=== PATIENT | female | born 1955 | race Caucasian/White ===

== ENCOUNTER 2024-06-12 07:17 | Outpatient (RCR) | payer MEDICARE, SELFPAY | END 2024-07-24 09:56 | disposition home or self-care (01) | LOC: PT 07:17 | DX: M25.551 Pain in right hip (principal) | CPT/HCPCS: 97110; 97140; 97162 ==

== ENCOUNTER 2025-01-13 11:14 | Outpatient (OUT) | payer MEDICARE, SELFPAY ==
--- NOTE | 2025-01-13 | XR_ITS ---
The [place] [id number] Patient Name: JOSEMANUEL DAVIS MRN: [id number] date: 1955 Sex: F Assigned Patient Location: Current Patient Location: Accession/Order Number: [id number] Exam Date: 01/13/2025 11:59 Report Date: 01/13/2025 18:09 At the request of: MAC TURPIN Procedure: XR femur LT 2V EXAM: XR femur LT 2V HISTORY: LEFT FEMUR PAIN COMPARISON: Left hip radiographs 01/13/2025 TECHNIQUE: 2 views of the left femur. FINDINGS: Redemonstration of intact fixation hardware related to left intertrochanteric left femur fracture. No acute fracture or dislocation. There are degenerative changes of the joints and osteopenia. The soft tissue are grossly unremarkable. XR/XR femur LT 2V IMPRESSION: No acute osseous abnormality of the left femur. Electronically authenticated by: AVILA NAYLOR Date: 01/13/2025 18:09
--- NOTE | 2025-01-13 | XR_ITS ---
The [address] [address] Patient Name: JOSEMANUEL DAVIS MRN: [id number] date: 1955 Sex: F Assigned Patient Location: Current Patient Location: Accession/Order Number: [id number] Exam Date: 01/13/2025 13:05 Report Date: 01/13/2025 17:50 At the request of: MAC TURPIN Procedure: XR elbow LT min 3V EXAM: XR elbow LT min 3V HISTORY: LEFT ELBOW PAIN COMPARISON: None. FINDINGS: 3 views of the left elbow were obtained. There is a transverse fracture involving the radial neck with sclerosis and blurred margin of the visible fracture line. The articular surface appears smooth in contour. No dislocation. No significant joint effusion. XR/XR elbow LT min 3V IMPRESSION: Healing radial neck fracture. Electronically authenticated by: MAC HARPER Date: 01/13/2025 17:50
--- NOTE | 2025-01-13 | XR_ITS ---
The [address] [address] Patient Name: JOSEMANUEL DAVIS MRN: [id number] date: 1955 Sex: F Assigned Patient Location: Current Patient Location: Accession/Order Number: [id number] Exam Date: 01/13/2025 11:20 Report Date: 01/13/2025 17:49 At the request of: MAC TURPIN Procedure: XR hip LT 2V w/ pelvis EXAM: XR hip LT 2V w/ pelvis HISTORY: LEFT HIP AND PELVIS PAIN COMPARISON: X-ray right hip 06/07/2024. FINDINGS: Single view of the pelvis and 2 views left hip were obtained. 2 views left femur were also obtained. There is background of demineralization. SI joints and hip joints appear symmetric. Pelvic ring appears intact. Mild degenerative changes noted in the lumbar spine. Several rounded calcifications noted in the pelvis which appear similar to prior, likely representing phleboliths. Dedicated left hip demonstrates postsurgical findings of ORIF left hip fracture with intramedullary nail, 2 hip screws and distal interlocking screw in place. Distal femur appears intact. Degenerative changes noted of the knee. XR/XR hip LT 2V w/ pelvis IMPRESSION: Postsurgical findings of ORIF left hip fracture. Electronically authenticated by: MAC HARPER Date: 01/13/2025 17:49
== END 2025-01-13 11:15 | disposition home or self-care (01) ==
LOC: EC 11:14
PROVIDERS: Visit Provider Orthopaedic Surgery
DX: M25.522 Pain in left elbow (principal); M25.552 Pain in left hip; S52.135D Nondisplaced fracture of neck of left radius, subsequent encounter for closed fracture with routine healing; Z98.890 Other specified postprocedural states
CPT/HCPCS: 73080; 73502; 73552

== ENCOUNTER 2025-01-21 09:55 | Outpatient (RCR) | payer MEDICARE, SELFPAY | END 2025-03-06 07:21 | disposition home or self-care (01) | LOC: PT 09:55 | PROVIDERS: Visit Provider Orthopaedic Surgery | DX: S72.002D Fracture of unspecified part of neck of left femur, subsequent encounter for closed fracture with routine healing (principal); M25.552 Pain in left hip; M79.605 Pain in left leg | CPT/HCPCS: 97110; 97112; 97116; 97163 ==

== ENCOUNTER 2025-02-10 10:30 | Outpatient (OUT) | payer MEDICARE, SELFPAY ==
--- NOTE | 2025-02-10 | XR_ITS ---
The [address] [address] Patient Name: JOSEMANUEL DAVIS MRN: [id number] date: 1955 Sex: F Assigned Patient Location: Current Patient Location: Accession/Order Number: [id number] Exam Date: 02/10/2025 13:10 Report Date: 02/10/2025 13:12 At the request of: MAC TURPIN MD Procedure: XR hip LT 2V w/ pelvis Left hip 2 views 1 view pelvis. Reason for exam: Left hip/pelvis pain status post surgery in October. COMPARISON: Left hip series 01/13/2025. FINDINGS: Left hip hardware is partially visualized on today's study without hardware complication. No change in alignment of the left hip fracture with interval sclerosis suggestive of healing response. Mild degenerative changes of the hips and SI joints. XR/XR hip LT 2V w/ pelvis IMPRESSION: Healing left hip fracture. Impression dictated by: Morgan Matamoros Jr., D.ORolly02/10/2025 1:12 PM Dictation Location: [employer] Electronically authenticated by: [id number] Y Date: 02/10/2025 13:12
--- NOTE | 2025-02-10 | XR_ITS ---
The [place] [id number] Patient Name: JOSEMANUEL DAVIS MRN: [id number] date: 1955 Sex: F Assigned Patient Location: Current Patient Location: Accession/Order Number: [id number] Exam Date: 02/10/2025 13:14 Report Date: 02/10/2025 13:19 At the request of: MAC TURPIN MD Procedure: XR elbow LT min 3V LEFT ELBOW - 3 views CLINICAL HISTORY: S52.125a closed nondisplaced fracture of head of left radius COMPARISON: Left elbow 01/13/2025 FINDINGS: No joint effusion. No focal soft tissue abnormality. Radial neck fracture is grossly unchanged alignment with fracture line less conspicuous suggestive of healing response. XR/XR elbow LT min 3V IMPRESSION: HEALING RADIAL NECK FRACTURE. Impression dictated by: Morgan Matamoros Jr., D.O.02/10/2025 1:19 PM Dictation Location: [place] [address] Electronically authenticated by: [id number] Y Date: 02/10/2025 13:19
--- OUTSIDE RECORDS SUMMARY | 2025-02-10 10:40 | XMS_ITS | CCD ---
Author Organization [facility] Care Team Providers Care Chain Tender Name Role Phone CAMILO, DR TANESHA Alexander Admitting Unavailable CAMILO, DR TANESHA Alexander Attending Unavailable MISC, DR ELMORE Primary Care Unavailable CAMILO, DR TANESHA Alexander Consulting Unavailable FELICIA COLLINS Consulting Unavailable ZHOU, DR ELMORE Primary Care Unavailable BERHANE ARROYO Admitting Unavailable BERHANE ARROYO Attending Unavailable DR MELODIE QUIROZ Consulting Unavailable MD Armida Greer II Attending Provider Armida Greer II Unavailable MD Billie Shafer Primary Care Provider [phone] DO Alex Doll Attending Provider Alex Doll Admitting Unavailable Alex Doll Attending Unavailable Billie Shafer Primary Care Unavailable Armida Greer II Admitting UnavailArmida Martin II Attending UnavailBillie Martinez Primary Care Unavailable Alex Doll Admitting Unavailable Alex Doll Attending Unavailable Billie Shafer Primary Care Unavailable Alex Doll Unavailable ROSITA CARTER Attending Unavailable ROSITA CARTER Referring Unavailable Billie Shafer MD Primary Care Provider BILLIE SHAFER MD Attending Unavailable BILLIE SHAFER MD Primary Care Unavailable BILLIE SHAFER MD Admitting Unavailable BILLIE SHAFER MD Admitting Unavailable BILLIE SHAFER MD Primary Care Unavailable BILLIE SHAFER MD Attending Unavailable BILLIE SHAFER MD Primary Care Unavailable Longo PAC, Justin N Admitting Unavailable Longo PAC, Justin N Attending Unavailable BILLIE SHAFER MD Attending Unavailable BILLIE SHAFER MD Primary Care Unavailable KEIRA DAVIS, BILLIE Hernandez Primary Care Unavailable KEIRA DAVIS, BILLIE Hernandez Attending Unavailable KEIRA DAVIS, BILLIE Hernandez Primary Care Unavailable KEIRA DAVIS, BILLIE Hernandez Attending Unavailable KEIRA DAVIS, BILLIE Hernandez Primary Care Unavailable KEIRA DAVIS, BILLIE Hernandez Attending Unavailable KEIRA DAVIS, BILLIE Hernandez Attending Unavailable KEIRA DAVIS, BILLIE Hernandez Primary Care Unavailable KEIRA DAVIS, BILLIE Hernandez Primary Care Unavailable KEIRA DAVIS, BILLIE Hernandez Attending Unavailable KEIRA DAVIS, BILLIE Hernandez Admitting Unavailable KEIRA DAVIS, BILLIE Hernandez Primary Care Unavailable KEIRA DAVIS, BILLIE Hernandez Admitting Unavailable KEIRA DAVIS, BILLIE Hernandez Attending Unavailable KEIRA DAVIS, BILLIE Hernandez Admitting Unavailable KEIRA DAVIS, BILLIE Hernandez Attending Unavailable KEIRA DAVIS, BILLIE Hernandez Primary Care Unavailable Allergies Allergy Classification Reported Allergen(s) Allergy Type Date of Onset Reaction(s) Facility (5 sources) nickel; Translations: [nickel] Drug Allergy 01-10-2023 [facility] Medications Current Medications Medication Drug Class(es) Dates Sig (Normalized) Sig (Original) biotin 2.5 mg oral capsule (4 sources) Start: 01-10-2023 take 5000 ug by mouth once daily Biotin Active 5000 MCG PO Daily January 10, 2023 12:00am Biotin Active Calcium (2 sources) Phosphate Binder, Calcium Calcium Active calcium carbonate 1250 mg chewable tablet (2 sources) calcium carbonat e (Os-James) 1250 (500 Ca) MG chewable tablet Chew 1 tablet in the morning and 1 tablet before bedtime. Active Calcium Citrate Malate-Vit D3 (Calcimate) 500-200 mg-unit Tablet (2 sources) Start: 01-10-20 take 1 tablet by mouth twice daily Calcium Citrate Malate-Vit D3 (Calcimate) 500-200 mg-unit Tablet Active 1 TAB PO Twice daily January 10, 2023 12:00am diclofenac sodium 0.01 mg/mg topical gel (3 sources) Nonsteroidal Anti-inflammatory Drug Start: 09-28-20 Voltaren 1 % Apply 1-2 grams to the affected area Externally 4-5 times a day for 30 days PRN Sep, Active Eye Vitamins - (3 sources) Eye Vitamins - a s directed Orally Active Eyepromise Restore (2 sources) Start: 01-10-20 23 take 1 capsule by mouth twice daily Eyepromise Restore Active 1 CAP PO Twice daily January 10, 2023 12:00am magnesium citrate 100 mg oral tablet (2 sources) Start: 01-10-20 take 100 mg by mouth once daily Magnesium Citrate Active 100 MG PO Daily January 10, 2023 12:00am meloxicam 15 mg oral tablet (5 sources) Nonsteroidal Anti-inflammatory Drug Start: 09-28-20 take 15 mg by mouth once daily in the evening Meloxicam Active 15 MG PO Every evening January 10, 2023 12:00am Multi Vitamin Daily - (3 sources) take 1 tablet by mouth once daily Multi Vitamin Daily - 1 tablet Orally Once a day Active multivitamin (Theragran) tablet (2 sources) take 1 tablet by mouth once daily multivitamin (Theragran) tablet Take 1 tablet by mouth Daily Active Multivitamin-Minerals- Lutein (Multivitamin 50 Plus) Tablet (2 sources) Start: 01-10-20 Multivitamin-Mineral s-Lutein (Multivitamin 50 Plus) Tablet Active 1 TAB PO Twice daily January 10, 2023 12:00am potassium 99 mg extended release oral tablet (2 sources) Start: 01-10-20 take 99 mg by mouth once daily Potassium Active 99 MG PO Daily January 10, 2023 12:00am potassium bicarbonate 25 meq effervescent oral tablet (2 sources) potassium bicarbonate (K-Lyte) 25 MEQ effervescent tablet Take by mouth 1 (one) time Active ubidecarenone 10 mg oral capsule (4 sources) Start: 01-10-20 take 1 capsule by mouth once daily Coenzyme Q10 (Co Q-10) 10 mg Capsule Active MG PO Daily January 10, 2023 12:00am co-enzyme Q-10 3 0 MG capsule Take by mouth Daily Active Problems Active Problems Problem Classification Problem Date Documented Date Episodic/Chronic Abdominal pain (4 sources) Left lower quadrant pain; Translations: [LEFT LOWER QUADRANT PAIN] Onset: 10-30-2021 Episodic Anxiety disorders (1 source) Anxiety disorder, unspecified; Translations: [ANXIETY DISORDER UNSPECIFIED] Onset: 12-09-2020 Chronic Diverticulosis and diverticulitis (2 sources) Diverticulitis of intestine, part unspecified, without perforation or abscess without bleeding; Translations: [DVTRCLI PRT UNS NO PERF/ABSC W/O BL] Onset: 11-02-2021 Chronic Essential hypertension (1 source) Essential (primary) hypertension; Translations: [ESSENTIAL PRIMARY HYPERTENSION] Onset: 12-09-2020 Chronic Fracture of neck of femur (hip) (1 source) Fracture of unspecified part of neck of left femur, initial encounter for closed fracture; Translations: [Fracture of unspecified part of neck of left femur, initial encounter for closed fracture] Onset: 12-26-2024 Episodic Osteoarthritis (4 sources) Osteoarthritis of right knee joint; Translations: [Unilateral primary osteoarthritis, right knee] Chronic Other aftercare (1 source) Encounter for removal of sutures Episodic Other connective tissue disease (2 sources) Trigger thumb, right thumb Episodic Other non-traumatic joint disorders (1 source) Pain in right knee Episodic Residual codes; unclassified (1 source) Other specified postprocedural states Episodic Unclassified (1 source) Trigger thumb, right thumb; Translations: [Trigger thumb, right thumb] Onset: 01-17-2023 Unclassified (1 source) Encounter for preprocedural laboratory examination; Translations: [Encounter for preprocedural laboratory examination] Onset: 01-10-2023 Unclassified (1 source) Pain in right knee; Translations: [Pain in right knee] Onset: 09-28-2022 Past or Other Problems Problem Classification Problem Date Documented Da te Episodic/Chronic Cardiac dysrhythmias (4 sources) Palpitations; Translations: [PALPITATIONS] Onset: 12-08-2020 Episodic Fracture of lower limb (2 sources) Closed fracture of talus; Translations: [Displaced avulsion fracture (chip fracture) of left talus, initial encounter for closed fracture] 07-23-2024 Episodic Other connective tissue disease (2 sources) Pain in left foot; Translations: [Pain in left foot] 07-23-2024 Episodic Sprains and strains (2 sources) Sprain of ankle; Translations: [Sprain of unspecified ligament of left ankle, initial encounter] 07-23-2024 Episodic Results Test Name Value Interpretation Reference Range Facility Coding Summaryon 01-28-2025 Coding Summary HTMLBase 64 WwugqownOYt5gPv+PGhl YWQ+RB3OOVTrA40hiVVu kL0mJ9JIXYmTZzobGKAM AShPMfJjvaCyEI9cuOLk ZXJu IC8+IP1vILIiGxzmjFNz x3S8sGE7P55ahp5kRItu yEG3GQZzNbFlypqvt5fe nUc6SZbgTfsdRqMf TDVtfG59NBQ5rF87Qf48 pTPxpHYgm9umuIe6KrHn XQXsSOH4qUxkNXedq3Ur WMFhN76noNBmp3M1 IGNvbGxhcHNlOyBlbXB0 lX6tGGzkgwrsh7qdshrr Hvy4ng02lKFkc0K8cOF0 O3EwjaH7JUOypDLp TentbLRWhU7lvhttw8nd zrzbPrFeQHVtDGk7DEx2 ZOUueCjrIuKuGQ65FHJ2 ZRFelkEuQ6HmMZZt jVgmApV6j9A1Rt8LI4II NbrpU4ICJDUCCEnndAJ+ VT32xq79L4WvElzbJsm3 BYTnOAQ0zRR3wI7o ZTWxZUnjr4Q7gPT0A4Ql igCrhq6hh3dlQJEuKDvp E13ymZLbw2J5TVFvwJK9 HEYedTnnGlHrrF88 Oyc+APUxjGcis9SuVpoi n9sqi0irqMb2MjbjZBNh oaYkpJapTRH1k2IuYb5m VYBtoDZ4hSW7hZ7n KuWgTzI1VYinE669SgJc hJJjVxwhQ49bX1NpkDP+ KCLbWks7BGDjxPfwMB5t M7YsEIKawnvkfEIu vBlfHC6aCCFgypqzIWQz lO1lNEJkB1f0NnLxLsR1 UTinM8UvQCKllbadSh30 eN2xTyNhOpZ1CZxu X7DzpkH6MEQapDHaFIkd OPY1D66ab3D1JLFtXCKz FAX5iCY9aU3rqYyjyomb bGVmdDsgdmVydGlj GDawAJpbM136JMRmrMdv PkNvZGluZyBEYXRlOiAg MDMvMDQvMjAyNTwvdGQ+ WTGzMNA5yYwjLBJq dDBiELhbWc7ewLvznRev HG6hIIEfyxrpASMbcE4j NSYjiXWnlZgnUJ9tUBCn xtopk355EtFsWJY6 YRKmxDZdI1SrmM7aEyOv HQHeUCFfJ9LiiQQxMSzd G406EIyiPwH4LCYsucSj U1OcKIGfnQxiCsV5 a9E6Fj3Nq1TbjnfqO5Zp jUJqTlSbEcqgMIz7P5Bz PjwvdHI+QY31AOMmAF43 DWo2RDQ8nJklADkf MFYxW2ZzbD5kPvHtEVEh ZGRkOyc+PHRhYmxlIHdp ZHRoPScxMDAlJyBzdHls JV0gAm6jATCfKUKh hAkvhBTtUpOzh3wzMJSn JAplYG0gfCzoK6TjlHM0 OOJzb0t6Wc23N19pM5Io dXA+YVCvjPC9kNX7 kS7oTnIzNdK5XYolD006 LyPwuFEuRvszt5fbc7zv kLp3NcJ1OPAmdjYjcDrx LVN0s8AyPi71K22q IHdpZHRoPSIxNSUiIHZh lUqrnq0uwO6uKn2+PGNv jCM3ePC4sV5fMrLdKtY1 MRdxX500EcFzyEBq Fugio6ucs0erzFi6XkIj OXJfhqYgoQfzPIR8l1Qe Yg25C1WmqPtsc4AiYss5 lr59lDBcm8B5rMD1 G1UfSPRvqfsqmIIyoZqu ED2yGIPysnbdRYShbU8g URTkS1f7EaRfCkH4JLcp S5PcrxC1LNEvxLBh PVDetFQHjP6fixyud7le bkhbByOfXFRcVQp4AFo2 LCRxpWxnJrIePZX0TkS9 GTW9mDStuD9raSnh ihbsfP6gAuq+QQE0lRZq oNLGGN8rUsegnSQ+PHRk ODQ3xLvlEAzrPOMgcR3v WTHoQ6t9NoQlGjL5 DQdqW4FtjjQ1QYUhfMFx GLQpkKOHvK8cygizi2iz vqaqDiQsAHDrFPs0JQq3 LWFsaWduOiBsZWZ0 KtV2BZP8cXXdlM3chGom xcupeL3tNvx+QmlydGgg YXU7LZk2O5FkXel0IEQm xPfoEA1wvOCkHWms Rh2oxJnhrKnhXM1bRFRe yybpm027EaFbm9niPJVz qKYxAHgmILJ7V28re1F7 KNHmQXZzZCO3uUQ8 zZ2luOrrjvdroOQswNey ijBolAzkYOhuYJiaK737 MQLpdSanBkRyUZp1S5My Afj2NDFjpPqjYP4h aWOnDZpoZy6bbWgsjJea NE6uHWVlnhxyt871JsPn c0ulNHRgyMGcILdbGIH2 I32zg2P7LAFkELXx GRM7lMC6fM8aeBsertto bGVmdDsgdmVydGljYWwt TFntE671AYCxuEldDvRq hQo5T1TmUrn8SRDl kQigQI2bcSCkFNjcPm0m cTfgeOsaYZ2yRMWijduz i540XoZkh2rvOVCxmCEt KKuxKBO5A60mm9A3 TDHoCMKgAIA8rJD0fH4q bGlnbjogbGVmdDsgdmVy gFvkMXkkETnxT397BLNq cDsnPlBhdGllbnQg GKipNWv7G8BtQdjhnPT+ US89DRKzAC96yEGzjHSq d6gmuRx9XrPaGBFjEIA9 wRouUKpey0PqYIEk K50svCBzz4C5TOHztMnu qOWpDuHawEU5mP8mFBfw lcrjl5laduvzSnzyv6ru xb18xR15A70jTDqz ZHRoPSIzMCUiIHZhbGln up6cwT2gZs5+PGNvbCB3 sXC6oG6wZAPaHvK8XAid U428UuBdcTOpNeur c8mrb1oyoAb3DlR0YRQf qaGzdLqhPVP5n8SaZn06 F21nSTjiXHVnXKFyXAFy JTEesAongj1nmZ9n Ii8+YMLxrPU3gIK2zQ7y YfHwIhQ0XWhrR735KhVi yMPuKildE32hE3XafYE+ ILXrDuw5OQRcjGtz YV7wuAVwCEazIg1zWAC1 PlFjPxMhNPhlP4LuQFCk kgnrilxsvWC1HDHyZLMw nS63Bs6szRolIBBn oYVBdJ6ubdjwl0cpnfez TfVdJDUsTCl3YXl3FDQx tTtuFwRdPYE6CqP2EDD5 aABewH9jeZibbedn bC6nV6ZuIDVdxkddJm88 vD0vOkUxWaX8DNnkTkl+ P33GTXUTPRLVQHuGEHQV YPBPX7E3Y4PuTqx6 XWHvqHkbMR8avTSvVRdd Sh5sfCihqApwJK4xWLCq zbjjEPNluE3sMGMvvSQa eIanOB2nYBBxgxcq u763WsNyQZJ8BOGedSYz X4JugQ4wJfHvDPFvXNYk M0SiiCEzMSotM290UDfh KeY2WPIjlkHsA3Ey WHEvkYetDpW5x1S4Ki1z Fi6iVN0qSJN5UT82HR76 nHOjg2V7sQE9Z7YhGPHq nvasrbrcdED5RZFa TORbeA97nKBoQYeoDo2v v2J3j092ONIxQMXjaD90 Uo3xrLnoLJAwuRRQvW9d tzxnj0ojvtqfUnZs DQMlTDf4RKn3XUJtlFnx YrMnCGG5UyV9NNW4sWHx vV6qkTczxesudO8xYen+ BwGqCMYowfM1F3Jd Yzc7XGVuiHuoLV0ofADp WUcwOg4pxSclcEgoMF4m LCUjxialHGOogL3pMBSh jHUkdMnuJF8vKLFt tlamm536SuLvAUA7OYCk tMTuA8CdzX8cWgXsDELk THHiW7LyrSUbEJivW465 UGwdQwY7DZLcaqBa S8OmWRPboMnjXjB2x9Q7 Sy9JVS9PLOB8W0MvDrk6 RWTxmFasOX0etNGnWIgg Ta4tiXzdeMibIV6e APAxbnxeDFAoxV0dMPZc iIRgjFfvZN1dKFAorkgx j827JyUcUBR8LVKbtHRb K6QmsG9uDaYeLKRa TLKtG6IvbITjJHkhK690 QXnvOhS9UDWdieMhY7Vl QMKdoUjyFaZ4i9K8Hw4B UDwvdGQ+ZE72ku75 J3JeResrIwh5GQQpCOY6 oWD9yU3tDDTnILfjy8T3 oEU5F7LukuLsor3ys0gy JSHwJYflM84jzUYa d5A5JFQowSQ7KVMtwRsj BeOewU23Acz+PGNvbGdy e0KvJnoyj8toh1yowBq4 IjMwJSIgdmFsaWdu XJA7n2InVz71N21sSGgl ZHRoPSIzMCUiIHZhbGln wh6zcL4sZc4+PGNvbCB3 sAW1rP0jHjMiXeV2 XMfaT208UlCueJDdHytr a2lol6fwcOb2KxDgAZFz vvZygOrxJDQ0v7KsXy42 M6YyoHygu3TfUpu1 da74vULeo2V1tQY2E3Ai EAUmdvxleBFsiKqyTV6r JILolmszAFNmbZ3tSFEy W9w4DeBvIlI4WYkd I4ZgdgV9VZSscFSmKPTy ySSKtU6bcakpo8eqhkbx PqInDTZfCYp6CMp2ZOTl aOsqVgGvVEB7XhF1 CIH6rDSxmN7ooXtaszgw mN0eCjh+TOe1i9kekEMt GU7nwXF5HC98OG28sGYw i3L0nKZ2Y1WlIGEg xcfsnyeutLB1OWLeZUOl wC29Kj6pxJlaXm2iTBKl FRN6FAPtsWUmB5PyiZ9p UeGgQNPyEACdX4Um wHOlKVuoY434DFncDbH9 GZEwkrMxC6OdZRTccGft ScU9h0T5Br3OCT05HK39 GI07rUTeq6C6mLH0 G7SkPXOksepcqtqytKY5 KOSrBBPngF65Bk8crJxi Ts9aFVYsJTI5PFZtnDUn D4VwmQ7dIxCqLDXm OVFhB3ZwwTWcEBfhD222 QEaeGsS9VGUpanFnR8Qs OCRawKmsHzA7u2W2Ic2A Ob21AH20XQ90oDZs s8G8lCW4X9RaJZXkiguq fpztyYO3VLIeQPXqvQ60 Lv0cgBoyJs5iOEItNSZ0 POUwaXIfO8KviK2z WyAlGZMxIORtH1AwsJYl JHvpS402QEtlCxW7DCAb vcYkV7FzQLRvtAhjBtD6 o7O2Wc1OWDsiafr7 J3CyQlnqxNY+YT78SXZy IS35iTLhoJLsk2hgrWu5 NgOlUXJwPOR3tLvuDNwx f6ArGAAdZ44dcHEf c2U (more content not included)... [facility] Outside Recordson 01-21-2025 Outside Records [id number] [email or web address] [facility] Ambulatory Patient Summaryon 01-20-2025 Ambulatory Patient Summary [address], [address] - Visit Summary For CLAUDINE DAVIS Age: 69 years Sex: FEMALE : 1955 Address: [facility] [place], [address] Home: Work: -- Primary Care Provider: BILLIE SHAFER MD Race: White Ethnicity: Not or Language: Kitt[place] Health Plan: 1?MEDICARE, 2?[employer] AAR, 3?MEDICARE Reason for Visit: Pt. comes in with abdominal pain Prescription Information: If you have been given a prescription for narcotics, seek immediate medical attention if you have any difficulty breathing or any sudden status changes such as confusion and sleepiness. If you or anyone you know is experiencing suicidal thoughts, mental health, alcohol and/or drug addiction problems; contact the [facility] 19/06 Crisis Hotline -Text 4HOPE tt [phone]. Follow-Up Information Future Appointments No Future Appointments Scheduled Future Orders No future orders Additional Goals and Instructions: Vitals and Measurements this Visit (last charted value for your 01/20/2025 visit) Vital Signs This Visit Temperature Temporal: 37.4 DegC Peripheral Pulse Rate: 78 bpm Systolic Blood Pressure: 136 mmHg Diastolic Blood Pressure: 78 mmHg SpO2: 97 % Measurements This Visit Height/Length Measured: 160 cm Height/Length Measured (inches): 62.99 in Weight Measured: 76 kg Weight Measured (lbs): 167.551 lb Weight Dosin.000 kg BSA: 1.84 m2 Body Mass Index: 29.69 kg/m2 [place] Body Weight Calculated: 52.382 kg BSA Measured: 1.84 m2 Diagnoses This Visit Diverticulitis (K57.92) Laboratory or Other Results This Visit (last charted value for your 01/20/2025 visit) No Laboratory or Other Results This Visit Medications and Immunizations Administered During This Visit No medication administered during this visit All Known Current Prescriptions and Reported Medications New Prescriptions this Visit amoxicillin-clavulan ate 875 mg-125 mg oral tablet (amoxicillin-clavula elijah) Take 1 tab(s) Oral (given by mouth) Every 12 hours scheduled time for 10 Days, 0 refills authorized Flagyl 500 mg oral tablet (metroNIDAZOLE) Take 1 tab(s)(500 Milligram) Oral (given by mouth) every 8 hours. for 10 Days, 0 refills authorized Prescriptions No previous prescriptions documented Home Medications Calcium 500 mg-vit D 400mg (calcium-vitamin D) Take 2 tab(s) Oral (given by mouth) 2 times per day celecoxib 100 mg oral capsule (celecoxib) Instructions: TAKE 1 CAPSULE BY MOUTH EVERY 6 HOURS NEEDED FOR PAIN- WITH FOOD OR MILK CoQ10 300 mg oral capsule (ubiquinone) Take 1 cap(s)(300 Milligram) Oral (given by mouth) every day eye vitamin and mineral supplement (multivitamin with minerals) Multi Vitamin+ (multivitamin) Take 1 cap Oral (given by mouth) every day POTASSIUM OTC (Misc Prescription) Instructions: daily psyllium Take 5 cap(s) Oral (given by mouth) 2 times per day Tylenol Extra Strength 500 mg oral tablet (acetaminophen) Take 1 tab(s)(500 Milligram) Oral (given by mouth) every 4 hours. as needed for pain Normal [facility] Coding Summaryon 01-20-2025 Coding Summary HTMLBase 64 KlrfzndbSUp7tWk+PGhl YWQ+EG5SUEJcC82vmQJt sO2fA6ZWFFoXZdrbIFIV HBlRBgSbcyHpQY7hoMRu ZXJu IC8+VO0hOERbBbspkATg h0S6cZH8V06rju9sCTsj hJT8OIRqDsCjsjsqp3ji qIt3SWuuOerqXiGd SJTamQ01NVY8cY10Zn88 iGPdbIVcc4ylgUd4SwYr ZFVnLGT4aAxjVZrqq8Ho TABkU52evOWle1I4 IGNvbGxhcHNlOyBlbXB0 vF1nJAbbvovxr2yxsagh Mwf2bl40wKYps4O8dCN1 T4QwbwV3FZVteHYl TonwcSFOiP4tdkzad1tl vcmtDrJcCZYeVPu4LKj4 SMModTkgVyLnMW52YLN8 XHBqohKzK6TgLSHn nVisQsO5f4D5Ns1ZC8QU BnavA9BLUIIEGQpsmTA+ OR06hi93M6XzOhakHwi0 MUJvDID6fCE5fE5f NXRkGKvhn7L8cEE9E0Nh nxDqvl1rh9woCAGvTEvv X26zoHDft0U7EFSszOG3 BFMagFplOjGnoN77 Oyc+KYNtyEttc7OqRibk u0qgx3iesDx7XpqrJETa zvYvkMznCRI9o9MwZo6x MMLegUN8qMT3cC9i YzXiYkB4SZleZ808PsFg jLUwGzwnA67pZ4VjgQK+ JDFjDpj7QOAhqOuxQC0n L9HsKNRsjfsppTMc fBafTM9qQJAyajatVWGk iQ9qVQTkX7v9SmUrBvI4 XQhrU0AnDIUnmhduKy67 gI4aZiKcRsS1JIug E8WutwY8FKAnrHFaTKea CIS9C21ti5G1YLBgAWOa MPV2sAW8nK9nhXibdddw bGVmdDsgdmVydGlj BUmpVPnbZ876THLnsSxt PkNvZGluZyBEYXRlOiAg MDIvMjQvMjAyNTwvdGQ+ QXWoORN5nJosVXMx aITwRBoaIs1htSimiCee UV5gCVFvwbwjWYTuiD4c EXMtfTCpjMvoZV0cPXNm eyvmw781TlMoGGF0 ECDtmOOwD4RgfV5jPrAd RRLgZPJiT2YodNWzMOzb U668PIeiNpM6ZZFkpaNj V0DoHGChjApaWrD9 x6S9Ki3Zz0RkjycrC1Su xKHoBaSoSkqaUYx5A9Lq PjwvdHI+FM57YBWsYJ91 FKl8IIP3xBwvZTbn FITrO6EirK1iYiYlLVBg ZGRkOyc+PHRhYmxlIHdp ZHRoPScxMDAlJyBzdHls ZO4dMk3bWMUkAIAu jYorqYRnNtNwx0zoASOi VClwQT4mdJmrH4VbnKD8 YHFil2o6My63Q03kH2Bg dXA+NQRztON6kJH2 eL3lElItHgA6RMhpE296 AvGkhLAaMedrw2lli5ui oBg0ZkK3TSJwrxPliAyw PXG9q5GyEr59U59h IHdpZHRoPSIxNSUiIHZh kNtswc1qpL1nYi5+PGNv aQU4dUZ0rK3oGaOcRtQ0 AOycJ505BbNfzKLq Xxlml2cjz2ejdGv4YmQm GCFfwtIqqTgwXKC8j6Ih Ko25A9KfzRrdo5ClPxm2 lm79cRDgw4I4tZL3 B9CwNQQiupgvrPCjsYwu DK3uERWgfzciKBWgsC6q NCReX2e8UaZdWdV3VRsl X4FsebX5AJNroFHu OFSphOHWbC4jmpfkp8gh vfwcPjXfCYPuGVe8VFn5 SILghBbfSsXkMNA6HmQ0 UTY9lJSwbU5vmEbn ksovwE7iOny+BEY4zEUv gEYBQF5zHzwoaMD+PHRk NRA3qAgoCMwsKCYzjF7d OLIyE5y6GaUuFuF8 OPyqD3KeleP5JEJnoBIh LIJwmIDCgE7ibvfge2df trxwZcUpAKUnELr7DDk7 LWFsaWduOiBsZWZ0 ZvO8IPN2vLObeJ7ndZyf orbetI2lOoa+QmlydGgg KLF0DXm6Z7PwZik4SUQo aYclSZ3cxEJpEIls Qw2egXgehGozWP9aXSDh nmghu261UuVyh1mpDKFi pQVuWXdsMXM2F72tm8Y0 EONlBEQlMTB8uOH5 fF9reWjkgvdwaLQiiTcw xmHamGpdNXqvSUjzI219 GYGpxAknVkXrHIs6E1Qx Ahi7HKTjjAsvUA9w wOHsBZftYy4mwGpzcCba IN4tPYDxqxupi107GeUj n9lkUSRraEUrJGypPWP0 X62xj1H6VBFfKTJw LII3cAG9qQ8kjVvsgpkn bGVmdDsgdmVydGljYWwt WAegU742AMOkfZvqXxHp lZx0B9LsXoq0IBMj eTvqUG5tjDDwQCgmAu1t bSrszJhzFA6eCSCnxfyz o548SsKhe9vePTTizUPl VBawUJP0Z97ow0P2 QYZtDKVnLKS0tUH7tZ2y bGlnbjogbGVmdDsgdmVy xNexBOsoSFsnV145VNJm cDsnPlBhdGllbnQg BKmaLAc5G4OtEawymAA+ IQ75HRXmZY76aVErnMZn v9duxFq2YrWuMBBjHTT5 yErnFKfez3EgBBPc N04frIMun6N4IRBjrOce aCZkQeNvvRE7zA4vZHlw oynbc1ighfyyHimbe7bx sg39mS13E17rVGxt ZHRoPSIzMCUiIHZhbGln fp7drP0yEl5+PGNvbCB3 lAS4wR7dNKAwCjX1EBbt W487PoQdcIDeViwx u7vsi7yauHo3CuF0UCRb spRujFlkGAP8g6YzFc44 D55pRHidOKVeFOGkGEBw MMXolPfock6daK8r Ii8+CYXuiST0sUQ5kD7q XsPiLwS3SOffV321HlNl fUJoZpbaB34sV0TrtGT+ XLRaUct1MAJtdUmj PY4dlKOlEZesNs0hIXZ9 FdEzEdBqLQpeR8ExPFWr ziyfnaalbNX4NSZwFMAu rA45Ch6hdUfnIYDj pOLQzJ7zcireu9gshqil TaTqNHCrRLn3BPm7YGHj qAygJyZlNIU2VxW4XEF5 zRNaeA5skRbnkqqp nS6dQ3HiTZGecqmvTg66 sC0bMoJpGjO7TJrvTer+ N54DMUILUUXHZHkRZDUI UOLIF7Z4V8DeRut8 MVCtcIaaHG9bmIJjKKiq Qj5fiNgblGkuVM9tEZLj yqusTFUeoJ1aWCSbnHHs zLlrIH0zPJExycig h504JlBdYLS3GTNjvRSt M2LzsV8iKvJxRZXoSYYt A2VwdVJwGNktQ978UOsi EsI6IARocrIoO8Hz NIDzfYiqFbS3e1V2Nl6y Rw8qTF7nBHK2OF42QT70 sUXfu6P3qAQ4F0BgNXRb gglusuhvgFB4RRQx BXZwhC28eNKvYTakXl6e x4X9m378LBFyKJYkpI02 Gs7quRswXAVdeAABnW9j yfjyr5gneldtOlIl UTWoFLp3UGe6RPKruCud LyVmPPW9YtG7VAP8qSZx vC3tzFwivttrpT6oCif+ MhCwCLHtlzP4E9Xm Fzr6OSApuFuhRM3fuAOt RTifQf5bxUcrsXbfEK0g FGYkfugzZKLpwW5yMBLg wRPduQliST5hSCYh mhiwo390LsXmRZC2NWHd mMCzZ6BblJ3cLsUlOPWn QZDjL8XdoBDqOFweJ277 FMeaNoH6ZLFkutLe Q9UzRNHiaAmbVkT7i7M3 Rf5HAA6ARTL6H1MvKyk7 VVCqxRqoFS7ybKIiTLew Jj5rsLhljLvbWS2j DYXuhqbzHHOgoF5fVLHi zWMzwCxhMU6yCECmiseo z559HrUzQSD1UPHjrEEh Y3PmdX9cPxUqVYTn MBSxJ2KowOGbQMllG138 AMsxUmC5OIKwkwOqP5Fa GNLikQilMtQ1c5N2Rd7N UDwvdGQ+RH43bc62 B1SzEcbyDun9RVMzIJQ6 qFF1cD7hUCIcBVdig1G8 sIT2F5RewsYzfo2wj6ru EMBpCEwwC19zuYEe h1L2IRMfvZD9ZGUimBbv UqNiwO36Dza+PGNvbGdy z3CnPfzig3iqa2tpxSu5 IjMwJSIgdmFsaWdu HGR0c3DgCi33S54cVCui ZHRoPSIzMCUiIHZhbGln oe7alQ8pVc8+PGNvbCB3 mSU1lY4mSfMoKrX1 ISflA743IpJsdYWfDqst d9rmv2insNx1QnXpBYEj rhVnkUmaWJQ5w8NgMi51 J0HvdXeyb2PnErc3 wq29jYMrp9G0sIB4R7Ay CACbunikyIXzqXlqKD3r YVYnavbvYIJvaY3gJPSl T2t8SpPsJyL9JMla E9LbgyT8FEDbhAItSRSx dEBLaB9cqwlzx2mplnlj BwZaTSYdIXb7GVa5YPLi yGwcKlOtEWY5AsF1 GSM5tBGbfG1fuSzzkwti xA5cAeh+AJy7i6hleTIf QY5faFC1BY80IT95oNQs o9I2qIC0V5KpWSJl mtavpychyUV3PSNcGYCe iD34Ya1mhUkcZc7yUFDs KTL1CYPicSDfQ9HxgA2b IdSvYPGqDZEbD2Vo cXDaDUfxT194IBmxYaS4 RBOstyJzV6HmVDSilIpb JhM0x4I0Be6XDE33GX43 TG25mSLsa6U6oUR3 J1PyZWHzuaqpdqtvxLM1 ZGIbLKBspJ48Cf6inFmr Vc5iDLBjYDY3BJHxhZWg G0RprP8xOnFgSKWj WPPvM4HiyJKtPUflJ859 AFstPnJ3XLPifkMvK1En SJExsFrbJmA4u5Z7Kp9B Gd51CX82SZ45nXDo r7L4jEJ8U8TnDQNnzknw bulpkHD0FFViAZVmnO72 Ab0vvAlvEu6xFUWkURM4 WVPbsJWlU0NztF7h CzAnGKJjEELbK7QzmWCl STkoD894UDgfMfG4TEFz itQxK1LeMWItoCsxZvU3 n2M8Qe8WCWmxcgj1 H0EgNfjsxZT+ZS23MAAf VG79fUMrjMKpn4lfmLp6 KkEkARLaEND8sFbbTAtj n8QaUCPvT78ezZTp c2U (more content not included)... Normal [facility] Patient Handouton 01-20-2025 Patient Handout Gastroenterology Diverticulitis Diverticulitis happens when poop (stool) and bacteria get trapped in small pouches in the colon called diverticula. These pouches may form if you have a condition called diverticulosis. When the poop and bacteria get trapped, it can cause an infection and inflammation. Diverticulitis may cause severe stomach pain and diarrhea. It can also lead to tissue damage in your colon. This can cause bleeding or blockage. In some cases, the diverticula may burst (rupture). This can cause infected poop to go into other parts of your abdomen. What are the causes? This condition is caused by poop getting trapped in the diverticula. This allows bacteria to grow. It can lead to inflammation and infection. What increases the risk? You are more likely to get this condition if you have diverticulosis. You are also more at risk if: ? You are overweight or obese. ? You do not get enough exercise. ? You drink alcohol. ? You smoke. ? You eat a lot of red meat, such as beef, pork, or reis. ? You do not get enough fiber. Foods high in fiber include fruits, vegetables, beans, nuts, and whole grains. ? You are over 40 years of age. What are the signs or symptoms? Symptoms of this condition may include: ? Pain and tenderness in the abdomen. This pain is often felt on the left side but may occur in other spots. ? Fever and chills. ? Nausea and vomiting. ? Cramping. ? Bloating. ? Changes in how often you poop. ? Blood in your poop. How is this diagnosed? This condition is diagnosed based on your medical history and a physical exam. You may also have tests done to make sure there is nothing else causing your condition. These tests may include: ? Blood tests. ? Tests done on your pee (urine). ? A CT scan of the abdomen. You may need to have a colonoscopy. This is an exam to look at your whole large intestine. During the exam, a tube is put into the opening of your butt (anus) and then moved into your rectum, colon, and other parts of the large intestine. This exam is done to look at the diverticula. It can also see if there is something else that may be causing your symptoms. How is this treated? Most cases are mild and can be treated at home. You may be told to: ? Take pdpz-pan-wngmkjk pain medicine. ? Only eat and drink clear liquids. ? Take antibiotics. ? Rest. More severe cases may need to be treated at a hospital. Treatment may include: ? Not eating or drinking. ? Taking pain medicines. ? Getting antibiotics through an IV. ? Getting fluids and nutrition through an IV. ? Surgery. Follow these instructions at home: Medicines ? Take utcs-uon-nvlybuq and prescription medicines only as told by your health care provider. These include fiber supplements, probiotics, and medicines to soften your poop (stool softeners). ? If you were prescribed antibiotics, take them as told by your provider. Do not stop using the antibiotic even if you start to feel better. ? Ask your provider if the medicine prescribed to you requires you to avoid driving or using machinery. Eating and drinking ? Follow the diet told by your provider. You may need to only eat and drink liquids. ? After your symptoms get better, you may be able to return to a more normal diet. You may be told to eat at least 25 grams (25 g) of fiber each day. Fiber makes it easier to poop. Healthy sources of fiber include: ? Berries. One cup has 4?8 g of fiber. ? Beans or lentils. One-half cup has 5?8 g of fiber. ? Green vegetables. One cup has 4 g of fiber. ? Avoid eating red meat. General instructions ? Do not use any products that contain nicotine or tobacco. These products include cigarettes, chewing tobacco, and vaping devices, such as e-cigarettes. If you need help quitting, ask your provider. ? Exercise for at least 30 minutes, 3 times a week. Exercise hard enough to raise your heart rate and break a sweat. Contact a health care provider if: ? Your pain gets worse. ? Your pooping does not go back to normal. ? Your symptoms do not get better with treatment. ? Your symptoms get worse all of a sudden. ? You have a fever. ? You vomit more than one time. ? Your poop is bloody, black, or tarry. This information is not intended to replace advice given to you by your health care provider. Make sure you discuss any questions you have with your health care provider. Document Revised: 08/10/2023 Document Reviewed: 08/10/2023 [employer] Patient Education ? 2023 [employer]. [facility] Outside Recordson 01-15-2025 Outside Records [id number] 0#1.00OTGTIFF [facility] Hemogram Standardon 01-14-20 25 Erythrocyte distribution width (RBC) [Ratio] 15.7 % High 11.5-15.0 [facility] Comment on above: Performed By: #### 1 [id number] ####[facility] (DEFAULT)[address] [place] [address] 13186 Hematocrit (Bld) [Volume fraction] 37.9 % Normal 33.7-40.4 [facility] Comment on above: Performed By: #### 1 [id number] ####[facility] (DEFAULT)[address] [place] [address] 38357 Hemoglobin (Bld) [Mass/Vol] 12.6 g/dL Normal 11.3-15.9 [facility] Comment on above: Performed By: #### 1 [id number] ####[facility] (DEFAULT)[address] [place] [address] 93598 MCH (RBC) [Entitic mass] 27 pg Normal 24-34 [facility] Comment on above: Performed By: #### 1 [id number] ####[facility] (DEFAULT)[address] [place] [address] 14709 MCHC (RBC) [Mass/Vol] 33 g/dL Normal 26-[address] [facility] Comment on above: Performed By: #### 1 [id number] ####[facility] (DEFAULT)[address] [place] [address] 22990 MCV (RBC) [Entitic vol] 82 fL Normal 81-100 [facility] Comment on above: Performed By: #### 1 [id number] ####[facility] (DEFAULT)[address] [place] [address] 84708 Platelet 248 x10 Normal 138-427 [facility] Comment on above: Performed By: #### 1 [id number] ####[facility] (DEFAULT)[address] [place] [address] 51137 Platelet mean volume (Bld) [Entitic vol] 7.6 fL Normal 6.3-10.2 [facility] Comment on above: Performed By: #### 1 [id number] ####[facility] (DEFAULT)[address] [place] [address] 32891 RBC 4.64 x10 Normal 3.70-5.30 [facility] Comment on above: Performed By: #### 1 [id number] ####[facility] (DEFAULT)[address] [place] [address] WBC 4.8 x10 Normal 3.5-10.5 [facility] Comment on above: Performed By: #### 1 [id number] ####[facility] (DEFAULT)[address] [place] [address] Coding Summaryon 12-31-2024 Coding Summary HTMLBase 64 EptchuhmJVl6vOh+PGhl YWQ+FR2CHZGzM46raCTd mF3bO0SJIGaCVynjFOSJ PJzUJiIdbiIsAS2jfKGd ZXJu IC8+DC1iAXHbNhdkjGWp x1R4cFU2A28nqc6yKSyr hBC4CSJqIhTpamijy0yj lVn7IFobOpzlJhQp CYKriC08QOQ4eC04Xu67 tCPltOZhb9oodBk2RlVu XNCvEPZ8iTsnAGwtb6Da RTMnL12ujOYbp2S8 IGNvbGxhcHNlOyBlbXB0 oZ1wXAywffrgp9mgrggp Oqw7ih76oWAhk8J0gCL5 B9ZbzlL4IEIkrTUt KswfyBOBsZ5ylhwqt1hz nfvxSyWhRJOvZQo2RGt5 OOGjgUxkQiOmXG89SEP3 BAVhoiTvW6HjETMm nHdyZpI9i7Y2Yp8BR4FT VzivY5ECLIAHGQdfbPO+ UY96qx22C4YzPmuoSqi6 RDRkDFO2zLX8bU9f HUDvZNijm3Q5dNK6B6Ez mnHfto6sd7tgXOLgAPjn L34irGWsc5P7EYPwiXW4 IQYdbHvaWwViuT07 Oyc+CQFbrCdxl9XyYibu f9deu5jlqXp4GyfpZKRq xvXqyYqeWAL9n2AqEn7r HLTsmSX0mJY0kX1w MoBiIpI3ODwiY973EcTx bGQzPcxmN42zL4ZkaXS+ VBGdDim4QMZsrOcsLO1n U2QnFMGwhqvtkBXk vPtpMM7pPRMixuwdDPZn xN1rZKCyJ0m8UiDjQuK0 QMfaV3DcZSLiyujsKc28 yP1mPmRzRnW7RZex N7PjksL7SZKjdAOlKHbp SBY7J48xc5W8SVQkHVYa MZT9fAM4fC6ndGxcajic bGVmdDsgdmVydGlj YDsrRFgrQ561HTXicXtn PkNvZGluZyBEYXRlOiAg MDIvMDQvMjAyNTwvdGQ+ ELDqONC3bAuyPEXl cVYdBImvOp0lkWfziNfp RM8dMPOmlzntMEXouA1a VXDsjRGnrIedAB8hUAYi xbxgj617EhKyMHM3 ONIoaUFsV5LghV7bSxUe SFScIXMoY3MsaJGyIOak J933GVnsSvD6IYOacgAg X2MgRYRrsNmuCpY6 f4E6Ys4Dx8LslxxzL3Vu yWIcPvDoYlzsXEy7T4Wn PjwvdHI+XL19XTTxOB97 DBz0IUV8zDivHYuo UPTrA2KgrL8vIvZjYGJy ZGRkOyc+PHRhYmxlIHdp ZHRoPScxMDAlJyBzdHls WZ9eHc0rLFDvRDSl dSodhOMpBcUod0eaTPOy BWajOO8yrFjmM5VepBT5 ZSBeh9i2Tv10W17uJ0Sc dXA+NOOrmUQ1uXT6 sM9oRzJyQvK9GYmrR916 GxYloQLlTwocz4qjl0xd bQk2BaW3KOJljmUwaKqh KTI9i4RgTr57U24n IHdpZHRoPSIxNSUiIHZh oNapvo7szP0pOg8+PGNv lHD2sXB7aA8hUqMaRdJ3 QKnrA833LiFcsCYe Eksiq0lwq7inzCo7VjHl ZEXibhBrlNelBCL6j6Ku In00V5YbkYadv4DcPgw7 xt37uKCsn0B1nRC9 K2QkAKPtycaazLLaaKkd JK3yHSOeqdmxBMXllB9x NUArZ9t1WtSjAuC2UGed Q8JmiaA8CWGacAXt KXDfuMYGwM5ijcacv1ju hjukKrNhIZWqWXn7JWo1 TNWsqVuoDrRtXJN8FaI1 SRB2sCIoeY9ioDxw lhrdmG1iJft+CGU2lOOu gKERSW0bVfevfWH+PHRk GSJ3hYukNHyiUXPvnY5d IIKhD9e6GcRuRhU4 JIyzL0XamyG1MIAxmVGg UVFpuLBRfG6zfiohd5ai swvfVmDvLXZuGKi3WMg0 LWFsaWduOiBsZWZ0 MaE4IZM7nNGtwY1xhKoh ybpalE8pYst+QmlydGgg DQJ0INo3F0IvDtw0YMYw dDqrWI6ekDKuFOta Ah9aiYtthFnyYN9rTQZb gnfhe797JhBlr9ejFMPr gIEhRQuvKTN4U94dt7X0 OUQsLYChDJK2jQY5 eE0ibUqkylqdkKKidMlf dqLcgSccGZcaZNkqH108 QAXvuKuvBqPiNEa4M5Qz Ivz7UUFwzPeaBS3x pXJtQKraKq5uuHikvZpa BA7iDXGcdcyna372QwEb f0hvZSLtsAYmBAmjMMQ1 J33lg2N4JJNiLSWk ZPJ7jXR9pE9rjMxuxjgz bGVmdDsgdmVydGljYWwt IOmsJ937IDCizPrzWpOz jCg6Y5CmPiu7BLLc oTjrKY1llNTwGMnoTe7j zCxytGilZQ8oGXQxuonv h871TwJof4dgSVUpkJYc RXtrBFH5P43mr7N3 LPMtHDVkQJP4jTL5aQ6y bGlnbjogbGVmdDsgdmVy tIihUBfnVFzwC028XOZh cDsnPlBhdGllbnQg YErfJMq1L8HyWolhxFR+ QP09ORBvYM19rQBosTJm m6ydeOr2ZzYmDTFmIUD5 eFsiPCzha9NcDIPp D22pxPXwt5L8JFZddTgp xBNhLtDucPO1tH3rDJce plvra2zcpxvpCiyct5jm fc66bB47B22iUCim ZHRoPSIzMCUiIHZhbGln fp5djS1nWi5+PGNvbCB3 cEO0sL8mCCXtDfG6YHqr Q050EmFrdGHeAblp s4zmi1impNa5IeF4EZDl qiWfwAnfUAK5h8FpHm95 X00bVAvmAMFnUIZeXIAh XIMvyRsevd3dkX8h Ii8+BDWvgER6lWW6vS5y HnAbXkZ6MCsiF051XeXt dPGvWuxoH24nV7ZheRP+ IWFyQzs7LUVfxEob JX8bdFDyREnlOx9pXJU4 ZaWrReDjOIpuT8KjHHWd ieyyexylcVY5OMWiAOFv xG92Oy1ynVdkSZWv cNCQgS4tkgqbz9rtixhz QhMuPKTiMNg7OTc9DSNh aDndAtDoQUW0RcT3JLG5 bRPefQ3toHygqjlu uT3eT9WxAWFshwcxRs29 bE3oNdBrOhA8CYkuMek+ Y50VDQWMQIOQDPkILBGF WQIQL5D9E2QvUlw3 RIBavMpaEA7tuEXcRFfn Gh2aiDyqyKqnHA3uFALd whiySCJneI9oZAKfcGTf gAnyLN6jVPIczkbb x273VnMvKDP1TBSlpDUx Y0KctP4tLwZmJRSbTAXp D1NjqVYbMXvcQ203TXoz ObH6GYKukiEaN5To TBDfzGnnDhS3i4D4An5w Ne4kDG2kEUQ0IR29CJ49 uCTrc2H4eCY1G4UlQPLg boiskqavdWV5RGVk BCMprU23nCKlEOvxOw6x p5I8g525NXUkQEBvsD68 Lo7ezKazGNGkqUAUcJ1f elecl5gehlcrSnNp KTNpIVh2TTe9FYTwfJgl AvZvAYC4OuS7SMU8qYXf sH3vzDlcpwilqJ8sJit+ LfQeTPJrgmO2V8Sx Del5WIOgwInnNK3svGTk CXpuPe1dgXebrJopGS5r EAUfcrgjREJcmI9rGXKy sNKhjEebDP1fELMg qyrcb789ThUkXGO0NICo gNUnD9VeyE8tTdZqLIOs FYCiI2MymWIeJFjiO008 FHqpHtN7CLSgmdVe D8XzKBCamHbdUsQ9k3F1 Yo7GTW0JUVX7T1EuFpw3 DWXreCayNE9hqILtTHga Ts8nlNndtYkwQN1x PGMgnritRMKblB8oNFNi zEEbqCkgVX2rTWJaizlm h696LuHjMSV8YHCamXMp J5FoxI5dAuHiZDZa UWOeT1WynKCiOBuzP998 YHohApG8VCBfslZsJ9Ta FQVrwOafTkP0x8J6Hv3Z UDwvdGQ+DF65kn30 C7ZqTwykXfo5HEMsZZZ9 jLI5uY1jEIStWMbyq2O9 gBH1Z3MjpyBizx5tf4sr NHKqRGvrV49gaIYy p2Z3BZDqrDT9YWJjqZgu LlRnoN45Igb+PGNvbGdy k4ZxRyjiz3uke0ckfVl6 IjMwJSIgdmFsaWdu LTI5n4JiDn51C33nHEjm ZHRoPSIzMCUiIHZhbGln ao0adR4bKw5+PGNvbCB3 cLI7uR4tAzIwLgZ7 ZVfcH465CmVreTIoJuhl o4iwp4udyDt4IvDdFBLc csEvvBtrYVD1z7VjLl11 O9QucQsbd8SoXsi5 pk36oHZkx1O5kRD8J1Pt QHBzgpomqTJmoMatHE5x QRZnhzhfWWNllE1rFTAm K3q9WpZsYuE5RVbl N2XqzwY4WMGzxTRbCPOk bJXKpP4sicrvc7kbwvnm MmStYZFvLKz1ODl3OJRv hBepBqMgIBO2LqV7 JJE8dPAidD1fdFwywqoa xC8xCgi+NKv8w2blgBWa LO8gbSQ6OL34BE47jKTa y7X9uMR3Z4FzTJSo ifzbziocbJN4TEWqZIIx sH51Zp7htSofWn9bQOFu TRT3AJIooMYtD1QtnB2v ZnJqLIHpMPMgI4Rk gYRyTUieL568ELibTnU5 HJKpbjOtH8DjFGJqpJun TuW5j0U9Br8UGN34SC25 WI91iAZgt3C7iGH3 D5NjQYWltmohhcjpwXN5 UOQtPTRinE58Pu0qpEmx Cn3fLFFwJNN6EDZwdFYe B0XwzO9yToHsLLFt CSCpR2OexFRyUDotQ867 JIrmFxW2DDXuiwMsO7Dr HUGaxRssAdV3h1P6Do0P Gu55MX22PC19gLRv o7S5iNS7A3GwKCHbusth vgbtgRU2AEHcYKBnhB38 Jb7lrVfmJx1vOHKrFHS8 JIVixXLcS0DxqG1r OoIzQHNnTBMhT0DbkRUl FMrdN929BCsjYgE4GZXo ceOoA3HbIEKmdSufQsP4 t3T1Bo8THEqwmai1 C1HxPblppQT+QP74WKXe LD19lTWxsJKim6kvnWi0 KfPrWCWrDPA8hEssVSgv y9EtIDGrO50luMDe c2U (more content not included)... [facility] Outside Recordson 12-31-2024 Outside Records [id number]# 1.00OTGTIFF [facility] Ambulatory Patient Summaryon 12-26-2024 Ambulatory Patient Summary [address], [address] - Visit Summary For CLAUDINE DAVIS Age: 69 years Sex: FEMALE : 1955 Address: [facility] [place], [address] Home: Work: -- Primary Care Provider: BILLIE SHAFER MD Race: White Ethnicity: Not or Language: Kittitian Health Plan: 1?MEDICARE, 2?[employer] [facility] AARP, 3?MEDICARE Reason for Visit: post hospital/fci Prescription Information: If you have been given a prescription for narcotics, seek immediate medical attention if you have any difficulty breathing or any sudden status changes such as confusion and sleepiness. If you or anyone you know is experiencing suicidal thoughts, mental health, alcohol and/or drug addiction problems; contact the [facility] 19/06 Crisis Hotline -Text 4HOPE to 884162. Follow-Up Information With: Address: When: KEIRA DAVIS, BILLIE Hernandez [facility] [address] [place] [address] ST/ [address] [place] [address] , only if needed Future Appointments No Future Appointments Scheduled Future Orders No future orders Additional Goals and Instructions: Vitals and Measurements this Visit (last charted value for your 12/26/2024 visit) Vital Signs This Visit Peripheral Pulse Rate: 82 bpm Systolic Blood Pressure: 150 mmHg Diastolic Blood Pressure: 80 mmHg SpO2: 97 % Measurements This Visit Height/Length Measured: 160 cm Height/Length Measured (inches): 62.99 in Weight Measured: 76.9 kg Weight Measured (lbs): 169.535 lb Weight Dosin.900 kg BSA: 1.85 m2 Body Mass Index: 30.04 kg/m2 [place] Body Weight Calculated: 52.382 kg BSA Measured: 1.85 m2 Diagnoses This Visit Hip fracture, left (S72.002A) Laboratory or Other Results This Visit (last charted value for your 12/26/2024 visit) No Laboratory or Other Results This Visit Medications and Immunizations Administered During This Visit No medication administered during this visit All Known Current Prescriptions and Reported Medications New Prescriptions this Visit No new prescriptions for this visit Prescriptions No previous prescriptions documented Home Medications Calcium 500 mg-vit D 400mg (calcium-vitamin D) Take 2 tab(s) Oral (given by mouth) 2 times per day celecoxib 100 mg oral capsule (celecoxib) Instructions: TAKE 1 CAPSULE BY MOUTH EVERY 6 HOURS NEEDED FOR PAIN- WITH FOOD OR MILK CoQ10 300 mg oral capsule (ubiquinone) Take 1 cap(s)(300 Milligram) Oral (given by mouth) every day eye vitamin and mineral supplement (multivitamin with minerals) Multi Vitamin+ (multivitamin) Take 1 cap Oral (given by mouth) every day POTASSIUM OTC (Misc Prescription) Instructions: daily psyllium Take 5 cap(s) Oral (given by mouth) 2 times per day Tylenol Extra Strength 500 mg oral tablet (acetaminophen) Take 1 tab(s)(500 Milligram) Oral (given by mouth) every 4 hours. as needed for pain Hip Fracture A hip fracture is a break in the upper part of the thigh bone (femur). This is usually the result of an injury, commonly a fall. What are the causes? This condition may be caused by: ? A direct hit or injury (trauma) to the side of the hip, such as from a fall or a car accident. What increases the risk? You are more likely to develop this condition if: ? You have poor balance or an unsteady walking pattern (gait). Certain conditions contribute to poor balance, including Parkinson disease and dementia. ? You have thinning or weakening of your bones, such as from osteopenia or osteoporosis. ? You have cancer that spreads to the leg bones. ? You have certain conditions that can weaken your bones, such as thyroid disorders, intestine disorders, or a lack (deficiency) of certain nutrients. ? You smoke. ? You take certain medicines, such as steroids. ? You have a history of broken bones. What are the signs or symptoms? Symptoms of this condition include: ? Pain over the injured hip. This is commonly felt on the side of the hip or in the front groin area. ? Stiffness, bruising, and swelling over the hip. ? Pain with movement of the leg, especially lifting it up. Pain often gets better with rest. ? Difficulty or inability to stand, walk, or use the leg to support body weight (put weight on the leg). ? The leg rolling outward when lying down. ? The affected leg being shorter than the other leg. How is this diagnosed? This condition may be diagnosed based on: ? Your symptoms. ? A physical exam. ? X-rays. These may be done: ? To confirm the diagnosis. ? To determine the type and location of the fracture. ? To check for other injuries. ? MRI or CT scans. These may be done if the fracture is not visible on an X-ray. How is this treated? Treatment for this condition depends on the (more content not included)... Normal [facility] Patient Handouton 12-26-2024 Patient Handout Orthopedics Hip Fracture A hip fracture is a break in the upper part of the thigh bone (femur). This is usually the result of an injury, commonly a fall. What are the causes? This condition may be caused by: ? A direct hit or injury (trauma) to the side of the hip, such as from a fall or a car accident. What increases the risk? You are more likely to develop this condition if: ? You have poor balance or an unsteady walking pattern (gait). Certain conditions contribute to poor balance, including Parkinson disease and dementia. ? You have thinning or weakening of your bones, such as from osteopenia or osteoporosis. ? You have cancer that spreads to the leg bones. ? You have certain conditions that can weaken your bones, such as thyroid disorders, intestine disorders, or a lack (deficiency) of certain nutrients. ? You smoke. ? You take certain medicines, such as steroids. ? You have a history of broken bones. What are the signs or symptoms? Symptoms of this condition include: ? Pain over the injured hip. This is commonly felt on the side of the hip or in the front groin area. ? Stiffness, bruising, and swelling over the hip. ? Pain with movement of the leg, especially lifting it up. Pain often gets better with rest. ? Difficulty or inability to stand, walk, or use the leg to support body weight (put weight on the leg). ? The leg rolling outward when lying down. ? The affected leg being shorter than the other leg. How is this diagnosed? This condition may be diagnosed based on: ? Your symptoms. ? A physical exam. ? X-rays. These may be done: ? To confirm the diagnosis. ? To determine the type and location of the fracture. ? To check for other injuries. ? MRI or CT scans. These may be done if the fracture is not visible on an X-ray. How is this treated? Treatment for this condition depends on the severity and location of your fracture. In most cases, surgery is necessary. Surgery may involve: ? Repairing the fracture with a screw, nail, or joce to hold the bone in place (open reduction and internal fixation, ORIF). ? Replacing the damaged parts of the femur with metal implants (hemiarthroplasty or arthroplasty). If your fracture is less severe, or if you are not eligible for surgery, you may have non-surgical treatment. Non-surgical treatment may involve: ? Using crutches, a walker, or a wheelchair until your health care provider says that you can support (bear) weight on your hip. ? Medicines to help reduce pain and swelling. ? Having regular X-rays to monitor your fracture and make sure that it is healing. ? Physical therapy. You may need physical therapy after surgery, too. Follow these instructions at home: Activity ? Do not use your injured leg to support your body weight until your health care provider says that you can. ? Follow standing and walking restrictions as told by your health care provider. ? Use crutches, a walker, or a wheelchair as directed. ? Avoid any activities that cause pain or irritation in your hip. Ask your health care provider what activities are safe for you. ? Do not drive or use heavy machinery until your health care provider approves. ? If physical therapy was prescribed, do exercises as told by your health care provider. General instructions ? Take kgtj-vvs-xbkrfsu and prescription medicines only as told by your health care provider. ? If directed, put ice on the injured area: ? Put ice in a plastic bag. ? Place a towel between your skin and the bag. ? Leave the ice on for 20 minutes, 2?3 times a day. ? Do not use any products that contain nicotine or tobacco, such as cigarettes and e-cigarettes. These can delay bone healing. If you need help quitting, ask your health care provider. ? Keep all follow-up visits as told by your health care provider. This is important. How is this prevented? ? To prevent falls at home: ? Use a cane, walker, or wheelchair as directed. ? Make sure your rooms and hallways are free of clutter, obstacles, and cords. ? Install grab bars in your bedroom and bathrooms. ? Always use handrails when going up and down stairs. ? Use nightlights around the house. ? Exercise regularly. Ask what forms of exercise are safe for you, such as walking and strength and balance exercises. ? Visit an eye doctor regularly to have your eyesight checked. This can help prevent falls. ? Make sure you get enough calcium and vitamin D. ? Do not use any products that contain nicotine or tobacco, such as cigarettes and e-cigarettes. If you need help quitting, ask your health care provider. ? Limit alcohol use. ? If you have an underlying condition that caused your hip fracture, work with your health care provider to manage your condition. Contact a health care provider if: ? Your pain gets worse or it does not get better with rest or medicine. ? You develop any of th (more content not included)... Normal [facility] Outside Recordson 12-24-2024 Outside Records [id number] [facility] Outside Records [id number] [facility]-13-2024 Outside Records [id number][facility] Outside Records [id number] [facility] [id number] #1.00[facility] Outside Recordson 11-06-2024 Outside Records [id number] 78[facility] [id number] [facility]-05-2024 Outside Records [id number] #1.00[facility] Coding Summaryon 07-25-2024 Coding [facility] ZjmniydnKCa6eJb+PGhl YWQ+OK8BAEFgJ85flBOi yI9aV7CJLRmWHbloDTTI GVbLJmCfdvWyWV8zdJUu ZXJu IC8+BU1mIEEdEejicKZj v3Z3fFP8D48hpc5fLMdz oXT9DWKxOsYamusui1ru eJw4JWmqTwwsRuCe OQDyfU80GBK8sH17Bv76 uRLgpTHuy2xmsGo9OxZd URTdLCN0uOfaTOoap2Gw XTGtG63zvAHez1S6 IGNvbGxhcHNlOyBlbXB0 vA5zOSsjkxnny7ddenwr Pxe2pm71fWLeq8H6iMK4 F7AztgI7WOFhhEMg LgzxzZPNjO3pagocd0oz yaikMlHdXJMgCBa9HUg6 LSNwaGkeFbKmQU26OID3 WSIqpsKqP7UnXLPj lDpaOhY1l4S9Hi0HW6MM ZandA5IHBJNGVRuftGK+ VL44ts67H4XpZxbkNmk6 BJGjEPH8pNR9lM6m COEqNTadb6C4yLY7Y8Aa prNtqb5mv6gyYUPgIJwi M93opNCse4X2EQGvkOL1 HWScfWrwSzCeaA57 Oyc+ZFEjsSjfc7ZlTzas g5iub0nxaPl2VccePODr brIhxIchQHT5f2OnVt1a SROsfEX7aCJ2bJ3b WzJyOdK9UVerN882TjQw nNYzJhyaE73hV4BofID+ RVHuMwn8ONXrkGmmQV5c U8VvZBSayvvfgXSu iUtdQC4xEBRywqtvPHGx fH7hJNQdP9c4PtMmDqD8 EMgbS1SqNAHaahinGg02 nK5wSiTzQuS2UJxe K2XhbxG4LIInsQOsUQsx PJE5I63dk3Q9MSZsZREf UIB1qSX0nD4boHzbrplq bGVmdDsgdmVydGlj TKfbOWvjU402JLVeqAjr PkNvZGluZyBEYXRlOiAg MDgvMjkvMjAyNDwvdGQ+ YUWrUWG1rSxvDNQr bLNaECojAu9pfWnqgWtx LO2jCVYecomkJITdaI6e ZYQlaGHcvVhdSM5zVLCq pxjot159RaEyGEN9 TPBmlJEcA8DhdK4zPrSc HWIbQSPgR0RygDQdVDef K689RUylXoM1RXNkhuMj B8NeAHBrvOmhKiZ5 o5R4Is3Rh7XxehwuY8Sc yURvDbDhBrcbEDt6I3Pj PjwvdHI+JD42OYBrIA13 TLu8BMW6gEhlJIjb CYJhW8MutP4rUwRcGBAt ZGRkOyc+PHRhYmxlIHdp ZHRoPScxMDAlJyBzdHls XR5zBm6kKSWuULRg fDunlHJzFdGob1uuBXMd DAnzDF5jyZxbT4FjuGI1 MXLmg3r0Ji83Z10cX2Ct dXA+JKVtnKJ6pXI5 bE4qGsZiZpG9CSraH130 TvMklRXnNsrro3vsb3xo dHv6YcO5QZIazpBwwQwg FVF4y0DtCk21U63x IHdpZHRoPSIxNSUiIHZh bBimya4ltT6aIs7+PGNv pNE7qCG1pJ7gGpCvExJ2 DJkfD190KdPifCYt Eagtv1omp3rbpMa1MqMw SHNpjoRisXxyTZV6b1Ce Zr42E7BeeTmbh7MoMxo1 ac70hEJef6X8wZN9 E6ElJVUurnpxtOUqbVcw TI0pDDJesyomPHHkiJ7g KPGcT7c5UoKgUsA4PDwt D1OulhZ1UHStoHXm RUAfdXKYzV1wnmaem9mh xhpsTdRhIXSqLVa7FCg9 FWYsnAimOzWvNFP0MnO0 TES9nJIkbV7txLuv oaskcK5sGxb+LHG6aXZu gOXHKF4sImnlvLU+PHRk VPW1oDobQOzsQRAxzO8z XOKxQ4b4PlLoMsG9 NAehT2RytqW6SNIqbJTa EATifJYWrA5gtskqh8bw fkoyEjKvMIAiUJo1GHg2 LWFsaWduOiBsZWZ0 DcQ5SDY9kZSzxI8fsKul vfinmF8kBsa+QmlydGgg HOA7LOx3R2WuZer3BLRv cOotOV9suXUiMBxk Ku9mcYhvjZvpTI0jEXIj fqbpp620JaOiu9ihAGCe dFUzZWxgJTX7Z77hs3V8 WGLrSXJjPTL7cMX2 gY8huOixhvoxvDKsbAxi puMxmCccFVvjBZdbD590 HHHtxHwxVjKiLVh7H1Wu Sfz9FYTjeCdkUQ4b bHDsJUjyTo9ymOvsuHfz NT6kXIRjvdeoe014NzZw r2qlPDYrzTHwESzjXUU3 B75xv1W4AZEoILRd WBO2iLQ3uE6ynVvpxtqf bGVmdDsgdmVydGljYWwt DOkyV398FPJiyDcjPyYg aUw4A0AnHsi6HHHn lEakWM1mfAOzINnuTg2o mAllnLwzFI4cIQWsrvgc y021LcQxo2mpCXFeuKAe FOtgLSF2O83ea3F9 JFYtUGAjAFU5dQG9iH5z bGlnbjogbGVmdDsgdmVy sSdeMVzqGDzrQ014FYNs cDsnPlBhdGllbnQg JLjvZMm3A7RlZjpcdWJ+ DF00CSNlBP41hKRaiWDy j8nobUu9JvPgAHEkWXV5 jNyrRFpjy9BnDOZv P35qvLBko0Y6LBCtzKfu qDYcNfTbaLK5zI1qXEkh hgmkx0ttguqlHqeyr8gz nb98kF64V41nYCuk ZHRoPSIzMCUiIHZhbGln oo9fyG4pSi6+PGNvbCB3 tWD5mQ4qSTIiQmA9CEch Q283OfCstIPkEpvd l3jgz4obvFw2LzL1QSRs luWgrQccTVS5h2RbDr15 Z52eGYcsZYWpBCKmVQCk EZYwuUficx9inV3p Ii8+HXQlwUR4sFO4rC5b NfHmIqC5YWgkJ188MsVs kITzIyssT37oO8TsfJX+ CPPbFzn7WKFchLcr JB9yiCPeFXxcPw3gTWM3 YtNrYvDbZJsmY6QmQVIv bbrhuppsvRK1CSHxPGCb nN22Mt1qhWewJBIq dDDTyF4lcmsfl4brbwzb ViRcIUOgBXp4SEb5AJKp wRfkIbVlTGR4AkL0ZCU4 oIPjwH4tvYrrxzrq sJ0uQ4MdFANikblkZh62 kM6xQqVvDfE2NMflNyt+ R07KYFSIAPAXGMgGZNQB RTOTY7T5T5CzPlq8 BUHvtUxhQL0jtFUwKZjw Rr3kzUpgzWquDC5gAYQz poorIOZaiK2zYKUxmJJx kMklUN2nXPXnfohs e571BuAeTDK4DVFfpVQv C4IxnA5gNjFiGQYhOJAe U5CluHIqVNvjF916APrx NcU6ACHspqTrV5Bk RCOrnVemQlX4n5D6Dx5x Nk2lQR7rEUF4UJ88ZA70 mARtu6K1iTY0P3IhCNHa xwnqxldepWZ9LVRw DAGsbH88zVRaSYjpLr1x x7S2s739XYXuNNHpuG01 Dj0lhPsaDYAalVVCmY0f ryehu5rivzvfGnZa MRBbERd0KPt5FTTdpTzw PrNnMFR0AjI1UAP7kJMb dV4atNcqitqzaZ4tDge+ JsHnTSFwdqE2Z7Nn Vtg2DRNcrTpbME5xiFMg XXvmOy4ovCuyvLquYU9x WHXixqnsXCZzcI8xJCBf gDEzyApbQG4xLMNx jsohh581PwXgAWI9KPBd fFLfO2FtkH8pFcOyKGQg MCEoK6CdcKQlMYzkP486 LRzvLsE0FWKytsXl X8WrFYZezMesWvW1m9L5 Zx3ELU5ZNND4F8ZaKzu4 VYQtfOqoNE5gyNYdNBdv Lr4vrFyzjFcaYU5w HUSxmfdfCJUstD3mRVYo nIQpaItqCQ5tBADaknvd q273FbEmEMG0NDJdgBXw F0OgdM8rQkPnUAAp AXDyO0UywMLkZKizX594 LEggPtR4YOMdpeKmV1Yu PCYyzLlqRvV6a1F6Ij8T UDwvdGQ+PO39it58 L5GrFxhaXio7UDCkGGC1 nYS7kN5fBAEqERhop8C8 eCX5V7OtjsEnqg1po0hc TZJcHVtzD00zrDWj h9W0WMAmoFV0PYUqmHkm TjWlgB11Grx+PGNvbGdy i3PmYniwk1rmi9tvaWz8 IjMwJSIgdmFsaWdu IUK6o2QfVt32E34nLHqk ZHRoPSIzMCUiIHZhbGln uh2ikU5lFk9+PGNvbCB3 sNS6vE3oVkKrWyQ5 CYxfT493PyUoyJDjRnev h6cac5rxyMb1TrRbUPCy rvChhMqcTAU8p4VvFp81 X3XqiHwhl7EmAnn4 mu71eMPed7Y1fRP7Q5Gs OESiixmylGUgoNxyOF7x WNEvqcvtLUWksR6dXWIn B8x9MsLfSmN8LBhj L7LzyyJ5GPNdcIZqAQLf jMNZeS9vwrvzz7wnvfnz OjCwZMWlTZa2FJg7NUEn uJvgFgLeARU9PzH9 ZWV8eLIhyG6thSwqagit aP5iQfs+NYy1n4ptmVZj JV1faWB3IK11KM29qLCt n1Z2cSH0V2OyQOSm tqtkexmeyAP2IJDeYHKd kA98Gp4slJagRa1gTFSn OKT3MPPmtQIlL1JxdY0y QzQxNNLpISOnX5Ng vCJmEMqpE252XLrxIzL9 XQUsrqRxO9VvMUWfzIqc YiX5m4S8Ox9OJX24YX23 JF70iUZow5D4aGB0 T6OtRODxordvxfnbaBU2 ZJHxTWIxpP76Oc6izGzz Gy8gPJQjMIO5UQXthJNp W2YdzD3cBeIxSSVz XBWfE2SgqZYdAKbmF801 ZWoyFeQ8OKMpllIgC2Eh MHBtdRpnOsI9y2A2Kc5Y Vv04ZL37RC92rLPa y4G5hMM5M4MaRLVtbbyw ztfnrVI3MQMmAXYkyB71 Oo5twAnoLp5aBNScLJX1 ORIqgZQzY9JisV7r GeRaNZEhGTPaS3RooALx XFaoT360OEvuPsS0PJDm scKgJ2QuGFRwbAcyWtV3 h7U6Mp5GKWptzct3 E9ImXogvcGY+RJ10SMIb ZJ37eLBboQBxy9farKy0 BqVxEDCdCLM6mOunAJni k6OmIWYtQ11skEGb c2U (more content not included)... [facility] Outside Recordson 07-24-2024 Outside Records [id number] 7#1.00OTGTIFF [facility] Outside Records [id number] #1.00OTGTIFF [facility] XR Foot - left 3 Viewson Imaging Result: AP lateral and oblique of the left foot does demonstrate avulsion off the anterior lateral tip of the talus with no obvious fracture of the base of the 4th or 5th metatarsals. No obvious dislocation she does have some calcific changes to the insertion of the Achilles as well as plantar fascia with heel spur. [facility] Radiology Study observation (narrative) [facility] ED Clinical Summaryon 2023 ED Clinical Summary [facility] [address] [place] [address] Clinical Summary PERSON INFORMATION Name: CLAUDINE DAVIS Age: 69 Years Sex: FEMALE : 1955 MRN: Acct#: Visit Reason: UC - Ankle/Foot/Toe Pain or Swelling; FALL LT ANKLE PAIN Arrival: 07/15/2024 17:00:42 Discharge: 07/15/2024 19:12:00 LOS: 000 02:12 Check In: 07/15/2024 17:00:42 Checkout: 07/15/2024 19:12:00 Address: [address] [place] [address] [place] [id number] PCP: BILLIE SHAFER MD PROVIDER INFORMATION Provider Role Assigned Unassigned Justin Ramos ED PA 07/15/2024 17:03:20 Kate Preciado DRILL SERGEANT Nurse 07/15/2024 17:14:03 VITALS INFORMATION Vital Sign Triage Latest Temperature Tympanic Temperature Temporal Artery Pulse Rate O2 Sat 100 % 100 % Respiratory Rate Blood Pressure /91 mmHg /91 mmHg MEDICAL INFORMATION Medications Given: Allergy Information: No known allergies PHYSICIAN DOCUMENTATION DISCHARGE INFORMATION: Discharge Disposition: Home Discharge Location: Home PATIENT EDUCATION INFORMATION Instructions: Ankle Sprain Follow-Up: With: Address: When: KRISHNA MIDDLETON [address] [address] Business (1) With: Address: When: Follow up with Orthopedic With: Address: When: BILLIE SHAFER [address] [place] [address] Business (1) Within 5 to 7 days Comments: You have been diagnosed with left ankle sprain, strain. X-ray of your ankle shows no acute fracture. X-ray of your foot is pending at discharge. An Rupesh wrap has been advised, keep this on intermittently during the day as needed for pain for the next 2-4 days and to lessen limping. Begin gentle range of motion activities by writing capital letter ABCs with your ankle. Restrictions of no work, running, jumping, athletics for the next 2 days. Apply ice to area in 20 minute intervals for the next 48 hours. Take Ibuprofen 600 mg every 8 hours as needed for pain. You may also take Tylenol 500 mg 1 every 4-6 hours as needed for pain. Follow-up with Dr. Middleton if not improving. Seek additional medical care if you notice any blue discoloration to the ankle or foot, any numbness or tingling to the lower extremity, any new swelling, or further decline in function. DIAGNOSIS: Moderate left ankle sprain; Strain of foot, left Patient Understands: Yes - Patient/family/careg iver verbalizes understanding of instructions given Comment: Normal [facility] ED Patient Summaryon 024 ED Patient Summary [facility] ? Urgent Care [address] [place] [address] PATIENT DISCHARGE INSTRUCTIONS Patient Information Name: CLAUDINE DAVIS Age: 69 Years Date of : 1955 Reason For Visit: UC - Ankle/Foot/Toe Pain or Swelling; FALL LT ANKLE PAIN Arrival Time: 07/15/2024 17:00:42 Primary Care Physician: BILLIE SHAFER MD Attending Physician: Justin Ramos Comment: Patient Education With: Address: When: KRISHNA MIDDLETON [address] [place] [employer] [address] [place] [address] Business (1) With: Address: When: Follow up with Orthopedic With: Address: When: BILLIE SHAFER [address] [place] [address] Business (1) Within 5 to 7 days Comments: You have been diagnosed with left ankle sprain, strain. X-ray of your ankle shows no acute fracture. X-ray of your foot is pending at discharge. An Rupesh wrap has been advised, keep this on intermittently during the day as needed for pain for the next 2-4 days and to lessen limping. Begin gentle range of motion activities by writing capital letter ABCs with your ankle. Restrictions of no work, running, jumping, athletics for the next 2 days. Apply ice to area in 20 minute intervals for the next 48 hours. Take Ibuprofen 600 mg every 8 hours as needed for pain. You may also take Tylenol 500 mg 1 every 4-6 hours as needed for pain. Follow-up with Dr. Middleton if not improving. Seek additional medical care if you notice any blue discoloration to the ankle or foot, any numbness or tingling to the lower extremity, any new swelling, or further decline in function. Ankle Sprain An ankle sprain is a stretch or tear in a ligament in the ankle. Ligaments are tissues that connect bones to each other. The two most common types of ankle sprains are: ? Inversion sprain. This happens when the foot turns inward and the ankle rolls outward. It affects the ligament on the outside of the foot (lateral ligament). ? Eversion sprain. This happens when the foot turns outward and the ankle rolls inward. It affects the ligament on the inner side of the foot (medial ligament). What are the causes? This condition is often caused by accidentally rolling or twisting the ankle. What increases the risk? You are more likely to develop this condition if you play sports. What are the signs or symptoms? Symptoms of this condition include: ? Pain in your ankle. ? Swelling. ? Bruising. This may develop right after you sprain your ankle or 1?2 days later. ? Trouble standing or walking, especially when you turn or change directions. How is this diagnosed? This condition is diagnosed with: ? A physical exam. During the exam, your health care provider will press on certain parts of your foot and ankle and try to move them in certain ways. ? X-ray imaging. These may be taken to see how severe the sprain is and to check for broken bones. How is this treated? This condition may be treated with: ? A brace or splint. This is used to keep the ankle from moving until it heals. ? An elastic bandage. This is used to support the ankle. ? Crutches. ? Pain medicine. ? Surgery. This may be needed if the sprain is severe. ? Physical therapy. This may help to improve the range of motion in the ankle. Follow these instructions at home: If you have a brace or a splint: ? Wear the brace or splint as told by your health care provider. Remove it only as told by your health care provider. ? Loosen the brace or splint if your toes tingle, become numb, or turn cold and blue. ? Keep the brace or splint clean. ? If the brace or splint is not waterproof: ? Do not let it get wet. ? Cover it with a watertight covering when you take a bath or a shower. If you have an elastic bandage (dressing): ? Remove it to shower or bathe. ? Try not to move your ankle much, but wiggle your toes from time to time. This helps to prevent swelling. ? Adjust the dressing to make it more comfortable if it feels too tight. ? Loosen the dressing if you have numbness or tingling in your foot, or if your foot becomes cold and blue. Managing pain, stiffness, and swelling ? Take xrdk-mxu-ijcrjku and prescription medicines only as told by your health care provider. ? For 2?3 days, keep your ankle raised (elevated) above the level of your heart as much as possible. ? If directed, put ice on the injured area: ? If you have a removable brace or splint, remove it as told by your health care provider. ? Put ice in a plastic bag. ? Place a towel between your skin and the bag. ? Leave the ice on for 20 minutes, 2?3 times a day. General instructions ? Rest your ankle. ? Do not use the injured limb to support your body weight until your health care provider says that you can. Use crutches as told (more content not included)... Normal [facility] Urgent Care Note- Provideron 07-15-2024 Urgent Care Note- Provider Patient: CLAUDINE DAVIS Age: 69 years Sex: FEMALE : 1955 Associated Diagnoses: Strain of foot, left Author: Justin Ramos Basic Information Time seen: Date & time 07/15/2024 17:19:00. History source: Patient. Arrival mode: Walking. History limitation: None. Additional information: Chief Complaint from Nursing Triage Note : Chief Complaint 07/15/2024 17:23 EDT Chief Complaint Monday was stepping out of camper and rolled left foot inward. Pt having left foot pain and swelling. Bruising noted to left foot. . Mrs. Davis is a pleasant 69-year-old who reports on 07/13/2024 coming down out of the camper step, landing on an uneven surface of the concrete in the grass and causing her left foot to roll inward. She comes in 2 days later noticing a good amount of bruising to the outside aspect of her left foot, ankle, heel area. She does not have that much pain to walk and bear weight. She is able to put on full weight without limp. She does not have any 1 area of bony tenderness. She states it hurts to move her foot [id number]-evah more than it hurts to move it up and down. She does not any Achilles tendon pain, no calf pain. She did not sustain any other injuries at the time of fall. Review of Systems Constitutional symptoms: No fever, no chills. Skin symptoms Respiratory symptoms: No shortness of breath, no cough. Cardiovascular symptoms: No chest pain, Gastrointestinal symptoms: No nausea, no vomiting. Musculoskeletal symptoms: No back pain, Reports: Neck, no pain, no stiffness, no decreased range of motion. Neurologic symptoms: No headache, no dizziness, no altered level of consciousness, no numbness, no tingling, no weakness. Hematologic/Lymphati c symptoms: Bleeding tendency negative, bruising tendency negative. Health Status Allergies: Allergic Reactions (Selected) No known allergies. Medications: (Selected) Prescriptions Prescribed metroNIDAZOLE 500 mg oral tablet: 500 mg = 1 tab(s), PO, q8hr, for 10 day(s), 30 tab(s), 0 Refill(s) Documented Medications Documented Calcium 500 mg-vit D 400m tab(s), PO, BID, 0 Refill(s) CoQ10 300 mg oral capsule: 300 mg = 1 cap(s), PO, Daily, 0 Refill(s) Multi Vitamin+: 1 cap, PO, Daily, 0 Refill(s) POTASSIUM OTC: daily, 0 Refill(s) Tylenol Extra Strength 500 mg oral tablet: 500 mg = 1 tab(s), PO, q4hr, PRN: as needed for pain, 0 Refill(s) eye vitamin and mineral supplement: 0 Refill(s) magnesium oxide: PO, Daily, 0 Refill(s) psyllium: 5 cap(s), PO, BID, 0 Refill(s). Past Medical/ Family/ Social History Medical history: Resolved Anemia ([id number]): Onset on 11/27/2002 at 47 years. Resolved. Comments: - iron deficiency, due to menorrhagia Diverticulitis ([id number]): Resolved. Cancer of breast, female ([id number]): Resolved. Chronic back pain ([id number]): Resolved. Comments: - affecting leftg knee, post fall Diverticulosis ([id number]): Resolved on 12/22/2016 at 61 years.. Surgical history: Cyst ([id number]) on 12/29/2016 at 61 Years. Comments: 12/29/2016 15:53 Anisha Beckett RN excision of cyst to left upper back Abdominal hysterectomy ([id number]) in 2002 at 48 Years. Mastectomy ([id number]) in 1998 at 44 Years. Comments: 12/22/2016 9:16 Monserrat Prasad RN right ORIF - Open reduction and internal fixation of fracture ([id number]) in 1966 at 12 Years. Comments: 12/22/2016 9:17 Monserrat Prasad RN lower leg. Family history: CA - Breast cancer Mother Hypertension Mother CAD (coronary atherosclerotic disease).... Father . Social history: Social & Psychosocial Habits Alcohol 09/02/2022 Alcohol Use: Current Type: Beer, Liquor, Wine Frequency: 1-2 times per month Employment/School 12/09/2020 Status: Retired Home/Environment 08/11/2020 Lives with: Spouse Substance Use 02/23/2023 Substance use: Never Tobacco 09/15/2021 Smoking tobacco use: Former smoker, quit more Number used per day: quit 1979 02/23/2023 Smoking tobacco use: Former tobacco user 07/15/2024 Smoking tobacco use: Former tobacco user Electronic Cigarette/Vaping 07/15/2024 Electronic Cigarette Use: Never . Problem list: Active Problems (6) Colon polyps Hyperlipidemia Hypertension Macular degeneration disease Migraines Seasonal affective disorder . Physical Examination Vital Signs Vital Signs 07/15/2024 17:23 EDT Temperature Oral 36.5 DegC Peripheral Pulse Rate 75 bpm Respiratory Rate 16 br/min Systolic Blood Pressure 147 mmHg HI Diastolic Blood Pressure 91 mmHg HI SpO2 100 % Oxygen Therapy Room air BP Method Automatic . General: Alert, no acute distress, Not ill-appearing, Skin: Warm, dry. Head: Normocephalic, atraumatic. Cardiovascular: Regular rate and rhythm. Respiratory: Lungs are clear to auscultation, respirations are non-labored. Gastrointestinal: Soft, Nontender. Musculoskeletal: Ankle/foot: Left, M (more content not included)... [facility] [place] 024 Urgent Care Record [facility] ? Urgent Care [address], [place] [id number] PATIENT DISCHARGE INSTRUCTIONS Patient Information Name: CLAUDINE DAVIS Age: 69 Years Date of : 1955 Reason For Visit: UC - Ankle/Foot/Toe Pain or Swelling; FALL LT ANKLE PAIN Arrival Time: 07/15/2024 17:00:42 Primary Care Physician: KEIRA DAVIS, BILLIE Hernandez Attending Physician: Justin Ramos Comment: Visit Diagnosis: Diagnoses This Visit Moderate left ankle sprain (S93.402A) Strain of foot, left (S96.912A) UC - Ankle/Foot/Toe Pain or Swelling ([id number]) If you received any narcotics, sedation, or any other medication that causes drowsiness for the next 24 hours, unless otherwise directed: ? Do not drive a car. ? Do not operate machinery such as power tools, lawn mowers, drills, sewing machines, or stoves ? Avoid alcoholic beverages and drugs for allergies, nerves, or sleep ? Do not make important personal or business decisions or sign any legal documents With: Address: When: KRISHNA Mendoza [address] [address] Business (1) With: Address: When: Follow up with Orthopedic With: Address: When: BILLIE SHAFER [address] [place], [place] [address] Business (1) Within 5 to 7 days Comments: You have been diagnosed with left ankle sprain, strain. X-ray of your ankle shows no acute fracture. X-ray of your foot is pending at discharge. An Rupesh wrap has been advised, keep this on intermittently during the day as needed for pain for the next 2-4 days and to lessen limping. Begin gentle range of motion activities by writing capital letter ABCs with your ankle. Restrictions of no work, running, jumping, athletics for the next 2 days. Apply ice to area in 20 minute intervals for the next 48 hours. Take Ibuprofen 600 mg every 8 hours as needed for pain. You may also take Tylenol 500 mg 1 every 4-6 hours as needed for pain. Follow-up with Dr. Middleton if not improving. Seek additional medical care if you notice any blue discoloration to the ankle or foot, any numbness or tingling to the lower extremity, any new swelling, or further decline in function. Medication Information: The exam and treatment you received today in the [facility] were for an urgent problem and are not intended as complete care. It is important for you to follow up with a doctor, nurse practitioner, or physician?s branch assistant for ongoing care. If your symptoms become worse or you do not improve as expected and you are unable to reach your usual health care provider, you should return to the Emergency Department, we are available 24 hours a day. For those patients who have received Radiology results, the interpretation of your X-ray as given to you by our Urgent Care physician is only a preliminary report. The Radiologist will review your films and if there is a change in the diagnosis you will be notified by phone. Please make sure you have provided a working phone number so we can reach you if necessary. In the event that you had a lab culture while you were a patient in the Urgent Care, you will be notified by phone if there is a need to change your antibiotic. Please make sure you have provided a working phone number so we can reach you if necessary. [facility] has provided you with a complete list of medications post discharge. Please inform your drop wire hanger/provider of your visit and for further instruction on these medications. Any specific questions regarding your chronic medications and dosages should be discussed with your primary care physician(s) and/or pharmacist. Additional medications on your home medication list not specifically addressed. Please contact the ordering physician if you have questions about these medications. acetaminophen (Tylenol Extra Strength 500 mg oral tablet) 1 tab(s) Oral (given by mouth) every 4 hours. as needed as needed for pain. calcium-vitamin D (Calcium 500 mg-vit D 400mg) 2 tab(s) Oral (given by mouth) 2 times per day. magnesium oxide Oral (given by mouth) every day. metroNIDAZOLE (metroNIDAZOLE 500 mg oral tablet) 1 tab(s) Oral (given by mouth) every 8 hours. for 10 Days. Refills: 0. Misc Prescription (POTASSIUM OTC) daily. multivitamin (Multi Vitamin+) 1 cap Oral (given by mouth) every day. multivitamin with minerals (eye vitamin and mineral supplement) psyllium 5 cap(s) Oral (given by mouth) 2 times per day. ubiquinone (CoQ10 300 mg oral capsule) 1 cap(s) Oral (given by mouth) every day. Visit Information Allergies: Substance Reaction Symptoms Type Comments No known allergies Drug Vital Signs: Vitals and Measurements this Visit (last charted value for your 07/15/2024 visit) Vital Signs This Visit Temperature Oral: 36.5 DegC Peripheral Pulse Rate: 75 bpm Respiratory Rate: 16 br/min Systolic Blood Pressure: 147 mmHg Marcelina (more content not included)... [facility] XR Ankle Complete Lefton XR Ankle Complete Left HISTORY: 2 days, fall. lateral ankle and foot pain COMPARISON: There are no previous studies available for comparison. TECHNIQUE: 3 views of the left ankle. FINDINGS: BONE DENSITY: Normal. Plantar calcaneal spur. JOINTS: No acute abnormality. FRACTURE: No acute fracture. DISLOCATION: None. SOFT TISSUES: No radiopaque foreign body. IMPRESSION: No acute osseous or joint abnormality. Final Dictated by: Loc Reyes MD Dictated DT/TM: 07/15/24 6:51 Signed (Electronic Signature): Loc Reyes MD 07/15/24 6:52 pm Technologist: [facility] XR Foot Complete Lefton 06-27 XR Foot Complete Left CLINICAL HISTORY: Left foot pain. Rolled ankle. EXAMINATION: Frontal, lateral and oblique images of the left foot were obtained. FINDINGS: There is a well-corticated osseous density lateral to the talus seen only in the frontal projection. A small avulsion fracture is not excluded. No further fracture or dislocation is identified. There is degenerative change. Throughout the foot. There is a calcaneal spur. There is calcification along the plantar fascia. There is enthesophyte at the insertion of the Achilles tendon. IMPRESSION: Small, curvilinear osseous density adjacent to the lateral aspect of the anterior talus. A small avulsion fracture is not excluded. Correlation with point tenderness is recommended. Final Dictated by: Monster Nava MD Dictated DT/TM: 07/15/24 8:25 Signed (Electronic Signature): Monster Nava MD 07/15/24 8:26 pm Technologist: [facility] Coding Summaryon 06-19-2024 Coding Summary HTMLBase 64 DlvcnmgjVPg9qJt+PGhl YWQ+KC0UQTKjP06wtWHl bE9eN9VJRTaSBwevOGTB ORsPMfVofyQiIW7ayGLy ZXJu IC8+SL9mLDMhVedzpJCu f3K9lFD6M02ote1eDCbl lKP9BRSyVnCzictmy4wf tVc2VRcjDdkpFuKr GLBjzQ71CMS8bY92Su41 jRXmuDLen3bzoJf3HzHa IULeQXA0mGzuHElxv3Lr NQTyQ34bsAJqi0S3 IGNvbGxhcHNlOyBlbXB0 nS5wQCmjtrdvv8lrvalk Twr8gt39vFNcz1I8cYL5 T4WtqjG1YZSlxWJb UjzajGAAjT5jvctky7tq zvpfPkBxPHSaGGd2UBb6 AMEwsKxaFgGcQC18GSX8 PEQvvmHsZ4RbOHJl uCevIgX1g7K1Sj4HL0MP DhkyN6HSUWSMHBruyNO+ ZQ66ee90U5ZhFxqhNfl9 NZBqVDG1cQT5nU8l ODWvTKatu1G1tSK2N4Uj drDppe2hw5eoCCQzSHji X59ocVUvx4T3HAIhtVZ7 SLDphZnpCsJcfT91 Oyc+EBIpiGfey4YsGqub q0nwc3dqmDb1JfloYORq zcFwmFrrDXL8c6OyCc9u XUKoiJH2mAT2dF9w YhSsLiO8LFxsB590ZeCd nMIiYlqrO62rB6JllZB+ YBKhSky1LRRsjKsuYT9e M9EaNMSldctkaGAk oMkdRD1ySQXhzwtaILPn oN3cLSZrS8m8YfPaXuX1 UQpjL3NdGXZqymrhYd15 cS4jKlMsGhL0BFpz C6JrdvA7UKHovVYjDKhr RAL5L27cq7B8TBZuCYRp BMN8aGM4bH4vzUvuckjb bGVmdDsgdmVydGlj KXdlTHexA014WFAjiWjt PkNvZGluZyBEYXRlOiAg MDcvMjQvMjAyNDwvdGQ+ YAWrFHK3vMlbRQQt aVUdHMvjHu7fzFkabNct RK4kSZWcursbSIGbxZ8n RDPdsVOttGurMH5gHPEl tjooh826PwVeHQH3 OBHhlKSaG7OiaB6iMmOl UAIbSXRpL3TntSNsZSpm W895NVafFpB5TGRgfqOf W1HwNWFjiGzcNkD9 g4K3Gl1Aa9AprhxjL4Ed oAMtBqDfNdykSAn8R1Eo PjwvdHI+II58OOPyCU83 VTg1XBN5xVwsWUjx ZIBuV4CmcK2zRnVfUIIh ZGRkOyc+PHRhYmxlIHdp ZHRoPScxMDAlJyBzdHls LN3yRr2hKVJkRZWo bYwzrTBbZwQci2mnLUSn YZfbHH9mmRvpQ6XicPC1 CNPcw8m1Bp80N46sP9Qr dXA+SXMkdTW3dCQ9 yF1mBpZhXiN6YNzvM573 ToKyaDEuBnvfc9bot1my iZg8FvV0QHKubkBqtBeg IWT8z9KjXc67O90y IHdpZHRoPSIxNSUiIHZh dCdpns5skJ5sIj2+PGNv wOZ0uKL1aZ7hGeXsIyM6 XNteN230HmRxtCIg Boyxj9nvr2ciwFw8BjAc WLBvmkGpkBlfVFD9a5Sb Oz15D0XzoWhwi6OwWvj1 uy85mVNtv6K4dAQ6 D8UlVERxtawyiFHmxYlo PH7kIQUywnaqIQTkfC1w ENZtX6g9ZzEnSqB8MUap L9XeguH1XPWxvBUv YXEzuRVEpN0jkxzgz6dy qxckUaOlOEBhXGj5AXf0 HTAyjJroHmKuYPI6VnT9 YXB7hHBdzN6bwXlm xkdmcX4uBxn+PVY1fNVe bCNVVO9jEninpSY+PHRk QNN8dOemRQnrGDUvrL0b BFVdJ5q4PoBySpJ3 BNukN8SftrA8TSRhbSDy IEIqxXCLmP1jsjnon3at zyjuUnQvSOLwTLt0NEe4 LWFsaWduOiBsZWZ0 ToZ5LBZ0qLKauM6pxCrb prlprC6wJme+QmlydGgg RLY0KQx6W2IxPju8PWXw aOyhFQ7uxAXzLQzg Qr5qwLteaMpaKN2cZGDy uljro170JhWll1biPBNz lGJyWKvtYNS0P37pr3J0 SDOlKPEnAVG3fQJ7 tG9huVvdnlvyvHPjvFyn rcIfjQmlUGdiUKanM691 CHSgsKlsVeLyQRq6N8Dc Phs0NLAfgBieXB3k gJNqKTkuSf0jkCzllZga IO3mROFsecqbh751SiWs h7raEWMnjSIrBNhxWPK9 V39sp4M5PZBuXKIs QJU0bTV6oE0xxUqtmfxf bGVmdDsgdmVydGljYWwt QBkuQ091ZAVjdCcmBoSn cPr4M6EjStz2IMHs oCodDK5hdGOuPJmmIk1v dNlmuVmuUN6wETUyqomk k990OtCbd4uxAXEvlPMz MAocUZZ0M73df8F2 YMFrFQEdKYD9oUE3vB6v bGlnbjogbGVmdDsgdmVy sNjfRGivTUkdO276RPWc cDsnPlBhdGllbnQg ZQcaGQl8N0UpUsemaJN+ NT57GJWsSO32qJAggQRa r2surSp8DpBpJHIhTUS7 yVmwYFgei7FqIQWk L82bzBVjz0L4NFFweTel qULzCkObuMW6fZ8oUIsg hvvsb4gzuqbhTrltm8qt le39wQ54Q20kKGrv ZHRoPSIzMCUiIHZhbGln ez1ybJ2gUw8+PGNvbCB3 oFL0oX3dBUXkOdM0SCri Y214MvBvbNPqDvtj i6jnf9zdjQs3NdJ2RHPu kzEloFqkLMT1d1LnFm79 A54cUZmeZCMuCYGxFHQf SDSpaYhdvz0wyE4w Ii8+XEGbiEM1wUC7sF2s ThEiUmP0PSlyS992QrDt kBRtMdrwZ74mK8MibUN+ LDDbDir7RDLpfNxl QG0tkMFqXXqgIg9fCRR2 TsBcDlYxZVcoP9MtJSJo pqxarndjhFL2LPFlZPYm wD79Sf1vnYnnXGBe aUZWyH3fefmkh0uqcmel YpOvCWPoYBn9ETj2LGZi oGwvRuOpIKP1SjE6UXI0 xNTuaC9qiMopchgy qG2lV9PnXBXccbkrLt57 aX1cAzYjAhJ8MCtxHnu+ E47UEBOZNNJIBAqWUJPG DZXNB7F9C0UbWdj1 XTEktXiaJD6swPXhTWkh Xc0gaMzksIgvII1yKBBu ragoPGCvjD0sROYecSUr oZtuQX5gYSWqhyrj q682QzMvYQI6QNYwrSRi C8RsqJ3zNtIlMZZgDTDu J4PmcUIaQNxeB942LEie XkI5LDMxjmFuE5Gx IDKyrFdaHfO2u0F1Xx6g Fd9aPA2pBUE4TW82DK72 rLUvs2Y0vOH1W3HkBVPl ywafjipupGG5EVNp QKKnfM26yGWyQMjuPc7r n8A0p196WKBuTLOolZ40 Py5fzNivVVCthVGXxC9n dffuk1xeawkcLvCt QDEgOYz1XBw1YXSpjLri IxScDAZ1WmF0AQY4aQQa sS8deRvoltwwnY9tXjr+ NmKhQFOtvwF5A4Mf Trl7EQPfmZyhXJ7txGKc ROmjIy8qmCxxpFkqAP9k XDFtrkmmVSKlvY1eICBn jLOhsAgvRB6rYENu aagky901WqUdOMS2KVIy oLSyV9TshU1rFgSkMIEi ZAOsS7FfeFGmGTbaG822 NOpaLrL7HYYfkkRk A6KfHSEomXldVsW3k7N8 Kx6KTG8ABRW8V4ZeFxy9 XWIzcOplQG5njFQjMTjn Ny8ghPgzlTgvOJ2u XHYogxrlHEZpfQ8tZWRw fIRsuLwfLT1mPWPxcsvu k310TjFvBJN8REOtbQNs A3ArqR3dBtDhXWGc TQVdO7BstAHiUVaqV533 BPfvExJ2CUPdneVvD1Ry MMIxvKisLiP4g4S6He0U UDwvdGQ+QK32zt12 N6UtImhyCmg3EHMcNIO1 xRF7xJ9aZPZmBIbre0T5 dIV0L5ViikLdjh5vz0uf TAEsFXfyN50iaVXi b0L1WTWgxRI3QEHxcIcn JtNrxX61Drh+PGNvbGdy s2ZuNqxde8qfm9ljsXb1 IjMwJSIgdmFsaWdu TUG8o4YwWs77G79kGXkv ZHRoPSIzMCUiIHZhbGln rv8veP8hRp1+PGNvbCB3 xWX8gK0tHkZmMrU4 SCloH488YbOfxTNnNlvs f3mzm2gisQg7OpVrZRSr urXurQntZLO0q5MzFs14 C1SeiGffe3QqGch5 av16eCQpn2D3cZN9W5La VWMvcaltxUEbyLvoJV6r MBOjssikDGTfuM7wUFZy J5s1TfJdNfY8TCnv E7ZwqbZ0HPWdaGRnJBMz oOEPnT6ucpoja5abkwrh HaKoCWSgVDj8XJs5ADOr vQqeHzKdDXU7SvJ4 EXT3aEVkyL6puGucugep cA4nOfy+PIt8z0aiqYRq DN8xfII4YW17MB95hUNz v2A0fMF8K5PvRHNh txpkmfgwcNP8SAIeXSDu mB70Ku7atApeSe1hLYRs RDN2ELOdqFXoL7QnsI3j QeDyOPMyBGAzD4Qh xTZmBDbfP318ISbiHjQ4 LXGlqhVzK8TnVQTfrGdk IjJ7y6V5Sj7IHV50JP81 BT84uRTkl7N9zRH3 S7QkTDTklmfbcgomkUI6 UKFhVOCccH91Ls9mySxk Hg8uMNUxVAO0VDRfxTVq T2GmjP5wJbBvHEFh ZMYnB9LkoNWzFAjlF318 WUvrQrK8ODUgevZoZ1Wv JSSxbUvsXaI8q4A4Xq2C Wc77BV14ST07mDXi t1P1fBJ3R9RyVOMslgdl zgbizQP0HFJgLTIbjB26 Dv6faKhzNo8sSUZbJGF6 WNFzlORqD5ZutL6r IdNyPGGzSEFzR8TmfSWb NAmsH612INpjUgB8UEFa kgZsC9JaMEJpxKujLpC1 k2U9Ml7DXZomwdw1 F4YnJnnunZR+YH64DNBu EX76aWQteRAgc2ojaOt4 WnCmNMZjQWT1uIlaNZlh d2VxXSZpZ03mqROp c2U (more content not included)... [facility] Coding Summary HTMLBase 64 IwkblvluNGs2iFr+PGhl YWQ+RA7KDHMdR14ifEKl jO6bG5AVWGpYRbuvWBZS HFfUEcVllnAjFM3cwDQd ZXJu IC8+UG7hLZSkMhhptSJy w1U0yUC8S67box9oDEnt qHC0UNDhYxSvmrhus3xm hTe6FGniQjzsNlSc TBRlcQ14CSD7fU56Ru29 fOPgxWLzh6wnxCp5QwTo RCBpURJ6gNtwRSjsc7Mg FBHeV14kmRWqt4S6 IGNvbGxhcHNlOyBlbXB0 cP0rETpltjmoq8wylnza Qpv5um34uRDzs4A1rAD2 T9AalfG4ATVfcDRq NhppdBPRzC9oaqxor1ww sktkImSnAECfBSq2CIr9 PVUwiVzvSyRbOL63UMA3 ZTWafmAiY8UtVGOi hUqbTsO6c9F4Zm6ZJ9TJ LdzsN3UTYXTFRSmixUI+ YN66ri93X4QsPcjuZcv8 VXVwNZT1sJR1sV6y CKRgPOwbf1B8gXC3N1Zx evAikn2au9kaIOPdDTbr P46eqFXev1Z4CFFkfEJ0 ACIyoBooGrHyeA29 Oyc+QFHamWwfh9FwUcsv z9deu2fvkKs1EyrkZTZg brPrvHpgFPB3c4KqTe1j VPJyvLY0oLY2vO0e TkCpIpT7KJgzA999AoYx eFLyTsasL74uW4WumQG+ HAFoFpl5PCIwlBawVR5z E7IsMBOmdcnwpRIf dZaoKV3uTDOanaruWESm yR9rPEDmB1q0JdGqIlS1 GXisW1DaKVUmhjbqSw65 gG1rNwXhKzQ2GRis U9DobtO9GIDblYVlWBda WBR6L88lx6B1OBZtXLUw KHD3jPY4iS8xuHrbrjio bGVmdDsgdmVydGlj QAhaRBraC892BEBddEig PkNvZGluZyBEYXRlOiAg MDcvMjQvMjAyNDwvdGQ+ NXFsLSS2kPowRKIe zYMnWNtyCa3loDpmgQev SP8rSKFcjikaBRWiyY2c QFQinOHclUlgJM7jXDMl oimer349HhNhVWX4 JHGwmWJpG9FfiG1vSwWu GIAdFITgB0WjlOJcGHim O719XHnrDaA8WCElrwLa Q9GwGMRayUxjMoU8 a6K2Jb9Oy3TipfeiE6Bn mRJhDlRiVwqiWIr9A1Ok PjwvdHI+JI51UENfYM27 EMa7TSG3hYkrHXni JBXhQ3FjaN1wXgJwZKGg ZGRkOyc+PHRhYmxlIHdp ZHRoPScxMDAlJyBzdHls WN5pTs1hMZXyGXGx kXbuiEEhZzXlk3diPTHu PCwmRK3ijTibD4MylXF5 BHZme9e0Nm28C13uU0Zi dXA+OAXhgVG3wVD5 wM1yUyMsKeM8JHppU578 FnRwkSFbIuxpd3ezz2ra zHz1ZcC3XVDqxkQdyTan SQJ4t1LzIo54R59l IHdpZHRoPSIxNSUiIHZh qNziib2ofD7tGz5+PGNv rWK8xNS4nS7nRzDeGuX7 JMjpN109IzXitJCu Jobnm8sgi5hrpCn3HaGx EDMvrfJyfVwnYOQ9w3Le Zu75P1YlbBqay0SnHkn9 cy41qDYek2K2dIF1 G3WmYYBuliusvMUzuKwm BG4hHJXhqnbyBCAnvE2m SXRaF3q5HxTcClH2BDnf S0NpeaK9GWKyvPEx JQGfsZOEfU6rxytbq4cl pgupEnSeKNWkLMn6FLf0 JECamPshPfMpTSU2HuS9 YHU4nVOhkU4oiSiq rvhdcY3hTud+TGW7qPJx rORDFD4zPyycoVX+PHRk JSC3zKncXPepOXSmxU8d SRKvH2p5FtPiZeW4 HDjpK9UitpO8PNVvdAAr CIJybBQCgT1ndfvbe0ls waspSrRgXDQfKTl1EZm2 LWFsaWduOiBsZWZ0 LxI3KMZ3qCLxqK0wbKpq vztbsV7pVyq+QmlydGgg MBN7HPy5F3NtGub7HBQz bAouIY7euRKnAImg Ap0cfBiekMhrXE5wQIUi fbxvp169PwIrs3enNVYa wZEyJCmlGTM8R23xg6M9 CGEzDWVaLIJ8hTS0 dD7riVyptmylfRHctVnr ioFrvBrcHEbdEEitF001 GKPouPtdXaNaIIh5Z0Dn Xrj1KPCyzTlkOG5i lZHfUGnrMf9imAcamNho OP0zNRPbdhwjj213IxLr o5knQHJycJFiYSfaZHI4 E79hu5L2LXWfJQCd OLT8xOU5gW4ffBiqvyup bGVmdDsgdmVydGljYWwt BLtrX558YDAetTxdZsXc sLk7C5BsEnf3GKWg aPoyNI9tdCWgIBlcEb6y pPynlOakGF0tFMKlnzjg f798SiPvu4vlPNIgxHOn PPjdNLK2Z16dx9C0 IKDoWEIrYDY8cEN6lK5t bGlnbjogbGVmdDsgdmVy uAiwDWbcZOqoW728WZDx cDsnPlBhdGllbnQg AIczDBb0I8GnVupvlDZ+ FM67OOKpZO78rPZudNMk b5vlnRf6HpQjJLZkYTI9 pCfoIAaxt4MuGXPr M31bvYTdc9Z8UMWfoGso vLRzDcWwaBR2zQ9uVXyl nnlbs0cylzhsRepqd1gu fj51pX86R84wAVbr ZHRoPSIzMCUiIHZhbGln ru1rrR8xXw1+PGNvbCB3 uEA9nY6tSAWhOzK1CDmi O646NmHpeTMaZvti v9vnp0gtiWp1PnN1IYBq zgXxnAnjZRO0p3VxHy68 W16uOUpeFHAzZKSmJMRb WGQndSawel3oyX9x Ii8+BPPguXP7oRL8dM8t JhZuVvW0ZUpgL985XyXb mYCaRehaK88zT5TpqQC+ PPDmKhi9AQOrlHnb NO9qpGRqLMwaMq5hWRP9 LaAiEnZvZRphY5FqHLAj rrjfghrtkQB6WAByXJHb aZ78Et9ebKafOSZe kLPWcD2rahkdv4jqaiat JtWfLHLjTZf7IPu7LNQg iElzFnTvGUB3WrK7ZQR6 qHGpqT2spQpxzydv bN1zV0CiNSGudmokCy24 vG2gRfIoAlM2HQcoZgv+ X37JTAJJEILJTGlDGFNW LLSAW2Q2W6QyWxd1 RXZktXbeJK4qrAPlQLxl Hu3lpSohtVvfYT1mFHXs ksbuWNZcnW7xJEJomSXn hXjwHY0lVSPugfyl f656FgPrGOK1XTPxkWPp P4OfyK7pInCdKMCtSVDz I3GmcECbGZknP128HJre WrV1YKDqcqJbT5Rv BQThhNhnRsS1i6K5Yh4u Kg8cLN8zUHG5PO06YY66 dLMis7H0fIY6M0WsOBZx oimyuagqxTR8ZIYd YRHanT00vGOpRQggTv7t m8I9n126XGDtZHDaxR14 Qh4zgVtcMTRncOBHlW7r agral0tdshorLvSn AZLsBZb1UOl3LDYzrMhj FhUqDAI4ZmA3DXD4sVOn nZ9evGhdzligbG6mWyv+ YtHlSUAvzuT0H0Zt Aio7CDAxbNvxRG2grJVf WSvwSr4mbJphcChgUV6d EPWqduurHVHprG1cQOHs tXKbjLfxIU7tWUCq ljnke512NpRcZTX8IKRo tMYgV8SbdS1uPmVrULPy PRPtP2YqgMMpPPjyK301 BEivMpH2LGRwneAg C6SdCDSyrLhbMnJ9j1D6 Dd5ZUL8EBWS9V3TmJgb4 NSOjuOonTX0soJFfTYjs Sw5hzGeozAgvOQ3b YAQwdylcMMZsuJ4jBUWw mIGugJidZD0hDYSkxkgn i617IpWhKZS7YHPaoEDj O8SjrP9lViKzVAEd UGHkU9BmdEUbNUjvA726 EWfpKrB0RXMlcjRlG8Nx OVYfaFrxMhK8g3N8Qu6A UDwvdGQ+ON99zu74 F4AuUwtsVde5RTQgNPN4 zBJ1mK1aVBSjRWtzd3D6 dXB3T9GqsyHlcq0as0tj POCbROhoL48dkNWy p0Z2MQFanPV6ORFdqNxc FoFznX12Jei+PGNvbGdy q5MdYgcgf8qpr9jxsSs8 IjMwJSIgdmFsaWdu REH6m8WbLt43K33mNDwv ZHRoPSIzMCUiIHZhbGln gw9vlT1jQf0+PGNvbCB3 nPB0oS8zEzQhFzQ0 RQokZ405YbAhtFDsCgmw e7qqj5ukbJw6IfHsYUWu cdAvbQtaBXX5g4CqRi59 E7QtcRgca4ZkRlr1 sv60aSGxj9S1iMX8J8Fo BJNedpzueUZpjMjhCR3y ZSYyqsfkTOVccI4hEWPg R9k7ExOtCrW2NCnr T9OsaaB7UNAprLXkXWAf zDXBfJ2pqldzl3vcjelt UxXgIEPfUHx1ZXp8EICy mAhhZnAlNJX7GmH6 GIM8pRFmsX2quTpccfee rQ7vCtb+FVr8q0uygQOx KV4btXK0AH58GS20sPXd s8Q3rXB3B3TfXUCd luwlfqldhMM8LJZnWWGm bL42Wo5seFitYg3cHLNu SBX7DUFutCQuB8CumC8w KwJnAGTkXJLoV8Dx xLYzIQvmK811ZAyvQkO3 SDVcezWyD5FaUEOadNhq KjE9o4R0Nz5OAB14XV40 JH01cGFib3H6aYJ2 T4IqPSUrpusvwnlzqSC9 EPIoGPSgtK07Rv4smVpf Hf6oEXRvBYB7QCZjnUPa E5JfvM9bVlQnAKEd XJSuL2CwxIZaLZfwV666 IGnnGuC2YWMhdoElW2Yi UMHpvPobSoZ6w9Q8Ek7Y Nv32YB81PN13eSZl z7D4cDJ2H2HrGSSjazem bebtgKR7RMGmUFQqlA39 Wc0wfAyyBt4aVHAzMCQ1 YXGneDNaN8ZhvZ6b HcMuHILfCAMaC7UooVQn ZWqiD482TXwyEwU6HHAk rfQsW7GgVAOfyAjhAnZ0 c8Y7Vi0APGiepdg9 X1HmUjnvnXN+LR15DJXy BG44yXKszPMzf9igyGt8 WdVuKUYrFAU6bEqjIZfk g3JlOVJmM14tcSBe c2U (more content not included)... [facility] Outside Recordson 06-14-2024 Outside Records [id number]# [id number] [facility] Ambulatory Patient Summaryon 06-07-2024 Ambulatory Patient Summary [address], [address] - Visit Summary For CLAUDINE DAVIS Age: 69 years Sex: FEMALE : 1955 Address: [address] [place], [address] Home: Work: -- Primary Care Provider: BILLIE SHAFER MD Race: White Ethnicity: Not or Language: Kittitian Health Plan: 1?MEDICARE, 2?[facility], 3?MEDICARE Reason for Visit: c/o right hip pain, stretching has not helped, even hurts to walk Prescription Information: If you have been given a prescription for narcotics, seek immediate medical attention if you have any difficulty breathing or any sudden status changes such as confusion and sleepiness. If you or anyone you know is experiencing suicidal thoughts, mental health, alcohol and/or drug addiction problems; contact the [facility] 19/06 Crisis Hotline -Text 4HOPE to 170624. Follow-Up Information With: Address: When: BILLIE SHAFER MD [facility]/ [address] [place] [phone] , only if needed Future Appointments No Future Appointments Scheduled Future Orders XR Hip Complete Right Requested Start Date\Time : 06/07/24 10:37:00 Additional Goals and Instructions: Vitals and Measurements this Visit (last charted value for your 06/07/2024 visit) Vital Signs This Visit Apical Heart Rate: 64 bpm Pulse Site: Pulse Oximetry Systolic Blood Pressure: 120 mmHg Diastolic Blood Pressure: 72 mmHg Cuff Location: Left arm SpO2: 99 % Measurements This Visit Height/Length Measured: 162.56 cm Height/Length Measured (inches): 64 in Weight Measured: 79.3 kg Weight Measured (lbs): 174.826 lb Weight Dosin.300 kg Body Mass Index: 30.01 kg/m2 [place] Body Weight Calculated: 54.7 kg BSA Measured: 1.89 m2 Diagnoses This Visit Hip pain (M25.559) Laboratory or Other Results This Visit (last charted value for your 06/07/2024 visit) No Laboratory or Other Results This Visit Medications and Immunizations Administered During This Visit No medication administered during this visit All Known Current Prescriptions and Reported Medications New Prescriptions this Visit No new prescriptions for this visit Prescriptions metroNIDAZOLE 500 mg oral tablet (metroNIDAZOLE) Take 1 tab(s)(500 Milligram) Oral (given by mouth) every 8 hours. for 10 Days, 0 refills authorized Home Medications Calcium 500 mg-vit D 400mg (calcium-vitamin D) Take 2 tab(s) Oral (given by mouth) 2 times per day CoQ10 300 mg oral capsule (ubiquinone) Take 1 cap(s)(300 Milligram) Oral (given by mouth) every day eye vitamin and mineral supplement (multivitamin with minerals) magnesium oxide Oral (given by mouth) every day meloxicam 15 mg oral tablet (meloxicam) Take 1 tab(s)(15 Milligram) Oral (given by mouth) every day Multi Vitamin+ (multivitamin) Take 1 cap Oral (given by mouth) every day POTASSIUM OTC (Misc Prescription) Instructions: daily psyllium Take 5 cap(s) Oral (given by mouth) 2 times per day Tylenol Extra Strength 500 mg oral tablet (acetaminophen) Take 1 tab(s)(500 Milligram) Oral (given by mouth) every 4 hours. as needed for pain Hip Pain The hip is the joint between the upper legs and the lower pelvis. The bones, cartilage, tendons, and muscles of your hip joint support your body and allow you to move around. Hip pain can range from a minor ache to severe pain in one or both of your hips. The pain may be felt on the inside of the hip joint near the groin, or on the outside near the buttocks and upper thigh. You may also have swelling or stiffness in your hip area. Follow these instructions at home: Managing pain, stiffness, and swelling ? If directed, put ice on the painful area. To do this: ? Put ice in a plastic bag. ? Place a towel between your skin and the bag. ? Leave the ice on for 20 minutes, 2?3 times a day. ? If directed, apply heat to the affected area as often as told by your health care provider. Use the heat source that your health care provider recommends, such as a moist heat pack or a heating pad. ? Place a towel between your skin and the heat source. ? Leave the heat on for 20?30 minutes. ? Remove the heat if your skin turns bright red. This is especially important if you are unable to feel pain, heat, or cold. You may have a greater risk of getting burned. Activity ? Do exercises as told by your health care provider. ? Avoid activities that cause pain. General instructions ? Take bdzl-pir-otjufwr and prescription medicines only as told by your health care provider. ? Keep a journal of your symptoms. Write down: ? How often you have hip pain. ? The location of your pain. ? What the pain feels (more content not included)... [facility] Patient Handouton 06-07-2024 Patient Handout Orthopedics Hip Pain The hip is the joint between the upper legs and the lower pelvis. The bones, cartilage, tendons, and muscles of your hip joint support your body and allow you to move around. Hip pain can range from a minor ache to severe pain in one or both of your hips. The pain may be felt on the inside of the hip joint near the groin, or on the outside near the buttocks and upper thigh. You may also have swelling or stiffness in your hip area. Follow these instructions at home: Managing pain, stiffness, and swelling ? If directed, put ice on the painful area. To do this: ? Put ice in a plastic bag. ? Place a towel between your skin and the bag. ? Leave the ice on for 20 minutes, 2?3 times a day. ? If directed, apply heat to the affected area as often as told by your health care provider. Use the heat source that your health care provider recommends, such as a moist heat pack or a heating pad. ? Place a towel between your skin and the heat source. ? Leave the heat on for 20?30 minutes. ? Remove the heat if your skin turns bright red. This is especially important if you are unable to feel pain, heat, or cold. You may have a greater risk of getting burned. Activity ? Do exercises as told by your health care provider. ? Avoid activities that cause pain. General instructions ? Take gysu-zik-xajrhut and prescription medicines only as told by your health care provider. ? Keep a journal of your symptoms. Write down: ? How often you have hip pain. ? The location of your pain. ? What the pain feels like. ? What makes the pain worse. ? Sleep with a pillow between your legs on your most comfortable side. ? Keep all follow-up visits as told by your health care provider. This is important. Contact a health care provider if: ? You cannot put weight on your leg. ? Your pain or swelling continues or gets worse after one week. ? It gets harder to walk. ? You have a fever. Get help right away if: ? You fall. ? You have a sudden increase in pain and swelling in your hip. ? Your hip is red or swollen or very tender to touch. Summary ? Hip pain can range from a minor ache to severe pain in one or both of your hips. ? The pain may be felt on the inside of the hip joint near the groin, or on the outside near the buttocks and upper thigh. ? Avoid activities that cause pain. ? Write down how often you have hip pain, the location of the pain, what makes it worse, and what it feels like. This information is not intended to replace advice given to you by your health care provider. Make sure you discuss any questions you have with your health care provider. Document Revised: 03/30/2020 Document Reviewed: 03/30/2020 [employer] Patient Education ? 2022 [employer]. [facility] XR Hip Complete Righton 05-27 XR Hip Complete Right EXAM: XR Hip Complete Right HISTORY: See Dx right hip pain COMPARISON: CT pelvis study dated 03/05/2014 TECHNIQUE: Two-view right hip and AP view pelvis study was performed with 4 images obtained in total. FINDINGS: No definite acute fracture or dislocation. Mild degenerative change about the hip joints. Mild osteitis pubis. Mild degenerative changes of the lower lumbar level. A few calcifications overlying the pelvis compatible with phleboliths. No significant soft tissue swelling suggested. IMPRESSION: Degenerative changes as described. Follow-up as needed. Final Dictated by: Deon Sharpe MD Dictated DT/TM: 06/10/24 3:37 Signed (Electronic Signature): Deon Sharpe MD 06/10/24 4:34 pm Technologist: [facility] Coding Summaryon 04-10-2024 Coding Summary HTMLBase 64 GefipkpsGVg0nMy+PGhl YWQ+GK0FNHXpA25tpHKp qU2wD5WWWVoSQkxgQAOC QNfOEqMdywVzGR4ihDJa ZXJu IC8+DP1bKAVqLrzbbIIc b6Y3jEX5W15jfg3dBVkq oLQ0CFEqZhQzurwua7wz wVd9FZaaKcnuWoUl DLRtkZ85RLB7iC40Jy62 oOTwaTRco3zdsSb4OjMn MTBcCGT1rIpwRUebr3As RJBnM58cbKBib9D0 IGNvbGxhcHNlOyBlbXB0 kP4rPXvqvffgk1xqgkcd Ciu3wy47wDLex2K3bYN9 T8RqfkI7LGSxgPOy ZhqzdQWObI0fgwuli3sh pepqRpZiLGSlIHs0YBi9 MVIsiWpgAdHwXY34GVM9 SEYnbySrL7GdTCAd hGqzKdM6i4P0Oq9GW6XE XsiaW8OURTCTECtmfAG+ XN55ij27P7YqHtgnYvq6 AQBkMIX8wQB3oU0p THKhJCvxx0L1uOL8K0Tx dqIykw9no6xmMGAbPWsw W53asOJal2U5YTXlkAH3 RQWesLogLzFtfB92 Oyc+KMBqiSald0SfVtrc r0lgu6wkwPw2WjhkSLZq gyTcwBjpJVG3k1KhYt1g CNWrnKV0bOH2uU6x IzUqJgN0TRduI499VzGu dPGhEbiqY67vG9KuwEZ+ HITpOcm1LCKnkSpsJO5e R6CnLEJxbzszvZJq hXpnLD5sQRZoqbohXOVo hV1fKYPeE9m1QwVzUxO6 JRqdZ5PnFTOuzqyvMt19 sL2sSxLqJfM2IVre F0EkgpJ9BISqqHNoMGpk FPP3B40bd6Y6RGXoXSZw ONU7jAS3hQ1voJjbgbhh bGVmdDsgdmVydGlj BEwrAZugB532CLHyoSpo PkNvZGluZyBEYXRlOiAg MDUvMTUvMjAyNDwvdGQ+ KTLbHBL4qTfiCKFz xLCqZPdxUx2zwAvbnWqc XA9yOFRcvvmtOGSgtP8u LPYhcJHmtMhkOQ1wRHJf wtytf885LnOpPER4 MPPunLCoA6EkwJ6hQwYp GFGlYLWxZ3WutQLmIFnq M348KXjoXmD3JNAtgeUd T4WbFBTwpZxjKqH4 r8D0Gd8Kh7RyythqH1Zg hMXhJwStMtjsPRl8Z8Kq PjwvdHI+OD46OXBaKD00 KPl9MMQ6eJemNLga SULtP6GdiK9fVwDsVQHu ZGRkOyc+PHRhYmxlIHdp ZHRoPScxMDAlJyBzdHls WA0fFt0oXOWpBULf uUwnsDUwMjRrh0gaCFAi WWybTD7loCvgF4FfuOO7 JEXoy0f8Gs46O26kB9Jp dXA+VSKhjSN4oCV2 tE7uUfTiKmO1SBhvW919 NdHyxDFeAgnjy5shl6yk lNj4SwM1VSUliwLgtXns QEW3s5OgKk60H74n IHdpZHRoPSIxNSUiIHZh cDncyj3imF6nVb0+PGNv fUH8iVL4fG4oSoBePtQ7 QTnaX548GlZcnVFq Gpdck3jyo9jcgBs9WiSs AZLccyHxzCfsBRK1l6Qk Ca13W1GasTsgw3RzYgj8 jz37cCTjb9A2tFM0 M8XyIXDpceesyJLhmOhp AX0tPMZgyotdIZHtsF9b HBIxU5b8OnHwObT1FSfy Z2JyfnF8JPHjcRYk XOXlgNIJdR9tfajhv7kh ydqwMwTcZDEfUQt2SDt1 WZDnhAdrPaBhMAS7XoX5 AAY8vFCmxU5tiDcx oafkbQ7iQbx+LFJ5lKNi vYFDTZ2yHjfmbBS+PHRk XNS0xEozYIwsHEXtsG0d SHApY0e1WrKsOdG1 OEnbR0GtaiM0HJJmgVXo NWXoxKOTeN1hlotjq7ht dfdeJmQaKZIxLBu5NAt6 LWFsaWduOiBsZWZ0 NsA7EBU1qPStyD5bvJea jiavnO6hOzp+QmlydGgg LBA1AMl6G8LnNtq0MKWf dIlqTU0nwTBrEBuc Go2pyWdoiIphDM0zHJXe dvere827UtVuf7znAIEa rQRpJDfeNUT5Z09ur9L6 DUMwZAGjAZL4lUZ4 pS4eyApehwbdfXFrnYfq cxOwcVvuSGssOJmsW431 VAQeoFkcClFxHUv3C7Ne Cvo7VGMbbXrxEQ9v dOZmJFbpKe3ekFxdiQgx EK0fXTSjetejk600KaYe w7lgRWVkvPDvAWjaLAY6 S03gs6N4JBEkZMKs JSC6iIL3dE2muXpggytq bGVmdDsgdmVydGljYWwt XWuyY672BGHelEoiJrSf aDo5D5JjRew0VHHf wFpdGA1tsYUhDPqjXd2t tFprdAoiER6vYDMzrjhv y368ErYsr0zwIXIljEVv WYhtWKU4O40bd7P2 OAThQKRlWRR4zDT3vD0t bGlnbjogbGVmdDsgdmVy lFkfDYqoPCekL405ZIFq cDsnPlBhdGllbnQg JRgsJBz0B3CeSsomdEM+ UK48SHQoTL20aRUmeQEx r3gydPv7VwAePEBkVGI7 pQlaGWvyd0WiHNQw W31isIPmc3R2DALpuKkt wMCyOwPfhTP6xQ6xTOgb yswzu2nbbxfsNnmeg8jd lf11zE65R13ySYkz ZHRoPSIzMCUiIHZhbGln zs6lcW5hHl9+PGNvbCB3 vWF1sZ5wVOSvMlG4AXoj G488YhQsrYAlYkdn d0rrc6qcuAq3UhS4QJIf cdNxrHpcSGV0t1HyPa63 V30nGHyaGEDtJVZlOEYs TWVdzLwerb5ikC2v Ii8+FILnlEX6gME8gH2a LwKvFhA1MLmiK239IaQh fIDxXhmyD61pX7VxlAF+ ODYoCfj9VSRkiMxz PK8ajYOzGWtuHh1yLWG3 OaHyQvUdPLczF3AyBHRj yobwdiitwFD6PUCmPXWb lV04Mg6mcSliNBPf kSZNtS5zaizoq7nyepuj MhLwUHYuJKu4VLv1THGf vEgvCuPdBKJ3OgN2TEL5 lFTtlD6ypHkdeugn xP7zP8LqVNMczspwUa47 sU1iGhAfHbF2IHmiYue+ D52WNKRAJRUZUTtNLKNJ XVXWO1U3Q3HwZyw2 TQHqoGuiBZ9nqHHiOZus Yk2nuGeewQdvDR0mLGXu iwmlHJNtmJ1zMXIawZAr fOuzJW6eHGMzudiy c058BdWoENF5YJJueVTv U9IyaP3vEuVcZGSoZYOo N3JneNHcWPieM875XTmd NhP9XSFiovAiO4Bc FJSfdUoqUbG6t7B9Ju8d Xs3nOS2fKWW1TL77WN65 eQIrh0E4qED0M0AgXKCg orebtkqrwCS1DTAq BKExgH32rRZjPPayIt4x m9F2y394ZWAuRMFncV88 Is8isDhlPXYpwZYFsE8v euyex5whkylmPhVa DDIhXXn5MOw5CXMreGdw NbUcZKH0OfA7VGC5nUSl yW1ytAzalqhdiJ1iYdx+ GhFmRWOyzyM2K2Lm Bgd4XFDvfAljJA8etZHz EZziTp7rzYdonDwvYF0o ZSMsqawxEZMqeM6eCMOu tSLjgNtzOK3kNBPo loarp250ScGuHKI3PEEg hALjH2YxbT5tDpRsWUOn FVGuD9UokNTlWDvrJ453 GGjtBgZ0DAWabdKf W9OeRRTjkAqcIeA1v5D6 Fk6UXL4EPIZ7O0TmOkd4 IISchLzuGZ9mvIBaJVdp Nu8oaAxpnEpgEM3r UDBagucqSIOacY8bSETi mAWrtZtlWR2sHKIfqont x665EzFnFWS0AOMgyLNs D4PfhD6lFlOyNYYj UWSpF0JhjGYfHBkzQ098 TLbqPbY2GIGjrpMzC7Ve UZRdyKdySdR8m6V4Zf6W UDwvdGQ+UK99fw98 D8DeLzubLkq6NCJoLIM9 sLF7pU0rGQQpARvws3M1 dMW4N4DckwRfxb4pf5cm ZBZvMSwqO16nwLVh z0W9ACOskIN8XYXcoDhg LnQpuV24Xbh+PGNvbGdy f1RpCkumh9tzo9cxuKu8 IjMwJSIgdmFsaWdu ETU3v5RbEg20N12bJRum ZHRoPSIzMCUiIHZhbGln hz8liN7dEe0+PGNvbCB3 bFZ8sV2uXuFvHoA4 YLdsO233SbPzlQNdZcun v9uim7qzuKj4OiVgAUHh ryVtkRyaCOL3j4YjUh06 N5QaaNjht4ErTrq3 dd59qANgw4K4gCQ4M0Dp ERSnjbkhnVUegHprMO8h VKHoblfhXPMrrV9zHIVf K5l9XiTeDqZ3DKdi I1SursH7OBQdqULvCRQl uYIFvK3emhbyp2edccbc NpVgXAKgLVe1DYu7JXOq bXroOmMdEGS5KsE9 LMC8lZSsqE5kuCbjshpg qD4bPob+RUa7x6ievACy GY5geEX2GZ95MH39bITw v6K9iXV5M4JtABIj lusnuizeyZU8TOEyRUVq iQ32Tw6xoSmvGe9yBKLl WYC0PKIsqFBwY8YxyI8p DkSmUSLeHFIsD8Bd cGHbOInqK929YMqrThV7 PNBaguGiW0ZzOGQzgZoc BvW0q2F0Iw6XQR16MZ27 LV67dWJpf0G6fQY0 F0AeCPOvwrgodkkwlOO2 IJKeLPQbeS07Lg5vhAjb Th1aUJQgGTH2NVHmyQGz Q6QriG6sEiRvYIZw LOBqE1UpgANiMVroJ337 WFcwUvW9ZMIxlzDgV6Iv UWWuxQvcSrL9w8D7Qw8O Au73AT91UF63qDXs w5N5oCV3Y6EkWXNahdgn gfsmbBH6VDHsGBVpfA10 Hn3tdIypSh4rHSRfKIV3 TAXemBVxA6KjmF0d ZtOzJBBgIAJyH8RjlLBn RPcfM658PUzgCmF6CITz qhRoY2XdLCKhcKrzDaI2 m4S8Ua7HHWknmqh3 A3KjKhmhbSX+SW70HBSu LH57aNChaNTlr0wigCb7 YiWqXEQqSFS1pUhhOGdl m3KtKGCsO92zsALo c2U (more content not included)... Normal [facility] Ambulatory Patient Summaryon 04-03-2024 Ambulatory Patient Summary [facility] [address] [facility], [facility], [address] - Visit Summary For CLAUDINE DAVIS Age: 69 years Sex: FEMALE : 1955 Address: [facility] [place], [address] Home: Work: -- Primary Care Provider: BILLIE SHAFER MD Race: White Ethnicity: Not or Language: Kitt[place] Health Plan: 1?MEDICARE, 2?[employer] A[employer], 3?MEDICARE Reason for Visit: c/o right hip pain for about three weeks, worked out on tredmill Prescription Information: If you have been given a prescription for narcotics, seek immediate medical attention if you have any difficulty breathing or any sudden status changes such as confusion and sleepiness. If you or anyone you know is experiencing suicidal thoughts, mental health, alcohol and/or drug addiction problems; contact the [facility] 19/06 Crisis Hotline -Text 4HOPE to [phone]. Follow-Up Information With: Address: When: BILLIE SHAFER MD [facility] [address] [facility]/ [address] [place] [address] , only if needed Future Appointments No Future Appointments Scheduled Future Orders No future orders Additional Goals and Instructions: Vitals and Measurements this Visit (last charted value for your 04/03/2024 visit) Vital Signs This Visit Apical Heart Rate: 72 bpm Pulse Site: Pulse Oximetry Systolic Blood Pressure: 130 mmHg Diastolic Blood Pressure: 78 mmHg Cuff Location: Left arm SpO2: 99 % Measurements This Visit Height/Length Measured: 162.56 cm Height/Length Measured (inches): 64 in Weight Measured: 79.4 kg Weight Measured (lbs): 175.047 lb Weight Dosin.400 kg Body Mass Index: 30.05 kg/m2 [place] Body Weight Calculated: 54.7 kg BSA Measured: 1.89 m2 Diagnoses This Visit Anxiety (F41.9) Right hip pain (M25.551) Laboratory or Other Results This Visit (last charted value for your 04/03/2024 visit) No Laboratory or Other Results This Visit Medications and Immunizations Administered During This Visit No medication administered during this visit All Known Current Prescriptions and Reported Medications New Prescriptions this Visit No new prescriptions for this visit Prescriptions amoxicillin-clavulan ate 875 mg-125 mg oral tablet (amoxicillin-clavula elijah) Take 1 tab(s) Oral (given by mouth) Every 12 hours scheduled time for 10 Days, 0 refills authorized Instructions: with food or milk Cipro 250 mg oral tablet (ciprofloxacin) Take 1 tab(s)(250 Milligram) Oral (given by mouth) Every 12 hours scheduled time for 7 Days, 0 refills authorized metroNIDAZOLE 500 mg oral tablet (metroNIDAZOLE) Take 1 tab(s)(500 Milligram) Oral (given by mouth) Every 8 hours (scheduled) for 10 Days, 0 refills authorized Home Medications Calcium 500 mg-vit D 400mg (calcium-vitamin D) Take 2 tab(s) Oral (given by mouth) 2 times a day (scheduled) CoQ10 300 mg oral capsule (ubiquinone) Take 1 cap(s)(300 Milligram) Oral (given by mouth) every day eye vitamin and mineral supplement (multivitamin with minerals) magnesium oxide Oral (given by mouth) every day meloxicam 15 mg oral tablet (meloxicam) Take 1 tab(s)(15 Milligram) Oral (given by mouth) every day Multi Vitamin+ (multivitamin) Take 1 cap Oral (given by mouth) every day POTASSIUM OTC (Misc Prescription) Instructions: daily psyllium Take 5 cap(s) Oral (given by mouth) 2 times a day (scheduled) Tylenol Extra Strength 500 mg oral tablet (acetaminophen) Take 1 tab(s)(500 Milligram) Oral (given by mouth) every 4 hours (scheduled) as needed for pain Hip Pain The hip is the joint between the upper legs and the lower pelvis. The bones, cartilage, tendons, and muscles of your hip joint support your body and allow you to move around. Hip pain can range from a minor ache to severe pain in one or both of your hips. The pain may be felt on the inside of the hip joint near the groin, or on the outside near the buttocks and upper thigh. You may also have swelling or stiffness in your hip area. Follow these instructions at home: Managing pain, stiffness, and swelling ? If directed, put ice on the painful area. To do this: ? Put ice in a plastic bag. ? Place a towel between your skin and the bag. ? Leave the ice on for 20 minutes, 2?3 times a day. ? If directed, apply heat to the affected area as often as told by your health care provider. Use the heat source that your health care provider recommends, such as a moist heat pack or a heating pad. ? Place a towel between your skin and the heat source. ? Leave the heat on for 20?30 minutes. ? Remove the heat if your skin turns bright red. This is especially important if you are unable to feel pain, heat, or cold. You may have a greater risk of getting burned. Activity (more content not included)... Normal [facility] Patient Handouton 04-03-2024 Patient Handout Orthopedics Hip Pain The hip is the joint between the upper legs and the lower pelvis. The bones, cartilage, tendons, and muscles of your hip joint support your body and allow you to move around. Hip pain can range from a minor ache to severe pain in one or both of your hips. The pain may be felt on the inside of the hip joint near the groin, or on the outside near the buttocks and upper thigh. You may also have swelling or stiffness in your hip area. Follow these instructions at home: Managing pain, stiffness, and swelling ? If directed, put ice on the painful area. To do this: ? Put ice in a plastic bag. ? Place a towel between your skin and the bag. ? Leave the ice on for 20 minutes, 2?3 times a day. ? If directed, apply heat to the affected area as often as told by your health care provider. Use the heat source that your health care provider recommends, such as a moist heat pack or a heating pad. ? Place a towel between your skin and the heat source. ? Leave the heat on for 20?30 minutes. ? Remove the heat if your skin turns bright red. This is especially important if you are unable to feel pain, heat, or cold. You may have a greater risk of getting burned. Activity ? Do exercises as told by your health care provider. ? Avoid activities that cause pain. General instructions ? Take [id number] and prescription medicines only as told by your health care provider. ? Keep a journal of your symptoms. Write down: ? How often you have hip pain. ? The location of your pain. ? What the pain feels like. ? What makes the pain worse. ? Sleep with a pillow between your legs on your most comfortable side. ? Keep all follow-up visits as told by your health care provider. This is important. Contact a health care provider if: ? You cannot put weight on your leg. ? Your pain or swelling continues or gets worse after one week. ? It gets harder to walk. ? You have a fever. Get help right away if: ? You fall. ? You have a sudden increase in pain and swelling in your hip. ? Your hip is red or swollen or very tender to touch. Summary ? Hip pain can range from a minor ache to severe pain in one or both of your hips. ? The pain may be felt on the inside of the hip joint near the groin, or on the outside near the buttocks and upper thigh. ? Avoid activities that cause pain. ? Write down how often you have hip pain, the location of the pain, what makes it worse, and what it feels like. This information is not intended to replace advice given to you by your health care provider. Make sure you discuss any questions you have with your health care provider. Document Revised: 03/30/2020 Document Reviewed: 03/30/2020 [employer] Patient Education ? 2022 [employer]. Normal [facility] Albumin [Mass/volume] in Ser um or PlasmaOrdered By: Alex Doll on 01-10-2023 Albumin [Mass/Vol] 3.7 g/dL 3.2-5.5 [facility] Basophils Auto (Bld) [#/Vol] Ordered By: Alex Doll on 01-10-2023 Basophils (Bld) [#/Vol] 0.0 10*3/uL 0.0-0.2 [facility] Basophils/100 WBC Auto (Bld) Ordered By: Alex Doll on 01-10-2023 Basophils/100 WBC (Bld) 0.6 % . F [facility] Complete Blood Count Auto Di ffon 01-10-2023 Basophils (Bld) [#/Vol] 0.0 10*3/uL Normal 0.0-0.2 [facility] Comment on above: Result Comment: PERF ORMED BY: [facility] [address] [place] [address] PATHOLOGIST MEDICAL I D SALES JEANNETTE WEISS M.D. Performed By: #### C BC, CMP #### [facility] [address] Basophils/100 WBC (Bld) 0.6 % Normal . [facility] Comment on above: Performed By: #### C BC, CMP #### [facility] [address] [place] [address] [place] Eosinophils (Bld) [#/Vol] 0.2 10*3/uL Normal 0.0-0.45 [facility] Comment on above: Performed By: #### C BC, CMP #### [facility] [address] Eosinophils/100 WBC (Bld) 6.7 % Normal . [facility] Comment on above: Performed By: #### C BC, CMP #### [facility] [address] Erythrocyte distribution width (RBC) [Ratio] 13.9 % Normal 11.9-15.3 [facility] Comment on above: Performed By: #### C BC, CMP #### [facility] [address] Hematocrit (Bld) [Volume fraction] 39.7 % Normal 34.0-46.4 [facility] Comment on above: Performed By: #### C BC, CMP #### [facility] [address] Hemoglobin (Bld) [Mass/Vol] 13.2 g/dL Normal 11.8-15.4 [facility] Comment on above: Performed By: #### C BC, CMP #### [facility] [address] [place] [address] [place] Lymphocytes (Bld) [#/Vol] 0.8 10*3/uL Low 1.00-4.8 [facility] Comment on above: Performed By: #### C BC, CMP #### [facility] [address] [place] [address] [place] Lymphocytes/100 WBC (Bld) 25.5 % Normal . [facility] Comment on above: Performed By: #### C BC, CMP #### [facility] [address] [place] [address] [place] MCH (RBC) [Entitic mass] 28.2 pg Normal 24.7-34.3 [facility] Comment on above: Performed By: #### C BC, CMP #### [facility] [address] [place] [address] [place] MCV (RBC) [Entitic vol] 84.9 fL Normal 80-100 [facility] Comment on above: Performed By: #### C BC, CMP #### [facility] [address] Mean Corpuscular HGB Conc 33.2 g/dL Normal 32.0-35.0 [facility] Comment on above: Performed By: #### C BC, CMP #### [facility] [address] [place] [address] [place] Monocytes (Bld) [#/Vol] 0.3 10*3/uL Normal 0.0-0.8 [facility] Comment on above: Performed By: #### C BC, CMP #### [facility] [address] [place] [address] [place] Monocytes/100 WBC (Bld) 9.6 % Normal . [facility] Comment on above: Performed By: #### C BC, CMP #### [facility] [address] [place] [address] [place] Neutrophils (Bld) [#/Vol] 1.9 10*3/uL Normal 1.8-7.7 [facility] Comment on above: Performed By: #### C BC, CMP #### [facility] [address] Neutrophils/100 WBC (Bld) 57.6 % Normal . [facility] Comment on above: Performed By: #### C BC, CMP #### [facility] [address] NRBC% 0.2 /100{WBC} Normal 0-0.5 [facility] Comment on above: Performed By: #### C BC, CMP #### [facility] [address] Platelet mean volume (Bld) [Entitic vol] 8.6 fL Normal 6.3-10.7 [facility] Comment on above: Performed By: #### C BC, CMP #### [facility] [address] Platelets (Bld) [#/Vol] 209 10*3/uL Normal 150-450 [facility] Comment on above: Performed By: #### C BC, CMP #### [address] RBC (Bld) [#/Vol] 4.68 10*6/uL Normal 3.60-5.00 [facility] Comment on above: Performed By: #### C BC, CMP #### [address] WBC (Bld) [#/Vol] 3.3 10*3/uL Low 3.8-11.6 [facility] Comment on above: Performed By: #### C BC, CMP #### [address] Comprehensive Metabolic Pane [place] 01-10-2023 Albumin [Mass/Vol] 3.7 g/dL Normal 3.2-5.5 [facility] Comment on above: Performed By: #### C BC, CMP #### [address] Albumin/Globulin [Mass ratio] 1.7 {ratio} Normal [facility] Comment on above: Performed By: #### C BC, CMP #### [address] ALP [Catalytic activity/Vol] 73 U/L Normal 32-92 [facility] Comment on above: Result Comment: PERF ORMED BY: [address] [place] [address] PATHOLOGIST MEDICAL [employer] JEANNETTE WEISS M.D. Performed By: #### C BC, CMP #### [address] ALT [Catalytic activity/Vol] 44 U/L Normal 10-60 [facility] Comment on above: Performed By: #### C BC, CMP #### [address] Anion gap [Moles/Vol] 8.2 mmol/L Normal 6.0-15.0 [facility] Comment on above: Performed By: #### C BC, CMP #### [address] AST [Catalytic activity/Vol] 40 U/L Normal 10-42 [facility] Comment on above: Performed By: #### C BC, CMP #### [address] Bilirubin [Mass/Vol] 0.8 mg/dL Normal 0.3-1.2 [facility] Comment on above: Performed By: #### C BC, CMP #### [address] Calcium [Mass/Vol] 9.7 mg/dL Normal 8.2-10.2 [facility] Comment on above: Performed By: #### C BC, CMP #### [place] [address] [place] Chloride [Moles/Vol] 103 mmol/L Normal 95-114 [facility] Comment on above: Performed By: #### C BC, CMP #### [place] [address] [place] CO2 [Moles/Vol] 29.6 mmol/L Normal 22.0-30.0 [facility] Comment on above: Performed By: #### C BC, CMP #### [facility] [address] Creatinine [Mass/Vol] 0.71 mg/dL Normal 0.44-1.03 [facility] Comment on above: Performed By: #### C BC, CMP #### [facility] [address] Estimated GFR ( Polly > 60 Normal [facility] Comment on above: Result Comment: GFR estimated reference range: According to KDOQI guidelines, <60 ml/min/1.73m2 is sufficient to diagnose a patient with chronic kidney disease. Performed By: #### C BC, CMP #### [address] Estimated GFR (Non- Am > 60 Normal [facility] Comment on above: Performed By: #### C BC, CMP #### [address] Globulin (S) [Mass/Vol] 2.2 g/dL Normal [facility] Comment on above: Performed By: #### C BC, CMP #### [address] Glucose [Mass/Vol] 63 mg/dL Low 70-100 [facility] Comment on above: Result Comment: Formerly named [facility] Glucose Reference Range is dependent on time and content of last meal. Glucose of more than 200 mg/dL in a nonstressed, ambulatory subject supports the diagnosis of Diabetes Mellitus. ADA recommended reference range Performed By: #### C BC, CMP #### [address] Potassium [Moles/Vol] 3.8 mmol/L Normal 3.5-5.1 [facility] Comment on above: Performed By: #### C BC, CMP #### [address] Protein [Mass/Vol] 5.9 g/dL Low 6.1-7.9 [facility] Comment on above: Performed By: #### C BC, CMP #### [facility] [address] [place] [address] [place] Sodium [Moles/Vol] 137 mmol/L Normal 136-146 [facility] Comment on above: Performed By: #### C BC, CMP #### [facility] [address] [place] [id number] [place] Urea nitrogen [Mass/Vol] 13 mg/dL Normal 9-23 [facility] Comment on above: Performed By: #### C BC, CMP #### [facility] [address] Creatinine and Glomerular fi ltration rate.predicted panel (S/P/Bld)Ordered By: Alex Doll on 01-10-2023 Creatinine [Mass/Vol] 0.71 mg/dL 0.44-1.03 [facility] ECG 12 lead ECGon 01-10-2023 ECG 12 lead ECG [facility] Main [place] [address] [place] [address] Electrocardiograph Report Signed Patient: Claudine Davis MR#: [id number] 4 : 1955 Acct:[id number] Age/Sex: 67 / F ADM Date: 01/10/23 Loc: Room: Type: [facility] Attending Dr: Alex Doll DO Ordering Provider: Alex Doll DO Date of Service: 01/10/23 ECG/ECG 12 lead ECG: Pre op Copies to: Test Reason : Blood Pressure : / mmHG Vent. Rate : 062 BPM Atrial Rate : 062 BPM P-R Int : 154 ms QRS Dur : 082 ms QT Int : 418 ms P-R-T Axes : 044 018 036 degrees QTc Int : 424 ms Normal sinus rhythm Normal ECG No previous ECGs available Confirmed by ARMIDA BEARDEN DO ([id number]) on 01/10/2023 6:40:23 PM Referred By: TREMAINE Electronically Signed By:ARMIDA BEARDEN DO Transcribed By: MUS Signed By Armida Bearden DO 01/10 1840 Normal [facility] Eosinophils Auto (Bld) [#/Vo l]Ordered By: Alex Doll on 01-10-2023 Eosinophils (Bld) [#/Vol] 0.2 10*3/uL 0.0-0.45 [facility] Eosinophils/100 WBC Auto (Bl d)Ordered By: Alex Doll on 01-10-2023 Eosinophils/100 WBC (Bld) 6.7 % . [facility] Erythrocyte distribution wid th Auto (RBC) [Ratio]Ordered By: Alex Doll on 01-10-2023 Erythrocyte distribution width (RBC) [Ratio] 13.9 % 11.9-15.3 [facility] Estimated glomerular filtrat ion rate (GFR) non- AmericanOrdered By: Alex Doll on 01-10-2023 GFR/1.73 sq M.predicted among non-blacks MDRD (S/P/Bld) [Vol rate/Area] > 60 mL/Min [facility] Globulin Calc (S) [Mass/Vol] Ordered By: Alex Doll on 01-10-2023 Globulin (S) [Mass/Vol] 2.2 g/dL F [facility] Hematocrit Auto (Bld) [Volum e fraction]Ordered By: Alex Doll on 01-10-2023 Hematocrit (Bld) [Volume fraction] 39.7 % 34.0-46.4 [facility] Hemoglobin [Mass/volume] in BloodOrdered By: Alex Doll on 01-10-2023 Hemoglobin (Bld) [Mass/Vol] 13.2 g/dL 11.8-15.4 [facility] Leukocytes [#/volume] correc hamilton for nucleated erythrocytes in Blood by Automated counOrdered By: Alex Doll on 01-10-2023 WBC corrected for nucl RBC Auto (Bld) [#/Vol] 3.3 10*3/uL 3.8-11.6 [facility] Lymphocytes Auto (Bld) [#/Vo l]Ordered By: Alex Doll on 01-10-2023 Lymphocytes (Bld) [#/Vol] 0.8 10*3/uL 1.00-4.8 [facility] Lymphocytes/100 WBC Auto (Bl d)Ordered By: Alex Doll on 01-10-2023 Lymphocytes/100 WBC (Bld) 25.5 % . [facility] MCH Auto (RBC) [Entitic mass ]Ordered By: Alex Doll on 01-10-2023 MCH (RBC) [Entitic mass] 28.2 pg 24.7-34.3 [facility] MCHC Auto (RBC) [Mass/Vol]Or dered By: Alex Doll on 01-10-2023 MCHC (RBC) [Mass/Vol] 33.2 g/dL 32.0-35.0 [facility] MCV Auto (RBC) [Entitic vol] Ordered By: Alex Doll on 01-10-2023 MCV (RBC) [Entitic vol] 84.9 fL 80-100 [facility] Monocytes Auto (Bld) [#/Vol] Ordered By: Alex Doll on 01-10-2023 Monocytes (Bld) [#/Vol] 0.3 10*3/uL 0.0-0.8 [facility] Monocytes/100 WBC Auto (Bld) Ordered By: Alex Doll on 01-10-2023 Monocytes/100 WBC (Bld) 9.6 % . [facility] Neutrophils Auto (Bld) [#/Vo l]Ordered By: Alex Doll on 01-10-2023 Neutrophils (Bld) [#/Vol] 1.9 10*3/uL 1.8-7.7 [facility] Neutrophils/100 WBC Auto (Bl d)Ordered By: Alex Doll on 01-10-2023 Neutrophils/100 WBC (Bld) 57.6 % . [facility] No Panel InformationOrdered By: Alex Doll on 01-10-2023 Estimated GFR () > 60 mL/Min [facility] Comment on above: GFR estimated refere nce range: According to KDOQI guidelines, <60 ml/min/1.73m2 is sufficient to diagnose a patient with chronic kidney disease. Pharmacy Creatinine Clearance (Chem N/A [facility] Nucleated erythrocytes [Pres ence] in Blood by Automated countOrdered By: Alex Doll on 01-10-2023 Nucleated RBC Auto Ql (Bld) 0.2 /100{WBC} 0-0.5 [facility] Platelet mean volume Auto (B ld) [Entitic vol]Ordered By: Alex Doll on 01-10-2023 Platelet mean volume (Bld) [Entitic vol] 8.6 fL 6.3-10.7 [facility] Platelets Auto (Bld) [#/Vol] Ordered By: Alex Doll on 01-10-2023 Platelets (Bld) [#/Vol] 209 10*3/uL 150-450 [facility] Protein [Mass/volume] in Ser um or PlasmaOrdered By: Alex Doll on 01-10-2023 Protein [Mass/Vol] 5.9 g/dL 6.1-7.9 [facility] RBC Auto (Bld) [#/Vol]Ordere d By: Alex Doll on 01-10-2023 RBC (Bld) [#/Vol] 4.68 10*6/uL 3.60-5.00 [facility] Serum or plasma alanine neves otransferase measurement without P-5'-P (enzymatic activiOrdered By: Alex Doll on 01-10-2023 ALT No additional P-5'-P [Catalytic activity/Vol] 44 U/L 10-60 [facility] Serum or plasma albumin/glob ulin mass ratioOrdered By: Alex Doll on 01-10-2023 Albumin/Globulin [Mass ratio] 1.7 {ratio} [facility] Serum or plasma alkaline francine sphatase measurement (enzymatic activity/volume)Ordered By: Alex Doll on 01-10-2023 ALP [Catalytic activity/Vol] 73 U/L 32-92 [facility] Serum or plasma anion gap de terminationOrdered By: Alex Doll on 01-10-2023 Anion gap [Moles/Vol] 8.2 mmol/L 6.0-15.0 [facility] Serum or plasma aspartate am inotransferase measurement (enzymatic activity/volume)Ordered By: Alex Doll on 01-10-2023 AST [Catalytic activity/Vol] 40 U/L 10-42 [facility] Serum or plasma calcium mishel urement (mass/volume)Ordered By: Alex Doll on 01-10-2023 Calcium [Mass/Vol] 9.7 mg/dL 8.2-10.2 [facility] Serum or plasma chloride grant surement (moles/volume)Ordered By: Alex Doll on 01-10-2023 Chloride [Moles/Vol] 103 mmol/L 95-114 [facility] Serum or plasma glucose mishel urement (mass/volume)Ordered By: Alex Doll on 01-10-2023 Glucose [Mass/Vol] 63 mg/dL 70-100 [facility] Comment on above: ADA recommended refe rence rangeRandom Glucose Reference Range is dependent on time and content of last meal. Glucose of more than 200 mg/dL in a nonstressed, ambulatory subject supports the diagnosis of Diabetes Mellitus. Serum or plasma potassium me asurement (moles/volume)Ordered By: Alex Doll on 01-10-2023 Potassium [Moles/Vol] 3.8 mmol/L 3.5-5.1 [facility] Serum or plasma sodium measu rement (moles/volume)Ordered By: Alex Doll on 01-10-2023 Sodium [Moles/Vol] 137 mmol/L 136-146 [facility] Serum or plasma total biliru bin measurement (mass/volume)Ordered By: Alex Doll on 01-10-2023 Bilirubin [Mass/Vol] 0.8 mg/dL 0.3-1.2 [facility] Serum or plasma total carbon dioxide measurement (moles/volume)Ordered By: Alex Doll on 01-10-2023 CO2 [Moles/Vol] 29.6 mmol/L 22.0-30.0 [facility] Serum or plasma urea nitroge n measurement (mass/volume)Ordered By: Alex Doll on 01-10-2023 Urea nitrogen [Mass/Vol] 13 mg/dL 9-23 [facility] WBC Auto (Bld) [#/Vol]Ordere d By: Alex Doll on 01-10-2023 WBC (Bld) [#/Vol] 3.3 10*3/uL 3.8-11.6 [facility] XR pelvis 1-2Von 09-28-2022 XR pelvis 1-2V [facility] [address] [place] [address] XRay Report Signed Patient: Claudine Davis MR#: [id number] 4 : 1955 Acct:[id number] Age/Sex: 67 / F ADM Date: 09/28/22 Loc: [facility] [place] Room: Type: [facility] Attending Dr: Armida Greer II, MD Copies to: Armida Greer MD Ordering Provider: Armida Greer MD Date of Service: 09/28/22 XR/XR knee RT 4V*: Acute pain of right knee ([id number]) XR/XR pelvis 1-2V: Acute pain of right knee AP PELVIS: , Right knee 4 views CLINICAL HISTORY: Right knee pain for months. COMPARISON: None Pelvis: Minimal degenerative changes of the hips. No acute bony process. Right knee: Moderate degenerative changes with chondrocalcinosis involving the lateral meniscus. Weightbearing joint space narrowing. XR/XR pelvis 1-2V IMPRESSION: MODERATE DEGENERATIVE CHANGES OF THE RIGHT KNEE. Impression dictated by: Morgan Matamoros Jr., D.O.09/28/2022 4:47 PM Dictation Location: [facility]14 Transcribed By: [facility] 09/28/221646 Dictated By: Morgan Matamoros Jr, DO 09/28/221645 Signed By: 09/28/221646 Normal [facility] XR pelvis 1-2V [facility] [employer] Other XR pelvis 1-2V [facility] [place] [facility] [employer] Other XR pelvis 1-2V [address] [facility] [employer] Other XR pelvis 1-2[place] [address] No rt [employer] Other XR pelvis 1-2V XRay Report [employer] Other XR pelvis 1-2V Signed [employer] Other XR pelvis 1-2V Patient: Claudine Davis MR#: [id number] [employer] Other XR pelvis 1-2V [address] [facility] [employer] Other XR pelvis 1-2V : 1955 Acct:[id number] [employer] Other XR pelvis 1-2V Age/Sex: 67 / F ADM Date: 09/28/22 [employer] Other XR pelvis 1-2V Loc: [facility] Room: Type: [facility] [employer] Other XR pelvis 1-2V Attending Dr: Armida Greer II, MD [employer] Other XR pelvis 1-2V Copies to: Armida Greer MD [employer] Other XR pelvis 1-2V Ordering Provider: Armida Greer MD [employer] Other XR pelvis 1-2V Date of Service: 09/28/22 [employer] Other XR pelvis 1-2V XR/XR knee RT 4V*: Acute pain of right knee [employer] Other XR pelvis 1-2V ([id number]) XR/XR pelvis 1-2V: Acute pain of right knee [employer] Other XR pelvis 1-2V AP PELVIS: , Right knee 4 views [employer] Other XR pelvis 1-2V CLINICAL HISTORY: Right knee pain for months. [employer] Other XR pelvis 1-2V COMPARISON: None [employer] Other XR pelvis 1-2V Pelvis: Minimal degenerative changes of the hips. No acute bony process. [employer] Other XR pelvis 1-2V Right knee: Moderate degenerative changes with chondrocalcinosis involving the lateral meniscus. [employer] Other XR pelvis 1-2V Weightbearing joint space narrowing. [employer] Other XR pelvis 1-2V XR/XR pelvis 1-2V [employer] Other XR pelvis 1-2V IMPRESSION: [employer] Other XR pelvis 1-2V MODERATE DEGENERATIVE CHANGES OF THE RIGHT KNEE. [employer] Other XR pelvis 1-2V Impression dictated by: Morgan Matamoros Jr., D.O.09/28/2022 4:47 PM [employer] Other XR pelvis 1-2V Dictation Location: [facility]14 [employer] Other XR pelvis 1-2V Transcribed By: PWS 09/28/22 [facility] [employer] Other XR pelvis 1-2V Dictated By: Morgan Matamoros Jr, DO 09/28/22 [facility] [employer] Other XR pelvis 1-2V Signed By: [employer] Other XR pelvis 1-2V 09/28/22 [facility] [employer] Other CBC AUTO DIFFon 10-30-2021 BASO # 0.0 103/ul Normal 0.0-0.1 [facility] Comment on above: Performed By: #### C BC #### [facility] [address] [place] [address] Dr. Elsy Kunz Basophils/100 WBC (Bld) 0.1 % Critically low 0.2-2.[address] [facility] Comment on above: Performed By: #### C BC #### [facility] [address] [place] [address] Dr. Elsy Kunz EO # 0.0 103/ul Normal 0.0-0.7 [facility] Comment on above: Performed By: #### C BC #### [facility] [address] [place] [address] Dr. Elsy Kunz Eosinophils/100 WBC (Bld) 0.3 % Critically low 0.9-7.0 [facility] Comment on above: Performed By: #### C BC #### [facility] [address] [place] [address] Dr. Elsy Kunz Erythrocyte distribution width (RBC) [Ratio] 12.9 % Normal 11.0-15.0 [facility] Comment on above: Performed By: #### C BC #### [facility] [address] [place] [address] Dr. Elsy Kunz Hematocrit (Bld) [Volume fraction] 39.0 % Normal 36.0-48.0 [facility] Comment on above: Performed By: #### C BC #### [facility] [address] [place] [address] Dr. Elsy Kunz Hemoglobin (Bld) [Mass/Vol] 12.8 g/dL Normal 12.0-16.0 [facility] Comment on above: Performed By: #### C BC #### [facility] [address] [place] [address] Dr. Elsy Kunz IG # 0.01 10e3/ul Normal 0.00-0.03 [facility] Comment on above: Performed By: #### C BC #### [facility] [address] [place] [address] Dr. Elsy Kunz IG % 0.1 % Normal 0.0-0.5 [facility] Comment on above: Performed By: #### C BC #### [facility] [address] [place] [address] Dr. Elsy Kunz LYMPH # 0.9 103/ul Critically low 1.2-3.8 [facility] Comment on above: Performed By: #### C BC #### [facility] [address] [place] [address] Dr. Elsy Kunz Lymphocytes/100 WBC (Bld) 12.2 % Critically low 20.5-60.0 [facility] Comment on above: Performed By: #### C BC #### [facility] [address] [place] [address] Dr. Elsy Kunz MANUAL DIFF REQ NO Normal [facility] Comment on above: Performed By: #### C BC #### [facility] [address] [place] [address] Dr. Elsy Kuzn MCH (RBC) [Entitic mass] 28.6 pg Normal 26.7-34.0 [facility] Comment on above: Performed By: #### C BC #### [facility] [address] [place] [address] Dr. Elsy Kunz MCHC (RBC) [Mass/Vol] 32.8 g/dL Normal 29.9-35.2 [facility] Comment on above: Performed By: #### C BC #### [facility] [address] [place] [address] Dr. Elsy Kunz MCV (RBC) [Entitic vol] 87.2 fL Normal 81.0-99.0 [facility] Comment on above: Performed By: #### C BC #### [facility] [address] [place] [address] Dr. Elsy Kunz MONO # 0.6 103/ul Normal 0.3-0.8 [facility] Comment on above: Performed By: #### C BC #### [facility] [address] [place] [address] Dr. Elsy Kunz Monocytes/100 WBC (Bld) 8.4 % Normal 1.7-12.0 [facility] Comment on above: Performed By: #### C BC #### [facility] [address] [place] [address] Dr. Elsy Kunz NEUT # 5.8 103/ul Normal 1.4-6.5 [facility] Comment on above: Performed By: #### C BC #### [facility] [address] [place] [address] Dr. Elsy Kunz Neutrophils/100 WBC (Bld) 78.9 % Critically high 43.0-75.0 [facility] Comment on above: Performed By: #### C BC #### [facility] [address] [place] [address] Dr. Elsy Kunz Platelet mean volume (Bld) [Entitic vol] 10.6 fL Normal 9.5-13.5 [facility] Comment on above: Performed By: #### C BC #### [facility] [address] [place] [address] Dr. Elsy Kunz PLT 195 103/ul Normal 150-450 [facility] Comment on above: Performed By: #### C BC #### [facility] [address] [place] [address] Dr. Elsy Kunz RBC 4.47 106/ul Normal 4.20-5.40 [facility] Comment on above: Performed By: #### C BC #### [facility] [address] [place] [address] Dr. Elsy Kunz WBC 7.3 103/ul Normal 4.0-11.0 [facility] Comment on above: Performed By: #### C BC #### [facility] [address] [place] [address] Dr. Elsy Kunz PROF 14(COMP METB)on 021 Albumin [Mass/Vol] 3.7 g/dL Normal 3.5-5.0 [facility] Comment on above: Performed By: #### C MP #### [facility] [address] [place] [address] Dr. Elsy Kunz Albumin/Globulin [Mass ratio] 1.0 {ratio} Normal [facility] Comment on above: Performed By: #### C MP #### [facility] [address] [place] [address] Dr. Elsy Kunz ALP [Catalytic activity/Vol] 97 U/L Normal 38-[address] [facility] Comment on above: Performed By: #### C MP #### [facility] [address] [place] [address] Dr. Elsy Kunz ALT [Catalytic activity/Vol] 45 U/L Normal 9-52 [facility] Comment on above: Performed By: #### C MP #### [facility] [address] [place] [address] Dr. Elsy Kunz Anion gap [Moles/Vol] 9.4 mmol/L Normal [facility] Comment on above: Performed By: #### C MP #### [facility] [address] [address] [address] Elsy Kunz AST [Catalytic activity/Vol] 27 U/L Normal 14-36 [facility] Comment on above: Performed By: #### C MP #### [facility] [address] [address] [address] Elsy Kunz Bilirubin [Mass/Vol] 0.8 mg/dL Normal 0.2-1.3 [facility] Comment on above: Performed By: #### C MP #### [facility] [address] [address] [address] Elsy Kunz Calcium [Mass/Vol] 10.2 mg/dL Normal 8.4-10.2 [facility] Comment on above: Performed By: #### C MP #### [facility] [address] [place] [address] Dr. Elsy Kunz Chloride [Moles/Vol] 98 mmol/L Normal 98-107 [facility] Comment on above: Performed By: #### C MP #### [facility] [address] [address] [address] Elsy Kunz CO2 [Moles/Vol] 30.4 mmol/L Critically high 22.0-30.0 [facility] Comment on above: Performed By: #### C MP #### [facility] [address] [place] [address] Dr. Elsy Kunz Creatinine [Mass/Vol] 0.66 mg/dL Normal 0.52-1.04 [facility] Comment on above: Performed By: #### C MP #### [facility] [address] [address] [address] Elsy Kunz EGFR-AF PUERTO RICAN >60 Normal >=60 [facility] Comment on above: Performed By: #### C MP #### [facility] [address] [address] [address] Elsy Kunz EGFR-NON AF PUERTO RICAN >60 Normal >=60 [facility] Comment on above: Performed By: #### C MP #### [facility] [address] [address] [address] Elsy Kunz Globulin (S) [Mass/Vol] 3.6 g/dL Normal [facility] Comment on above: Performed By: #### C MP #### [facility] [address] [address] [address] Elsy Kunz Glucose [Mass/Vol] 79 mg/dL Normal 74-106 [facility] Comment on above: Performed By: #### C MP #### [facility] [address] [address] [address] Elsy Kunz Potassium [Moles/Vol] 3.8 mmol/L Normal 3.4-5.0 [facility] Comment on above: Performed By: #### C MP #### [facility] [address] [place] [address] Dr. Elsy Kunz Protein [Mass/Vol] 7.3 g/dL Normal 6.1-8.2 [facility] Comment on above: Performed By: #### C MP #### [facility] [address] [place] [address] Dr. Elsy Kunz Sodium [Moles/Vol] 134 mmol/L Critically low 137-145 [facility] Comment on above: Performed By: #### C MP #### [facility] [address] [place] [address] Dr. Elsy Kunz Urea nitrogen [Mass/Vol] 9.0 mg/dL Normal 7.0-17.0 [facility] Comment on above: Performed By: #### C MP #### [facility] [address] [place] [address] Dr. Elsy Kunz Urea nitrogen/Creatinine [Mass ratio] 13.6 mg/mg Normal [facility] Comment on above: Performed By: #### C MP #### [facility] [address] [place] [address] Dr. Elsy Kunz CARDIAC TANESHA ADMITon 021 CK [Catalytic activity/Vol] 131 U/L Normal 30-135 [facility] Comment on above: Performed By: #### C MP, CMADM #### [facility] [address] [place] [address] Nicvaldez Garneren CK.MB [Mass/Vol] 1.54 ng/mL Normal <=2.37 [facility] Comment on above: Performed By: #### C TREVA IRIZARRY #### [facility] [address] [place] [address] Nic Lizz HSTROP 6.5 pg/mL Normal 4.0-35.5 [facility] Comment on above: Result Comment: CUT- OFF POINTS HAVE BEEN ESTABLISHED BASED ON THE FOURTH UNIVERSAL DEFINITIONS OF MYOCARDIAL INFARCTION. THE UPPER REFERENCE LIMIT (URL) OF TROPONIN, DEFINED THE 99TH PERCENTILE OF cTnI DISTRIBUTION IN A REFERENCE POPULATION, HAS BEEN CONFIRMED THE DECISION THRESHOLD FOR AR DIAGNOSIS. Performed By: #### C TREVA IRIZARRY #### [facility] [address] [place] [address] Nic Lizz YVETTE 52.0 ng/mL Normal <=61.5 [facility] Comment on above: Performed By: #### C TREVA IRIZARRY #### [facility] [address] [place] [address] Nic Lizz CBC AUTO DIFFon 12-08-2020 BASO # 0.0 103/ul Normal 0.0-0.1 [facility] Comment on above: Performed By: #### C BC #### [facility] [address] [place] [address] Nic Lizz Basophils/100 WBC (Bld) 0.2 % Normal 0.2-2.0 [facility] Comment on above: Performed By: #### C BC #### [facility] [address] [place] [address] Nic Lizz EO # 0.1 103/ul Normal 0.0-0.7 [facility] Comment on above: Performed By: #### C BC #### [facility] [address] [place], [place] [phone] Nic Lizz Eosinophils/100 WBC (Bld) 1.0 % Normal 0.9-7.0 [facility] Comment on above: Performed By: #### C BC #### [facility] [address] [place] [address] Nic Lizz Erythrocyte distribution width (RBC) [Ratio] 12.8 % Normal 11.0-15.0 [facility] Comment on above: Performed By: #### C BC #### [facility] [address] [place] [address] Nic Zamudio Hematocrit (Bld) [Volume fraction] 41.7 % Normal 36.0-48.0 [facility] Comment on above: Performed By: #### C BC #### [facility] [address] [place] [address] Nic Zamudio Hemoglobin (Bld) [Mass/Vol] 13.4 g/dL Normal 12.0-16.[address] [facility] Comment on above: Performed By: #### C BC #### [facility] [address] [place] [address] Nic Zamudio IG # 0.00 10e3/ul Normal 0.00-0.03 [facility] Comment on above: Performed By: #### C BC #### [facility] [address] [place] [address] Nic Zamudio IG % 0.0 % Normal 0.0-0.5 [facility] Comment on above: Performed By: #### C BC #### [facility] [address] [place] [address] Nic Zamudio LYMPH # 1.5 103/ul Normal 1.2-3.8 [facility] Comment on above: Performed By: #### C BC #### [facility] [address] [place] [address] Nic Zamudio Lymphocytes/100 WBC (Bld) 31.0 % Normal 20.5-60.[address] [facility] Comment on above: Performed By: #### C BC #### [facility] [address] [place] [address] Nic Zamudio MANUAL DIFF REQ NO Normal [facility] Comment on above: Performed By: #### C BC #### [facility] [address] [place] [address] Nic Zamudio MCH (RBC) [Entitic mass] 28.0 pg Normal 26.7-34.[address] [facility] Comment on above: Performed By: #### C BC #### [facility] [address] [phone] Nic Zamudio MCHC (RBC) [Mass/Vol] 32.1 g/dL Normal 29.9-35.2 [facility] Comment on above: Performed By: #### C BC #### [facility] [address] [phone] Nic Zamudio MCV (RBC) [Entitic vol] 87.2 fL Normal 81.0-99.0 [facility] Comment on above: Performed By: #### C BC #### [facility] [address] [place], [place] [address] Nic Zamudio MONO # 0.3 103/ul Normal 0.3-0.8 [facility] Comment on above: Performed By: #### C BC #### [facility] [address] [place], [place] [address] Nic Zamudio Monocytes/100 WBC (Bld) 6.5 % Normal 1.7-12.0 [facility] Comment on above: Performed By: #### C BC #### [facility] [address] [place], [place] [address] Nic Garneren NEUT # 3.0 103/ul Normal 1.4-6.5 [facility] Comment on above: Performed By: #### C BC #### [facility] [address] [place], [place] [address] Nic Zamudio Neutrophils/100 WBC (Bld) 61.3 % Normal 43.0-75.0 [facility] Comment on above: Performed By: #### C BC #### [facility] [address] [place], [place] [address] Nicvaldez Zamudio Platelet mean volume (Bld) [Entitic vol] 10.6 fL Normal 9.5-13.5 [facility] Comment on above: Performed By: #### C BC #### [facility] [address] [place], [place] [address] Nic Lizz PLT 238 103/ul Normal 150-[address] [facility] Comment on above: Performed By: #### C BC #### [facility] [address] [place] [address] Nic Lizz RBC 4.78 106/ul Normal 4.20-5.40 [facility] Comment on above: Performed By: #### C BC #### [facility] [address] [place] [address] Nic Lizz WBC 4.9 103/ul Normal 4.0-11.0 [facility] Comment on above: Performed By: #### C BC #### [facility] [address] [place] [address] Nicvaldez Zamudio FREE T4on 12-08-2020 Free T4 [Mass/Vol] 0.93 ng/dL Normal 0.78-2.19 [facility] Comment on above: Performed By: #### F T4 #### [facility] [address] [place], [place] [address] Nicvaldez Zamudio PROF 14(COMP METB)on 021 Albumin [Mass/Vol] 3.7 g/dL Normal 3.5-5.0 [facility] Comment on above: Performed By: #### C TREVA IRIZARRY #### [facility] [address] [place], [place] [address] Nic Lizz Albumin/Globulin [Mass ratio] 1.1 {ratio} Normal [facility] Comment on above: Performed By: #### C TREVA IRIZARRY #### [facility] [address] [place], [place] [address] Nic Lizz ALP [Catalytic activity/Vol] 109 U/L Normal 38-[address] [facility] Comment on above: Performed By: #### C TREVA IRIZARRY #### [facility] [address] [place], [place] [address] Nic Lizz ALT [Catalytic activity/Vol] 65 U/L Critically high 9-52 [facility] Comment on above: Performed By: #### C TREVA IRIZARRY #### [facility] [address] [place], [place] [address] Nic Lizz Anion gap [Moles/Vol] 11.5 mmol/L Normal [facility] Comment on above: Performed By: #### C JUAN C, CMADM #### [facility] [address] [phone] Nic Lizz AST [Catalytic activity/Vol] 47 U/L Critically high 14-36 [facility] Comment on above: Performed By: #### C MP, CMADM #### [facility] [address] [phone] Nic Lizz Bilirubin [Mass/Vol] 0.6 mg/dL Normal 0.2-1.[address] [facility] Comment on above: Performed By: #### C JUAN C, CMADM #### [facility] [address] [phone] Nic Lizz Calcium [Mass/Vol] 10.1 mg/dL Normal 8.4-10.2 [facility] Comment on above: Performed By: #### C JUAN C, CMADM #### [facility] [address] [address] Nic Lizz Chloride [Moles/Vol] 107 mmol/L Normal 98-[address] [facility] Comment on above: Performed By: #### C JUAN C, CMADM #### [facility] [address] [phone] Nic Lizz CO2 [Moles/Vol] 28.1 mmol/L Normal 22.0-30.0 [facility] Comment on above: Performed By: #### C JUAN C, CMADM #### [facility] [address] [phone] Nic Lizz Creatinine [Mass/Vol] 0.78 mg/dL Normal 0.52-1.04 [facility] Comment on above: Performed By: #### C JUAN C, CMADM #### [facility] [address] [phone] Nci Lizz EGFR-AF PUERTO RICAN >60 Normal >=60 [facility] Comment on above: Performed By: #### C JUAN C, CMADM #### [facility] [address] [phone] Nic Lizz EGFR-NON AF PUERTO RICAN >60 Normal >=[address] [facility] Comment on above: Performed By: #### C JUAN C, CMADM #### [facility] [address] [place], [place] [address] Nic Lizz Globulin (S) [Mass/Vol] 3.4 g/dL Normal [facility] Comment on above: Performed By: #### C MP, CMADM #### [facility] [address] [place], [place] [address] Nic Lizz Glucose [Mass/Vol] 89 mg/dL Normal 74-106 [facility] Comment on above: Performed By: #### C MP, CMADM #### [facility] [address] [place], [place] [address] Nic Lizz Potassium [Moles/Vol] 3.6 mmol/L Normal 3.4-5.0 [facility] Comment on above: Performed By: #### C JUAN C, CMADM #### [facility] [address] [place], [place] [address] Nic Lizz Protein [Mass/Vol] 7.1 g/dL Normal 6.1-8.2 [facility] Comment on above: Performed By: #### C JUAN C, CMADM #### [facility] [address] [place], [place] [address] Nic Lizz Sodium [Moles/Vol] 143 mmol/L Normal 137-145 [facility] Comment on above: Performed By: #### C JUAN C, CMADM #### [facility] [address] [place], [place] [address] Nic Lizz Urea nitrogen [Mass/Vol] 17.0 mg/dL Normal 7.0-17.0 [facility] Comment on above: Performed By: #### C JUAN C, CMADM #### [facility] [address] [place], [place] [address] Nic Lizz Urea nitrogen/Creatinine [Mass ratio] 21.8 mg/mg Normal [facility] Comment on above: Performed By: #### C JUAN C, CMADM #### [facility] [address] [place], [place] [address] Nic Lizz TSHon 12-08-2020 TSH 5.736 uIU/mL Critically high 0.470-4.680 [facility] Comment on above: Performed By: #### T SH #### [facility] [address] [place], [place] [address] Nic Zamudio TSH RANGE SEE BELOW Normal [facility] Comment on above: Result Comment: <0.3 4 UIU/ml HYPERTHYROID 0.34-5.60 UIU/ml EUTHYROID >5.60 UIU/ml HYPOTHYROID Performed By: #### T #### [facility] [address] [place], [place] [address] Nic Zamudio XR CHEST 1 Von 12-08-2020 XR CHEST 1 V XR CHEST 1 V 12/07/2020 11:41 PM EST Indication: CHEST PAIN, UNSPECIFIED Technique: Portable AP radiograph of the chest was obtained. Comparison: None. Findings: The lungs are adequately inflated. No acute rib fractures, pneumothorax or mediastinal shift. No consolidation, edema, or effusion. Heart is normal in size and contour. Impression: No acute findings. Electronically authenticated by: FELICIA COLLINS Date: 2020-12-08 00:06 Normal [facility] Vital Signs Date Time Vital Sign Value Performing Clinician Facility 01-25-2023 09:15-0500 Body height 160.02 cm Alex Doll Other [facility] Other 01-25-2023 09:15-0500 Body mass index (BMI) [Ratio] 29.83 kg/m2 Alex Doll Other [facility] Other 01-25-2023 09:15-0500 Body weight 76.39 kg Alex Doll Other [facility] Other 01-17-2023 16:20-0500 Diastolic blood pressure 84 mm[Hg] MD Billie Shafer Work Phone: [facility] 01-17-2023 16:20-0500 Heart rate 51 /min MD Billie Shafer Work Phone: [facility] 01-17-2023 16:20-0500 Respiratory rate 16 /min MD Billie Shafer Work Phone: [facility] 01-17-2023 16:20-0500 SaO2% (BldA) [Mass fraction] 99 % MD Billie Shafer Work Phone: [facility] 01-17-2023 16:20-0500 Systolic blood pressure 126 mm[Hg] MD Billie Shafer Work Phone: [facility] 01-17-2023 14:09-0500 Body height 163.83 cm MD Billie Shafer Work Phone: [facility] 01-17-2023 14:09-0500 Body mass index (BMI) [Ratio] 29 kg/m2 MD Billie Shafer Work Phone: [facility] 01-17-2023 14:09-0500 Body weight 78 kg MD Billie Shafer Work Phone: [facility] 01-17-2023 12:35-0500 Body temperature 97.8 [degF] MD Billie Shafer Work Phone: [facility] 01-04-2023 12:00-0500 Body height 160.02 cm Alex Doll Other [facility] Other 01-04-2023 12:00-0500 Body mass index (BMI) [Ratio] 29.76 kg/m2 Alex Doll Other [facility] Other 01-04-2023 12:00-0500 Body weight 76.2 kg Alex Doll Other [facility] Other 09-28-2022 15:30-0400 Body height 160.02 cm Armida Greer II Other [facility] Other 09-28-2022 15:30-0400 Body mass index (BMI) [Ratio] 28.34 kg/m2 Armida Greer II Other [facility] Other 09-28-2022 15:30-0400 Body weight 72.58 kg Armida Greer II Other [facility] Other Encounters Encounter Date Encounter Type Care Provider Facility Start: 01-20-2025 End: 01-20-2025 ambulatory BILLIE SHAFER MD Facility:[facility] Start: 01-20-2025 End: 01-20-2025 ambulatory BILLIE SHAFER MD Facility:[facility] Start: 01-20-2025 ambulatory BILLIE SHAFER MD Facil ity:[facility] Start: 01-14-2025 ambulatory BILLIE SHAFER MD Facil ity:[facility] Start: 12-26-2024 End: 12-26-2024 ambulatory BILLIE SHAFER MD Facility:[facility] Start: 07-23-2024 End: 07-23-2024 Bamboo flowsheet Rosita Carter PA Work Phone: [facility] Start: 07-23-2024 End: 07-23-2024 Bamboo flowsheet Rosita Carter PA Work Phone: [facility] Start: 07-23-2024 End: 07-23-2024 Patient encounter procedure Rosita Carter PA Work Phone: [facility] Comment on above: Left foot pain (Prim anabela Dx); Moderate left ankle sprain, initial encounter; Avulsion fracture of left talus, closed, initial encounter Start: 07-23-2024 End: 07-23-2024 ambulatory ROSITA CARTER Not Available Start: 07-15-2024 End: 07-15-2024 ambulatory BILLIE SHAFER MD Facility:[facility] Start: 06-07-2024 End: 06-07-2024 ambulatory BILLIE SHAFER MD Facility:[facility] Start: 04-03-2024 End: 04-03-2024 ambulatory BILLIE SHAFER MD Facility:[facility] Start: 04-03-2024 End: 04-03-2024 ambulatory BILLIE SHAFER MD Facility:[facility] Start: 01-25-2023 End: 01-25-2023 ambulatory Alex Tremaine Other [facility] Other Start: 01-25-2023 Postop follow up vis it related to original px Alex Doll [facility] Start: 01-17-2023 End: 01-17-2023 ambulatory Alex Doll Facility:[facility] Start: 01-17-2023 End: 01-17-2023 Admission to same day surgery center MD Billie Shafer Work Phone: [facility] [place] Start: 01-17-2023 End: 01-17-2023 ambulatory MD Billie Shafer Work Phone: [facility] Work Phone: Start: 01-10-2023 End: 01-10-2023 ambulatory Alex Doll Facility:[facility] Start: 01-10-2023 End: 01-10-2023 ambulatory MD Billie Shafer Work Phone: [facility] Work Phone: Start: 01-10-2023 End: 01-10-2023 Patient encounter procedure MD Billie Shafer Work Phone: [facility] Work Phone: Start: 01-04-2023 End: 01-04-2023 ambulatory Alex Doll Other [facility] Other Start: 01-04-2023 Encounter for other preprocedural examination Alex Doll [facility] Start: 01-04-2023 Office outpatient vi sit 25 minutes Alex Doll [facility] Start: 09-28-2022 End: 09-28-2022 Patient encounter procedure MD Armida Greer II Work Phone: [facility] Start: 09-28-2022 End: 09-28-2022 ambulatory Armida Greer II [facility] Work Phone: Start: 09-28-2022 Office outpatient ne w 45 minutes Armida RODRÍGUEZ [facility] Start: 10-30-2021 End: 10-30-[address] DOCTOR EPPERSON Facility:[facility] Start: 12-08-2020 End: 12-08-[address] TANESHA PAGE Facility:[facility] Procedures Date Procedure Procedure Detail Performing Clinician Start: 07-23-2024 Radex foot complete minimum 3 views Rosita MALCOLM Work Phone: Start: 01-17-2023 Release of trigger finger MD Billie Shafer Work Phone: Start: 09-28-2022 Pelvis X-ray MD Armida Greer II Work Phone: Plan of Treatment Date Care Activity Detail Author Start: 07-23-2024 End: 07-23-2024 Patient encounter procedure 07/23/2024 8:00 AM EDT Office Visit [facility] [address] [place] [id number] Rosita Carter PA [address] [place] [address] Arrived [facility] Comment on above: Arrived Start: 01-17-2023 [facility] Start: 01-17-2023 [facility] Start: 09-28-2022 X-ray of right knee XR knee RT 4V* F [facility] Payers Date Payer Category Payer Unknown AARP AARP [id number] [id number]-Present [address] [place] [address] [id number] 2022 Self-pay [id number] 2020 Medicare MEDICARE MEDICAR E PART B [id number] 2020-[place] [address] Medicare [id number] 1959 Medicare [id number] 1959 Unknown [id number] 1955 Unknown [id number] [id number]3 1955 Unknown [id number] 2.16.840.1.258244.3.579.2.593 1955 Unknown [id number] 2.16.840.1.807915.3.579.2.1259 1955 Unknown [id number] 2.16.840.1.847118.3.579.2.1259 1955 Unknown [id number] 2.16.840.1.436465.3.579.2.718 1955 Unknown [id number] 2.16.840.1.302933.3.579.2.718 1955 Unknown [id number] 2.16.840.1.756972.3.579.2.718 1955 Unknown [id number] 2.16.840.1.895934.3.579.2.718 1955 Unknown [id number] 2.16.840.1.843160.3.579.2.718 1954 Unknown [id number] 2.16.840.1.530006.3.579.2.718 1954 Unknown [id number] 2.16.840.1.580830.3.579.2.718 1954 Unknown [id number] 2.16.840.1.093742.3.579.2.718 1954 Unknown [id number] 2.16.840.1.175426.3.579.2.718 1954 Unknown [id number] 2.16.840.1.725906.3.579.2.718 1955 Unknown [id number] 2.16.840.1.741970.3.579.2.718 Unknown [id number] 2.16.840.1.234007.3.579.2.531 Unknown [id number] 2.16.840.1.265047.3.579.2.531 Unknown [id number] 2.16.840.1.630143.3.579.2.531 Social History Date Type Detail Facility Tobacco smoking status [facility] Unknown if ever smoked [facility] Work Phone: Start: 1955 Sex Assigned At Female F [facility] Sex Assigned At [facility] Other Start: 01-10-2023 End: 07-23-2024 Tobacco smoking status ILIS Ex-smoker (finding) [facility] Tobacco smoking status [facility] Tobacco smoking consumption unknown [facility] Start: 1955 Sex assigned at Not on file [facility] History of tobacco use Current smoker [facility] History of tobacco use Cigarette Smoker [facility] Start: 07-23-2024 Tobacco use and exposure Smokeless tobacco non-user [facility] Goals Date Patient Goal Desired Activity /State Clinical Notes 09-28-2022 to 07-23-2024 GOLD Beyer - 07/23/2024 8:00 AM EDTPatient Instructions Note Date & Type Note Facility 07-23-2024 History of Presen t illness Narrative GENERAL HISTORY AND PHYSICAL: NAME: Claudine Davis : 1955 HISTORY OF PRESENT ILLNESS: Claudine Davis is an 69 y.o. female is here for orthopedic evaluation left ankle injury which is about 2-week-old. They have been down in [facility] and when she stepped off her last step there was a rent in the ground that was covered by her area rug. This caused inversion injury and significant swelling and pain. She had gone for evaluation and x-rays to urgent care and has been using an Rupesh wrap and walking in a normal shoe associated with her pain and swelling. She was not given any kind of boot or splint to help with the recovery. She is here for first-time orthopedic evaluation of her injury. PAST MEDICAL HISTORY: Past Medical History: Diagnosis Date Breast cancer ([facility]) 1997 Cancer ([facility]) PAST SURGICAL HISTORY: Past Surgical History: Procedure Laterality Date HYSTERECTOMY 2002 MASTECTOMY Right 10/1999 TRIGGER FINGER RELEASE Right 2021 SOCIAL HISTORY: Social History Occupational History Not on file Tobacco Use Smoking status: Former Types: Cigarettes Smokeless tobacco: Never Substance and Sexual Activity Alcohol use: Not on file Drug use: Not on file Sexual activity: Not on file ALLERGIES: Allergies Allergen Reactions Nickel Dermatitis MEDICATIONS: Current Outpatient Medications Medication Instructions calcium carbonate (Os-James) 1250 (500 Ca) MG chewable tablet 1 tablet, Oral, 2 times daily co-enzyme Q-10 30 MG capsule Oral, Daily multivitamin (Theragran) tablet 1 tablet, Oral, Daily potassium bicarbonate (K-Lyte) 25 MEQ effervescent tablet Oral, Once REVIEW OF SYSTEMS: Review of Systems General: Denies appetite or significant weight change. Denies fever, chills or night sweats. Denies lightheadedness. ENT: Denies dry mouth, sore throat or swollen glands. Denies difficulty swallowing. Denies ear pain. Respiratory: Denies chest pain, SOB, cough or wheezing. Denies asthma or pneumonia symptoms. Cardiovascular: Denies CP or palpitations. No syncope or dyspnea on exertion. Gastrointestinal: Denies nausea or vomiting. Denies heartburn or abdominal pain. Denies diarrhea. Genitourinary: Denies frequent or painful urination. Musculoskeletal: See HPI for comments. Integumentary: Denies rash, lesion or skin infection. Neurologic: Denies dizziness, headache or seizure history. Vitals: There is no height or weight on file to calculate BMI. PHYSICAL EXAM: Physical Exam She has some resolving ecchymosis that it extended down into her 2nd and 3rd toes but no pain in these toes. Most of her discomfort is to the lateral distal talus and insertion of the peroneal brevis. He does have some midfoot soreness and tenderness to the 4th and 5th metatarsals as well. Does not appear to have swelling or tenderness into the sleeve of the peroneal tendon or into the calf. She has no significant pain associated with Achilles insertion no deficit palpated she has good function with plantar flexion dorsiflexion anterior drawer does elicit slight translation with some tenderness with talar tilt test. XR foot 3+ views left Imaging Result: AP lateral and oblique of the left foot does demonstrate avulsion off the anterior lateral tip of the talus with no obvious fracture of the base of the 4th or 5th metatarsals. No obvious dislocation she does have some calcific changes to the insertion of the Achilles as well as plantar fascia with heel spur. Orders Placed This Encounter Procedures XR foot 3+ views left Order Specific Question: Reason for exam: Answer: pain XR foot 3+ views left Imaging Result: AP lateral and oblique of the left foot does demonstrate avulsion off the anterior lateral tip of the talus with no obvious fracture of the base of the 4th or 5th metatarsals. No obvious dislocation she does have some calcific changes to the insertion of the Achilles as well as plantar fascia with heel spur. ASSESSMENT: Left foot pain Moderate left ankle sprain, initial encounter Avulsion fracture of left talus, closed, initial encounter PLAN: Wear the boot during waking hours for the next 2-3 weeks. May transition into an ASO as pain will allow. Would expect ASO use for another few weeks after to resume back to normal activity. If you discomfort continues after the next 3 weeks of use of the boot and no significant improvement come back for repeat x-ray. Tylenol for discomfort ice 20 minutes several times a day we will be helpful and elevation if needed. Would expect this to return back to normal function after about 8 weeks total recovery. GOLD Beyer documented in this encounter [facility] 07-23-2024 Instructions GOLD Beyer - 07/23/2024 8:00 AM EDT Wear the boot during waking hours for the next 2-3 weeks. May transition into an ASO as pain will allow. Would expect ASO use for another few weeks after to resume back to normal activity. If you discomfort continues after the next 3 weeks of use of the boot and no significant improvement come back for repeat x-ray. Tylenol for discomfort ice 20 minutes several times a day we will be helpful and elevation if needed. Would expect this to return back to normal function after about 8 weeks total recovery. documented in this encounter [facility] 07-15-2024 Note Patient Education Ma terials Follows: Ankle Sprain An ankle sprain is a stretch or tear in a ligament in the ankle. Ligaments are tissues that connect bones to each other. The two most common types of ankle sprains are: ? Inversion sprain. This happens when the foot turns inward and the ankle rolls outward. It affects the ligament on the outside of the foot (lateral ligament). ? Eversion sprain. This happens when the foot turns outward and the ankle rolls inward. It affects the ligament on the inner side of the foot (medial ligament). What are the causes? This condition is often caused by accidentally rolling or twisting the ankle. What increases the risk? You are more likely to develop this condition if you play sports. What are the signs or symptoms? Symptoms of this condition include: ? Pain in your ankle. ? Swelling. ? Bruising. This may develop right after you sprain your ankle or 1?2 days later. ? Trouble standing or walking, especially when you turn or change directions. How is this diagnosed? This condition is diagnosed with: ? A physical exam. During the exam, your health care provider will press on certain parts of your foot and ankle and try to move them in certain ways. ? X-ray imaging. These may be taken to see how severe the sprain is and to check for broken bones. How is this treated? This condition may be treated with: ? A brace or splint. This is used to keep the ankle from moving until it heals. ? An elastic bandage. This is used to support the ankle. ? Crutches. ? Pain medicine. ? Surgery. This may be needed if the sprain is severe. ? Physical therapy. This may help to improve the range of motion in the ankle. Follow these instructions at home: If you have a brace or a splint: ? Wear the brace or splint as told by your health care provider. Remove it only as told by your health care provider. ? Loosen the brace or splint if your toes tingle, become numb, or turn cold and blue. ? Keep the brace or splint clean. ? If the brace or splint is not waterproof: ? Do not let it get wet. ? Cover it with a watertight covering when you take a bath or a shower. If you have an elastic bandage (dressing): ? Remove it to shower or bathe. ? Try not to move your ankle much, but wiggle your toes from time to time. This helps to prevent swelling. ? Adjust the dressing to make it more comfortable if it feels too tight. ? Loosen the dressing if you have numbness or tingling in your foot, or if your foot becomes cold and blue. Managing pain, stiffness, and swelling ? Take fian-cri-eqrfyub and prescription medicines only as told by your health care provider. ? For 2?3 days, keep your ankle raised (elevated) above the level of your heart as much as possible. ? If directed, put ice on the injured area: ? If you have a removable brace or splint, remove it as told by your health care provider. ? Put ice in a plastic bag. ? Place a towel between your skin and the bag. ? Leave the ice on for 20 minutes, 2?3 times a day. General instructions ? Rest your ankle. ? Do not use the injured limb to support your body weight until your health care provider says that you can. Use crutches as told by your health care provider. ? Do not use any products that contain nicotine or tobacco, such as cigarettes, e-cigarettes, and chewing tobacco. If you need help quitting, ask your health care provider. ? Keep all follow-up visits as told by your health care provider. This is important. Contact a health care provider if: ? You have rapidly increasing bruising or swelling. ? Your pain is not relieved with medicine. Get help right away if: ? Your foot or toes become numb or blue. ? You have severe pain that gets worse. Summary ? An ankle sprain is a stretch or tear in a ligament in the ankle. Ligaments are tissues that connect bones to each other. ? This condition is often caused by accidentally rolling or twisting the ankle. ? Symptoms include pain, swelling, bruising, and trouble walking. ? To relieve pain and swelling, put ice on the affected ankle, raise your ankle above the level of your heart, and use an elastic bandage. ? Keep all follow-up visits as told by your health care provider. This is important. This information is not intended to replace advice given to you by your health care provider. Make sure you discuss any questions you have with your health care provider. Document Revised: 01/04/2022 Document Reviewed: 01/06/2022 [employer]yn[employer] Patient Education ? 2022 [employer] [facility] 01-25-2023 Evaluation note Encounter Date Diagnosis Assessment Notes Jan, Trigger thumb, right thumb (ICD-10 - M65.311) Claudine is here 1 week s/p right trigger thumb release. She is doing well. Her surgical incision is benign and sutures been removed today. We discussed range of motion exercises for the thumb which she will do at home. She can slowly increase activities as tolerated and monitor wound. Follow-up at 6 weeks if not fully improved Instructed on application of Neosporin to incision to help dryness. Sutures removed today under sterile conditions. Patient tolerated well with no adverse reactions. May allow incision to get wet in clean running water, no larkin/lanza/st giancarlo. Jan, Other specified postprocedural states (ICD-10 - Z98.890) Jan, Encounter for removal of sutures (ICD-10 - Z48.02) Jan, Other See orders for this visit as documented in the electronic medical record. [facility] Other 02-08-2023 Evaluation note* Encounter Date Diagnosis Assessment Notes Treatment Notes Treatment Clinical Notes Dec, Trigger thumb, right thumb (ICD-10 - M65.311) Claudine presents with right trigger thumb. At this juncture we have discussed the findings and diagnosis as well as personally reviewed appropriate imaging and performed interpretation of related testing and examination with the patient in office today. Prior medical notes from Dr. Shafer and history have been reviewed. The finding and diagnosis of trigger finger has been discussed at length with the patient. The mechanism of stenosing tenosynovitis and the effect on smooth tendon glide at the level of the A1 arlyn have been discussed with the patient. Nonoperative treatment including splinting, activity modification and NSAIDs have been discussed with the patient. Cortisone injections have been discussed and offered as well and the risks of fat atrophy, tendon rupture and transient hyperglycemia were discussed and understood. The surgical release of the A1 arlyn has been discussed along with possible complications and risks including digital nerve injury, bowstringing, wound healing issues, postoperative pain and stiffness and the possibility of the need for therapy. At this time the patient elects to proceed with trigger finger release. At this juncture we have discussed the findings and diagnosis as well as reviewed appropriate imaging and performed interpretation of testing. Surgical intervention is recommended. Prior medical notes and history have been reviewed. Surgical versus non-operative management have been discussed in detail and non-operative management was given as an option. The risks of surgical intervention were given. Pre-operative optimization will be done prior to surgical procedure to limit jose-operative risks. I have discussed the planned procedure, how and who performs the procedure, and the personnel involved. Cardiovascular, pulmonary, and other life threatening episodes can occur during surgery although there is a low risk of these happening. Surgical risks including bleeding, neurovascular injury, wound closure problems and infection were discussed. Jose-operative risks including infection, bleeding, wound healing problems, and need for further surgery were discussed. It was discussed that there is a possibility of blood transfusion with any surgical procedure and the risks involved in receiving a blood transfusion. Possibility of, and need for, future bracing or DME use, physical or occupational therapy, mental therapy, rehabilitation, pain management and need for secondary procedures was discussed. I have warned against smoking and the use of tobacco products due to the risks associated with them, in particular, poor healing. I have advised against the long term care phlebotomist use of narcotic pain medication. I have advised to follow all post-operative instructions in order to obtain the best outcome. Informed consent has been verbally affirmed and signed as indicated. Plan for right trigger thumb release. Follow-up 1 week postoperative for suture removal The patient has been involved in our cooperative treatment plan and agrees to move forward with treatment at this time. This appears to trigger finger. We discussed the cause of this condition and the treatment options. We discussed stretching of the finger as well as massage of the palmar MCP region. We discussed the use of cortisone injection into the palmar aspect of the hand at the trigger site can be helpful in relieving painful symptoms. We also discussed the option of surgical release which can eliminate the problem. Patient opts for surgery at this time. Surgical procedure, risks, recovery and restrictions discussed in detail. Patient was in understanding. Dec, Pre-op exam (ICD-10 - Z01.818) Dec, Other See orders for this visit as documented in the electronic medical record. [facility] Other 11-02-2022 Evaluation note* Encounter Date Diagnosis Assessment Notes Treatment Notes Treatment Clinical Notes Sep, Acute pain of right knee (ICD-10 - M25.561) Sep, Primary osteoarthritis of right knee (ICD-10 - M17.11) Sep, Other 1. We had a augusta g discussion with the patient today concerning their right knee osteoarthritis. The radiographs do show osteoarthritis of the knee. At this time the patient would like to avoid surgical intervention. We did discuss the risk and benefits of surgical versus nonoperative management. The patient would like to proceed with nonoperative management. We discussed that our options include injections, physical therapy, and the consistent use of anti-inflammatories. All 3 of these options, including their risks and benefits, were discussed at length with the patient. 2. Tylenol: Discussed taking Tylenol (acetaminophen). Recommended adjusting their dosing to 1000mg by mouth up to 3 times a day. 3. NSAIDs: Prescribed the patient 15 mg Mobic (meloxicam) to be taken by mouth daily. Also prescribe Voltaren gel to be used 4-5 times a day 4. Physical therapy: Discussed formal physical therapy and home regimen. Patient preferred no PT at this time. 5. Injections: Discussed injections as a treatment option. Considering she is only having intermittent pain at this time. She had an injection less than 3 months ago we will hold off on any injections at this time 6. Follow up as needed if the knee flares up again and we can do a steroid injection. [facility] Other Evaluation noteNo assessment information available [facility] Work Phone: Evaluation note* Diagnosis Left foot pain- Primary Pain in soft tissues of limb Moderate left ankle sprain, initial encounter Avulsion fracture of left talus, closed, initial encounter [facility] - [facility]* Type Description Date Medical History macular degeneration Surgical History right leg surgery at age 11 x2 Surgical History right toe surgery Surgical History right mastectomy 1998 Surgical History hysterectomy 2002 Surgical History miloma removed from back [facility] Other History general Narrative - Reported* Type Description Date Medical History macular degeneration Medical History breast cancer 1998 Medical History broken rt leg in childhood Surgical History right leg surgery at age 11 x2 Surgical History right toe surgery Surgical History right mastectomy 1998 Surgical History hysterectomy 2002 Surgical History miloma removed from back Hospitalization History see above [facility] Other Hospital Discharge instructions Additional Instructions Trigger finger release Maintain your postoperative dressing for 72 hours after surgery. After this time the dressing can be removed and you may wash your hands normally with warm soapy water. You may keep the incision covered with a Band-Aid if you wish. We will remove the sutures at your follow- up appointment. You may ice and elevate for the first 72 hours as you see fit. This can help with inflammation and swelling. You are weightbearing as tolerated and range of motion as tolerated to the hand wrist and fingers. Take medications as prescribed. You may take Motrin or Tylenol yyvs-svh-rcvgoww if you wish. Follow-up in 1 week for reevaluation suture removal. Call to make an appointment if you have not already scheduled one. Dr. Alex Doll [facility] [address] [place], [place] [id number] [phone] Work Phone: Summary Purpose Family History No Family History Records Found Relationship Condition Age at Onset Recorded Date/T juventino Not Specified Malignant neoplasm of breast Unknown Macular degeneration Unknown High blood cholesterol Unknown father Myocardial infarction Unknown Chronic obstructive pulmonary disease Unk nown brother Coronary artery disease Unknown Advance Directives No Advanced Directives Records Found Advance Directive Response Recorded Date/ Time Advance Directives No October 05, 2022 11:09am Chief Complaint and Reason for Visit Chief Complaint Right Trigger Thumb Chief Complaint Right Trigger Thumb Right Trigger Thumb Additional Source Comments INFORMATION SOURCE (unrecogn ized section and content) DATE CREATED AUTHOR 11/03/2021 [facility] DATE CREATED AUTHOR AUTHOR'S ORGANIZ ATION 01/24/2023 [facility] DATE CREATED AUTHOR AUTHOR'S ORGANIZ ATION 07/27/2024 [facility] DATE CREATED AUTHOR AUTHOR'S ORGANIZ ATION 01/30/2025 [facility] Care Teams (unrecognized sec tion and content) Team Status: Inactive Member Role Status Dates Armida Greer II, MD Attending Provider Active Team Status: Inactive Member Role Status Dates Billie Shafer MD Primary Care Provider Active Alex Doll DO Attending Provider Active Team Status: Active Member Role Status Dates Billie Shafer MD Primary Care Provider Active Chain Tender Relationship Specialty Start Date End Date Billie Shafer MD [address] [place] [id number] PCP - General Family Medicine 07/23/24 Chain Tender Relationship Specialty Start Date End Date Billie Shafer MD [address] [place] [id number] PCP - General Family Medicine 07/23/24 Goals (unrecognized section and content) Goals may be documented in a n alternate sectionNo InformationGoals may be documented in an alternate sectionNo InformationNo Information REASON FOR VISIT (unrecogniz ed section and content) CONSULT DR SHAFER RT KNEE PA IN NXRight Trigger ThumbRecheck Right Hand FOR RECORDS PERTAINING TO PATIENTS WHO ARE OR HAVE BEEN ENROLLED IN A CHEMICAL DEPENDENCY/SUBSTANCEABUSE PROGRAM, SOME INFORMATION MAY BE OMITTED. This clinical summary was aggregated from multiple sources. Caution should be exercised in using it in the provision of clinical care. This summary normalizes information from multiple sources, and as a consequence, information in this document may materially change the coding, format and clinical context of patient data. In addition, data may be omitted in some cases. CLINICAL DECISIONS SHOULD BE BASED ON THE PRIMARY CLINICAL RECORDS. [facility]. provides no warranty or guarantee of the accuracy or completeness of information in this document.
== END 2025-02-10 10:31 | disposition home or self-care (01) ==
LOC: EC 10:30
PROVIDERS: Visit Provider Orthopaedic Surgery
DX: S72.002D Fracture of unspecified part of neck of left femur, subsequent encounter for closed fracture with routine healing (principal); S52.125D Nondisplaced fracture of head of left radius, subsequent encounter for closed fracture with routine healing
CPT/HCPCS: 73080; 73502

== ENCOUNTER 2025-05-20 10:13 | Outpatient (OUT) | payer MEDICARE, SELFPAY ==
--- OUTSIDE RECORDS SUMMARY | 2025-05-14 23:59 | XMS_ITS | Continuity of Care Document ---
Author Organization [facility] Address [address] [place] [address] [place] [address] Care Team Providers Care Machine Operator Packaging Name Role Phone BILLIE CROCKETT Primary Care Physician Encounter FT_AMBFIN [id number] Date(s): 05/14/25 - 05/14/25 [facility] [address], [place], [place] [address] Encounter Diagnosis Screening for malignant neoplasm of colon(Discharge Diagnosis) - 05/14/25 History of diverticulitis(Discharge Diagnosis) - 05/14/25 Discharge Disposition: Home (Routine DC) Attending Physician: Travis TORRES MD Referring Physician: BILLIE CROCKETT MD Encounter Type: Clinic Allergies, Adverse Reactions, Alerts No Known Allergies Immunizations Given and Recorded Vaccine Date Status Refusal Reason influenza virus vaccine, inactivated 09/10/24 Jasson rded SARS-CoV-2 (COVID-19) [id number] 08/11/22 Recorded SARS-CoV-2 (COVID-19) mRNA BNT-162b2 vax 1 08/23/21 Recorded SARS-CoV-2 (COVID-19) mRNA BNT-162b2 vax 2 01/30/21 Recorded SARS-CoV-2 (COVID-19) mRNA BNT-162b2 vax 3 01/09/21 Recorded 1Result Comment: 2025-05-07: [id number] 2Result Comment: 2025-05-07: [id number] 3Result Comment: 2025-05-07: [id number] Medications calcium-vitamin D Refill(s) 0 Start Date: 05/07/25 Status: Ordered Repeat number: 1 Co-Q10 100 mg oral capsule 300 mg = 3 cap(s), Oral, Daily, Refills(s) 0 Start Date: 05/07/25 Status: Ordered Repeat number: 1 Colace 100 mg Cap 100 mg = 1 cap(s), Oral, Daily, PRN for constipation, Refills(s) 0 Start Date: 05/14/25 Status: Ordered Repeat number: 1 Eye Vitamin 1 tab(s), Oral, Daily, Refill(s) 0 Start Date: 05/07/25 Status: Ordered Repeat number: 1 Multi Vitamins oral tablet 1 tab(s), Oral, Daily, Refill(s) 0 Start Date: 05/07/25 Status: Ordered Repeat number: 1 potassium acetate Refills(s) 0 Start Date: 05/14/25 Status: Ordered Repeat number: 1 psyllium oral capsule = 5 cap(s), Oral, BID, Refills(s) 0 Start Date: 05/07/25 Status: Ordered Repeat number: 1 Problem List Condition Confirmation Course Effective Dates Status H ealth Status Informant Anemia Confirmed Active Anxiety Confirmed Active Chronic back pain Confirmed Active Macular degeneration Confirmed Active History of diverticulitis Confirmed Active History of breast cancer Confirmed Active History of colon polyps Confirmed Active Hyperlipidemia Confirmed Active Hypertension Confirmed Active Migraines Confirmed Active Overweight Confirmed Active BMI 29.0-29.9,adult Confirmed Active Screening for malignant neoplasm of colon Confirmed Active Seasonal affective disorder Confirmed Active Procedures Procedure Date Related Diagnosis Body Site Status Closed reduction of fracture of left femur and internal fixation using dynamic hip screw plate 11/04/24 Complete d Closed left wrist fracture Completed Colonoscopy Completed Colonoscopy Completed Excision of lipoma of back Completed Fracture of leg Completed Fracture of right olecranon Completed Mastectomy of right breast Completed Total abdominal hysterectomy with bilateral salpingo-oophorectomy Completed Trigger thumb of right hand Completed Social History Social History Type Response Smoking Status Former smoker, quit more than 30 days ago;Never; Type: Cigarettes; Tobacco use per day: 0.25; Started at age: 16.0; Stopped at age: 24; entered on: 05/14/25 Sex Female Sex Representation Female (finding) Patient Care team information Care Team Personnel Name: BILLIE CROCKETT MD Position: FT Physician Member Role: Primary Care Physician Address: [address] [place] [id number] Telecom: Care Team Related Persons Name: RYAN ULISSES Insurance Providers Guarantor name: [employer] Health Plan Information #: 1 Payer: NA Payer Identifier: [id number] Member Number: [id number] Group Number: [id number] Subscriber Identifier: [id number] Relationship to Subscriber: Self Coverage Type: MEDICARE Coverage Verification Date: 25 Telecom: NA Address: [facility] Information #: 2 Payer: NA Payer Identifier: [id number] Member Number: [id number] Group Number: [id number] Subscriber Identifier: [id number] Relationship to Subscriber: Self Coverage Type: PRIVATE HEALTH INSURANCE Coverage Verification Date: Telecom: Address:
--- OUTSIDE RECORDS SUMMARY | 2025-05-20 10:16 | XMS_ITS | Clinical Summary ---
Author Organization [facility] Address [address] [place] [address] Care Team Providers Care Chartered Wealth Manager Name Role Phone Pierre Duke MD Primary Care Provider Allergies Active Allergy Reactions Criticality Noted Date Comments Nickel Dermatitis 01/17/2023 Medications multivitamin (Theragran) tablet Take 1 tablet by mouth Daily Active calcium carbonate (Os-James) 1250 (500 Ca) MG chewable tablet Chew 1 tablet in the morning and 1 tablet before bedtime. Active co-enzyme Q-10 30 MG capsule Take by mouth Daily Active potassium bicarbonate (K-Lyte) 25 MEQ effervescent tablet Take by mouth 1 (one) time Active Family History Medical History Relation Name Comments Cancer Daughter Cancer Mother Hypertension Mother Heart disease Mother's Brother Stroke Mother's Brother Relation Name Status Comments Daughter Other Mother Mother's Brother Social History Tobacco Use Types Packs/Day Years Used Date Smoking Tobacco: Former Cigarettes Smokeless Tobacco: Never Tobacco Cessation:Counseling Given: Not Answered Comments Unknown Sex and Gender Information Value Date Recorded Sex Assigned at Not on file Legal Sex Female 6:54 PM EDT Gender Identity Not on file Sexual Orientation Not on file Plan of Treatment Not on file Insurance MEDICARE [employer] Care Teams Chartered Wealth Manager Relationship Specialty Start Date End Date Pierre Duke MD [address] [place] [address] PCP - General Family Medicine 07/23/24
== END 2025-05-20 10:14 | disposition home or self-care (01) ==
LOC: PST 10:14
PROVIDERS: Visit Provider Surgery
DX: Z01.818 Encounter for other preprocedural examination (principal); Z12.11 Encounter for screening for malignant neoplasm of colon; Z87.19 Personal history of other diseases of the digestive system

== ENCOUNTER 2025-05-28 06:53 | Day surgery (SDC) | payer MEDICARE, SELFPAY ==
--- NOTE | 2025-05-28 | OP_ITS ---
OPERATION DATE: 05/28/2025 PREOPERATIVE DIAGNOSIS: Colorectal screening, as well as history of diverticulitis, constipation. POSTOPERATIVE DIAGNOSIS: Moderate sigmoid diverticulosis without inflammatory changes or scarring. PROCEDURE: Colonoscopy to cecum. SURGEON: Travis Tobias M.D. ANESTHESIA: Monitored anesthesia care. ESTIMATED BLOOD LOSS: Zero. INDICATIONS AND CONSENT: Patient is a 70-year-old female presents for colorectal screening. She does have a history of diverticulitis, constipation, left lower quadrant abdominal pain. Indications, risks, benefits, alternatives of proceeding with colonoscopy were explained extensively to the patient, including the risks of bleeding, colon perforation or anesthetic complications. All of her questions were answered. Informed consent was obtained. PROCEDURE: Patient brought to the operating room, placed in the left lateral decubitus position. Monitored anesthesia care was provided. Rectal exam was performed which showed no masses or blood. The scope was inserted into the anal canal. Under direct visualization was advanced. It was advanced to the cecum where cecal markings were clearly identified. There was noted to be a good prep. Upon withdrawal of the scope, mucosal surfaces were carefully examined. There were no mass lesions or polyps. No inflammatory changes or ulcerations. There was moderate sigmoid diverticulosis without inflammation or scarring. The scope was retroflexed in the anal canal. There was a small hypertrophic anal papilla, no significant hemorrhoidal disease. The scope was then withdrawn. Patient tolerated procedure well, was sent to recovery room in good condition. f/u screening colonoscopy in 10 years if patient remains in good health. CC: Pierre Duke M.D. [email or web address]
--- OUTSIDE RECORDS SUMMARY | 2025-05-28 06:56 | XMS_ITS | CCD ---
Author Organization [facility] Care Team Providers Care Programs Manager Name Role Phone CAMILO, DR TANESHA Alexander Admitting Unavailable CAMILO, DR TANESHA Alexander Attending Unavailable MISC, DR ELMORE Primary Care Unavailable CAMILO, DR TANESHA Alexander Consulting Unavailable FELICIA COLLINS Consulting Unavailable MISC, DR ELMORE Primary Care Unavailable BERHANE ARROYO Admitting Unavailable BERHANE ARROYO Attending Unavailable DR MELODIE QUIROZ Consulting Unavailable MD Thompson Greer II Attending Provider Thompson Greer II Unavailable [phone] MD Billie Shafer Primary Care Provider DO Alex Doll Attending Provider Alex Doll Unavailable ROSITA CARTER Attending Unavailable ROSITA CARTER Referring Unavailable Billie Shafer MD Primary Care Provider Billie Shafer MD Primary Care Provider Kiran Pringle DO Emergency Provider [phone] Kiran Pringle Attending Unavailable Kiran Pringle Admitting Unavailable Billie Shafer Primary Care Unavailable BILLIE SHAFER Primary Care Physician BILLIE SHAFER Referring Unavailable Krishna TORRES Attending Unavailable KEIRA DAVIS, BILLIE Hernandez Attending Unavailable BILLIE SHAFER MD Primary Care Unavailable BILLIE SHAFER MD Admitting Unavailable KEIRA DAVIS, BILLIE Hernandez Primary Care Unavailable BILLIE SHAFER MD Admitting Unavailable KEIRA DAVIS, BILLIE Hernandez Attending Unavailable KEIRA DAVIS, BILLIE Hernandez Admitting Unavailable KEIRA DAVIS, BILLIE Hernandez Attending Unavailable BILLIE SHAFER MD Primary Care Unavailable BILLIE SHAFER MD Primary Care Unavailable KEIRA DAVIS, BILLIE Hernandez Attending Unavailable KEIRA DAVIS, BILLIE Hernandez Admitting Unavailable KEIRA DAVIS, BILLIE Hernandez Primary Care Unavailable KEIRA DAVIS, BILLIE Hernandez Attending Unavailable KEIRA DAVIS, BILLIE Hrenandez Admitting Unavailable Longo PAC, Justin Mckeon Admitting Unavailable Longo PAC, Justin N Attending Unavailable KEIRA DAVIS, BILLIE Hernandez Primary Care Unavailable KEIRA DAVIS, BILLIE Hernandez Primary Care Unavailable KEIRA DAVIS, BILLIE Hernandez Attending Unavailable KEIRA DAVIS, BILLIE Hernandez Attending Unavailable KEIRA DAVIS, BLILIE Hernandez Admitting Unavailable KEIRA DAVIS, BILLIE Hernandez Primary Care Unavailable KEIRA DAVIS, BILLIE Hernandez Attending Unavailable KEIRA DAVIS, BILLIE Hernandez Primary Care Unavailable KEIRA DAVIS, BILLIE Hernandez Attending Unavailable KEIRA DAVIS, BILLIE Hernandez Primary Care Unavailable KEIRA DAVIS, BILLIE Hernandez Attending Unavailable KEIRA DAVIS, BILLIE Hernandez Primary Care Unavailable KEIRA DAVIS, BILLIE Hernandez Primary Care Unavailable KEIRA DAVIS, BILLIE Hernandez Attending Unavailable Allergies Allergy Classification Reported Allergen(s) Allergy Type Date of Onset Reaction(s) Facility (5 sources) nickel; Translations: [nickel] Drug Allergy [facility] (1 source) No Known Medication Allergies; Translations: [No Known Medication Allergies] Propensity to adverse reactions (disorder) [facility] Medications Current Medications Medication Drug Class(es) Dates Sig (Normalized) Sig (Original) acetaminophen 325 mg / HYDROcodone bitartrate 5 mg oral tablet (1 source) Opioid Agonist Start: 03-10-2025 take 1 tablet by mouth every six hours as needed for pain Hydrocodone-Aceta minophen 5-325 mg tablet Active 1 TAB PO Q6H as needed for pain 08 29March 10, 2025 Start: 03-10-2025 take 1 tablet by keke th every six hours as needed for pain Hydrocodone-Acetaminophen 5-325 mg table t Active 1 TAB PO Q6H as needed for pain 08 29March 10, 2025 amoxicillin 875 mg / clavulanate 125 mg oral tablet (1 source) Penicillin-class Antibacterial Start: 03-10-2025 take 1 tablet by mouth three times daily Amoxicillin-Pot Clavulanate 875-125 mg tablet Active 1 TAB PO Three times daily 30 March 10, 2025 12:00am biotin 2.5 mg oral capsule (5 sources) Start: 01-10-2023 take 2 capsules by mouth once daily Biotin 2,500 mcg Capsule Active 5000 MCG PO Daily January 10, 2023 1:00am Start: 01-10-2023 take 5000 ug by mouth once kristie ly Biotin Active 5000 MCG PO Daily January 10, 2023 12:00am Biotin Active Calcium (2 sources) Phosphate Binder, Calcium Calcium Active calcium carbonate 1250 mg chewable tablet (2 sources) calcium carbonat e (Os-James) 1250 (500 Ca) MG chewable tablet Chew 1 tablet in the morning and 1 tablet before bedtime. Active Calcium Citrate / Vitamin D (1 source) Start: 05-07-2025 calcium-vitamin D Refill(s) 0 Start Date: 05/07/25 Status: Ordered Repeat number: 1 Calcium Citrate Malate-Vit D3 (Calcimate) 500-200 mg-unit Tablet (3 sources) Start: 01-10-2023 take 1 tablet by mouth twice daily Calcium Citrate Malate-Vit D3 (Calcimate) 500-200 mg-unit Tablet Active 1 TAB PO Twice daily January 10, 2023 1:00am Start: 01-10-2023 take 1 tablet by keke th twice daily Calcium Citrate Malate-Vit D3 (Calcimate) 500-200 mg-unit Tablet Active 1 TAB PO Twice daily January 10, 2023 12:00am Co-Q10 100 mg oral capsule (1 source) Start: 05-07-2025 take 1 capsule by mouth once daily Co-Q10 100 mg oral capsule 300 mg = 3 cap(s), Oral, Daily, Refills(s) 0 Start Date: 05/07/25 Status: Ordered Repeat number: 1 diclofenac sodium 0.01 mg/mg topical gel (3 sources) Nonsteroidal Anti-inflammatory Drug Start: 09-28-2022 Voltaren 1 % Apply 1-2 grams to the affected area Externally 4-5 times a day for 30 days PRN Sep, Active docusate sodium 100 mg oral capsule (1 source) Start: 05-14-2025 take 1 capsule by mouth once daily as needed for constipation Colace 100 mg Cap 100 mg = 1 cap(s), Oral, Daily, PRN for constipation, Refills(s) 0 Start Date: 05/14/25 Status: Ordered Repeat number: 1 Eye Vitamin (1 source) Start: 05-07-2025 take 1 tablet by mouth once daily Eye Vitamin 1 tab(s), Oral, Daily, Refill(s) 0 Start Date: 05/07/25 Status: Ordered Repeat number: 1 Eye Vitamins - (3 sources) Eye Vitamins - as directed Orally Active Eyepromise Restore (3 sources) Start: 01-10-2023 take 1 capsule by mouth twice daily Eyepromise Restore Active 1 CAP PO Twice daily January 10, 2023 1:00am Start: 01-10-2023 take 1 capsule by mo uth twice daily Eyepromise Restore Active 1 CAP PO Twice daily January 10, 2023 12:00am magnesium citrate 100 mg oral tablet (3 sources) Start: 01-10-2023 take 1 tablet by mouth once daily Magnesium Citrate 100 mg Tablet Active 100 MG PO Daily January 10, 2023 1:00am Multi Vitamin Daily - (3 sources) take 1 tablet by mouth once daily Multi Vitamin Daily - 1 tablet Orally Once a day Active Multi Vitamins oral tablet (1 source) Start: 05-07-2025 take 1 tablet by mouth once daily Multi Vitamins oral tablet 1 tab(s), Oral, Daily, Refill(s) 0 Start Date: 05/07/25 Status: Ordered Repeat number: 1 multivitamin (Theragran) tablet (2 sources) take 1 tablet by mouth once daily multivitamin (Theragran) tablet Take 1 tablet by mouth Daily Active Wrtqnonszzrd-Zphhkkix-Zd tein (Multivitamin 50 Plus) Tablet (3 sources) Start: 01-10-2023 Multivitamin-M inerals-L utein (Multivitamin 50 Plus) Tablet Active 1 TAB PO Twice daily January 10, 2023 1:00am Start: 01-10-2023 Multivitamin-M inerals-Lutein (Multivitamin 50 Plus) Tablet Active 1 TAB PO Twice daily January 10, 2023 12:00am ondansetron 4 mg disintegrating oral tablet (1 source) Serotonin-3 Receptor Antagonist Start: 03-10-2025 take 1 tablet by mouth every six hours as needed for nausea and vomiting Ondansetron 4 mg tablet,disintegrating Active 4 MG PO Q6H as needed for nausea and vomiting March 10, 2025 12:00am potassium 99 mg extended release oral tablet (3 sources) Start: 01-10-2023 take 1 tablet by mouth once daily Potassium 99 mg Tablet Active 99 MG PO Daily January 10, 2023 1:00am Potassium Acetate (1 source) Start: 05-14-2025 potassium acetate Refills(s) 0 Start Date: 05/14/25 Status: Ordered Repeat number: 1 potassium bicarbonate 25 meq effervescent oral tablet (2 sources) potassium bicarb michelle (K-Lyte) 25 MEQ effervescent tablet Take by mouth 1 (one) time Active Psyllium (1 source) Start: 05-07-2025 take 5 capsules by mouth twice daily psyllium oral capsule = 5 cap(s), Oral, BID, Refills(s) 0 Start Date: 05/07/25 Status: Ordered Repeat number: 1 ubidecarenone 10 mg oral capsule (5 sources) Start: 01-10-2023 Coenzyme Q10 (Co Q-10) 10 mg Capsule Active 10 MG PO Daily January 10, 2023 1:00am Start: 01-10-2023 take 1 capsule by [facility] once daily Coenzyme Q10 (Co Q-10) 10 mg Capsule Active MG PO Daily January 10, 2023 12:00am co-enzyme Q-10 3 0 MG capsule Take by mouth Daily Active Completed/Discontinued Medications Medication Drug Class(es) Dates Sig (Normalized) Sig (Original) meloxicam 15 mg oral tablet (7 sources) Nonsteroidal Anti-inflammatory Drug Start: 04-03-2024 End: 03-09-2025 take 1 tablet by mouth once daily Meloxicam 15 mg tablet Discontinued 0 .ROUTE .COMPLEX April 03, 2024 9:43am March 09, 2025 10:55pm TAKE 1 TABLET BY MOUTH EVERY DAY Start: 09-28-2022 End: 04-03-2024 take 1 tablet by mouth once daily in the evening Meloxicam 15 mg tablet Discontinued 15 MG PO Every evening January 10, 2023 1:00am April 03, 2024 9:43am Problems Active Problems Problem Classification Problem Date Documented Da te Episodic/Chronic Abdominal pain (5 sources) Left lower quadrant pain; Translations: [LEFT LOWER QUADRANT PAIN] Onset: 1 Episodic Anxiety disorders (2 sources) Anxiety disorder, unspecified; Translations: [Anxiety] Onset: 1 05-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 Cancer of breast (1 source) History of malignant neoplasm of breast 05-07-2025 Episodic Deficiency and other anemia (1 source) Anemia 05-07-2025 Episodic Disorders of lipid metabolism (1 source) Hyperlipidemia 05-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 Diverticulosis and diverticulitis (4 sources) Diverticulitis of intestine, part unspecified, without perforation or abscess without bleeding; Translations: [Diverticulitis of large intestine] Onset: 1 03-10-2025 Chronic Essential hypertension (2 sources) Essential (primary) hypertension; Translations: [Hypertensive disorder] Onset: 1 05-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 Headache; including migraine (1 source) Migraine 05-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 Mood disorders (1 source) Seasonal affective disorder 05-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 Osteoarthritis (4 sources) Osteoarthritis of right knee joint; Translations: [Unilateral primary osteoarthritis, right knee] Chronic Other aftercare (1 source) Encounter for removal of sutures Episodic Other and unspecified benign neoplasm (1 source) History of polyp of colon 05-07-2025 Episodic Other connective tissue disease (2 sources) Trigger thumb, right thumb Episodic Other gastrointestinal disorders (1 source) H/O: gastrointestinal disease; Translations: [Personal history of other diseases of the digestive system] Onset: 5 Episodic Other gastrointestinal disorders (1 source) History of diverticulitis 05-07-2025 Episodic Other non-traumatic joint disorders (1 source) Pain in right knee Episodic Other nutritional; endocrine; and metabolic disorders (1 source) Overweight 05-07-2025 Episodic Other nutritional; endocrine; and metabolic disorders (1 source) Overweight in adulthood with body mass index of 25 or more but less than 30 05-14-2025 Episodic Other screening for suspected conditions (not mental disorders or infectious disease) (1 source) Screening for malignant neoplasm of colon done; Translations: [Encounter for screening for malignant neoplasm of colon] Onset: 5 Episodic Residual codes; unclassified (1 source) Other specified postprocedural states Episodic Residual codes; unclassified (1 source) Chronic back pain 05-07-2025 Episodic Retinal detachments; defects; vascular occlusion; and retinopathy (1 source) 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-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 Unclassified (1 source) Patient encounter status 05-14-2025 Past or Other Problems Problem Classification Problem Date Documented Da te Episodic/Chronic Cardiac dysrhythmias (4 sources) Palpitations; Translations: [PALPITATIONS] Onset: 12-08-2020 Episodic Fracture of lower limb (2 sources) Closed fracture of talus; Translations: [Displaced avulsion fracture (chip fracture) of left talus, initial encounter for closed fracture] 07-23-2024 Episodic Fracture of neck of femur (hip) (1 source) Fracture of unspecified part of neck of left femur, initial encounter for closed fracture; Translations: [Fracture of unspecified part of neck of left femur, initial encounter for closed fracture] Onset: 12-26-2024 Episodic Other connective tissue disease (2 sources) Pain in left foot; Translations: [Pain in left foot] 07-23-2024 Episodic Sprains and strains (2 sources) Sprain of ankle; Translations: [Sprain of unspecified ligament of left ankle, initial encounter] 07-23-2024 Episodic Results Test Name Value Interpretation Reference Range Facility Outside Recordson 05-16-2025 Outside Records [id number] FF [facility] Ambulatory Visit Summaryon 0 05-14-2025 Ambulatory Visit Summary Ambulatory Visit Summary CLAUDINE DAVIS :1955 Visit Date:05/14/2025 Ambulatory Visit Instructions Your Care Team Attending Physician - MELISSA DAVIS, Krishna Alexander Primary Care Physician - KEIRA DAVIS, BILLIE Hernandez Referring Physician - EKIRA DAVIS, BILLIE Hernandez This Is Your Medications List Contact prescribing physician if questions or concerns calcium-vitamin D docusate (Colace 100 mg Cap) multivitamin (Multi Vitamins oral tablet) multivitamin with minerals (Eye Vitamin) potassium acetate psyllium (psyllium oral capsule) ubiquinone (Co-Q10 100 mg oral capsule) Procedures Performed Closed reduction of fracture of left femur and internal fixation using dynamic hip screw plate (11/04/2024), Closed left wrist fracture, Colonoscopy, Colonoscopy, Excision of lipoma of back, Fracture of leg, Fracture of right olecranon, Mastectomy of right breast, Total abdominal hysterectomy with bilateral salpingo-oophorectomy, Trigger thumb of right hand. Discharge Vitals Heart Rate (Peripheral) 72 Respiratory Rate 16 Blood Pressure 136/82 Height 160 cm Height 63 in Weight 75.6 kg Weight 166.669 lb BMI 29.53 Medications What How Much When Instructions Unchanged calcium-vitamin D Contact prescribing physician if questions or concerns Unchanged docusate (Colace 100 mg Cap) 1 Capsules By Mouth Every day as needed for for constipation Contact prescribing physician if questions or concerns Unchanged multivitamin (Multi Vitamins oral tablet) 1 Tablets By Mouth Every day Contact prescribing physician if questions or concerns Unchanged multivitamin with minerals (Eye Vitamin) 1 Tablets By Mouth Every day Contact prescribing physician if questions or concerns Unchanged potassium acetate Contact prescribing physician if questions or concerns Unchanged psyllium (psyllium oral capsule) 5 Capsules By Mouth 2 times a day Contact prescribing physician if questions or concerns Unchanged ubiquinone (Co-Q10 100 mg oral capsule) 3 Capsules By Mouth Every day Contact prescribing physician if questions or concerns Allergies No Known Allergies No Known Medication Allergies Problems Ongoing - Any problem that you are currently receiving treatment for. Anemia Anxiety BMI 29.0-29.9,adult Chronic back pain History of breast cancer History of colon polyps History of diverticulitis Hyperlipidemia Hypertension Macular degeneration Migraines Overweight Seasonal affective disorder Patient Survey You may receive a survey via text or e-mail asking about your office visit. Please share your experience with us by completing your survey. We appreciate your feedback and thank you for choosing us for your care. [facility] Coding Summaryon 04-15-2025 Coding Summary HTMLBase 64 HzlnidppGWl1zKj+PGhlYWQ+P G5HRHMsP11zyZLcaQ9zN9GCPT lOSywgQVBQTElOSyIgbmFtZT1 kaXNjZXJu IC8+DZ1gIDThDwbbxQFvj0K8s RA2T74ysz3xWUwpzSL5SUGeJr Nojonuf4mboTg5HTccOortRhS t GOJurO09UYE2cK89Pv43xOAnd MQus5xljIe1AaTiZJWoHYE7wK vnIYceq4AvMKZwB63zjHWld1M 6 NFGdlDwqsIXeNbRwxMS8xY3zB Qvbjxywc0vsswjqRaf6ka03cP Gdh9P1sYZ3Z5GnamR5NZIbkBD g GvlyhHLHeE0hdwajn5jkcbhdS eHgWDAcLSm8VNd6TZXskGsdSl NtGT83EXP1SXYkvmGiU8RoFHC s rUcnGkE0c9J9Mo6CS4ORXyanH 1VNTUFSWTwvdGQ+RN95jw81R4 HgLpquDii1STYmNGW5mBB2wN1 n MBGmPRjjp5L3aNX3V8AtmiTmp h0mi0asHPIaSJecX56aoTPbj7 D6AKCdgTC3ZATrxLbvMoYpnA7 3 Oyc+YWCrqEnvn7HiGispf8mnx 2uigZc9GdkiMKLchhYagNjxYR G4u5FfJi6qKHHqjJH6fJF2hY9 i RdAkUlV5BCdbC263ZhKgmLPkT gmmL58cJ4EaiMM+INOlYho6NU BleMfhPR0aQ0XrJXPqggkkzUY m bOcaOC5gKEHzpatvJJOrvO9xP HLwM9f5LuMyTmE0WZghU3XnDT CsjjhbDw69tC7dIkFnAwI3GIb u M7PlqsE9CKObgXMxEXovXTC7O 19ih1Z1MTDdRMBvSAO7vHU9gC 1hbGlnbjogbGVmdDsgdmVydGl j OJccOHosI013LVNhqKyfYwCgY GluZyBEYXRlOiAgMDUvMjAvMj AyNTwvdGQ+LSPzTYG3xOzvCQL n jQNuXGlkLa7rsEbpcDxgHK7yY HDmqmpaALVeqU2kQLMerOWpnZ pzMR4hVVCmuqrkv893CgPbUHT 0 JSDsoRRtI1YlhY0sFiXgREFfG EVaE9AbnDOuVUspW463GTuzGk Z8QVVxmiGfX2XqAJInfUfxPtU 0 k4O1Jo4Gd4UizhbuX8KchPAmL uPwHqktATv7H1TnZhsuoOT+PC 81YVDrEO42LTs5NDL7vHbmOOd i ZVAnH5FcrH0bYcEoDIFqEHSoF yc+PHRhYmxlIHdpZHRoPScxMD DkMuWziIvfJQ3qRu5zUGJfZUZ v gWlbgGWcQwWhs1cuAKWvGXvvO W1qvPsnP2ZmkAC3VDTva9l7Op 55Z08dW0IdxZV+VENmcRM6rJN 0 hD0kHqAsDtF2TEbgW224GnLvs YZbDezwf2frd5vdwNr0JgF0TQ MnraZfeCdsQGZ0k3ToHd67J69 s IHdpZHRoPSIxNSUiIHZhbGlnb u0xeY9aEp6+UKHyhMF6sIX3vQ 7fXmLwKmH4OIqeM932XjZqqSH v Vuqyw2tzm4isqJe4WuYrNTEze kMxfMqiISW4w8VwLh53O7GsrL leo0TeJys5do52pEIgm0C5eKH 9 M5OgXNLxhftopEQobQauPV2sS THzhtfiGWXyuY3mMJBpO5f4Ct WvNcI2YLstE9VxeoA2HHWrmSI g NXHbgGYDdX7bglmnl9bubksmS aQfKBUxJLn0XLo6DKEbtDntQr HfNTZ0CrV3CJB1wGPyiS3ljWp n inztbC9uFhq+PIO0uPPnvJKAY G6aPzeibLH+SKXcFFF1kQhqYO wzYUCqxM8qRBCgV1y6NgMkIuO 1 YXacZ6ZkifX4RFDzzAKlDMBkq XWGlR4ebepif5luafowAvXxDI DfOTg1NOu4JADpxHcmPrUeNNU 0 XnJ5FNY6iLQkwC0ucYvwvuats G9wOyc+ItakbMnaZIB8YBz4R3 EgPce7FTJxcKlwOA2nbRMtZFv u Zz3goHzfmDzqWB2uQQWccuuux 919DrMow6rkKJHecFGdLEjjLW D3Z32jv2R7RGPoFIKkZNM0aTE 4 lI7meKpgddyeuLXnwLvknjTrs NhbZIumKXslJ667HKAxhRpsVr BhIMw3Z4DcWkl1AAJdaJyhGV8 n mTPwKAjiVl0bgQgwjJxlTA1dJ DTktxhhu335WiHuc2afDWAcpX MvCHsnRKW9V37aa9Z8RYSqUCD w TBS7tMZ2aK0fgBkdjnurvKZfz TvraiAssKsxJMdeGXtlZ487RJ QyxHmqXpPheAx6N3XoNcp3ONX z aGnvDF8khSNmFEymEq4ghJrun KtpFZ2bNLArnlwdg253PbUdx8 ouYFXxvZByXZxgUJN1R00bu0R 6 ODJjDRVsQPW1aIL4hE0inRxav jogbGVmdDsgdmVydGljYWwtYW bpM488ZXFtjJzqQfUzgUbsteF g YSwuFCg4V5LfYjoztBX+PC90Y FFnSK96cHIuiALnz6yckDb8Ow EhXOMfFDP9jAueCNnhj3EqLXX t E64pjQOfp4Z4LUKlxUkyhQEaB xVceNU1eR2dUBhhatslm9iljx ryCezjc9nmtd67wE67Q89zXIo p NOPjDHOlKIWxMFUklQozpr6ha G9wIi8+ZIDujUS6uBC3gR8kZK CzNkV4IVtsT994CbBwbKZbUra j w9gul2jhyEc5PnJ6TWOfuuZqr YbtEPX1d3TrQs61M29dCWcfFC YeFIVaPZOvEWVsfDnngf7jfN0 w Ii8+RIBmjGP2kKD1xQ4vLaBfD xF3QVvlS546FhBghWMdCfzlV3 1mA1KtuFL+VXLyJzs1KKXraFk s UG8ybXExHXruPg0nSIM9VmBeZ qQvTJjgQ9DdAEFobqavtvlulA E9EORfTGDhkM79Ih0zeTimKLN w mZTThE3kmzakm2uqdkclKaIeE JHdEKc5BNk7WPIflYjePmJlFK C2JfU2FBY8gDVluN3tuJnxumv g dW2cT9RkAEZbmtimHc60xO8kZ oXaUwU6HKsnYvu+F86TOMONPL TOQLaRVQLFJJQFN1X1G4OaXcb 0 DEAviYoaBO3xgMXmCUccIz9zt UigbLkgBT2xNEFfuypcWBBueD 1jXWStwSRetKkfMK2wOSTdkfq m c548ZyHkILH8OYDxjAMlK6Iuu Q1xSjBrDUKcMGBsA7HnlPEmYL uiM081DCakBlI8ASSfljBiA5H s RYBbgHdkSjR8b0V3Rb7dNa2yK O7yDZB2CU88RD86dIYpj1C4xC N9F3XrMFXurzdinrmffHX1OSG u VGHnrT56zEHeBYgrKd3uc9I6t 577EQUgEYPrxA05Ds8lgGltYO GztMKSgY1gdxvcb7swzcffUdQ w FNVuCAw1ALi8QCTjvRnvSlLyT BP3WyG7SFZ5eYCqsK8wbOoeax nvdQ4dOry+PxJuVNZawsG3T8W k Aip7YHRfiPgkUP1hpECcLAfiW s2njBkbgOgzQC4zCWFhccvfZD EfcV8hBWPjiFGurDckJH9dQPZ p dyxhf986LtStANJ3CYRpoEYqA 6YxcV3cOzPxCKAeVDNcB7MixY VjFScnN835DUhhOcJ6PCEijwB p I2NlBFFajXtcDtQ0o7G9Ej5NY Z2SUGU3Z5HtDyd2PAIcrAlhUF 9ruPFlFEifKf6esWgsoYzvQM1 w CYEkensfCPUipF6pSLQflCNof YmaZV5wCDTneqzhz222NyMvGC X8MHVmaWCkB5LikO2yWoLpCHW w ESYcO0TkhFAyIWydU321ZYwuC oT9UFTczpPaB5PoTYIowTzmGh T2k8S4Ba2YNDhboFF+MU78tn2 8 Y7BuPymzTgs2XFGeTZR1hKC7w K5zALXrHQgno4F8mRC2N7Ypyn Tzbi1dh1djVJUyXZxlC67aoST w m6O8SGFqnIW1ARIppZbuSoRwc G93Oyc+HJWxgKwuo4EhMbpde9 iqt4qqjZd6DpLfDXSuxuGuaIb u CWE5w4LwHz23Y89hFAlwHIGpZ HOcHBBuPLLufGmgxe0cpW7eJh 8+UJLjtHJ2kEL0aA2xAtYbQzF 2 BCtoT366QvZugQCtKslte1fsl 4zpcKy4MfGbKRWdymZqaYhuNY N8r3EsQj71S2OkcWoof1SdVdg 0 lp55vPWjs7K7jJF0S8QpZMYbb tfbjCZjgPryNC4tLISrumnwVX EjcA1iZNLoO1s5ArMfYvN5CZg u E0ZqklF6ZHQkwUTmVCUnkLBIw L9ufoqws3evzgktLeBvPNDcDM h2PCy7NEVcdCrqJaNzDUX3HxK 2 NEF2aWBwuQ7vtYarxbqvjF6bO yc+QMw7r5usyIYtHY3lmWG9QE 85TL22lQOwp3W3xIV3A2EeZAN p qojcsftpiOX9VAQpKBXteL14E z1zhLntRo9bKAUqYLA7NZBedE GjL0CrnY0dOqHxBUNmMBVuU1F l xENcLXsfM781AEgkJfL5RKQxd iBsQ0GsHYUhwZyaQhJ7x6S3Uk 5EIS74LD69MG79dAQmc8H4eSV 9 B2ShZREpmouovjticET9HQNsF VDljG65Se1pmSezSi7kBWUgUO I7AWTqpYGoL9GnmC5sTbJfCKR w XANzC2MnyONqFKkjP983KBfuB fJ6AVVymoHsK9ZuXEDaoDtxHg K0b8X9Fh0SQo55JH63GE14iNM g h5Q6nPC3U0NoZWAgckgzxzlqr BJ2XIRuFRNsvX79Jq2usAqwLt 7aAMBrPFO2WLLhdAKoK3QcdG0 y HxUjJXWeARYeN6OlzLHfXXdpS 359SMmqZyX1SLZcnoCkZ5BmER NtpQnjBrF5d5D5Ru4DJMtwyus 8 W2GsKjkoqMG+JU45VDQeLA39j UObeBUoq3mgkRj0KaEkPRQoYL C6mRzeLBmmv7AgTGNxA04hgDR w c2U (more content not included)... Normal [facility] Ambulatory Patient Summaryon 03-28-2025 Ambulatory Patient Summary [address], [address] - Visit Summary For CLAUDINE DAVIS Age: 70 years Sex: FEMALE : 1955 Address: [facility] [place] [address] [place], [address] Home: Work: -- Primary Care Provider: BILLIE SHAFER MD Race: White Ethnicity: Not or Language: Azerbaijani Health Plan: 1?MEDICARE, 2?[employer] [facility], 3?MEDICARE Reason for Visit: ED follow up for diverticulitis Prescription Information: If you have been given a prescription for narcotics, seek immediate medical attention if you have any difficulty breathing or any sudden status changes such as confusion and sleepiness. If you or anyone you know is experiencing suicidal thoughts, mental health, alcohol and/or drug addiction problems; contact the [facility] 19/06 Crisis Hotline -Text 4HWZY to 612892. Follow-Up Information Future Appointments No Future Appointments Scheduled Future Orders No future orders Additional Goals and Instructions: Vitals and Measurements this Visit (last charted value for your 03/28/2025 visit) Vital Signs This Visit Peripheral Pulse Rate: 67 bpm Systolic Blood Pressure: 122 mmHg Diastolic Blood Pressure: 78 mmHg SpO2: 98 % Measurements This Visit Height/Length Measured: 160 cm Height/Length Measured (inches): 62.99 in Weight Measured: 74.8 kg Weight Measured (lbs): 164.906 lb Weight Dosin.800 kg Body Mass Index: 29.22 kg/m2 [place] Body Weight Calculated: 52.382 kg BSA Measured: 1.82 m2 Diagnoses This Visit Diverticulitis (K57.92) Laboratory or Other Results This Visit (last charted value for your 03/28/2025 visit) No Laboratory or Other Results This Visit Medications and Immunizations Administered During This Visit No medication administered during this visit All Known Current Prescriptions and Reported Medications New Prescriptions this Visit No new prescriptions for this visit Prescriptions amoxicillin-clavulanate 875 mg-125 mg oral tablet (amoxicillin-clavulanate) Take 1 tab(s) Oral (given by mouth) [...] every 4 hours. as needed for pain Diverticulitis Diverticulitis happens when poop (stool) and [...] tests. ? Tests done on your pee (uri (more content not included)... Normal [facility] Patient Handouton 03-28-2025 Patient Handout Gastroenterology Diverticulitis Diverticulitis happens when [...] You may be told to: ? Take oobf-wjr-ootmwhc pain medicine. ? Only eat and drink clear liquids. ? Take antibiotics. ? Rest. More severe cases may need to be treated at a hospital. Treatment may include: ? Not eating or drinking. ? Taking pain medicines. ? Getting antibiotics through an IV. ? Getting fluids and nutrition through an IV. ? Surgery. Follow these instructions at home: Medicines ? Take bdyi-jcd-lqomlgb and prescription medicines only as told by [...] provider. Document Revised: 08/10/2023 Document Reviewed: 08/10/2023 [employer] Patient Education ? 2023 [employer] Normal [facility] Outside Recordson 03-12-2025 Outside Records [id number] IFF Normal [facility] Appearance of UrineOrdered B y: Kiran Pringle on 03-10-2025 Appearance (U) Urine appearance Clear [facility] [facility] B[facility] [Presence] in Urine by AutomatedOrdered By: Kiran Pringle on 03-10-2025 Bacteria Auto Ql (U) Bacteria [Presence] in Urine by Automated None Seen [facility] Bilirubin Test strip Ql (U)O rdered By: Kiran Pringle on 03-10-2025 Bilirubin Ql (U) Bilirubin.total [Presence] in Urine by Test strip Negative [facility] CT abdomen pelvis w conon CT abdomen pelvis w con [facility] [place] [address] CT Scan Report Signed Patient: Claudine Davis MR#: [id number] 4 : 1955 Acct:[id number] Age/Sex: 70 / F ADM Date: 03/09/25 Loc: ER Room: Type: [facility] ER Attending Dr: Copies to: Kiran Pringle DO Ordering Provider: Kiran Pringle DO Date of Service: 03/09/25 CT/CT abdomen pelvis w con: Abdominal Pain CT Abdomen and Pelvis withcontrast TECHNIQUE: Axial imaging with 2-D reconstruction.90 cc of Isovue-300. The CT exam was performed using one or more the following dose reduction techniques: Automated exposure control, adjustment of the MA and/or Kv according to patient size, or use of the iterative reconstruction technique. COMPARISON: None History: Left lower quadrant abdominal pain. Constipation. LIMITATIONS: None LOWER THORAX Unremarkable LIVER: Unremarkable GALLBLADDER: No gallbladder abnormality identified. BILE DUCTS: No dilatation SPLEEN: Unremarkable PANCREAS: Unremarkable ADRENAL GLANDS: Unremarkable KIDNEYS:Unremarkable AORTA: No abdominal aortic aneurysm identified. RETROPERITONEUM: No significant retroperitoneal abnormalities identified. MESENTERY:Unremarkable SMALL BOWEL: The small bowel loops are nondistended. APPENDIX: The appendix is normal. COLON: Adenosine stranding of distal descending colon diverticuli with edematous wall thickening consistent with acute diverticulitis. No extraluminal air. No developing abscess. URINARY BLADDER: Urinary bladder is unremarkable. REPRODUCTIVE SYSTEM: The uterus is absent. PNEUMOPERITONEUM: None PERITONEAL FLUID:None BONY STRUCTURES: Degenerative change. Left hip fixation hardware. ABDOMINAL WALL: Unremarkable CT/CT abdomen pelvis w con IMPRESSION: Uncomplicated acute descending colon diverticulitis. Impression dictated by: Emir Hills M.D.03/10/2025 8:59 AM Dictation Location: [place] [address] Transcribed By: [facility] 03/10/25 0859 Dictated By: Emir Hills DO 03/10/25 0844 Signed By: 03/10/25 0859 Normal [facility] Color Auto (U)Ordered By: Anurag Pringle on 03-10-2025 Color (U) Color of Urine by Auto Yellow [facility] Dipstick and Microscopicon 0 03-10-2025 Appearance (U) Clear Normal Clear [facility] Comment on above: Order Comment: Name Collection Type:: Clean-Voided Midstream Performed By: #### A DDONUAPLUS #### [facility] [address] [place] [id number] [place] Bacteria,Urine Rare Normal None Seen [facility] Comment on above: Order Comment: Name Collection Type:: Clean-Voided Midstream Performed By: #### A DDONUAPLUS #### [facility] [address] [place] [address] [place] Bilirubin,Urine Negative Normal Negative [facility] Comment on above: Order Comment: Name Collection Type:: Clean-Voided Midstream Performed By: #### A DDONUAPLUS #### [facility] [address] [place] [address] [place] Color (U) Colorless Normal Yellow [facility] Comment on above: Order Comment: Name Collection Type:: Clean-Voided Midstream Performed By: #### A DDONUAPLUS #### [place] [id number] [place] Glucose Ql (U) Normal Normal Normal [facility] Comment on above: Order Comment: Name Collection Type:: Clean-Voided Midstream Performed By: #### A DDONUAPLUS #### [place] [address] [place] Hyaline Casts,Urine None Normal 0-8 [facility] Comment on above: Order Comment: Name Collection Type:: Clean-Voided Midstream Result Comment: PERF ORMED BY: [place] [address] PATHOLOGIST [employer] EDGAR BOYLE M.D. Performed By: #### A DDONUAPLUS #### [place] [address] [place] Ketones Ql (U) Negative Normal Negative [facility] Comment on above: Order Comment: Name Collection Type:: Clean-Voided Midstream Performed By: #### A DDONUAPLUS #### [place] [address] [place] Leukocyte esterase Test strip Ql (U) 1+ High Negative [facility] Comment on above: Order Comment: Name Collection Type:: Clean-Voided Midstream Performed By: #### A DDONUAPLUS #### [place] [address] [place] Nitrite,Urine Negative Normal Negative [facility] Comment on above: Order Comment: Name Collection Type:: Clean-Voided Midstream Performed By: #### A DDONUAPLUS #### [place] [id number] [place] Occult Blood,Urine Negative Normal Negative [facility] Comment on above: Order Comment: Name Collection Type:: Clean-Voided Midstream Result Comment: PERF ORMED BY: [place] [address] PATHOLOGIST [employer] EDGAR BOYLE M.D. Performed By: #### A DDONUAPLUS #### [address] pH (U) 7.0 [pH] Normal 5.0-9.0 [facility] Comment on above: Order Comment: Name Collection Type:: Clean-Voided Midstream Performed By: #### A DDONUAPLUS #### [address] Protein,Urine Negative Normal Negative [facility] Comment on above: Order Comment: Name Collection Type:: Clean-Voided Midstream Performed By: #### A DDONUAPLUS #### [address] RBC,Urine 1-2 Normal 0-4 [facility] Comment on above: Order Comment: Name Collection Type:: Clean-Voided Midstream Performed By: #### A DDONUAPLUS #### [address] Specificy [place],Urine 1.012 Normal 1.001-1.03 0 [facility] Comment on above: Order Comment: Name Collection Type:: Clean-Voided Midstream Performed By: #### A DDONUAPLUS #### [place] [address] [place] Squamous Epithelial Cell,Urine 1-2 Normal 0-2 [facility] Comment on above: Order Comment: Name Collection Type:: Clean-Voided Midstream Performed By: #### A DDONUAPLUS #### [place] [address] [place] Urobilinogen,Urine Normal Normal Normal [facility] Comment on above: Order Comment: Name Collection Type:: Clean-Voided Midstream Performed By: #### A DDONUAPLUS #### [place] [address] [place] WBC,Urine None Seen Normal 0-4 [facility] Comment on above: Order Comment: Name Collection Type:: Clean-Voided Midstream Performed By: #### A DDONUAPLUS #### [place] [address] [place] Epithelial cells.squamous [# /area] in Urine sediment by Automated countOrdered By: Kiran Pringle on 03-10-2025 Epithelial cells.squamous Auto (Urine sed) [#/Area] Epithelial cells.squamous [#/area] in Urine sediment by Automated count 0-2 [facility] Erythrocytes [#/area] in Uri ne sediment by Automated countOrdered By: Kiran Pringle on 03-10-2025 RBC Auto (Urine sed) [#/Area] Erythrocytes [#/area] in Urine sediment by Automated count 0-4 [facility] Glucose [Mass/volume] in Uri ne by Test stripOrdered By: Kiran Pringle on 03-10-2025 Glucose Test strip (U) [Mass/Vol] Glucose [Mass/volume] in Urine by Test strip Normal [facility] Hemoglobin Test strip Ql (U) Ordered By: Kiran Pringle on 03-10-2025 Hemoglobin Ql (U) Hemoglobin [Presence ] in Urine by Test strip Negative [facility] Hyaline casts [#/area] in Ur ine sediment by Automated countOrdered By: Kiran Pringle on 03-10-2025 Hyaline casts Auto (Urine sed) [#/Area] Hyaline casts [#/area] in Urine sediment by Automated count 0-8 [facility] Ketones Test strip Ql (U)Ord ered By: Kiran rPingle on 03-10-2025 Ketones Ql (U) Ketones [Presence] i n Urine by Test strip Negative [facility] Leukocyte esterase [Presence ] in Urine by Test stripOrdered By: Kiran Pringle on 03-10-2025 Leukocyte esterase Test strip Ql (U) Leukocyte esterase [Presence] in Urine by Test strip High Negative [facility] Leukocytes [#/area] in Urine sediment by Automated countOrdered By: Kiran Pringle on 03-10-2025 WBC Auto (Urine sed) [#/Area] Leukocytes [#/area] in Urine sediment by Automated count 0-4 [facility] Nitrite Test strip Ql (U)Ord ered By: Kiran Pringle on 03-10-2025 Nitrite Ql (U) Nitrite [Presence] i n Urine by Test strip Negative [facility] Protein Test strip (U) [Mass /Vol]Ordered By: Kiran Pringle on 03-10-2025 Protein (U) [Mass/Vol] Protein [Mass/vol ume] in Urine by Test strip Negative [facility] Specific gravity Test strip (U) [Rel density]Ordered By: Kiran Pringle on 03-10-2025 Specific gravity (U) [Rel density] Specific gravity of Urine by Test strip 1.001-1.03 0 [facility] Urobilinogen Test strip (U) [Mass/Vol]Ordered By: Kiran Pringle on 03-10-2025 Urobilinogen (U) [Mass/Vol] Urobilinogen [Mass/volume] in Urine by Test strip Normal [facility] pH Test strip (U)Ordered By: Kiran Pringle on 03-10-2025 pH (U) pH of Urine by Test strip 5.0-9.0 [facility] Alanine aminotransferase [En zymatic activity/volume] in Serum or PlasmaOrdered By: Kiran Pringle on 03-09-2025 ALT [Catalytic activity/Vol] Alanine aminotransferase [Enzymatic activity/volume] in Serum or Plasma 752 [facility] Albumin [Mass/volume] in Ser um or Plasma by Bromocresol green (BCG) dye binding methoOrdered By: Kiran Pringle on 03-09-2025 Albumin BCG dye [Mass/Vol] Albumin [Mass/volume] in Serum or Plasma by Bromocresol green (BCG) dye binding metho 3.5-5.7 [facility] Alkaline phosphatase [Enzyma tic activity/volume] in Serum or PlasmaOrdered By: Kiran Pringle on 03-09-2025 ALP [Catalytic activity/Vol] Alkaline phosphatase [Enzymatic activity/volume] in Serum or Plasma 34-104 [facility] Aspartate aminotransferase [ Enzymatic activity/volume] in Serum or PlasmaOrdered By: Kiran Pringle on 03-09-2025 AST [Catalytic activity/Vol] Aspartate aminotransferase [Enzymatic activity/volume] in Serum or Plasma 13-39 [facility] Basic Metabolic Panelon 02-25 Anion gap [Moles/Vol] 8.9 mmol/L Normal 6.0-15.0 [facility] Comment on above: Performed By: #### L IPASE, BMP, HEPATIC, CBC #### [address] Calcium [Mass/Vol] 10.1 mg/dL Normal 8.6-10.3 [facility] Comment on above: Performed By: #### L IPASE, BMP, HEPATIC, CBC #### [facility] [address] Chloride [Moles/Vol] 103 mmol/L Normal 98-107 [facility] Comment on above: Performed By: #### L IPASE, BMP, HEPATIC, CBC #### [address] CO2 [Moles/Vol] 28.7 mmol/L Normal 21.0-31.0 [facility] Comment on above: Performed By: #### L IPASE, BMP, HEPATIC, CBC #### [address] Creatinine [Mass/Vol] 0.68 mg/dL Normal 0.60-1.20 [facility] Comment on above: Performed By: #### L IPASE, BMP, HEPATIC, CBC #### [place] [address] [place] Creatinine Clr Calc Pharmacy 63.05 Normal [facility] Comment on above: Performed By: #### L IPASE, BMP, HEPATIC, CBC #### [place] [address] [place] GFR/1.73 sq M.predicted MDRD (S/P/Bld) [Vol rate/Area] mL/min/{1.73_m2} Normal [facility] Comment on above: Performed By: #### L IPASE, BMP, HEPATIC, CBC #### [address] Glucose [Mass/Vol] 85 mg/dL Normal 70-100 [facility] Comment on above: Result Comment: [place] Glucose Reference Range is dependent on time and content of last meal. Glucose of more than 200 mg/dL in a nonstressed, ambulatory subject supports the diagnosis of Diabetes Mellitus. ADA recommended reference range Performed By: #### L IPASE, BMP, HEPATIC, CBC #### [address] Potassium [Moles/Vol] 3.6 mmol/L Normal 3.5-5.1 [facility] Comment on above: Performed By: #### L IPASE, BMP, HEPATIC, CBC #### [facility] [address] Sodium [Moles/Vol] 137 mmol/L Normal 136-145 [facility] Comment on above: Performed By: #### L IPASE, BMP, HEPATIC, CBC #### [facility] [address] Urea nitrogen [Mass/Vol] 11 mg/dL Normal 7-25 [facility] Comment on above: Performed By: #### L IPASE, BMP, HEPATIC, CBC #### [facility] [address] Basophils Auto (Bld) [#/Vol] Ordered By: Kiran Pringle on 03-09-2025 Basophils (Bld) [#/Vol] Automated basophil count 0.0-0.2 [facility] Basophils/100 WBC Auto (Bld) Ordered By: Kiran Pringle on 03-09-2025 Basophils/100 WBC (Bld) Automated basophil % . [facility] Bilirubin.direct [Mass/volum e] in Serum or PlasmaOrdered By: Kiran Pringle on 03-09-2025 Bilirubin.direct [Mass/Vol] Bilirubin.direct [Mass/volume] in Serum or Plasma 0.03-0.18 [facility] Bilirubin.total [Mass/volume ] in Serum or PlasmaOrdered By: Kiran Pringle on 03-09-2025 Bilirubin [Mass/Vol] Bilirubin.total [Mass/volume] in Serum or Plasma 0.3-1.0 [facility] Calcium [Mass/volume] in Ser um or PlasmaOrdered By: Kiran Pringle on 03-09-2025 Calcium [Mass/Vol] Calcium [Mass/volume ] in Serum or Plasma 8.6-10.3 [facility] Carbon dioxide, total [Moles /volume] in Serum or PlasmaOrdered By: Kiran Pringle on 03-09-2025 CO2 [Moles/Vol] Carbon dioxide, tota l [Moles/volume] in Serum or Plasma 21.0-31.0 [facility] Chloride [Moles/volume] in S gee or PlasmaOrdered By: Kiran Pringle on 03-09-2025 Chloride [Moles/Vol] Chloride [Moles/vol ume] in Serum or Plasma 98-107 [facility] Complete Blood Count Auto Di ffon 03-09-2025 Basophils (Bld) [#/Vol] 0.0 10*3/uL Normal 0.0-0.2 [facility] Comment on above: Result Comment: PERF ORMED BY: [place] [address] PATHOLOGIST [employer] EDGAR BOYLE M.D. Performed By: #### L IPASE, BMP, HEPATIC, CBC #### [address] Basophils/100 WBC (Bld) 0.6 % Normal . [facility] Comment on above: Performed By: #### L IPASE, BMP, HEPATIC, CBC #### [address] Eosinophils (Bld) [#/Vol] 0.2 10*3/uL Normal 0.0-0.45 [facility] Comment on above: Performed By: #### L IPASE, BMP, HEPATIC, CBC #### [address] Eosinophils/100 WBC (Bld) 3.0 % Normal . [facility] Comment on above: Performed By: #### L IPASE, BMP, HEPATIC, CBC #### [address] Erythrocyte distribution width (RBC) [Ratio] 16.8 % High 11.9-15.3 [facility] Comment on above: Performed By: #### L IPASE, BMP, HEPATIC, CBC #### [facility] [address] [place] [address] Hematocrit (Bld) [Volume fraction] 36.0 % Normal 34.0-46.4 [facility] Comment on above: Performed By: #### L IPASE, BMP, HEPATIC, CBC #### [address] Hemoglobin (Bld) [Mass/Vol] 12.0 g/dL Normal 11.8-15.4 [facility] Comment on above: Performed By: #### L IPASE, BMP, HEPATIC, CBC #### [address] Lymphocytes (Bld) [#/Vol] 1.4 10*3/uL Normal 1.00-4.8 [facility] Comment on above: Performed By: #### L IPASE, BMP, HEPATIC, CBC #### [address] Lymphocytes/100 WBC (Bld) 22.2 % Normal . [facility] Comment on above: Performed By: #### L IPASE, BMP, HEPATIC, CBC #### [address] MCH (RBC) [Entitic mass] 26.5 pg Normal 24.7-34.3 [facility] Comment on above: Performed By: #### L IPASE, BMP, HEPATIC, CBC #### [address] MCV (RBC) [Entitic vol] 79.7 fL Low 80-100 [facility] Comment on above: Performed By: #### L IPASE, BMP, HEPATIC, CBC #### [address] Mean Corpuscular HGB Conc 33.3 g/dL Normal 32.0-35.0 [facility] Comment on above: Performed By: #### L IPASE, BMP, HEPATIC, CBC #### [address] Monocytes (Bld) [#/Vol] 0.5 10*3/uL Normal 0.0-0.8 [facility] Comment on above: Performed By: #### L IPASE, BMP, HEPATIC, CBC #### [place] [address] [place] Monocytes/100 WBC (Bld) 17.26 % Normal 0.00-20.00 [facility] Comment on above: Performed By: #### L IPASE, BMP, HEPATIC, CBC #### [facility] [address] Monocytes/100 WBC (Bld) 8.6 % Normal . [facility] Comment on above: Performed By: #### L IPASE, BMP, HEPATIC, CBC #### [facility] [address] [place] [address] [place] Neutrophils (Bld) [#/Vol] 4.0 10*3/uL Normal 1.8-7.7 [facility] Comment on above: Performed By: #### L IPASE, BMP, HEPATIC, CBC #### [facility] [address] Neutrophils/100 WBC (Bld) 65.6 % Normal . [facility] Comment on above: Performed By: #### L IPASE, BMP, HEPATIC, CBC #### [facility] [address] [place] [address] [place] NRBC% 0.1 /100{WBC} Normal 0-0.5 [facility] Comment on above: Performed By: #### L IPASE, BMP, HEPATIC, CBC #### [facility] [address] [place] [address] [place] Platelet mean volume (Bld) [Entitic vol] 7.7 fL Normal 6.3-10.7 [facility] Comment on above: Performed By: #### L IPASE, BMP, HEPATIC, CBC #### [facility] [address] [place] [address] [place] Platelets (Bld) [#/Vol] 276 10*3/uL Normal 150-450 [facility] Comment on above: Performed By: #### L IPASE, BMP, HEPATIC, CBC #### [facility] [address] [place] [address] [place] RBC (Bld) [#/Vol] 4.52 10*6/uL Normal 3.60-5.00 [facility] Comment on above: Performed By: #### L IPASE, BMP, HEPATIC, CBC #### [facility] [address] WBC (Bld) [#/Vol] 6.1 10*3/uL Normal 3.8-11.6 [facility] Comment on above: Performed By: #### L IPASE, BMP, HEPATIC, CBC #### [facility] [address] [place] [address] [place] Creatinine [Mass/volume] in Serum or PlasmaOrdered By: Kiran Pringle on 03-09-2025 Creatinine [Mass/Vol] Creatinine [Mass/v olume] in Serum or Plasma 0.60-1.20 [facility] Eosinophils Auto (Bld) [#/Vo l]Ordered By: Kiran Pringle on 03-09-2025 Eosinophils (Bld) [#/Vol] Automated eosinophil count 0.0-0.45 [facility] Eosinophils/100 WBC Auto (Bl d)Ordered By: Kiran Pringle on 03-09-2025 Eosinophils/100 WBC (Bld) Automated eosinophil % . [facility] Erythrocyte distribution wid th Auto (RBC) [Ratio]Ordered By: Kiran Pringle on 03-09-2025 Erythrocyte distribution width (RBC) [Ratio] Erythrocyte distribution width [Ratio] by Automated count High 11.9-15.3 [facility] Globulin Calc (S) [Mass/Vol] Ordered By: Kiran Pringle on 03-09-2025 Globulin (S) [Mass/Vol] Serum globulin measurement by calculation (mass/volume) [facility] Glucose [Mass/volume] in Ser um or PlasmaOrdered By: Kiran Pringle on 03-09-2025 Glucose [Mass/Vol] Glucose [Mass/volume ] in Serum or Plasma 70-100 [facility] Comment on above: ADA recommended refe rence rangeRandom Glucose Reference Range is dependent on time and content of last meal. Glucose of more than 200 mg/dL in a nonstressed, ambulatory subject supports the diagnosis of Diabetes Mellitus. Hematocrit Auto (Bld) [Volum e fraction]Ordered By: Kiran Prnigle on 03-09-2025 Hematocrit (Bld) [Volume fraction] Hematocrit [Volume Fraction] of Blood by Automated count 34.0-46.4 [facility] Hemoglobin [Mass/volume] in BloodOrdered By: Kiran Pringle on 03-09-2025 Hemoglobin (Bld) [Mass/Vol] Hemoglobin [Mass/volume] in Blood 11.8-15.4 [facility] Hepatic Panelon 03-09-2025 Albumin [Mass/Vol] 3.8 g/dL Normal 3.5-5.7 [facility] Comment on above: Performed By: #### L IPASE, BMP, HEPATIC, CBC #### [facility] [address] Albumin/Globulin [Mass ratio] 1.2 {ratio} Normal [facility] Comment on above: Performed By: #### L IPASE, BMP, HEPATIC, CBC #### [facility] [address] ALP [Catalytic activity/Vol] 104 U/L Normal 34-104 [facility] Comment on above: Performed By: #### L IPASE, BMP, HEPATIC, CBC #### [place] [address] [place] ALT [Catalytic activity/Vol] 17 U/L Normal 7-52 [facility] Comment on above: Performed By: #### L IPASE, BMP, HEPATIC, CBC #### [place] [address] [place] AST [Catalytic activity/Vol] 25 U/L Normal 13-39 [facility] Comment on above: Performed By: #### L IPASE, BMP, HEPATIC, CBC #### [facility] [address] [place] [id number] [place] Bilirubin [Mass/Vol] 0.5 mg/dL Normal 0.3-1.0 [facility] Comment on above: Performed By: #### L IPASE, BMP, HEPATIC, CBC #### [facility] [address] [place] [address] [place] Bilirubin,Indirect 0.4 mg/dL Normal [facility] Comment on above: Performed By: #### L IPASE, BMP, HEPATIC, CBC #### [place] [address] [place] Bilirubin.indirect [Mass/Vol] 0.10 mg/dL Normal 0.03-0.18 [facility] Comment on above: Performed By: #### L IPASE, BMP, HEPATIC, CBC #### [facility] [address] Globulin (S) [Mass/Vol] 3.1 g/dL Normal [facility] Comment on above: Performed By: #### L IPASE, BMP, HEPATIC, CBC #### [facility] [address] Protein [Mass/Vol] 6.9 g/dL Normal 6.4-8.9 [facility] Comment on above: Performed By: #### L IPASE, BMP, HEPATIC, CBC #### [facility] [address] INR in Platelet poor plasma by Coagulation assayOrdered By: Kiran Pringle on 03-09-2025 INR Coag (PPP) [Relative time] INR in Platelet poor plasma by Coagulation assay [facility] Comment on above: INR Therapeutic Rang e A) Pre- and Peroperative OAT started two weeks before surgery. NOT HIP SURGERY: 1.5 - 2.5 HIP SURGERY: 2 - 3B) Primary and secondary prevention of venous THROMBOSIS: 2 - 3C) Active venous thrombosis, pulmonary embolismand prevention of recurrent venous thrombosis: 2 - 3D) Prevention of arterial thromboembolismincluding patients with mechanical heart valves: 3 - 4.5 Leukocytes [#/volume] correc hamilton for nucleated erythrocytes in Blood by Automated counOrdered By: Kiran Pringle on 03-09-2025 WBC corrected for nucl RBC Auto (Bld) [#/Vol] Leukocytes [#/volume] corrected for nucleated erythrocytes in Blood by Automated coun 3.8-11.6 [facility] Lipaseon 03-09-2025 Lipase [Catalytic activity/Vol] 29.0 U/L Normal 11.0-82.0 [facility] Comment on above: Result Comment: PERF ORMED BY: [place] [address] PATHOLOGIST [employer]ITION[employer] HANDLER EDGAR BOYLE M.D. Performed By: #### L IPASE, BMP, HEPATIC, CBC #### [facility] [address] Lipase [Enzymatic activity/v olume] in Serum or PlasmaOrdered By: Kiran Pringle on 03-09-2025 Lipase [Catalytic activity/Vol] Lipase [Enzymatic activity/volume] in Serum or Plasma 11.0-82.0 [facility] Lymphocytes Auto (Bld) [#/Vo l]Ordered By: Kiran Pringle on 03-09-2025 Lymphocytes (Bld) [#/Vol] Lymphocytes [#/volume] in Blood by Automated count 1.00-4.8 [facility] Lymphocytes/100 WBC Auto (Bl d)Ordered By: Kiran Pringle on 03-09-2025 Lymphocytes/100 WBC (Bld) Lymphocytes/100 leukocytes in Blood by Automated count . [facility] MCH Auto (RBC) [Entitic mass ]Ordered By: Kiran Pringle on 03-09-2025 MCH (RBC) [Entitic mass] MCH [Entitic mass] by Automated count 24.7-34.3 [facility] MCHC Auto (RBC) [Mass/Vol]Or dered By: Kiran Pringle on 03-09-2025 MCHC (RBC) [Mass/Vol] MCHC [Mass/volume] by Automated count 32.0-35.0 [facility] MCV Auto (RBC) [Entitic vol] Ordered By: Kiran Pringle on 03-09-2025 MCV (RBC) [Entitic vol] MCV [Entitic volume] by Automated count Low 80-100 [facility] Monocyte distribution width [Entitic volume] in Blood by AutomatedOrdered By: Kiran Pringle on 03-09-2025 Monocyte distribution width Auto (Bld) [Entitic vol] Monocyte distribution width [Entitic volume] in Blood by Automated 0.00-20.00 [facility] Monocytes Auto (Bld) [#/Vol] Ordered By: Kiran Pringle on 03-09-2025 Monocytes (Bld) [#/Vol] Automated blood monocyte count 0.0-0.8 [facility] Monocytes/100 WBC Auto (Bld) Ordered By: Kiran Pringle on 03-09-2025 Monocytes/100 WBC (Bld) Automated monocyte % . [facility] Neutrophils Auto (Bld) [#/Vo l]Ordered By: Kiran Pringle on 03-09-2025 Neutrophils (Bld) [#/Vol] Neutrophils [#/volume] in Blood by Automated count 1.8-7.7 [facility] Neutrophils/100 WBC Auto (Bl d)Ordered By: Kiran Pringle on 03-09-2025 Neutrophils/100 WBC (Bld) Automated neutrophil % . [facility] No Panel InformationOrdered By: Kiran Pringle on 03-09-2025 Estimated GFR (CKD-EPI) > 60.0 mL/Min [facility] Pharmacy Creatinine Clearance (Chem 63.05 [facility] Nucleated erythrocytes [Pres ence] in Blood by Automated countOrdered By: Kiran Pringle on 03-09-2025 Nucleated RBC Auto Ql (Bld) Nucleated erythrocytes [Presence] in Blood by Automated count 0-0.5 [facility] Partial Thromboplastin Timeo n 03-09-2025 aPTT Coag (Bld) [Time] 33.5 s Normal 25.1-36.5 [facility] Comment on above: Result Comment: A he matocrit value greater than 55% may lead to inaccurate results in coagulation testing. Patients having hematocrit values >55% require a special collection tube for coagulation studies. Please contact the laboratory at [phone] for redraw instructions. PERFORMED BY: [place] [address] PATHOLOGIST [employer] HAND[employer] EDGAR BOYLE M.D. Performed By: #### P T, PTT #### [address] Platelet mean volume Auto (B ld) [Entitic vol]Ordered By: Kiran Pringle on 03-09-2025 Platelet mean volume (Bld) [Entitic vol] Platelet mean volume [Entitic volume] in Blood by Automated count 6.3-10.7 [facility] Platelets Auto (Bld) [#/Vol] Ordered By: Kiran Pringle on 03-09-2025 Platelets (Bld) [#/Vol] Platelets [#/volume] in Blood by Automated count 150-450 [facility] Potassium [Moles/volume] in Serum or PlasmaOrdered By: Kiran Pringle on 03-09-2025 Potassium [Moles/Vol] Potassium [Moles/v olume] in Serum or Plasma 3.5-5.1 [facility] Protein [Mass/volume] in Ser um or PlasmaOrdered By: Kiran Pringle on 03-09-2025 Protein [Mass/Vol] Protein [Mass/volume ] in Serum or Plasma 6.4-8.9 [facility] Prothrombin Time INRon 03-09 INR Coag (PPP) [Relative time] 0.9 {INR} Normal [facility] Comment on above: Result Comment: INR Therapeutic Range A) Pre- and Peroperative OAT started two weeks before surgery. NOT HIP SURGERY: 1.5 - 2.5 HIP SURGERY: 2 - 3 B) Primary and secondary prevention of venous THROMBOSIS: 2 - 3 C) Active venous thrombosis, pulmonary embolism and prevention of recurrent venous thrombosis: 2 - 3 D) Prevention of arterial thromboembolism including patients with mechanical heart valves: 3 - 4.5 Performed By: #### P T, PTT #### [facility] [address] PT Coag (PPP) [Time] 10.4 s Normal 9.0-12.9 [facility] Comment on above: Result Comment: A he matocrit value greater than 55% may lead to inaccurate results in coagulation testing. Patients having hematocrit values >55% require a special collection tube for coagulation studies. Please contact the laboratory at [phone] for redraw instructions. Performed By: #### P T, PTT #### [facility] [address] [place] [id number] [facility] Prothrombin time (PT)Ordered By: Kiran Pringle on 03-09-2025 PT Coag (PPP) [Time] Prothrombin time (PT) 9.0- 12.9 [facility] Comment on above: A hematocrit value g reater than 55% may lead to inaccurate results in coagulation testing. Patients having hematocrit values >55% require a special collection tube for coagulation studies. Please contact the laboratory at [phone] for redraw instructions. RBC Auto (Bld) [#/Vol]Ordere d By: Kiran Pringle on 03-09-2025 RBC (Bld) [#/Vol] Erythrocytes [#/volu me] in Blood by Automated count 3.60-5.00 [facility] Serum or plasma albumin/glob ulin mass ratioOrdered By: Kiran Pringle on 03-09-2025 Albumin/Globulin [Mass ratio] Serum or plasma albumin/globulin mass ratio [facility] Serum or plasma anion gap de terminationOrdered By: Kiran Pringle on 03-09-2025 Anion gap [Moles/Vol] Serum or plasma an ion gap determination 6.0-15.0 [facility] Serum or plasma non-glucuron idated bilirubin measurement (mass/volume)Ordered By: Kiran Pringle on 03-09-2025 Bilirubin.indirect [Mass/Vol] Serum or plasma non-glucuronidated bilirubin measurement (mass/volume) [facility] Sodium [Moles/volume] in Ser um or PlasmaOrdered By: Kiran Pringle on 03-09-2025 Sodium [Moles/Vol] Sodium [Moles/volume ] in Serum or Plasma 136-145 [facility] Urea nitrogen [Mass/volume] in Serum or PlasmaOrdered By: Kiran Pringle on 03-09-2025 Urea nitrogen [Mass/Vol] Urea nitrogen [Mass/volume] in Serum or Plasma 7-25 [facility] WBC Auto (Bld) [#/Vol]Ordere d By: Kiran Pringle on 03-09-2025 WBC (Bld) [#/Vol] Leukocytes [#/volume ] in Blood by Automated count 3.8-11.6 [facility] aPTT in Platelet poor plasma by Coagulation assayOrdered By: Kiran Pringle on 03-09-2025 aPTT Coag (PPP) [Time] Activated partial thromboplastin time (aPTT) in platelet poor plasma by coagulation a 25.1-36.5 [facility] Comment on above: A hematocrit value g reater than 55% may lead to inaccurate results in coagulation testing. Patients having hematocrit values >55% require a special collection tube for coagulation studies. Please contact the laboratory at [phone] for redraw instructions. Coding Summaryon 03-05-2025 Coding Summary HTMLBase 64 SbimqcxtPFg2aLx+PGhlYWQ+P B5UDDGkQ71gcZOxlF2kO5RUNV lOSywgQVBQTElOSyIgbmFtZT1 kaXNjZXJu IC8+MV5nRKNaMmwysAWvs8Q5b JW2C97yfg4mCYuytWF0GCDgWf Fhzicfi3lgiUe6TXpaNkbeAlI t RNAsjG91CEM4pL15Bv73wKUsk UPbc6kdxNm6JoSvKBEcGUG1tC hxUKdhj1KwIDCdE25cdSKaq0Z 6 WNHhyAcbaEMjPdHitPN0pO5hP Nkmogvwg9fcwxdlQfs4lh49jZ Yvb9Z1sXC3L7AxslD9IVIkiHO g VuzpcFLDyP5gsldin9whlazfN jQoRMNhXGl2SGp1BYPjfEjkBz HpFK59MAU9DVMrjiHoH0HeULA s oVkkVeH9p9G8Xg5YF5MDNtlkU 1VNTUFSWTwvdGQ+NO58qi23M0 KoBodlCaf5HOZzYIV6mAI6wA1 n BLWyNEkow1J2qIL8H6PansSck l7si9ngJWXwMVfjW93ekSJsd8 I1SPAhwOF3CUMwqIhuXgCuaL0 3 Oyc+JNEyuSdqj6GhNazvv3azj 7dxoFx6PlrwSUTfcuFlmXvaOA X9w5VcLw0hNFLfgTF4iRM3sE9 i KnWyFcR2CHvlM392SxQukBGzL lebA35uP0YxwHR+PACtIxp6GQ HpiGcvYT7kP6TiOZBsjpmkhYX m jNsiAA4lKIDtjoffHRTnyC9mT ECrW4z6FaDdFrM0FZorP9OzUZ TluocgLi19vI1fDeOaXdT2OTn u J8CleaZ8XLTkhHDqAErnBED9Q 64my9T5USSuZXIzBSJ4dYZ7hV 1hbGlnbjogbGVmdDsgdmVydGl j BFcuKGvvO235VHOooQapAkLlL GluZyBEYXRlOiAgMDQvMDkvMj AyNTwvdGQ+GXYkIYL2mXfxMJS n iERrPBmaNw1hoHsxbZspOD2mF EXezocaYELdgS4yBBPsaVEzmB kbHW1lXMOvrxlat394RbJiBRU 0 GZFuzEKkB9DqrV1gQkWpZTIqX ZVbC4VxdCHeXOwjK143GEblMl S8DHUbdaYlY9VxFRYlpEsgAuT 0 f1N4Bu5Ym2ZcxylvX7SwiNWdX nTqJlyyJOg2U8GsYpkjoGZ+PC 47DCVwXY82ZFx1EHA6lMpaXBf i GPWmI9DfnG8kNuCdGXGiRJZxC yc+PHRhYmxlIHdpZHRoPScxMD QxXwOjyZfoHS6cZh6dLGCaXIU v nCwgrTHhGpOpk8bcATPnESkbO S9dcGorZ9EfiFQ3SBNpt7c3Wc 37L20wH0NpvIG+KJWzoRS3fWM 0 yJ3rUpUtZjB6GRxzJ818CbAgs UGuFzsnu9zji1ptaLo1JsK0GG OjcvNihNfiGVX7b7BnQt53A94 s IHdpZHRoPSIxNSUiIHZhbGlnb i1ivZ6nGk5+AVXsjED5qFV8oD 4uJlAvOjZ2WJmuY996YiKvuVG v Avloj5mvh3mltPf5CvEqRXVsp aTknCegHKC1y7LpDe81B2YqwJ pwv4RjZbw5fp81eYEqz7J9hZQ 9 A0UyLQEzlypjfTBpyDeoYT1qU SRpfkxbXEOniK4nQNUaP9n0Cm LoQfG0VJnyS8IazjE9BHDslKS g QALjwZINiY1efsnwk0bxseroH bTjDBNiPPp9IKh8MYSoaDrqDz YsEFY0BqV6URW9nKBgqJ5mvHx n oxwdcJ2mMyp+VDA4iXIrtZPHP K6kIgokpCD+GRAqKHR0hZtbYP sgKBZleW2dRVTqU9y7EmLxOuZ 1 PSsyN0RjcyG6PNZspPFjEBZyt YMXdX0rpkjod7ygzhcxVwVfOR TiBSq8HXq6HYCviOgoNlFnSHP 0 VaD2ROA4oPRcvH7muAcerddpj G9wOyc+BzohtKxcYSG7WHw4L7 DiDdr7DGKktRgkMU4drJGjYCq u Oj9qkCueqGtqBG4pWYHmlxhsk 491OiXhp7buHXOboOLpJEpqQI Z7G85qp9V9CCRvYYUtYUM2oKF 4 lN6obLkqnhmhmNGwpHwtlwKyu CicPEbhEMtzJ925TUDnhHdzLp KhUMz1B4UyEew7TVRkgMbwHV1 n qNGjDKgdYw2mwYgznYpaVV3nW MXufepfd780LdUpr4qaTANxvD YaPPbeMHV7A98tb5B3LRZtACI w ODK0vMK2hW6nfTkqasxdyYNrz JeonvEswEknPEidIAejG649QS TslNhvEhEsmDh2E4PjJnz9MZX z cYbmPM1doQZmMJohEx2eoLcoc NzbII5pGXDiqvhhu783DdLhf1 qlEIKifRZeGDyiSBF5I81sl1L 6 VQJuLMKoSYF7sOO7oR0zzYlmh jogbGVmdDsgdmVydGljYWwtYW jhR032WSOjqYewSkBgrHmuylC g OTttFLx9W1TbMxrsfSO+PC90Y ONhIA56zONvtZRjt4sfhUd0Kl SiNXTdEJM1sLbsHAhte3BvTCC t S05qeWZeo8S0GHBzwCjftTOgS rXtiHY2pL3pNFhvxluuo7msim voIzurw7slay17cH24X44cVHh p TWFdMETcMIIgMRBvvUlgqy5yk G9wIi8+QNWmuNE7cGU6kC8lXV MdZyU0JJzhB311BzGjqZMsShx j n2mab6sdyWx6XcA5JBNejhYys TjqOVN9j2BzYg33F97wXTebZL UkIAYeXXPwXGTpwNxmgh6dxD3 w Ii8+HVNsyKC5fAI1zP2jGiAhW vC9IUtiF536ClIvuSVxPuilQ5 0dV8AimTU+IBMqOaw6EVRbpAd s JX6tjWXhJInrKo8sFDV5EmIxB dIjVPbdS0TzIBXrvllexbmqvF I2MGNgTUDmvD36Cf7ubNaxRXV w qIWVpW7nnmuhw1qerondIbClK LPnAEv3KSp9FZKxtIilHuSqRL R5RjZ5ZUT9rPCcgS5zfKrmffm g dS8lG0KtUMTkrlqkVt70eY0kD oFbZnY1NLscZry+O93AAORMKS DMFWbYMRPSMYDNF9Q3C9TkJig 0 ENFlvNziOT4rvFQfHWswOc8se YccwMnnDW7qBMCejshsYBNmdN 2hMLNsbYLlmYcqZY0lUYPlypy m s556NeFwZVW9WLKyjRPdD0Mvg Q9vXsXlXVMeGBDgT3UatDAsSH frP572WXkzRxI1VICtqqQiE8M s LEVxaUmjVuN3d9V9Ir2zFp3xR X1fERL5OI02YN56aFGcj1C2kZ G8W0SqEKLsvhifapqmmVI4JWZ u CHSvpR42eNDmKVuxDs4zy1M9l 950VMWaRAFmzN82Do6kqVlbMO PvpVQWqJ6bjayjk4lzmkegVaR w OCHwMHj5YYj0SNMvpNryLkVaI HF8ZeM5OYD2zLBkyQ1klIkros dswM7dYlc+GcNpPVVwlpW7R1R k Nhc3JQRpiOqySR9rbOUtAIgsF d7erQslvSlhTM4mJOZkwgoxWQ PdvR8lEZSnwESfaCwsPI3rAIT p gotaj152WoAqLWO1JPRrjPDbW 7NviK0wFyAnVPEfUAWmM1RkqW OiMGyrT995RAgySlD1EQVatdT p M5AzMDAdcNhdBxP4n4A7Ix8XO D0USXZ6A7TvYrq3JXMuqZqdKF 1zfMYnNBylHo2ovTzxdOzzFR5 w ANQvfgmiYNEdlJ7pEXCmzJIxp LgkOS6mOLNijmkft383DoXvZH L3JCCfmGNtD8KbsV4pClBdMXH w FQAhH4BitOYjGKsbZ273AFiqQ hW6SNAkmdFqB7MwLZQdlUaxGn C6e1K1Bg7YZFrjsIR+OJ38ns6 8 U2UtXnnfEsg8COYyFHZ7lEH0a F1cEEAcHCckf9F7xIO0T1Sapf Pope3ya8zkYNCyRAicX17guDH w i2C8PFUobFW9NYDwvGnuLiYqt G93Oyc+KRRhvKoxq3JqJpzqk8 llw5oojTa2MbNcNVZmmhFmpGz u OWU2l2LjMx48U98gPTdkJQKwI EPjMGQyCEFvdSiqkt5huN0sIq 8+VXOgmLP4yUL4lL1jYfYzHyL 2 DLxgG681GiWdkEGrMdthn5puu 6dwuCd6ElIwFGEplgQiqRnfIT A1y7BzOy66B9PnhRqeu0IbBpz 0 ls60zQKun6F3eSJ8Z6QcCCIxz gdjjHIggSptEA2mTBHqhzswZW EzcG1aLJZzT8t3NmQrEcU8RNk u Y2HnvtV6RXZqdXTtIYHvuEYWb L1smivnf7maskfxRtZzKYXgQF h3EBb4IPVsaSwcBnOaCBX9XzU 2 KBW8uMMoqJ8mgTpfzrcpwR1tB yc+TUr4c6cqdDIhHS2dvKN6AZ 58DO94gJWwz1O7lWT3P2KxGUU p migxsfpsaHY4DQEaOAAefB52S j4qrBnqBv1aBTGgEGW3KHPujD CvD9FnkO3mBuIcAAQbNBKnC8V l mZTkMChmK725QGexBoX5YJScl jGcO6GfMGXbnLubReZ8w9I0Jz 5ZNZ73AU80ML99aAQcm3W7qAU 9 L8PfZYQdvxtrupyeuKV9SPPjY LTedX74Tu4aoJsgNf0cASFgAT T6CMFfyKMfM8MnhZ9nEdOqREG w GCQrJ8VmqSIkKAsyZ010TIjhU hB8IVGfqyAcW3JyYECurShmPw F8z1M1Sy2TId93SK95PZ21uMJ g b4L0bLU2Y1OmBHCtpbnemgzkp ZW7TAAsNYJdoV32Lg0hpLehBx 1zRLTfPFG0TINllWGuP3FfeZ1 y ViMxMZTeLBVbF9EvzSVcDNrqA 922LOgpOqJ1HLXylzHuP6LwYN VcsYccTnC1r8H1Bl4CHZbutsf 8 Q1UoQeehaKB+OH94TZXeJQ08j OXovNZti7hwlZi1UwAmFLZhTD Q3zZllLTwee9CnHUEwC25rgBG w c2U (more content not included)... [facility] Mammo Screening 3D Left.o n 02-27-2025 PR Mammo Screening 3D Left. EXAM: PR Mammo Screening 3D Left. HISTORY: Encounter for screening mammogram for malignant neoplasm of breast. History of right breast carcinoma. COMPARISON: Screening mammogram study of the left breast dated 01/12/2024. TECHNIQUE: Screening digital mammogram study of the left breast was performed with 2-D and 3-D tomosynthesis imaging. FINDINGS: There are scattered areas of fibroglandular density. There is no evidence of interval dominant spiculated mass, grouped microcalcifications or skin thickening which would be suggestive of malignancy. Mild scattered benign-appearing calcifications are noted. R2 image Exerciser was utilized for this study. IMPRESSION: No specific evidence of malignancy seen in the left breast. BIRADS: 2 - Benign, no evidence of malignancy. Normal interval followup is recommended in 12 months. OVERALL ASSESSMENT- BENIGN A letter of notification will be sent to the patient regarding the results. BIRADS 2: Benign Assessment / Recommendation: 2-1 Normal interval follow-up Breast density: Scattered Fibroglandular Density Recall interval: [place] [address] Final Dictated by: Deon Sharpe MD Dictated DT/TM: 03/04/25 9:51 Signed (Electronic Signature): Deon Sharpe MD 03/04/25 3:13 pm Technologist: EM Assessment: 2-Benign finding Recommendation: Normal interval follow-up [facility] Outside Recordson 02-11-2025 Outside Records [id number] FF [facility] Coding Summaryon 01-28-2025 Coding Summary HTMLBase 64 DajbkjmjIFn8uFz+PGhlYWQ+P F4BHSDcJ55utRZgjJ8oN2FQWQ lOSywgQVBQTElOSyIgbmFtZT1 kaXNjZXJu IC8+DI7hGGOnMvcewRUfp0Q7c ST5J40orm0fHKsktHI0REGlAb Lrnjplb7flvZi6VJhcEcxbMsX t SEMphK00FGZ1zT59Sa45mRJpc IQyn7lceAe2GeFjEDWxUQP6iW cmJPgps5XeECPbG12ihYHmo1Z 6 YKPbiQxaySXePvAlbJK7mR5kR Uilaedfv6npomexEfo2qn77xI Bgn5I0rVV0Q6VbpiX5IILjgBL g TwvhkLKMoZ8ffabzq2klseccT bElMRSoWZh6DPq6JRPypAcjSw FyPC13TMJ7CMVkocNrS1HoTGS s bRxvKkF8r1J2Es2YK5EJAymrD 1VNTUFSWTwvdGQ+DW68mi85T8 HkKwmuTph9BYAuCZQ7wZV0bA5 n NVOmUZjff2X5lMV5Y9NzwgBio a4yo2qcCNUnBZvgL45bwMFpl5 W4SBBgyDW9OCFtbJtyZnZpgI5 3 Oyc+XLQmyOapo6BiPwoew9nyb 7pzyKi0OrtlQBSvmoTsuHxkMZ L6l4FhIo2jMDHdwID9jWP2cX2 i RmCwJvQ0SUvwN122CdGusNFwH wojR65mS9BhkPK+URBxCxa1FY KzxDbgYT7wQ1GaEQWvpcxijMV m oUyeNQ0bZNWlqermZKCvmF1uJ VSzK1a9FnGrKwY9GTpiU0OkEI CcphdiUa15rF3tEtHcLlY9DOw u U7SfvjJ5XSAapPVoQKyfLFW9W 32nm3C5HEKbWFKmWFS4bVY0eX 1hbGlnbjogbGVmdDsgdmVydGl j TJkpHFflL517OLMgoHkzPnYkT GluZyBEYXRlOiAgMDMvMDQvMj AyNTwvdGQ+XYQbMNR7hKeoEWA n bUPxSZdqYa5iwKoncPsjMZ7lR XXrrhtxIQMhdT7hCDSemQUzdK ljFH9pVHXqjmaxm204ZxYuKIO 0 VUOvkGWpN9HlsZ8xYxSaTAIuA ABeR1UvoOJeJYleD780NYtaFo N3AXFwfgNwP9BmIGWzkGnaRsH 0 g3J0Xs2Zr3PcqeznH6JifCKhV aOoKbxpAXl3A4SkEmqmiTS+PC 68LRUcYZ66WQf5AIG5vLkqODn i UZCmV7FuqP8xSgReSNUvRXUcI yc+PHRhYmxlIHdpZHRoPScxMD XeLyGedEagEE6mGf6qJDYtNTT v nGdjdTSeIoKcs9tsSHHwBStoX A3agQezM2MqjXX1JHSoy9e9Qr 22D82kL6KvcWJ+YCPhtKV3sVL 0 jP4zNdZuTvP0RQuyR846DoRax JBrIxhsc5jnd2vpgYd4PlV8JU MsszHooLcrMAW7x6XzKw33U68 s IHdpZHRoPSIxNSUiIHZhbGlnb d6yeZ5nFx5+HKPjnZK1aUC3bA 1xHaVcUgY7VLofN800SnTaoPV v Ljegj5ity7zseJh2IfJbWTPdr eSgyIzrZSQ7d6JlYb09C0JdgP wyd5WwFbj2ea32dSSux4I9cUM 9 I6BcFDCoubolgVWjhZwxBX2wG AHvxudwHIUisW6nOCEuL3j9Nr ReAoN7WQtdF2RkgiG3CTFcuDN g RWBhwYUIkX2zpirrg8ajdptrG hJnRJSlIHs7KNb3DTBaaRviVy NkNKX0PmR3TMO7pBPotO4nfVl n ehdqjZ0fBks+IUL6qLRmxGAOA C5rNzrltWV+RJXsINT1wJqqYE xjOVOzfS6iBCKjY7v3AoNuZtM 1 NYpxY9LlhvE6ONUgjLFwLEGro QBOzB9ittewa5mlpeibSjAkRQ SxMXd5BTq8LXRkaIpdWkYsKFQ 0 PaC9XDH1yAVnhH0liZoeicutf G9wOyc+QdfmpAhzSPF9AIz1O9 ZxMew1ODGuyJqxXX4cnUGhDBh u Hk2czYsvdMezIN4aCMOikffkg 325LlUsl3uuTGZrqAExAIodPF B6A83pu8Q5DQNgHMWqVZI5oJB 4 jH0roMjvgfjwbYKceTnlonCsv EloJOixHSssM182QIZyvOpfBw FoBLc1X1UxLnc6ZHDwzQpnLV0 n pUHqKYemFi8uiQbusBnfDL2xY RHufgzzk166FoXij1jiJDNmpD FnAZgsGLH1M99gi8Q6SMLiMDF w CAX1wDP2iV7lxBevrytlkKPzt TbnjmLzlGmfWGwcFMyjL371TR PrcYbvDaUerJf4I6LzEjm0MWH z iRnpWK7fbYUgFAzeKd6kiVsln HsnJL2kEUEvzfdlw380CfIdn2 faIPGvqXPhEEnrFPV6E03lk4L 6 SQMoZUSoJIK9fLZ6oT5rxXmiu jogbGVmdDsgdmVydGljYWwtYW fkF094PGXpsBjaTgCcqLnntwU g RNnbKOg0U0WaXeezqLN+PC90Y UJoFI10gXRmjJSay0rxcRo9Zf VjRUCeNNQ6gKlmYUzwz6VfFAC t Y94zhZPef9Z0TRQcxVsvqRKcJ uZmiTH2yY2xBZbwvhdyf6fajw fqQbjda8fcxt78eS29G76iTQn p EODaHLLhFNUrDPUsmOdjus8ab G9wIi8+VVVwlKN3lBN9lT4iXO EsUyN4QCqpD266QsUamIXgJkw j k0mje7nkqHy3MkL3JRLrmzWwe GabCKS5p9DvTa59R98tNFsuAG QdUQCiGTLuRUCzdYkqof4amE5 w Ii8+SJHuxTR1hTF6uZ1dCfBwB zV2GAnsH817AxIsxYGzGnhhV6 1mW3OwoGO+TYKoBgy8SQEkkCb s SV6leAUiIRvdQn0oODZ6QaZjT hQdZDdiU6GkAAMyxtvydfhsnD U2KWOrFDLpcH62Ys4hjOvzKBV w xTYNiF4azdxdx3dzaxnyLcDrG CFrIOu7RCg7BNNgtZddTdHdNN M6ClR4UIZ3rRKhfE9upTmkpez g yW6bL4LrEVWitlnnCa67cO6lK lAnEbC7EFmbOwe+S18RWZVRKV YGLJuFIDZFPVWIJ2R5I3ZmMte 0 GLQbdNfnGG9vhSAkDMklQr4yx LypbEaeZP7qQZHwgevrRONxdL 7dWRNckXPpsHxyYZ6qTTCszbx m m888RsFdBFB1QPKmhLAuV5Wxk A1rFgTpMFOcKMHoC1UvgGQlYJ zkI604DMsdZaC1BKAzlhMqS9Q s FYDhaVzyHxW8n3G6Ep7nKt0iK N8rFAB9KU21FP65pHYkr0N6vW V8K4NvBOYkebkcuerciVZ3IAB u JBPdxX56yWNfMIsoEu6ck6M5d 386TQHjFDCgzD86Gr5qtMheXF SyiAWZvA6vjdetb5lrapkzQiA w NCGaJQg6XVc9DYZxtXxwLoRtB PA3KdR5UDO8eZEovC5qyKdcei cwrG8xAjt+YlMeFDLwlqH9W1U k Wta3OGQfeIhdAB4tbXUqTLauH w5idLkbwWkvKW1vXTUobpszWS NffO3nRQViwWZknRocHZ0bIVQ p prdab581UhBhCLQ9YLRwhMDfL 0OwlE0oWqErKVCbTDGwS4GefP IwXOisR369GBigXpO2LIJiqqE p O0OqDHFzzAkhOqK8e8I4Hp1QW W7SYJA8F7OyEvo4VZWaxVdhNR 1erIGbXAqzXs9mpEtscFbbHQ4 w ARLokrmlKJRdpJ2zOQOtoURgq EieCI9sKUQsnokgv287ShFiJL K3KTWgsZFqZ1QyqK0yZaYmLPH w GTVbR6CowZQeCScwA934UIzgX yD3QOWjpdZvX1MyWGDkqXyaOn H8k5B6Rs9BINwzhGE+GX43gy7 8 H9BpIwbnYiz5KFSsCOT8oYE6a K2tLJRyHTpcm5N3xVY3V7Lpls Amyz3mc0hsLNRcDXonC64bfLT w o4U4EMDozCF1SKNosJujDxCtr G93Oyc+HUPxrDafp6DaFjuzx1 zah8fjvMn6JgApDAYfmhEybFe u FDF0a0DrTk85G53aEFmzRFChZ THbLVEqJDVshEzrhn0toT0rGf 8+LDPzoUL1iJE6qD9lSnXlUfG 2 YXzxN313TrJcsPIhUrcqb1aii 6wpzIz1HqOyFILfbqHvhCbqNW I9y8BmQq72R6AclJjto4GzFgv 0 nt47nPXeb1V2hNG0T6EjQCNqk jfwlXZkrHmtMZ2jHSFeqexgJC GxhL8fLFHrV5b4AdFqYxX1VEe u I7NzqyC9CKJddIZvDKXutHZTy J7plmsjm8ceneofKaXoUCKaBI q4DTm4RKVkyUmmIyUkGFX1AnL 2 FNV8nLQedI3jdXywffkpaX1aB yc+SCl8u8lvvNZoNB5vyLH1YM 57IN51pKAgj8G2iMT5L6EeVAC p teebjcarwJE5BLNwNHVjsN26I o4tkVsjFu3lJAEaXGO7VZCozI NtJ7TokM6zImViWBHrFWKmL2Q l ePGjNLxpR995QOxgAoQ1HLFfr tHoD0JxKMVbcArtYrW7l5E5Zd 4PWP50AN57SK62tMKyv0L4rHM 9 S1ZfOSVrzlnydpyagUN2PVVkR JAnmE45Vk7gcHbmBi8oZJLcUT M0QPYflXGcJ4DykP4iCpCpLCY w ROZrM2ZmeRKqRPfpZ689YIslX pI3DGVjlbXiR3JdHHEnnNdtYm V5d8N6Ln7QCl96CU59GC68wMJ g i1F2bDZ4A9RvHZEdmppixyxpb GE0FAScMPPwmK94Wy4mtSeeJi 3fPWTeMIM4XSRgaYXkR9StsP3 y NiDkGRLbEEErA2MmdSLlJBtzQ 475PYgaCqJ8OVPybdIjS4YuXE HtbUxmJaO3v4L9Ky8NQFvaavp 8 F6BzSnwtrDF+AQ46BTBdGR05d QIzhRAly4obsOm3JqMaGAWiYI C6zYlnPZaph9MaVDFuI30mdEX w c2U (more content not included)... [facility] Outside Recordson 01-21-2025 Outside Records [id number] IFF [facility] Ambulatory Patient Summaryon 01-20-2025 Ambulatory Patient Summary [address], [address] - Visit Summary For CLAUDINE DAVIS Age: 69 years Sex: FEMALE : 1955 Address: [address] [place] [address] [place], [address] Home: Work: -- Primary Care Provider: BILLIE SHAFER MD Race: White Ethnicity: Not or Language: Azerbaijani Health Plan: 1?MEDICARE, 2?[employer] AAR, 3?MEDICARE Reason for Visit: Pt. comes in with abdominal pain Prescription Information: If you have been given a prescription for narcotics, seek immediate medical attention if you have any difficulty breathing or any sudden status changes such as confusion and sleepiness. If you or anyone you know is experiencing suicidal thoughts, mental health, alcohol and/or drug addiction problems; contact the [facility] 19/06 Crisis Hotline -Text 4HQBR pm [phone]. Follow-Up Information Future Appointments No Future Appointments [...] 1.84 m2 Body Mass Index: 29.69 kg/m2 [place] Body Weight Calculated: 52.382 kg BSA Measured: 1.84 m2 Diagnoses This Visit Diverticulitis (K57.92) Laboratory or Other Results This Visit (last charted value for your 01/20/2025 visit) No Laboratory or Other Results This Visit Medications and Immunizations Administered During This Visit No medication administered during this visit All Known Current Prescriptions and Reported Medications New Prescriptions this Visit amoxicillin-clavulanate 875 mg-125 mg oral tablet (amoxicillin-clavulanate) Take 1 tab(s) Oral (given by mouth) [...] 4 hours. as needed for pain Normal [facility] Coding Summaryon 01-20-2025 Coding Summary HTMLBase 64 FgeualgmACg1iSy+PGhlYWQ+P I6FZFGgT88kdRBoxH7uW4UARA lOSywgQVBQTElOSyIgbmFtZT1 kaXNjZXJu IC8+PA5oFOQhTysnzOYxm1D5y YN8S36ujs5lNWlshEF3EIJgIc Genmqhr3ulbTs4GVeuNrpeBqO t EQFlcJ18JHV2eA24Gg12lEWcz ARhb6ragHy9VgMaUKIzTIJ6mA kfDCjoc0CbYYUbL13ncATfz6E 6 LXXlaNerfAXpQsOgdMA9rW2bR Vcskbjzm8pwrqmzTui9zz95jD Fke0P0nPJ8O6ZvxjN8HJUhdDY g DeqscMOZtU8ukbphx2bupyfoX sDiUFEeSDu1QKs4DPPadUttOd YdEV19IKF1FIFvbnWxT4VnYMN s jEoeHbW1b3Z7Al9YW3MPReomF 1VNTUFSWTwvdGQ+NO78sw91Y8 FwHxiuLtw0NMEyTBB7eLO3rY0 n LCVwLWjmw9A9wCS9K6CyrcYyk p1hz1gfJIUcQZqrD26ysDHpo3 P9UKOggQC9MKQawXltPvNipM8 3 Oyc+KPMftPtvz7IpNeyre8oxb 3sgoTq5NxomXKLzsfXxiErhBQ I3q0WpHf8iSSMayCO1dDN2zO8 i ZuYvNhL7ZRkmK350LfBbpQHhF rdkT01aV9EkcZY+SZPxTuu8WV IimHwzPV3yP0MlHKKtujnlaFH m uNbtVF8wZUAzcmtxXVCmfM0bC ZOlT0k2XqGvNxN6ERhrD4BsQD MikywwMl43gU8tXdSsNqX1VIv u X4XdswL6LOVquNOnLMlrXET1A 79vh7G7HSGePNEbDHD2dXX4mZ 1hbGlnbjogbGVmdDsgdmVydGl j TNtrZEblE968TPOftFslMzYbR GluZyBEYXRlOiAgMDIvMjQvMj AyNTwvdGQ+RQUyCSV8lAvzTOT n qSYuZUqrRs4zmMbdxZpbEG5lX DKwiceiESLujX3dUNKpwBRjhN xoDJ6mOEWrhtuhs633PrWuZWZ 0 RYZgiDMfZ7ValS8gTzPjWSZuG LOiF6NkqQSoJYiiU280XAzdJw K4IOJkpjSzH7MkGVTyyDtxFdM 0 e6D5Sg0Tb5VbavsgR8PasGAzB eUkOynoMYd0H3WrKyzlhMF+PC 71PLZjIF19WIu2RQS7qKiyTVq i XSYiP2SgkK3kIpOnRCMoCHYwU yc+PHRhYmxlIHdpZHRoPScxMD GyPiCzzTipYL1dYs3pGYPcNRL v gAaxqJWaOyJeg7tkAEJzSGkkU H1ygOswQ3FxuRT0BRTci7o7Jq 02D51yZ2HpkQK+ELWrvAM7rWQ 0 sB6mQxGiNhR4KNwkN173HuObt TYaKipfv3ekf6rfzYc6EuP0NE ZykpTgpPcwXKY7h5LePh33C09 s IHdpZHRoPSIxNSUiIHZhbGlnb q5vdW0wEo3+CZVzkHP0yMY5tG 8oVuFjXyW0JAtaE759RcLbyJK v Alqvx4kix1fqwVg1PsSdFPOfy kXnpTwpUCX6g4FvAl06Z3UpmP smr8IxAlh6oh99sXGll9G4oZE 9 N1TiGZXpxmkwfLVpeJmlDW4hW KTtpctoKSIvbG2fCHWcO5c0Su DmHlC5AEdgQ0PivxR0SOWxfRJ g ZRSmdGZBvM5fbgltx4zyssuqV dGoBLFnRQz3PAs3BFZpdOqwGd KaXTE7UbQ6QLO3fSMtzL7waVz n fjuikB0bRck+IBQ4iGDroSOYT C3aBdiyfVK+RHXoFMY2bJnjSV yjUUZprT2zWXKfE6y4LuXfVrK 1 JJliG1UnprA0SPRlsODxWIFpn IQNuW1mtnaqq4dppbygPtOzPK YhZLv2XCk0NXZtpIebPpEhGSJ 0 FaN5UGO7fSEciA4apJpxdxfel G9wOyc+MvpxyBbtNRH7SQx3P5 OhUze2UUSmnPaoMP7buNPuLCm u Uq7rsDqnzWlrXJ8iIPZpvwrld 836IyMci1tuEWKpvCBdOQtaKF K8D97jm0W1UQSmZUPxHBS3fKZ 4 yC4hvHiwlfkjqTUriZrjdtTqt MmbTFsuIHopH492ODTzmUxbSb XdKBe0F6HuAzm1AUTghApyYV9 n fARbYFvzCl6xvTqqhWreGV7kU ZYpzaolm980WlWgd5lrWACwuO HnPKujEGU1N67sf2K8XAPwCVO w KLB1uDQ2oW1oeKyhcjbvtVRfy TeumnUjuFqkWNmvSZunK670WY EjaRzkCfNpiYp3S5IyXhp4PKU z oJvqXK5pgSHxLSfhAv5mdRdfw WalKE0bGXJagkpdj800ZtLkk3 hkHVSzxPKlSYkkDYE3K62gx2T 6 HFNrGWFgZGQ9eAP9pN4ffYmrb jogbGVmdDsgdmVydGljYWwtYW amL716RXQwtQawXsDorGxlugA g IXwvQYa9K7MbRzyekFC+PC90Y LXtLV59rCLelVHdp4jozYh8Ww QuMLZbLBS8vPziKUkhz4GwQKW t Z68roIEqp7F3WQDofIfenVPiW kIxfSW7yF5aOXfvokqkl5ezjy uuGbodk4buba81fV76E90aOXm p JZXcAWTxKMPuAEIjjVstkk2kt G9wIi8+FMHxxJG0xDO5lF8aJU QmDtN9WMvoC535HlYzpJMzYmj j r9irt5kofYp1DpO4MVUoiuGdn RagSZS2s9KaXw05S80bLUdbTR RuNBSxMXJfQMAmuZjdwt8gwG2 w Ii8+DXBurTG3rKD6vY9xLdYfV mR2ABvwB477QhGpwLBjDtjsV9 0yM5DmaAW+VNEhTcn9CIQieRk s GL2crPErQDlzHl1gUQV4ExZdQ pSpJBxxZ5LeUZYegxhoqjmyoV D1IMLmUZBdtV54Tp6lcQqzYUX w pHMTyF5zslpir6qwrfbqSiYhK FVgTHm5DTr9LSJpjAlwOzQbDP R3WxQ8BTU8sRHzgY2ttVyucsy g jS2pF9AnQZEnrylzNk39cO5nX aSwEzR5LZjmSci+X42EDYYRLX JIUZvYHLPPLAWKP2X8L1WeNtp 0 IDLttZzmEQ0xwFMjVYgwGn4nx ZhszZmtON9vOVQyyexrRCNprY 9aIOKkaVIsaVxyLU2sKPUfqtk m v658EmHlYGI5XNUxqOLvO6Pzt D5qWaLeKEEwWPErK7AldKVcOF flD492MYgpStT6CAYmzpGvJ6A s HXRhfSkuSwZ1l3P3Tv0eUa3lQ O8sFJK5LK32NX55jHQrb9J1eS T0G2WzCSXzumlfxrtfqAM2NID u JTSrvC90fYNvZJfgXt3sq1Z1n 412MXKvWHFlqB24In2zxKjlHQ QwfOWJxE5iiwuiy4jgzccgGjY w RKVwTGu2TGz8VBCerXlxSdWeD FU6IiT5YWG7zBTvlT4buHmqqf wpoE2lZaj+LpUbGTDtcrM4Q4D k Zzh0PJGthVtpIU7jxRBgHMobV h7crEjxyYkvYK5jRDLlxgoyQM AywV4eYPZviDBqkUhyZN2tPMH p nviva582BcBhYZK0JVHhsOFkD 5UofZ3aAqRdGJHgFJBnD7SefC BnWKeeU200DGesHfS9WKHlamG p N2YtELNmgChoYoZ2g7D2Xk1VQ S0RVLQ2N8MrAhp2MOLygSmrPL 4ndMDaTDxgUc8zlFphaYfuUW6 w VJUdoyeeMEJvpZ8zOYGljOMtv NlfRK8cGQDafxfyn088CaAsMH W3EPAwmZQgI4NxsD5pQzPlEOO w TKMoQ8JioZMdSTjsJ188NZwqZ kF1IVDytyYeI9SiEETulBhmQy K3k7J9Kl5DJQqkhQD+AJ15pg7 8 O8IpXngrAlg4SHYwJYH7uWC2k C4cLSXqAMsky1J5lDK1H8Urvt Bcqm8mj8sgZZYiQXdxJ32vmIP w d2T6USWzeMP3TIGxbTrxRdJkb G93Oyc+KDPweUffm7DmHvhgr9 agt0ggwBi0BmAhMAAieiIilKf u MWP1a5BvYn76L30wYSuvZNBuD QWjODUfMWUqeOvxhb0rmC4cTy 8+JGTjnQR7sDB4lD8mNpWdOjD 2 MElfJ357CuJxsCAeIavcq6ehs 7fkdVs7WmTyWISidmRqvEtrVL B4l5BfZq98H0QoiWydh1JxAqu 0 av48eEBid5H1bED3Z2SuQWNjw mdkdNCkpLguHY2qHWSygrrkHV CujL0fHWUoZ9v1PhJmCgX4RKj u G6BtntL1XRTrlOQzBPVtsVZPx C6fojsfq4kszjfeOgUnDWOaBT c5YYs7OWTcwLbnHtUqWXF0FtR 2 KCF0kHAphH2umTzwfcqxmJ0zK yc+SVg1n9pxpYSmPW7pcAU0BQ 56HN21xWNms2D8wAS5J2BuQBR p qivthqglyWY3WGXgDXJrrD96V t8fhWjvEq7nBXQwHGR6TPPzvC CxO0CepL9nUqWuBFPmVZRaG9J l fUKiFUxaO857CTnsXdQ7BXKdy xHgI9YaBPBssPsrWmF6r1Y0Ry 3PEY21WF08HY24iCSyx5E1qFJ 9 Q2RhHGQmcgmokawdeSA6ZHClP KAxdT51Nq7nlQnjYa2uAVCqEV N9SXZcfWGvC9ZomU0dVfPiXHX w DSXcH8XxuXQwNRncT628GApcN aF8JZBicmIlF5QkPUSluVkmTm N1e6Y2Kt5MLs08FT31VH08vND g a9F5rGK6D9CxXPTwcjwtiyxkt DO5ERIwHFPbeU60Qh3xlWdqNt 9tDYTsZFZ6YIQljJQyF4BmfN2 y BvAoSCLwNFPiG9YpwJDwMEhkB 958DGpaGhH4VAEirwGqM9UeZL CtkKnrAdP6p5Y6Mz9LQTzowmj 8 Y0IrMynkxWD+NV37OLLbOU58a XSapUGhl5cefYq7MgMuFAEpIB V1uZniTZfyy3FmWTFaX50fzJF w c2U (more content not included)... [facility] Patient Handouton 01-20-2025 Patient Handout Gastroenterology Diverticulitis [...] You may be told to: ? Take ofhk-jzy-uzsiyfm pain medicine. ? Only eat and drink clear liquids. ? Take antibiotics. ? Rest. More severe cases may need to be treated at a hospital. Treatment may include: ? Not eating or drinking. ? Taking pain medicines. ? Getting antibiotics through an IV. ? Getting fluids and nutrition through an IV. ? Surgery. Follow these instructions at home: Medicines ? Take rbqp-krk-nvxorlv and prescription medicines only as told by [...] provider. Document Revised: 08/10/2023 Document Reviewed: 08/10/2023 [employer] Patient Education ? 2023 [employer] [facility] Outside Recordson 01-15-2025 Outside Records [id number]#[id number] IFF Normal [facility] Hemogram Standardon 01-14-20 25 Erythrocyte distribution width (RBC) [Ratio] 15.7 % High 11.5-15.0 [facility] Comment on above: Performed By: #### 1 [id number] ####[facility] (DEFAULT)[address] [place] [address] Hematocrit (Bld) [Volume fraction] 37.9 % Normal 33.7-40.4 [facility] Comment on above: Performed By: #### 1 [id number] ####[facility] (DEFAULT)[address] [place] [address] Hemoglobin (Bld) [Mass/Vol] 12.6 g/dL Normal 11.3-15.9 [facility] Comment on above: Performed By: #### 1 [id number] ####[facility] (DEFAULT)[address] [place] [address] 44685 MCH (RBC) [Entitic mass] 27 pg Normal 24-34 [facility] Comment on above: Performed By: #### 1 [id number] ####[facility] (DEFAULT)[address] [place] [address] 59104 MCHC (RBC) [Mass/Vol] 33 g/dL Normal 26-37 [facility] Comment on above: Performed By: #### 1 [id number] ####[facility] (DEFAULT)[address] [place] [address] 43570 MCV (RBC) [Entitic vol] 82 fL Normal 81-100 [facility] Comment on above: Performed By: #### 1 [id number] ####[facility] (DEFAULT)[address] [place] [address] 43636 Platelet 248 x10 Normal 138-427 [facility] Comment on above: Performed By: #### 1 [id number] ####[facility] (DEFAULT)[address] [place] [address] 60233 Platelet mean volume (Bld) [Entitic vol] 7.6 fL Normal 6.3-10.2 [facility] Comment on above: Performed By: #### 1 [id number] ####[facility] (DEFAULT)[address] [place] [address] RBC 4.64 x10 Normal 3.70-5.30 [facility] Comment on above: Performed By: #### 1 [id number] ####[facility] (DEFAULT)[address] [place] [address] WBC 4.8 x10 Normal 3.5-10.5 [facility] Comment on above: Performed By: #### 1 [id number] ####[facility] (DEFAULT)[address] [place] [address] Coding Summaryon 12-31-2024 Coding Summary HTMLBase 64 QokcfnroVBj7pFt+PGhlYWQ+P T2LFYLcA18ubGYwlD0iV8BALV lOSywgQVBQTElOSyIgbmFtZT1 kaXNjZXJu IC8+BC7iAUNnRzvgnDHbk8L6h RA7D09qsh7bCZsphZP9DRVwOr Gfdtczb3dsrLr4YHpnPpngPrE t NWJgxY78DKF9jH51Zj81lWTgb DVvv5aywGr4TlIwWYOzSBZ1uB fdYLobf0YyLEVzC21svDYyl8I 6 EJTnhCjutLVnKcFzwFH5cN4lK Jjarkyir5giiharRse7qh89oG Irf6K4aLE4Y4OwazQ2CDXezIH g VmoopEMCdH0aarcsx5nfytwsX yWsDTMsSBx9VSp7ZHVrsUbdRg HxYH23LOO8FGHcpsUeS3QuJMM s hZvcErN1a4X7Vl9NB3ERPjfoM 1VNTUFSWTwvdGQ+KC38yb73Y1 BdTvyoQlj9INHsNPP8eMY3nY5 n JQClHGdzf6A9xGV9W2NyjpMwr l6bj3iaKBEfPRxxD13goPDrl0 D7CRYkdCP6VUGqkNieDiWfhN1 3 Oyc+JACmzMmvc1JqOndjr7xdw 0euiSt9KsepYJVbykPvxZfnMU Z8s0WhCn3oHZOrjRS4uEZ9eJ2 i FjNcUlG9VLkuC825MsVioNUwB vrvG33dM6CxgXF+AMBgNca7EJ SthBwkKS4nN9NpUQObpbozcWZ m hOugGQ3jHTWyiaihKEQjbN7yC AXoL3o1IjMtPjG2WSjnO2LvOC KhyxpkCk28dO7xAwZeKtM3RXw u S2QhvjM0AUNurTNrPSozEKE1E 18or2Z4XRYgQYUtURC5yDF1mV 1hbGlnbjogbGVmdDsgdmVydGl j UXflMBroP779ZPVjcLldYtXwM GluZyBEYXRlOiAgMDIvMDQvMj AyNTwvdGQ+MLPvVYL1cSvzBGE n qZDuRRliEr0dxUicwQctUC1zY YFtpbxzAMHcaG0oZMZpqQHxvE bxGU2wWAYtdlwel900QcYdAYZ 0 HSMrmXUoW6QizA1bSbWnVDCfW PPkZ1VtzIXnMAscY871AYmbWn F2VYHdbbReA4OyGLEybUygAnU 0 m9L4Vr5Ji6MbcnxbY8TwaUUrU zEnJghwMHm3U1ZmFygrjZM+PC 62YPEnKE24TIx0AWO2cHbyGAd i JERiZ6ZgwP5lXaUsCIJeZTWeX yc+PHRhYmxlIHdpZHRoPScxMD ZsEdFioHyuAF5rBq4aTTHfDDC v dXqjhFNbYpEbe4rnSUOkXUisI D8obZfvV8MkoQL9NAYlz5d8Il 34J75nK9YmoYP+FIRplYS1pCN 0 vH5mBiCgVvW5BVcyY450XlQmk ZAxPhqba5nvg7azzSz8HpY0FJ RasqGkjXhwFMG3k7BpAa48K09 s IHdpZHRoPSIxNSUiIHZhbGlnb x2dwN1pDx9+WIOnaKI5wOU7gV 9hBzGcRjH8BVkgT040KmZgbGR v Nvhao6xiy5eglNp1BzWfYCYcp oFkrAqzDMM4d1NhEm10E6RpqX wko3ZgIfg0qe49rIOvm7Y6gBR 9 M7EyNTQspfaenAPuzNnrIT6vX BXtvcloBFYnvT4dMMYuG7r1Co DiMxX6OGokC4EqgeH5XNFjoKC g TFTsfSAOwS4hddphr2rqemgfA oWaDYGhXUj0SBo5SXZytKzwBj CiFKT2FqD2RXE2gZZagF4haEp n odcxhN0nJdp+WWB3zPNbvKSJD B0rEnrfaSD+YTKyLTT5vTqcGD mrMWOzaR0jIPKpZ2v0GsCcOrS 1 HZuyD1YmdzU9CPShyZOrIRJfo IELtY8txanhg4qoqysoSpXgLT OiTIy8XNa9ZVQugPasSrXgSSL 0 RdI4CZY6mSXaeM6eiUhystrvr G9wOyc+RkgaqNkeGUL9SAv7Z4 KePdr1VHErzSaeNS5riIZpPGx u Rk5rkJtmcKwzCW6sLUFufdiue 962IgSsr1klMTEjnRUwYKhnVI D7H25iq9G4KPVgPYJzKWP1fUS 4 uW6rrQxybvrkpSRhbNxyyaWzt HudILtuIQsrA986DFAbeOpjOe QwDIz4M2CvCbe9LMMouZhdTC8 n rSTxOVesSx4buAxvfYymYK0gE IMtdcbzn329EaIik5slYWItzF LyZIaqGPY6W94pe8D3BGTeDCN w UWL4sQA9vA6axHndxwjogOOdy VwlwhKbxVtsZCscLRslQ518RZ TsaEbdYmYemNd4U8FgLym1QVK z uUjvLK0vaQMrNTcvOn4nhPnnr DgtSO1gOXTuslxhg742GwHgh1 hkZBYyaUXxAUheDGE5P53ui0P 6 ODJuZBQpQJE0aSM7hU9bfKbxc jogbGVmdDsgdmVydGljYWwtYW vbH039LGXaoSoqKiVxvIilmoB g AOcpXCb3B0YcSrrgmMN+PC90Y YMzZM34dTXeaAGtf7nlmGe8Rr RcAHZsQUD1vSxzPIyxd9NtHEZ t B63fuMYwu4D6UDWdsPwwdPEkT vSnaYS7bZ8wMEzrqapuq4lsen cbHnabq4lmqa36wQ76E88nAVd p OOTpVZMaHIBbBOAfyZptlf1ck G9wIi8+RXBmuYJ1jOT2jV6jLN FyAdH6DHffQ101TwAoxIYeCdk j r2lmk6jymEq6DcU2BEUwaiWuo TenBVN6t1EtOm16O92yUTbdBT RfHIMtYYDlADYqfGkeix9qjY2 w Ii8+CFEafXX5jPP0pL9vXhVeQ cX0BPowZ744FpIzzADqUuzmP6 5lX2JoeMC+WSGaYxg0NUFckZm s FK8ugKXuSEaeYs8yUBJ2ZxNiE rZnCJzbH0SnXIUzwfhesdvloT O2MHFrLHQenT59Pv5ywXcjIUN w rFISvF9aoavom1smlovaYaUzW SWrHLr5VVx4NWPpbUkyPoUdXZ H1LmV8SUE3eTHyaP7kfNdknth g fK2dJ9MgUMXkxrftZd74eU2rL pSaBhK9QCmsHgx+I87GJZUYVE DWXFfRUUPCYUJQM6H2K7NbLif 0 GEYzbFafBF0utRQnWOokTk7bv TvgrHowDD4lNEFltvzqXFDqfO 6vLGBxmMBlwPtpGJ4uOIXmern m j575TxNuAIZ9LDJanIXaE1Awh H4zZlRaTVGdTBSbH0VmtCVvNC psD348SEdlRxT6KEFjyoNcG2V s LIDesNycOzK0s6C0Xp2eTj2lK Y5lQYL5NG56DD53tTHzi2P6pH Q5B3IgFNKvppksargnzPY0MCD u QIVchB56cYHcUYudYl1zi1Y6k 243WHRjPTKgvU40Yt5ugMzsAJ ZqlXSOlN3duwwur1bautirJjJ w DDSsPXz5WRx2RVXqoDnaZvGfU FI6ItC5IND5zIDmtL4nyEngtc hwiE2aOdk+RfMwOGUrfxI7C3C k Bth9GOTjsSfeOM4qqKMuTMqbK a8swXhyuLnnBG5dNOXuhfqgYM GjwG7cNVNseVIbyBljXC1zRJT p qcrel649IaSdWMV6ZKSbrGUmW 1TyhN8nVlNaYRCjTNQcE9EcdY RfGFhuF427GDmaWcG7SUFujfW p D2EuSADilKimRaN3k7F2Gp7QA N4VVHN4J6GkXsp2QMJnjJqkBF 3iwSKnNRpkPd8mpKivsFhcEW6 w SQPmfcwaKQHdpU9yNHCxwAAjc MfaLG1fECYfpolci030KpFzZR G1OBWwgPJmJ2CowQ6zPqNwUQK w QPHdV8KbiXUcAIjaO287FFbdL iZ2EIPwouUgN9MfULZykQkkVc H3p7H9Jy1HLYpliYQ+LY84rl6 8 I4KdZrxdPyb6VTZzNDO7pCR3g G7sTXSdTNbyx2D3rAE3F7Plqw Scba0dc8azMRQcWOdhH89wpPT w v8I5BOQpaDZ4XCXunNdvFlSgc G93Oyc+TNOyaZcox0SeTlxcs6 szr0dyvUj6ClTcVILhklTldTz u QNI7v7HwWk99I11ePHcwLZTpY RJzPPWhIINalEjgld1zvW3sOz 8+QNRgqZP6uZG9aQ2qVlAoUlV 2 CCxmL360KxOdzLMiVvvus3erh 0qsjVp2DdFvMALwmqYofTpmNJ N0s5PhMu99M4ZztJsfr9NiPnf 0 nm98nEJef6T4zGH6U7VjGQMvc fbcpJKrhNvmRX6eHWGwlhtbAC UzpC4jMIAcF4v4XwFpQfJ8SXe u R6RhnuQ2KIIrdBSxAWMmlFOZv L9bygsvr5qmwhjdRvWhVPEuTM b1ZKv8TNNabRwiEdSoGCJ3LtV 2 EDK0yCXxiD1wkHzopttheF3qD yc+SDd1q8xjzMKiJL9hvOV9CY 19VX73hXKwa3L1ySF3Y2EiBIN p zdksxyjokVK9NNIfMSWeyO14R r6hfCnlGj9qYUCpMKZ1VTMumC MxT1TmaS1uFcTmKLIiTSMkY0P l fVLnHEodY290UGnwGsG1RCEjk vKaG9IzZAIplHwmKyP8j2I8Tn 7ZGM50VI09XO74bMZbu9O1qQY 9 P0LpMSVeuocmdcooqYR6EFBkR USykO31Ph0ipTxdTm9bHBYhJW W2ETDvdQTkD8MrhC2wSjGvICO w TNLvE4EqfLWiFFgeD648FKidG wF0MVKydfSyT9MpVEIosLskXk Q9x7U9Np8KWi51HH56UR28yCN g y0W5qXF1L6DvHUKdwbqnpenjj YT1ITSmGVAonU27Ac4nrXjpVg 7wJSMtUFE5QVSqwWHyQ8VtpU4 y PzLoDMMzPJByH5CvgJWoDAjlC 211SAdzOyY3RLYlagUoO6YoDO LubIsqIkV2v4R3Zd9BFGebizh 8 J2EiXjzlgHY+IC92HVHfSD80o PNazGCah7uibHv7VgWsRATzNE B7fMspMAliz8EmAWXtU48llNL w c2U (more content not included)... [facility] Outside Recordson 12-31-2024 Outside Records [id number]#1.00OTGTIF F [facility] Ambulatory Patient Summaryon 12-26-2024 Ambulatory Patient Summary [address], [address] - Visit Summary For CLAUDINE DAVIS Age: 69 years Sex: FEMALE : 1955 Address: [facility] [place] [address] [place], [address] Home: Work: -- Primary Care Provider: BILLIE SHAFER MD Race: White Ethnicity: Not or Language: [place]ij[place] Health Plan: 1?MEDICARE, 2?[facility] AAR, 3?MEDICARE Reason for Visit: post hospital/assisted Prescription Information: If you have been given a prescription for narcotics, seek immediate medical attention if you have any difficulty breathing or any sudden status changes such as confusion and sleepiness. If you or anyone you know is experiencing suicidal thoughts, mental health, alcohol and/or drug addiction problems; contact the [facility] 19/06 Crisis Hotline -Text 4HBUM ds [phone]. Follow-Up Information With: Address: When: KEIRA DAVIS, BILLIE Hernandez [facility] [address] [place], [place] [id number] , only if needed Future Appointments No [...] 1.85 m2 Body Mass Index: 30.04 kg/m2 [place] Body Weight Calculated: 52.382 kg BSA Measured: [...] on the (more content not included)... Normal [facility] Patient Handouton 12-26-2024 Patient Handout Orthopedics Hip [...] health care provider. General instructions ? Take qpih-jhj-akaucvq and prescription medicines only as told by [...] any of th (more content not included)... [facility] Outside Recordson 12-24-2024 Outside Records [id number]#1.00OTGT IFF [facility] Outside Recordson 12-20-2024 Outside Records [id number]#1.00OTG TIFF [facility] Outside Recordson 11-13-2024 Outside Records [id number]#1.00OTGTIF F [facility] Outside Recordson 11-12-2024 Outside Records [id number]#1.00[address]GTI [facility] Outside Records [id number]#1.00[address]I [facility] Outside Recordson 11-06-2024 Outside Records [id number]#1.00OTG [facility] Outside Records [id number]#1.00OTGTI [facility] Outside Recordson 11-05-2024 Outside Records [id number]#1.00[address]GTI [facility] Coding Summaryon 07-25-2024 Coding Summary [employer] 64 QhacmewwGJn2gSc+PGhlYWQ+P D7ZNFDnG50mvKSpwK6nS9YFDR lOSywgQVBQTElOSyIgbmFtZT1 kaXNjZXJu IC8+KK3bGBVyOuzgwOKbi9I1u BC8O07ztr8vSOwyaNZ8DNMlBs Nsmtbaz3pxzFv2YTioTxgmHtV t EDMtxE86QIW5xL96Ye89pSYpl QThr3vqcJg1OwChLSVmPHN0fU kjKNyjm6CqNYVkQ82sjQRre9R 6 GSXruYhmuHHrAyOyaMJ7sE4mG Ajmzcwmq6ucmezzIbc7jx84lE Qpl5P0jUA3W1PskhS7YDTglHQ g HsswkUKSiE6qfdflg1ukipdzV nGgQTObNGq7HAb4DTEpzHtcFw LkPO75WMO9TTHfaeVmH5ElVYR s lLbhCgS0q8W1Cf7QA6BXGzxmN 1VNTUFSWTwvdGQ+CS99dm57T9 RdUhmxIap3RLLmQZE6vHD0oZ6 n HKHlQWnlh8X9bQM6Q9KbgaNus i9qg9wyVACtZKboT78zyGEam2 W7JRUflAU6DWEvuCvwMkLbzR5 3 Oyc+DIOlfCecw9VzNydfa5vsi 0buwAh8PzwcRRCoqlCiwNmeHB P2p7KfZw1pBTMbwHJ7dRG1cN4 i AbCkSiM6XYzqZ019QoKkpOWmE bboA77pH2RgrPB+ISEuAtl8IO MgxHucZJ4pG3MhLOMntzlqtYM m vXulZJ4bGMZxnaxoORTxcO8kX JMrN0f0YvMtWvK2SOrfI5OrAQ CppdzzVp35oW9tBbCpIxT7HSr u B6SvacI5RZPucOBmKErkGYG1M 42cs6M4KQXlRGYcQNB4iDV1eJ 1hbGlnbjogbGVmdDsgdmVydGl j OQewPExcN524NPJzjZhbBuCpZ GluZyBEYXRlOiAgMDgvMjkvMj AyNDwvdGQ+IOCzFOW9tJlrSQM n dGBkADhtCp3zpCdzvBfcPU8aC CLaxphvTFJtyA6aQPLwbFFtyD wyUW5oGNHvrowhs477QbZrPOK 0 LJXlmMUnU7HddB7aJrXqIKOzK FBoO9MblMZmBSkjB380JGxpBn T4TDDcnmAiD5PkZQFudJdzViA 0 n5F4Vf5Pd6YqwmfyU1NhlBNhE tKgBavzNQa7M1LpVyrlgJW+PC 20MJQfYC68VYs6KVL0aVnbMZb i AVSeI7LheX3rGyAzEOGmBGQuE yc+PHRhYmxlIHdpZHRoPScxMD MrSjJdvOhgXQ0bTl7oXSWiOGN v yUovqRKkZpAry0loJCOsCOueU G7auMjhQ9QisFP9SOWhu4p1Hr 06L87aP8QsuUO+ETVseZY2cSN 0 hM7cUlYrWpD2QEkxX401XvAsy VFsGrody9csm8yvrLq3OmQ8NF EudoByiHtrZBQ9n7HySo56T83 s IHdpZHRoPSIxNSUiIHZhbGlnb l1diR0dKs1+JVQnmAI8yDS9pD 3rDwQnAiJ3WHjbI205MwZncJI v Ncoha7lbd9iiyNj3QlCkCRYdj oOxnZnbGUW7z3YvIb32D5AbwB nby8AvOxu6tf02aGCpj7V3iNL 9 D7FfOBTdvgvdxFUitDogHG9oX IVkccwqCQFyrW9zEIPlW0f2Xy XySnQ9YDpsS2JtqwE5KXHzsLE g LMUakJGUrL4gnubij2uzrmamC rQzIMBeDDr4MNp2TXGnaZqkNv PvZXH8TdE9GBW4bMFbvB2zuKb n xbffmB6gRve+PQK5lYRkuRTFR C1cXbpwyOM+MARaWIC2zTsaTC kgYQViiW2oFKDrO2s6JgXkVsR 1 ZQaxF4FfayN2GZEelQYsBFOkh VMByI4vxqlba9vdtjrkTnXjVC WcTGl8PSl5GCIpiPtuLfEbKVF 0 JwL6OBN9uRIirG4uhOkdgkzbl G9wOyc+UlgbhJurVYX9GKk2U9 XtZva8DGXkzNotEF9fbYToUPp u Cb6hjQdxqYhaUD0lQGVsipstu 969SxUiz8zkGXWmhOVoBWezAI H0T69he9M6LWKyYWGqERP5uRG 4 bQ2ibVmdkslqmABibGhrqiLob PpnULtqAJgtF495KTRgvQptEq KzTAn0G1KhYld2UUFvcMmkFZ3 n xJGxMMvqCk8jdAcopAabUO1vK PGxjcsdw958RsFfr1spYDZomX OfRMdxUFN7O12th5W6BWSnSHV w WBR0kVH4iP6yeGsfpkxtsTJez XeawiOmpCpdMEdfBHszB935ZD HzfEbdFyChtVn0A9QhLza4FIL z hYfbWL8geLOiNTabEq9unHlys LviEY3uWTGepsuqi549UuKsv0 cvHYIzpHIcGQnzRAA7D71ie1X 6 OCPcKOKgLFW5jBE6cG9esLusr jogbGVmdDsgdmVydGljYWwtYW lrZ089QVPvkDwoQnNpjWziliP g UVsuJMw9M4BdVmszzUA+PC90Y OEhKJ19xDJigPOnn3vtkSa6Ff SqMUPsDZI6jDutIWmko3IuISC t G86tfOBvq8M8ZLYjwNuclBPfP mAknOD5kV3wPKyapkanb7spdv hsYoznz8pzth18hN88Y30cGQh p EZRgJORcMQQeNOHafUglhw9gl G9wIi8+HLAsmAG4bZR8uM8cZD XkMzV6HVrzE919RvZqmIKfMqc j f0npd5fnzZn7YuM1CTYgnrUms QrgVYJ6a1CcQp42A71wSXzsWI OsIMHdRGDuSNIxbIdrxd3ebY1 w Ii8+SISjxVS3xRJ9cC0qNyYgE rQ4YMkfK497UmLfdXIeFtoxC6 1oM7YdzZX+DHWgUys9RFZqpZs s HU7tmIBaMFcqVb3aRLA1XtPiF bZsKIicU0UxVEIssnbnyqngkL V7MHIbJRZibL13Yk8xbScwWVU w yBQJxE2nsikpw7jljgsqReLkR PBjXKp4XYq2BGQxjXlyNzXbVJ G4JcA5BNQ7tMKiiF0ceKsejga g vE5iN2IbXZJznjplJp89qT9bO sXnNuS3XPfwDme+I80TQVMNDP AJFCdNZNHUMJNQG2D1B4BvQyd 0 FZJppIfhSL0gwQZzGWnnYt4pd WnouSsjUU0vOOJdugboUWZpjA 8sGRCskRMcxNydFK6kKPKyosd m q961PiByGPP9UKKodXPbZ2Sdb F3mXjLxGZIkLQDcI6FngBBvNA tuJ910MLyeZhT6LOWzrdGqA1X s FQNyxZcoIfE5z7R5Rg0nIx3bJ N8fGLZ1ZK87WW01qJYht8Y5hN S6A0SkPKProwqarugigRV4TEL u RNJvfH78hVFxRRttSt3ow7P6g 987CYKfUGPhiS39Xw5qyUntQD VenHQYiP8yxycgc9kkvbtcZsT w BNTgGJs0JHd7YSWckYqkAeLdS WN1GlO0KNN1rYEhxN4unBjkog kovR8rIyz+RvZwZTWbmbV2V2R k Tqh7YESzyWqoMW3ikOMoHCejU d1xiIhybSzwUK4aHRUdjjdyJA WezJ1nJKJwoIDheGavCR4gXNT p uznqc587PrSaHAS5YDClrKRnW 4MqaK0zNuSgFEDrFGHcW1AkaJ OmRPxkF969TJroExN2UDZpfxL p T8IjGNKxgLwnHnP6y7V8Zp3UU L8SEIG1W6QnJsd7YKJhrFvxGF 2boSQaLRldTg9hqQxxeUikRF8 w QELttohpDZXjtP1lCSKzvPJfz HriZW9bMNVseiyec018HlEbIU A7ILJvrUQqG1RxbB6eRpSeFBX w TDIgZ0WukRKnPJwnD500AWciW mE6RAIuylVaU7VvQKVxhMewJe Q6v8X9Zp3TGMklyGY+VB24uy3 8 L3XpBljwFdv4WQRdIHI6eJF8m K3bBFDwRHjgg7K7vTY1B7Undy Nwsw2bz4qsVNEuDUfqX19daAL w n6N1RZVjaAK4MAUgbOyzIyBvv G93Oyc+FREbaSfgn9BeIhqfg3 nyf4smiEx7OqZoSNSuqvHoeXh u VCC1o5HvWi93G74gUAvuEEZnT MEbVPLbOTLkvFrhvo7tzY8xWg 8+OJElhLU0mJG9jI5rFzRoYtL 2 GPesW713CvYiwMTwNjmlk4jzz 9egfCj9PhIlRHJdcmZtiZqoGG W1r4EtCt23N1NylPxvv2FlJyz 0 dt13jRCrx3X6eHF5U9AjJAQwj vbyoFSatVhhOW4hHFFkkpxhGF NjhQ7bBGRtR5d4LrEmGjQ2SVs u A0VmqlH2YWObuNYfMCAhpCAYb I3mjxdtg7tjtywnOyXmKGKeYJ l9OYa7IOEuxAjgUpFvXWD8OnZ 2 TCE2iDNcdZ2urEmlhcrkzY2gQ yc+QKb1m4vkfMHyTP0peEY9OM 16UA84mLUjs9P7hKG7A7GfMRI p wcjavtlvkAQ8PULkEMHddA72I f8fsDvxWg3vYHOeVTJ5MCZqxP XgU0AouM5aYwVqNTPtBQBdS5W l oUMgAJslV384GEcyNzB4NTLpz gWjH8MwQGImuGhaPqZ1u4Y8Zy 2CSW69LY16QP42lUEqn3N2tNP 9 J8FsLTDegxeegpighCU6YRTaF FWrgB23Rs0wlVfdVy7wPTTdHS J7HRIauEJvD5YjbW2cTcKdIZP w JULiS6AulRGgEUcvR937FZvhF lD8CVSwkfMbF5EjUJHixSrsSp I9k2Q1Wu2CXx44OQ59AU73oIK g a2Q5tJP5O6IrUXBdwxmjzamak DM0YWIwOIPazO53Ey0slTdlTc 4xQVBkWDS1JWBprNCvA7MryZ2 y ToCwEBIlCKRzL0HkiWVeLTbwA 971YNpaJiP7PRXtiwNiA2NmWA MaaUntDtQ6m1N2Ac7OSPayctl 8 Y0KjWhokdAP+TY92OJAbVO74u ROrpXTaq4rkwAg8KlCrDSYhXR O0xDyrWWzci7NxSCJpM43ssCJ w c2U (more content not included)... [facility] Outside Recordson 07-24-2024 Outside Records [id number]#1.00OTGT IFF [facility] Outside Records [id number]#1.00OTGTI FF [facility] XR Foot - left 3 [facility] Result: AP lateral and oblique of the left foot does demonstrate avulsion off the anterior lateral tip of the talus with no obvious fracture of the base of the 4th or 5th metatarsals. No obvious dislocation she does have some calcific changes to the insertion of the Achilles as well as plantar fascia with heel spur. [facility] Radiology Study observation (narrative) [facility] ED Clinical Summaryon 2023 ED Clinical Summary [facility] ? Urgent Care [address] [place], [place] [id number] Clinical Summary PERSON INFORMATION Name: CLAUDINE DAVIS Age: 69 Years Sex: FEMALE : 1955 MRN: Acct#: Visit Reason: UC - Ankle/Foot/Toe Pain or Swelling; FALL LT ANKLE PAIN Arrival: 07/15/2024 17:00:42 Discharge: 07/15/2024 19:12:00 LOS: 000 02:12 Check In: 07/15/2024 17:00:42 Checkout: 07/15/2024 19:12:00 Address: [facility] [place] [address] [place] [address] PCP: BILLIE SHAFER MD PROVIDER INFORMATION Provider Role Assigned Unassigned Justin Ramos ED PA 07/15/2024 17:03:20 Kate Preciado QUEBRACHO TANNER Nurse 07/15/2024 17:14:03 VITALS INFORMATION Vital Sign Triage Latest Temperature Tympanic Temperature Temporal Artery Pulse Rate O2 Sat 100 % 100 % Respiratory Rate Blood Pressure /91 mmHg /91 mmHg MEDICAL INFORMATION Medications Given: Allergy Information: No known allergies PHYSICIAN DOCUMENTATION DISCHARGE INFORMATION: Discharge Disposition: Home Discharge Location: Home PATIENT EDUCATION INFORMATION Instructions: Ankle Sprain Follow-Up: With: Address: When: KRISHNA Manning, [address] [address] Business (1) With: Address: When: Follow up with Orthopedic With: Address: When: BILLIE SHAFER [address] [place] [address] Business (1) Within 5 to 7 days [...] of foot, left Patient Understands: Yes - Patient/family/caregiver verbalizes understanding of instructions given Comment: Normal [facility] ED Patient Summaryon 024 ED Patient Summary [facility] ? Urgent Care [address] [place], [place] [id number] PATIENT DISCHARGE INSTRUCTIONS Patient Information Name: CLAUDINE DAVIS Age: 69 Years Date of : 1955 Reason For Visit: UC - Ankle/Foot/Toe Pain or Swelling; FALL LT ANKLE PAIN Arrival Time: 07/15/2024 17:00:42 Primary Care Physician: BILLIE SHAFER MD Attending Physician: Justin Ramos Comment: Patient Education With: Address: When: KRISHNA MIDDLETON [address] [employer] [address] [address] Business (1) With: Address: When: Follow up with Orthopedic With: Address: When: BILLIE SHAFER [address] [place] [id number] Business (1) Within 5 to 7 days [...] Managing pain, stiffness, and swelling ? Take nesd-gkr-xbhnhpx and prescription medicines only as told by [...] as told (more content not included)... Normal [facility] Urgent Care Note- Provideron 07-15-2024 Urgent Care [...] states it hurts to move her foot [id number] more than it hurts to move it [...] consciousness, no numbness, no tingling, no weakness. Hematologic/Lymphatic symptoms: Bleeding tendency negative, bruising tendency negative. [...] Family/ Social History Medical history: Resolved Anemia ([id number]): Onset on 11/27/2002 at 47 years. Resolved. Comments: - iron deficiency, due to menorrhagia Diverticulitis ([id number]): Resolved. Cancer of breast, female ([id number]): Resolved. Chronic back pain ([id number]): Resolved. Comments: - affecting leftg knee, post fall Diverticulosis ([id number]): Resolved on 12/22/2016 at 61 years.. Surgical history: Cyst ([id number]) on 12/29/2016 at 61 Years. Comments: 12/29/2016 15:53 Anisha Beckett RN excision of cyst to left upper back Abdominal hysterectomy ([id number]) in 2002 at 48 Years. Mastectomy ([id number]) in 1998 at 44 Years. Comments: 12/22/2016 9:16 Monserrat Prasad RN right ORIF - Open reduction and internal fixation of fracture ([id number]) in 1966 at 12 Years. Comments: 12/22/2016 [...] Left, M (more content not included)... Normal [facility] Recordon 024 Urgent Care Record [facility] ? Urgent Care [address] [place] [address] PATIENT DISCHARGE INSTRUCTIONS Patient Information Name: CLAUDINE DAVIS Age: 69 Years Date of : 1955 Reason For Visit: UC - Ankle/Foot/Toe Pain or Swelling; FALL LT ANKLE PAIN Arrival Time: 07/15/2024 17:00:42 Primary Care Physician: BILLIE SHAFER MD Attending Physician: Justin Ramos Comment: Visit Diagnosis: Diagnoses This Visit Moderate left ankle sprain (S93.402A) Strain of foot, left (S96.912A) UC - Ankle/Foot/Toe Pain or Swelling ([id number]) If you received any narcotics, sedation, or [...] any legal documents With: Address: When: KRISHNA MIDDLETON [address] [address] Business (1) With: Address: When: Follow up with Orthopedic With: Address: When: BILLIE COTON [address] [place] [id number] Business (1) Within 5 to 7 [...] and treatment you received today in the [facility] were for an urgent problem and are not intended as complete care. It is important for you to follow up with a doctor, nurse practitioner, or physician?s care management assistant for ongoing care. If your symptoms [...] so we can reach you if necessary. [facility] has provided you with a complete list of medications post discharge. Please inform your hydroelectric operator/provider of your visit and for further instruction [...] 147 mmHg Marcelina (more content not included)... Normal [facility] XR Ankle Complete Lefton XR Ankle Complete [...] Loc Reyes MD 07/15/24 6:52 pm Technologist: [facility] XR Foot Complete Lefton 06-27 XR Foot [...] Monster Nava MD 07/15/24 8:26 pm Technologist: [facility] Coding Summaryon 06-19-2024 Coding Summary HTMLBase 64 JcumwhjaLTz8qVr+PGhlYWQ+P O4JSNEwO65gsFBgrG5rQ3AHZH lOSywgQVBQTElOSyIgbmFtZT1 kaXNjZXJu IC8+QC8uIAYlQeegyGIsn8A9v GB8R20ahs3yONqyzGW8XFTcBv Mfhkeoy8jgtRs6EZubPgplTrR t MRLihT56QHD4uX35Er28rZBif PYuk2svtEh6OvRiIRHkCRC1qE faKFzal8MuLAKxA30znJEzs8V 6 JIRbmMlhnMOvDqSkxBZ1oO0eN Pkpttkkh0xrmdpiMkz6ap75oF Xsk2X1wTZ3X7YpanC5JGFgiTC g OvenrYSZsP8vzqzxb1lokappV aXxFHSuNKp7BTp8BJLsqDmrLr ZqQO02ZKP3YYJkiuPhA5AnEPP s yGkdItL2w8I9Bk1OY6QRMdttM 1VNTUFSWTwvdGQ+XH23tz27D0 IrDondKvy5ZFSyYKR6sDP8oI5 n QGIbQDccj6K9gWJ8H1CejkHmb g2hq5yoHPDaSOyqZ70tvNAmg5 R9SNUitNE8BKVxiCbsYtEpvL4 3 Oyc+MNSsuWiim6CvOjnjt2loo 2drlQe8IiqxDMWdouMjmGbaDU I5l4LbGt8rCYQnbBH9hQG6iE4 i MrQrQoR9RUfuR486QwJszOYqY ctmZ06sP1KfwII+SOTuIyv0CN GmmNchFR0mS5XpEZTdhrcsaQH m qNwrSO2lTLTzmoxbSMAcuW0zP MLsB4j0XaDjKjA8UDqaP2WvKQ SoowawHv91xH2tQnLjVpE5RUo u N7XiikO9FBBdwMWbKNuuZFR4Q 90vs5C2UVBrFLEkICQ4tOX2iU 1hbGlnbjogbGVmdDsgdmVydGl j HKiaLSnqM332AOWogQdoDlBwT GluZyBEYXRlOiAgMDcvMjQvMj AyNDwvdGQ+JZIfQWO2fKjzAXG n jEGzXNqkRz3viRabhKpnJH8fQ JSysiwxRCRttS8cWTFaeSFywB cbTD9pWUEmiwyvt589EwChFWR 0 ONDarUGsL6YumC9nIbCfMGBjG JByC7LinZIyMQmeD128DJtkVy S6XCNhnbEgG8WnNVJldJxhDzA 0 n2Q1Sb4Mu5KpnvpcI5TavBEvW uNhUxfmPDd3F1AhYiqpvPR+PC 88YGBmFE93VIi0DJL9tArsZYk i LMJsD4LjgA1gWwLdBOWjHUHjC yc+PHRhYmxlIHdpZHRoPScxMD TkAzKwwPeuJG1iUe8jVRUoAVO v aEnivBRkUsUsj4ggOJQvBZavQ H1xeHzdI7QgdCF7UVTaq5r3Nf 52C32mU2BrxZQ+QQTblVX2bEC 0 hK3fLdZdGaX5ERnqW474WtSsx WQcVduon8wsy3lskAq3PqT5DX QlkzTdlEajXWW2d6ZrFo42P99 s IHdpZHRoPSIxNSUiIHZhbGlnb n2lmN2pZh4+GLBpiCC2zRO7mF 5pZeYuHeW0YAzvT759JcKsjGE v Gbjae1msg7fyiMw2VaGoXHCga eZkmTlvLOE3i2MlFq38M2NbbE yak3IaIfp6wo63tHTtg8X6nDG 9 M3OeGGRbbjoqbJDzaCyeDK4mK PGtgccuXINnwP2rLGNdS1w5Hw SnPgQ6MIrjJ3HkyvF2TYHchQX g BCWssQZTkT7oniizu5shsgxhR vCaJLPoGLz9SFs4XRFthWnaUr TwFUP3EsH8VRD8aVIipN8wiOj n iqlupP5tKtb+XWN0hRHzoXSOY K5fQoyxcDC+DBUnDZG3iVjfGC tuDHRcpY4iCNFyQ2o7MuInSyK 1 VKsiP2VncbF4ADCgqDWdTNKmw YYZzO7ebmahd9fqxuesXvThWH UaFSv3HDa3GKGplEopGxMwVSY 0 NbV5WZL3gDZwoS2gfSpanvuhd G9wOyc+IyddhPkvMZV6RJb3H0 CfUcb5UFKinCwvRF0mjIJnNTi u Ih9sxQrfnAdcYS6jDKRhnhkii 972AbVyi4ycSRGewNOnDOsrZF I1C16zi2W5DGAdLSQaQGD9bFJ 4 dM2ekMewfidobDQlbFjrrpHbb MadVAgkCGyeJ823LKCsvHwvYs QfIYh3X0LhXtd7OBOgqOuvYM7 n uNEtVPufVy2qrZdykQsjPM5mG VWettiwi500AhHjc1haJSHdvP UxBJnsXWL9Y59uc5F9ZAPhEKV w PQO3hXO4cA8okUeaevmsmTSju CcfsuFtzUqeMWefMFqwM404LV OmhUssTzEfyBx0J1UzTxm0PHZ z yGmjLS5xnMMnRXqwPb7gaFtqr LkeLW8kYGZvrbgut214RgJqw7 gfGPUbvANwQOjaVBC7B30aq7H 6 BCRbVGGbYGS2gRX9oS0liSxtb jogbGVmdDsgdmVydGljYWwtYW bfE431VKTshHsrLyDsuKniyrP g ZUiwETw2Y6GsJnemiMD+PC90Y EQiFH80bFTckDWuu0slmZv5Vc BqXXJhDKE6mGqwODggm5GdWLX t V19hhFCiw3D5POSmnMtgsGFxT mWisFD1hM7iZJqqqhwcm1odnj otHtsxw3wtxl06iX92X74rALn p AEKmBURzCWSdGKArrKrurh9al G9wIi8+FFEisIQ1dOB2wS5qNS LlTwT6UTzwN331LkYfiUDgGyl j u1gsz1xcdIw0WiD7OBMiznPzd AvkVUY1m8RaBd76Y83qJFbdIC FkLWEgBDWnTDDubVibgy5xtY5 w Ii8+QVVwjZX5fCE4mV8dXqDhY fN5BJieP680VvGnsXDtJhabI0 6sJ3LutTA+JCXcWjm9SKCruSo s LW6hmOHjTMgqLo3bHMS3RnBpN wIkSDdtS7TeZNIsnupcquxtgQ W1EDQxQDCmgC44Qg8amJhqIML w iTFYyP9tfkfmy9alwrjwCbYgY UYcGAj8LQl6RIWlaNvyPvCrLA W4ErP0ZXR2sIJeiP1vsMowzoa g jX0mN9MpXUFqhxbuRc93xQ7jN xFvRgM0JDwgYpl+X62YTPSXEC XZEZvCAWGHHBLBO6O5P3DfUvt 0 UAQzaPkfHL4dpOWcIRarYb5cg XyqnCovNE3mDAXggqrnRASqcA 3pMSAsrBEtlHgaGV2vTMQqcye m z481VxXrNHU8AXXhjDJzD5Xyz I9uRoXqNZBaNXKdS1CtyQXrVM moE943BOnqSwK6BGFzpeNoR8D s JTBioLurVfT9b2X3Wi5lGy0vZ Z9rCVM4AD78CN62xFMib1E8bE I8R8GiZHPqbjbcmgvntVC7HEZ u MIGsgG43lUOzIVloDn1lt8V9q 589LBBdSUNofE30Pc3mgVqcFD PfwPMIbL4vormms0qkcnclNeS w HJKiUYf4ZZf5UNRxbApfJtAsL TW9VlB9GHO8dRThtM2jaTssua effD7hZli+FbTkICEjiwG4W0P k Fkb5VNXqeWvpGW3siESqLCmfG w8gyHfpuHwqMI3lNKQrsvgnKX IgeD3uJTTooRUzjZhqJA9rPBD p ndckq726IcVeTCM2PEUjcCMdU 6KhxU1uQwUnQGXbXOIbY4HeqO XyTCwhX707NRzlXsG0BLCpvuW p G6WjZFUbkEcmEiN8b9Z4Xj9HP Y3VEIQ2S7TxByq6NXBjqMtpUK 1oaCDsVCzvBs0dhPiqoHrdUT3 w YXBbjlumRODslR2oJHGeoMOgd LrpAR8lJOCkvhhmd605BqWaJS H9HIVqvVClV8AtmE9uLaKkRGT w HKQoV4UfySQfSQtlW899KFocU gN1YYCywfCyJ3LbIXVgaVitMo T7t5H6Qe2RHAshsPA+WM68jm6 8 W5ZxRpgxPjd1SYGhPRQ7cTR2o D7lJTPbLWsiv5H0gNP6F5Lwtb Glmq2ia5dxJIMsQMxbI46ufDH w n0A8SLHaiLF6HYBumEtnXxUeg G93Oyc+NNSvkBtxp7JcFizqo0 xci8uwxBg8BhPqRGFkwxSznJf u USS8t2IrVt72R19eMEpbZBHiJ VQlXXNiBVTcwMngbx3adO9iMg 8+CHHgiZT3iUV0wV5aXoPuBxN 2 HHvmJ015DsXjxQVlIqadn6cve 1qvhDu3IiOrTJIgpjUnoNvpRX P9n2JjRu61S3RknJahc5VvLjc 0 zc54lOOxn0Z1qSG2L9XhEXJli xsqoJGohIywBL3cTNQvliasUH JenT9fMCCnN1f3CfFzRcS2RAg u Q2KmejC3ZVQwlYJhGMZpxSCGg S1rkwsyi6nypmxrKgQmHYGlZC s5IOo1WYFzzRveQvSiFRD9VcZ 2 KWS7wUIzlB8ppLhcfkxklR1kY yc+MTz2l2zcxKJyFD4osQY8MJ 54TO42mLVfx9D3pPJ6A8KxVZQ p yzyyfuyoeAB7SIMmUZCpuE45O w7axKzxYz8kTDKoVXD9MMSamU UfL7LcxC9qAsJxPGMdVPPtP9T l gXGuQNabA419ESzpSzS4BDAyg ePxW1AdWYSgxCweSfI5l5U0Lz 9VFP72OF71GM59nWObe0U6wPR 9 C7WdZYLdwrlbcjuwsDV7RQVwZ ZHwrE42Np0vwMsdMo3zAZMqWH C7SJIfcHDnP8NjnT7lVlGsFJI w TXEtE7WwgVUrVRhmH950GZuvI oO3OXPlxjEeM2PlXKYboFhkGm G4o6Q0Hr1LTy50JY27ZL12zMU g q8U2fIT3M5DcKLJhoyudtwgqv FC8ZKWnATXjqU55Gw9kdJyrOp 7vDJEqNZH2MGIltMKvX6AwrS0 y XvDgXCLsYVOsG8HmaEXaWVdoB 861VVyxVbM2BZIzizEyN2JzCP DodLjhTfC7i9E9Zv1ZXPowish 8 E8WiDsqlxBA+VK02NXBxVR59i LDceBGua8ipmYw6GmGmGORhMN L9gZmtQMitf5NfMKXfA38mmMN w c2U (more content not included)... [facility] Coding Summary HTMLBase 64 TjnxpdtaECp0mMq+PGhlYWQ+P N4FHCGvU71iiOVrfB8aV9PRYX lOSywgQVBQTElOSyIgbmFtZT1 kaXNjZXJu IC8+ZH2jKRQcPafgrCVjd3D2z EE3Z03pdr3tNTmusXZ0HFZlTl Kdomekz6ukeQv6PXdrOnpuDrT t FXBwqM75OOG6wN28Ca11vNOxb BKum7opqKp0PvOuHZPfSLK1xZ sfNNush2JtIPCwX23emGCmc3Z 6 IISmrPtzqKFmAhDgsPZ5cA1mK Yqfyftmb1admakuWre5uf14pX Itt2H8gCG3N1IoggR3NNTfxUM g AclxmZIMwY6scqkhf8zqfybpM dCgCENdCFq3HHl1DMQbwNfmHx VwPY68PDK6YUFwpvDsJ8JvITO s sBmqUjG0i7Y9Sm0XN5MHGoosW 1VNTUFSWTwvdGQ+WP96ba86I1 EpYbjpChs2DTTgCIU7wZQ3kZ7 n KVVeARqme5S7cNV2I2LfdfKtl l2zd6taKICjSMbaF51slNLna0 H2SRUkyHV6MTDpzBiwHwWfkG3 3 Oyc+PCIjlCjlw0MqQhxwk7epd 2thvKa0NcvbAOVhxhMxePwzHZ Z8s1XyUe6kGDBtpHX9lZL3nJ8 i BaZfYxX5NBvcW439PqJweCAoE bvzT68fH9BgyTM+SWSbZjd9DF YnqComXG1oZ4QeBWJzjjifhIZ m dYwbTO6zDHSeqxnkPZMqaJ5cG ZDrL4b3NuMnJaV1RFpnH3RdTH VtjpmwQv10jG9wQkQxAaK5RUu u N6IuwqH1NCHthNGoDTchEXP4Y 43ku8J2DUOdWKTrFSE4iBD4fZ 1hbGlnbjogbGVmdDsgdmVydGl j FFdwGGxhU306MFPsqBcnLnQaJ GluZyBEYXRlOiAgMDcvMjQvMj AyNDwvdGQ+BIUdAVG0dIzqTHH n xSNdHIucDn4ajKzbeCejYI6tP QXnlyzwFUGnqA4gUOKvhCMfmV tvVG3pMSGeshwmr746AyYqRMN 0 LTNhuCXrM3DreD7rBiVvRVDuJ RVtD9XzjFFkRRgwJ405BCmeIi F7QJDcwwPmR9UsGFEtkLorTbF 0 c2W7Rz2Jv1YdfjziN8EoaQHyR pSuQpzqITr7D4QjEklvfHR+PC 04QZRePD73JOr5JLR2xRovFOq i VTTsJ3QfhF8oBcLoUYLgHNIfO yc+PHRhYmxlIHdpZHRoPScxMD PhUvBblRrsUQ4fPe5vZBGeURG v wGcmjHSeObPfu0ktSFKkMLckI T1soJbcI9KonDO2TDJdy9s7Km 54Q86mA4HmpLH+LCIbkLG4mEM 0 zF4eVfTtAqQ0YSuaJ579XsNot QNaJoeij8zje0anfAa8RuP4FO ImeaJvaHtuAJA5n8NeIx71P46 s IHdpZHRoPSIxNSUiIHZhbGlnb p8xeD6yRl4+RLZkqZL6fBU3qS 2hEbLoZpA5QCizF517SwZkdUH v Muufq8vzx7lwpFl1QnErKWGya pKscVjhAXK1m6BiIm49T4XhsU tbx2MlYhf1pl51jKJkp4R0dEW 9 H6EhCSVoxxwxkVNaeObtUW5tM GOgwrzpQRSfmZ2nUJPfL1u1Gw HqScY0KHpbQ5UwciT1UOJmiJG g PFJhwWJUgA2hgkzcq6avilxoT lMmEYZuBMm8OUv8EWCiwIctTx GcLNB1UzK2QMH0xSIkyY0btWy n ehuxnV8cVjd+PUZ2nNKjlPIOC X0iFbavjVE+CVVlLGP8tGytNT usFIAxgH9mLYTeF5b6DoPkJwV 1 GFwpA2BsjmL0LEHyuIDuMAUmu LFZqQ2udbvvh7fdtpocAbNdTF AkNIk1MDq1WUXauBhyXmZcUQS 0 HuB0JNW0vZFnxR8wuMbujbarw G9wOyc+KbzdrJosIMK5EJp4G4 TrWsy1BCClpQwtOT9uwOIsWUx u Rl7lpCvfhIxqMU7cJAJzthjcm 030QqJml6lzYQCupEPiQIhxDO W6V22tw2I0BAWsDHFyFJJ9oCL 4 uC4xrXijnziitLYveWgtmjEem MnrSEqwIItoH580IWHbgAcpPz ZsROh2P8NsJib9JTZeoYszYE8 n vQFeVQaxNf1fqKujpStoZQ6lZ PVvkdsdo459UyNxt9cvYTVeqY VpORojEGS0Y58sj4V8TDDuQBB w GPW7yGK5qT6esRbcdlpskRTtr YekhyDhcBapHWtpPYmgT986BR NpkHzmJsKomXv6I3EyQnu3PTJ z oAmaPY3tyPZnQEpwXe7mzTxut QhzGI4jSGJfpgynd166LsVck8 inIWNegVIuDGorRRU1U42tl7P 6 TMFsNROoJYO3bVL4xJ6wsKbsj jogbGVmdDsgdmVydGljYWwtYW drD370VZPykJzfGgBdhIfcajJ g GYopWOe2H3BgVxttsSU+PC90Y IHrQM00pGRfsEAoe4gipLt4Ab ErXWEsYFN7pCgdMGlgq1LzCBP t M56wrVSsh7V6JGXgiZzmlYYjU sGfeQX5jZ9mYHunopkwx8qghl lkJgwfp7vhlb31eZ31P33eIJl p GTSjFLSfJCBbNRLcxPuvfo0tj G9wIi8+IGPwkTJ0cMU4mA1pCB QnUpV4LPbwA243WmOkoTMyVzt j o8int7fbiLq5FeC7FWWfzeYfa RxlPUP6s6RtXm42V41gPXokDZ PwCLByLKLnQMAwgJjoxn3qtM3 w Ii8+URCbyRV8ySW8rV6fUuGwL gB0MTvjD690CgXmfJPbLdkdG9 3wG1WkvBN+DCMyQoj0WWLhwIc s YX4dwPSmHEbmOh6rBPX4IqXsT xGrOEpsY7ErHRGsodpgexavbE A9MUNwNXIsjY52Au7wmTdhCDB w rTNHoQ4hdnwpj9ugqjrsPsCkE SSwBCk0JMn3XUJvaAoiUdNjWS C7PdW8LZT9tZQqdT2xnRxjnrf g gT3jU2MtKVOjhhhyLl46vH6gC zBmUhJ5UUkrTra+S65DXYZXIE JELZkPUNBNIUVKP1V8L1WxKum 0 NTIuvXcyVT8umWFsVVpoKi6xk EsuiKykNX1hWFGpnvwtVLKggM 2sMAFkcMSoeIttQF3jSMAnblg m e915AcNfYQZ0AADplSKgS3Eyz M8hFkJzJKPuTPTkW4LflSUgFI uhU043EHqkZaZ7LVBfnyBcV3F s FOFilHxpHuF1j7J2Vt7hTh5jR D1kOGQ0AK30LR01yOMlw6H6tO B4G6CpIRDqlnkcgafzcJW1CJD u GGUdpP98uDZbXBbuNh2op3R6x 328MXPwLABveL18Fj6qfBjqYE RppXFZeM7yynidg3nbyasrXlC w QTBkOSb5ETx5QQQyrBewFdNeO AY3MhX6DRX4xUSleA1mkQxaxz xmyV2zUxa+ItHvGFXmvxG8X4Y k Hwd6KRNioMpuXH0ujHGeIJryQ r1oiSngnMxkSF0rJPPvfhaoER RjdW0rOBHzcLEmoLniXZ6bNWF p xlkwm613XtTwIWI1HTNyoBCmN 8OybW9kRkStTWMcZIVmQ6MuqY PwZAsfK590URpdMnR8CSTwavS p G9CgSPBxkApsItJ8a9X3Ku1AH I2GYET9C6HoAtp1DLRjpXgdGA 6tbWHzMDnsPe1wzYevtOqoCQ2 w XTOrfcdtSFNvoM7hVZGnlNAyi GgfOI7fYCJjebpna592UeVyZC G7RDKcnGGcH6QorI6dCgYoTGF w BUMxZ9DlmQBqTOzsF225WGyeV wU7ECTrdaEjN1YrGMAbhJzvXr S1y2F2Mk7RNRqlrCX+JX72fz8 8 E7VpYqshZgq1CXDaBNM1lJK8b G8tBOLaKOzwx6D6fGM7M2Yxwz Gufj7wn1cuPYMdWSpeR28zxWA w l9I6TUJaeDK5QFMicBpyViGfo G93Oyc+RMAqtTfml2DbVypnl6 czc0btpPy8RwUaPQKhdgFlqSn u GSY9q4DlXt09L49qLQtxTKDsI RYoTBBfFIZrlIrojx4jeC4aJx 8+BBAtqBO2qXK4pS4aEsTkMfI 2 YRxfL141PhNzuPTjAcfuh9gxr 5uudXs5OdVkOANymkMpmWtlDD C9a9UgTm66R8UjuObhs9NfRey 0 ih70uGRsd6G3lDB3D1IhANWpt xchsHUolLgpNG8xEPWzbouiNI OdmY0bCIFoJ8n5AxWhKoK4IWh u A6AhfeK9SGKjyLEzTCGymKOPx O6piqodx4lhpjgpGcXbLGUhQO o3QFf0OBSpuZzuVvFhKBL5MqG 2 YQP3sOEbxG4aiBboxnjkcL8gC yc+UPx7n4jtfHKlJK6blBT5GK 89CU20fSMqk2Y0nHZ3R0BuFOG p wxwdwvylcYG8CVOmUKBmbA38F o6exNniXq1bRCFbLHJ4KCMwpW HbS7XcfO4rJcIwTWPtYGTbB9P l gZGaVWpmA269JRmlKjT5GUYfq zMvO9WgBOKrlJbfUyT5r9P7Vv 2HST34QK65GV13zKRwe1Q1jSB 9 S8EwBIQesgwuxatgaKW9VEDrV AWyjW33Vp1aoEyrKd7cPZHpGM X6ZCWjyGKtW2JuvV5eXoWnEPN w HSFoG9MliQCxDBswQ362JEjxS aH0LNBxbuOyW7PwSVUozXtyIb M7w7O3Kv8QDl14WR27IR17eCB g i4U7uMM0Y3RzDISjczchaqlou QL3BXNvVIOncX12Pq1qnPkzVd 8zJOEdOQG3MWFbyNKzN8AacW5 y SrGrCIIbBZNbI6MxxYPeFQwpP 181KDfvPlC6UYOdcoClM0HiUV ZszAwfRsZ1o3V6Az4GGJrbzzy 8 C5NlBvnqiRC+HA30PBOnPA92s VHnbOXyd2lgtDh7JcQnVZJqQZ T0eUuiBGbgy0KgICPyS63cnWL w c2U (more content not included)... [facility] Outside Recordson 06-14-2024 Outside Records [id number] F Normal [facility] Ambulatory Patient Summaryon 06-07-2024 Ambulatory Patient Summary [facility] [address], [facility], [address] - Visit Summary For CLAUDINE DAVIS Age: 69 years Sex: FEMALE : 1955 Address: [facility] [place], [address] Home: Work: -- Primary Care Provider: BILLIE SHAFER MD Race: White Ethnicity: Not or Language: Azerbaijani Health Plan: 1?MEDICARE, 2?[employer] AAR, 3?MEDICARE Reason for Visit: c/o right [...] alcohol and/or drug addiction problems; contact the [facility] 19/06 Crisis Hotline -Text 4HRZB ux [phone]. Follow-Up Information With: Address: When: BILLIE SHAFER MD [facility] [address] [place] [address]/ [address] [place] [address] , only if needed Future Appointments No [...] Dosin.300 kg Body Mass Index: 30.01 kg/m2 [place] Body Weight Calculated: 54.7 kg BSA Measured: [...] that cause pain. General instructions ? Take wdoz-udk-aicvadw and prescription medicines only as told by your health care provider. ? Keep a journal of your symptoms. Write down: ? How often you have hip pain. ? The location of your pain. ? What the pain feels (more content not included)... Normal [facility] Patient Handouton 06-07-2024 Patient Handout Orthopedics Hip [...] that cause pain. General instructions ? Take buqz-uwm-hihfzuv and prescription medicines only as told by [...] provider. Document Revised: 03/30/2020 Document Reviewed: 03/30/2020 [employer] Patient Education ? 2022 [employer] [facility] XR Hip Complete Righton 05-27 XR Hip Complete Right EXAM: XR Hip Compl ete Right HISTORY: See Dx right hip pain [...] described. Follow-up as needed. Final Dictated by: Dell DAVIS, Deon S Dictated DT/TM: 06/10/24 3:37 Signed (Electronic Signature): Deon Sharpe MD 06/10/24 4:34 pm Technologist: BHARATHI [facility] Albumin [Mass/volume] in Ser um or PlasmaOrdered By: Alex Doll on 01-10-2023 Albumin [Mass/Vol] 3.7 g/dL 3.2-5.5 [facility] Basophils Auto (Bld) [#/Vol] Ordered By: Alex Doll on 01-10-2023 Basophils (Bld) [#/Vol] 0.0 10*3/uL 0.0-0.2 [facility] Basophils/100 WBC Auto (Bld) Ordered By: Alex Doll on 01-10-2023 Basophils/100 WBC (Bld) 0.6 % . [facility] Creatinine and Glomerular fi ltration rate.predicted panel (S/P/Bld)Ordered By: Alex Doll on 01-10-2023 Creatinine [Mass/Vol] 0.71 mg/dL 0.44-1.03 [facility] Eosinophils Auto (Bld) [#/Vo l]Ordered By: Alex Doll on 01-10-2023 Eosinophils (Bld) [#/Vol] 0.2 10*3/uL 0.0-0.45 [facility] Eosinophils/100 WBC Auto (Bl d)Ordered By: Alex Doll on 01-10-2023 Eosinophils/100 WBC (Bld) 6.7 % . [facility] Erythrocyte distribution wid th Auto (RBC) [Ratio]Ordered By: Alex Doll on 01-10-2023 Erythrocyte distribution width (RBC) [Ratio] 13.9 % 11.9-15.3 [facility] Estimated glomerular filtrat ion rate (GFR) non- AmericanOrdered By: Alex Doll on 01-10-2023 GFR/1.73 sq M.predicted among non-blacks MDRD (S/P/Bld) [Vol rate/Area] > 60 mL/Min [facility] Globulin Calc (S) [Mass/Vol] Ordered By: Alex Doll on 01-10-2023 Globulin (S) [Mass/Vol] 2.2 g/dL [facility] Hematocrit Auto (Bld) [Volum e fraction]Ordered By: Alxe Doll on 01-10-2023 Hematocrit (Bld) [Volume fraction] 39.7 % 34.0-46.4 [facility] Hemoglobin [Mass/volume] in BloodOrdered By: Alex Doll on 01-10-2023 Hemoglobin (Bld) [Mass/Vol] 13.2 g/dL 11.8-15.4 [facility] Leukocytes [#/volume] correc hamilton for nucleated erythrocytes in Blood by Automated counOrdered By: Alex Doll on 01-10-2023 WBC corrected for nucl RBC Auto (Bld) [#/Vol] 3.3 10*3/uL 3.8-11.6 [facility] Lymphocytes Auto (Bld) [#/Vo l]Ordered By: Alex Doll on 01-10-2023 Lymphocytes (Bld) [#/Vol] 0.8 10*3/uL 1.00-4.8 [facility] Lymphocytes/100 WBC Auto (Bl d)Ordered By: Alex Doll on 01-10-2023 Lymphocytes/100 WBC (Bld) 25.5 % . [facility] MCH Auto (RBC) [Entitic mass ]Ordered By: Alex Doll on 01-10-2023 MCH (RBC) [Entitic mass] 28.2 pg 24.7-34.3 [facility] MCHC Auto (RBC) [Mass/Vol]Or dered By: Alex Doll on 01-10-2023 MCHC (RBC) [Mass/Vol] 33.2 g/dL 32.0-35.0 [facility] MCV Auto (RBC) [Entitic vol] Ordered By: Alex Doll on 01-10-2023 MCV (RBC) [Entitic vol] 84.9 fL 80-100 [facility] Monocytes Auto (Bld) [#/Vol] Ordered By: Alex Doll on 01-10-2023 Monocytes (Bld) [#/Vol] 0.3 10*3/uL 0.0-0.8 [facility] Monocytes/100 WBC Auto (Bld) Ordered By: Alex Doll on 01-10-2023 Monocytes/100 WBC (Bld) 9.6 % . [facility] Neutrophils Auto (Bld) [#/Vo l]Ordered By: Alex Doll on 01-10-2023 Neutrophils (Bld) [#/Vol] 1.9 10*3/uL 1.8-7.7 [facility] Neutrophils/100 WBC Auto (Bl d)Ordered By: Alex Doll on 01-10-2023 Neutrophils/100 WBC (Bld) 57.6 % . [facility] No Panel InformationOrdered By: Alex Doll on 01-10-2023 Estimated GFR () > 60 mL/Min [facility] Comment on above: GFR estimated refere nce range: According to KDOQI guidelines, <60 ml/min/1.73m2 is sufficient to diagnose a patient with chronic kidney disease. Pharmacy Creatinine Clearance (Chem N/A [facility] Nucleated erythrocytes [Pres ence] in Blood by Automated countOrdered By: Alex Doll on 01-10-2023 Nucleated RBC Auto Ql (Bld) 0.2 /100{WBC} 0-0.5 [facility] Platelet mean volume Auto (B ld) [Entitic vol]Ordered By: Alex Doll on 01-10-2023 Platelet mean volume (Bld) [Entitic vol] 8.6 fL 6.3-10.7 [facility] Platelets Auto (Bld) [#/Vol] Ordered By: Alex Doll on 01-10-2023 Platelets (Bld) [#/Vol] 209 10*3/uL 150-450 [facility] Protein [Mass/volume] in Ser um or PlasmaOrdered By: Alex Doll on 01-10-2023 Protein [Mass/Vol] 5.9 g/dL 6.1-7.9 [facility] RBC Auto (Bld) [#/Vol]Ordere d By: Alex Doll on 01-10-2023 RBC (Bld) [#/Vol] 4.68 10*6/uL 3.60-5.00 [facility] Serum or plasma alanine neves otransferase measurement without P-5'-P (enzymatic activiOrdered By: Alex Doll on 01-10-2023 ALT No additional P-5'-P [Catalytic activity/Vol] 44 U/L 10-60 [facility] Serum or plasma albumin/glob ulin mass ratioOrdered By: Alex Doll on 01-10-2023 Albumin/Globulin [Mass ratio] 1.7 {ratio} [facility] Serum or plasma alkaline francine sphatase measurement (enzymatic activity/volume)Ordered By: Alex Doll on 01-10-2023 ALP [Catalytic activity/Vol] 73 U/L 32-92 [facility] Serum or plasma anion gap de terminationOrdered By: Alex Doll on 01-10-2023 Anion gap [Moles/Vol] 8.2 mmol/L 6.0-15.0 [facility] Serum or plasma aspartate am inotransferase measurement (enzymatic activity/volume)Ordered By: Alex Doll on 01-10-2023 AST [Catalytic activity/Vol] 40 U/L 10-42 [facility] Serum or plasma calcium mishel urement (mass/volume)Ordered By: Alex Doll on 01-10-2023 Calcium [Mass/Vol] 9.7 mg/dL 8.2-10.2 [facility] Serum or plasma chloride grant surement (moles/volume)Ordered By: Alex Doll on 01-10-2023 Chloride [Moles/Vol] 103 mmol/L 95-114 [facility] Serum or plasma glucose mishel urement (mass/volume)Ordered By: Alex Doll on 01-10-2023 Glucose [Mass/Vol] 63 mg/dL 70-100 [facility] Comment on above: ADA recommended refe rence rangeRandom Glucose Reference Range is dependent on time and content of last meal. Glucose of more than 200 mg/dL in a nonstressed, ambulatory subject supports the diagnosis of Diabetes Mellitus. Serum or plasma potassium me asurement (moles/volume)Ordered By: Alex Doll on 01-10-2023 Potassium [Moles/Vol] 3.8 mmol/L 3.5-5.1 [facility] Serum or plasma sodium measu rement (moles/volume)Ordered By: Alex Doll on 01-10-2023 Sodium [Moles/Vol] 137 mmol/L 136-146 [facility] Serum or plasma total biliru bin measurement (mass/volume)Ordered By: Alex Doll on 01-10-2023 Bilirubin [Mass/Vol] 0.8 mg/dL 0.3-1.2 [facility] Serum or plasma total carbon dioxide measurement (moles/volume)Ordered By: Alex Doll on 01-10-2023 CO2 [Moles/Vol] 29.6 mmol/L 22.0-30.0 [facility] Serum or plasma urea nitroge n measurement (mass/volume)Ordered By: Alex Doll on 01-10-2023 Urea nitrogen [Mass/Vol] 13 mg/dL 08-19 [facility] WBC Auto (Bld) [#/Vol]Ordere d By: Alex Doll on 01-10-2023 WBC (Bld) [#/Vol] 3.3 10*3/uL 3.8-11.6 [facility] XR pelvis 1-2Von 09-28-2022 XR pelvis 1-2V [facility] [employer] Other XR pelvis 1-2V [facility] [employer] Other XR pelvis 1-2V [address] [place] [address] [employer] Other XR pelvis 1-2[place] [address] No [facility] [employer] Other XR pelvis 1-2V XRay Report [employer] Other XR pelvis 1-2V Signed [employer] Other XR pelvis 1-2V Patient: Claudine Davis MR#: [id number] [facility] [employer] Other XR pelvis 1-2V 4 [employer] Other XR pelvis 1-2V : 1955 Acct:[id number] [employer] Other XR pelvis 1-2V Age/Sex: 67 / F ADM Date: 09/28/22 [employer] Other XR pelvis 1-2V Loc: [facility] Room: Type : [facility] [employer] Other XR pelvis 1-2V Attending Dr: Thompson Greer II, MD [employer] Other XR pelvis 1-2V Copies to: Thompson Greer MD [employer] Other XR pelvis 1-2V Ordering Provider: Benjamin Greer MD [employer] Other XR pelvis 1-2V Date of Service: 09/28/22 [employer] Other XR pelvis 1-2V XR/XR knee RT 4V*: Acute pain of right knee [employer] Other XR pelvis 1-2V ([id number]) XR/XR pelvis 1-2V: Acute pain of right knee [employer] Other XR pelvis 1-2V AP PELVIS: , Right k nee 4 views [employer] Other XR pelvis 1-2V CLINICAL HISTORY: Ri ght knee pain for months. [employer] Other XR pelvis 1-2V COMPARISON: None [employer] Other XR pelvis 1-2V Pelvis: Minimal degenerative changes of the hips. No acute bony process. [employer] Other XR pelvis 1-2V Right knee: Moderate degenerative changes with chondrocalcinosis involving the lateral meniscus. [employer] Other XR pelvis 1-2V Weightbearing joint space narrowing. [employer] Other XR pelvis 1-2V X R/XR pelvis 1-2V [employer] Other XR pelvis 1-2V IMPRESSION: [employer] [facility] [employer] Other XR pelvis 1-2V MODERATE DEGENERATIV E CHANGES OF THE RIGHT KNEE. [employer] Other XR pelvis 1-2V Impression dictated by: Morgan Matamoros Jr., D.O.09/28/2022 4:47 PM [employer] Other XR pelvis 1-2V Dictation Location: [facility] [employer] Other XR pelvis 1-2V Transcribed By: PWS 09/28/22 [facility] [employer] Other XR pelvis 1-2V Dictated By: Morgan Matamoros Jr DO 09/28/22 [facility]6 [employer] Other XR pelvis 1-2V Signed By: [employer] Other XR pelvis 1-2V 09/28/22 [facility] [employer] Other CBC AUTO DIFFon 10-30-2021 BASO # 0.0 103/ul Normal 0.0-0.1 [facility] Comment on above: Performed By: #### C BC #### [facility] [address] [address] [address] Elsy Kunz Basophils/100 WBC (Bld) 0.1 % Critically low 0.2-2.0 [facility] Comment on above: Performed By: #### C BC #### [facility] [address] [address] [address] Elsy Kunz EO # 0.0 103/ul Normal 0.0-0.7 [facility] Comment on above: Performed By: #### C BC #### [facility] [address] [address] [address] Elsy Kunz Eosinophils/100 WBC (Bld) 0.3 % Critically low 0.9-7.0 [facility] Comment on above: Performed By: #### C BC #### [facility] [address] [address] Dr. Elsy Kunz Erythrocyte distribution width (RBC) [Ratio] 12.9 % Normal 11.0-15.0 [facility] [place] [facility] Comment on above: Performed By: #### C BC #### [facility] [address] [address] Dr. Elsy Kunz Hematocrit (Bld) [Volume fraction] 39.0 % Normal 36.0-48.0 [facility] Comment on above: Performed By: #### C BC #### [facility] [address] [address] Dr. Elsy Kunz Hemoglobin (Bld) [Mass/Vol] 12.8 g/dL Normal 12.0-16.0 [facility] Comment on above: Performed By: #### C BC #### [facility] [address] [address] Dr. Elsy Kunz IG # 0.01 10e3/ul Normal 0.00-0.03 [facility] Comment on above: Performed By: #### C BC #### [facility] [address] [address] Dr. Elsy Kunz IG % 0.1 % Normal 0.0-0.5 [facility] Comment on above: Performed By: #### C BC #### [facility] [address] [address] Dr. Elsy Kunz LYMPH # 0.9 103/ul Critically low 1.2-3.8 [facility] Comment on above: Performed By: #### C BC #### [facility] [address] [place] [address] Dr. Elsy Kunz Lymphocytes/100 WBC (Bld) 12.2 % Critically low 20.5-60.0 [facility] Comment on above: Performed By: #### C BC #### [facility] [address] [address] Dr. Elsy Kunz MANUAL DIFF REQ NO Normal [facility] Comment on above: Performed By: #### C BC #### [facility] [address] [address] Dr. Elsy Kunz MCH (RBC) [Entitic mass] 28.6 pg Normal 26.7-34.0 [facility] Comment on above: Performed By: #### C BC #### [facility] [address] [address] [address] Elsy Kunz MCHC (RBC) [Mass/Vol] 32.8 g/dL Normal 29.9-35.2 [facility] Comment on above: Performed By: #### C BC #### [facility] [address] [address] [address] Elsy Kunz MCV (RBC) [Entitic vol] 87.2 fL Normal 81.0-99.0 [facility] Comment on above: Performed By: #### C BC #### [facility] [address] [address] Dr. Elsy Kunz MONO # 0.6 103/ul Normal 0.3-0.8 [facility] Comment on above: Performed By: #### C BC #### [facility] [address] [address] Dr. Elsy Kunz Monocytes/100 WBC (Bld) 8.4 % Normal 1.7-12.0 [facility] Comment on above: Performed By: #### C BC #### [facility] [address] [address] Dr. Elsy Kunz NEUT # 5.8 103/ul Normal 1.4-6.5 [facility] Comment on above: Performed By: #### C BC #### [facility] [address] [address] Dr. Elsy Kunz Neutrophils/100 WBC (Bld) 78.9 % Critically high 43.0-75.0 [facility] Comment on above: Performed By: #### C BC #### [facility] [address] [address] Dr. Elsy Kunz Platelet mean volume (Bld) [Entitic vol] 10.6 fL Normal 9.5-13.[address] [facility] Comment on above: Performed By: #### C BC #### [facility] [address] [address] Dr. Elsy Kunz PLT 195 103/ul Normal 150-[address] [facility] Comment on above: Performed By: #### C BC #### [facility] [address] [address] Dr. Elsy Kunz RBC 4.47 106/ul Normal 4.20-5.40 [facility] Comment on above: Performed By: #### C BC #### [facility] [address] [address] Dr. Elsy Kunz WBC 7.3 103/ul Normal 4.0-11.0 [facility] Comment on above: Performed By: #### C BC #### [facility] [address] [place] [address] Dr. Elsy Kunz PROF 14(COMP METB)on 021 Albumin [Mass/Vol] 3.7 g/dL Normal 3.5-5.0 [facility] Comment on above: Performed By: #### C MP #### [facility] [address] [address] Dr. Elsy Kunz Albumin/Globulin [Mass ratio] 1.0 {ratio} Normal [facility] Comment on above: Performed By: #### C MP #### [facility] [address] [address] Dr. Elsy Kunz ALP [Catalytic activity/Vol] 97 U/L Normal 38-126 [facility] Comment on above: Performed By: #### C MP #### [facility] [address] [address] Dr. Elsy Kunz ALT [Catalytic activity/Vol] 45 U/L Normal 9-[address] [facility] Comment on above: Performed By: #### C MP #### [facility] [address] [address] Dr. Elsy Kunz Anion gap [Moles/Vol] 9.4 mmol/L Normal [facility] Comment on above: Performed By: #### C MP #### [facility] [address] [address] Dr. Elsy Kunz AST [Catalytic activity/Vol] 27 U/L Normal 14-36 [facility] Comment on above: Performed By: #### C MP #### [facility] [address] [address] [address] Elsy Kunz Bilirubin [Mass/Vol] 0.8 mg/dL Normal 0.2-1.[address] [facility] Comment on above: Performed By: #### C MP #### [facility] [address] [address] Dr. Elsy Kunz Calcium [Mass/Vol] 10.2 mg/dL Normal 8.4-10.2 [facility] Comment on above: Performed By: #### C MP #### [facility] [address] [address] Dr. Elsy Kunz Chloride [Moles/Vol] 98 mmol/L Normal 98-107 [facility] Comment on above: Performed By: #### C MP #### [facility] [address] [address] Dr. Elsy Kunz CO2 [Moles/Vol] 30.4 mmol/L Critically high 22.0-30.0 [facility] Comment on above: Performed By: #### C MP #### [facility] [address] [address] Dr. Elsy Kunz Creatinine [Mass/Vol] 0.66 mg/dL Normal 0.52-1.04 [facility] Comment on above: Performed By: #### C MP #### [facility] [address] [address] Dr. Elsy Kunz EGFR-AF FAROESE >60 Normal >=60 [facility] Comment on above: Performed By: #### C MP #### [facility] [address] [address] Dr. Elsy Kunz EGFR-NON AF FAROESE >60 Normal >=[address] [facility] Comment on above: Performed By: #### C MP #### [facility] [address] [address] Dr. Elsy Kunz Globulin (S) [Mass/Vol] 3.6 g/dL Normal [facility] Comment on above: Performed By: #### C MP #### [facility] [address] [address] Dr. Elsy Kunz Glucose [Mass/Vol] 79 mg/dL Normal 74-106 [facility] Comment on above: Performed By: #### C MP #### [facility] [address] [address] [address] Elsy Kunz Potassium [Moles/Vol] 3.8 mmol/L Normal 3.4-5.0 [facility] Comment on above: Performed By: #### C MP #### [facility] [address] [address] [address] Elsy Kunz Protein [Mass/Vol] 7.3 g/dL Normal 6.1-8.2 [facility] Comment on above: Performed By: #### C MP #### [facility] [address] [address] [address] Elsy Kunz Sodium [Moles/Vol] 134 mmol/L Critically low 137-145 [facility] Comment on above: Performed By: #### C MP #### [facility] [address] [address] [address] Elsy Kunz Urea nitrogen [Mass/Vol] 9.0 mg/dL Normal 7.0-17.0 [facility] Comment on above: Performed By: #### C MP #### [facility] [address] [address] Dr. Elsy Kunz Urea nitrogen/Creatinine [Mass ratio] 13.6 mg/mg Normal [facility] Comment on above: Performed By: #### C MP #### [facility] [address] [address] [address] Elsy Kunz CARDIAC TANESHA ADMITon 021 CK [Catalytic activity/Vol] 131 U/L Normal 30-135 [facility] Comment on above: Performed By: #### C JUAN C, CMADM #### [facility] [address] [address] Nic Zamudio CK.MB [Mass/Vol] 1.54 ng/mL Normal <=2.37 [facility] Comment on above: Performed By: #### C MP, CMADM #### [facility] [address] [address] Nic Zamudio HSTROP 6.5 pg/mL Normal 4.0-35.5 [facility] Comment on above: Result Comment: CUT- OFF POINTS HAVE BEEN ESTABLISHED BASED ON THE FOURTH UNIVERSAL DEFINITIONS OF MYOCARDIAL INFARCTION. THE UPPER REFERENCE LIMIT (URL) OF TROPONIN, DEFINED THE 99TH PERCENTILE OF cTnI DISTRIBUTION IN A REFERENCE POPULATION, HAS BEEN CONFIRMED THE DECISION THRESHOLD FOR AL DIAGNOSIS. Performed By: #### C JUAN C, CMADM #### [facility] [address] [address] Nic Lizz YVETTE 52.0 ng/mL Normal <=61.[address] [facility] Comment on above: Performed By: #### C JUAN C, CMADM #### [facility] [address] [address] Nic Lizz CBC AUTO DIFFon 12-08-2020 BASO # 0.0 103/ul Normal 0.0-0.1 [facility] Comment on above: Performed By: #### C BC #### [facility] [address] [place] [address] Nic Lizz Basophils/100 WBC (Bld) 0.2 % Normal 0.2-2.0 [facility] Comment on above: Performed By: #### C BC #### [facility] [address] [address] Nic Lizz EO # 0.1 103/ul Normal 0.0-0.7 [facility] Comment on above: Performed By: #### C BC #### [facility] [address] [address] Nic Lizz Eosinophils/100 WBC (Bld) 1.0 % Normal 0.9-7.0 [facility] Comment on above: Performed By: #### C BC #### [facility] [address] [address] Nic Lizz Erythrocyte distribution width (RBC) [Ratio] 12.8 % Normal 11.0-15.0 [facility] Comment on above: Performed By: #### C BC #### [facility] [address] [place] [address] Nic Lizz Hematocrit (Bld) [Volume fraction] 41.7 % Normal 36.0-48.0 [facility] Comment on above: Performed By: #### C BC #### [facility] [address] [place], [place] [id number] Nic Lizz Hemoglobin (Bld) [Mass/Vol] 13.4 g/dL Normal 12.0-16.0 [facility] Comment on above: Performed By: #### C BC #### [facility] [address] [place], [place] [id number] Nic Lizz IG # 0.00 10e3/ul Normal 0.00-0.03 [facility] Comment on above: Performed By: #### C BC #### [facility] [address] [address] Nic Lizz IG % 0.0 % Normal 0.0-0.5 [facility] Comment on above: Performed By: #### C BC #### [facility] [address] [address] Nic Lizz LYMPH # 1.5 103/ul Normal 1.2-3.[address] [facility] Comment on above: Performed By: #### C BC #### [facility] [address] [place], [place] [id number] Nic Lizz Lymphocytes/100 WBC (Bld) 31.0 % Normal 20.5-60.0 [facility] Comment on above: Performed By: #### C BC #### [facility] [address] [place], [place] [id number] Nicvaldez Zamudio MANUAL DIFF REQ NO Normal [facility] Comment on above: Performed By: #### C BC #### [facility] [address] [place], [place] [id number] Nic Lizz MCH (RBC) [Entitic mass] 28.0 pg Normal 26.7-34.[address] [facility] Comment on above: Performed By: #### C BC #### [facility] [address] [address] Nic Lizz MCHC (RBC) [Mass/Vol] 32.1 g/dL Normal 29.9-35.[address] [facility] Comment on above: Performed By: #### C BC #### [facility] [address] [place] [id number] Nic Lizz MCV (RBC) [Entitic vol] 87.2 fL Normal 81.0-99.0 [facility] Comment on above: Performed By: #### C BC #### [facility] [address] [place], [place] [id number] Nic Lizz MONO # 0.3 103/ul Normal 0.3-0.[address] [facility] Comment on above: Performed By: #### C BC #### [facility] [address] [place], [place] [id number] Nic Lizz Monocytes/100 WBC (Bld) 6.5 % Normal 1.7-12.[address] [facility] Comment on above: Performed By: #### C BC #### [facility] [address] [place] [address] Nic Lizz NEUT # 3.0 103/ul Normal 1.4-6.[address] [facility] Comment on above: Performed By: #### C BC #### [facility] [address] [place], [place] [id number] Nic Lizz Neutrophils/100 WBC (Bld) 61.3 % Normal 43.0-75.[address] [facility] Comment on above: Performed By: #### C BC #### [facility] [address] [place], [place] [id number] Nic Lizz Platelet mean volume (Bld) [Entitic vol] 10.6 fL Normal 9.5-13.[address] [facility] Comment on above: Performed By: #### C BC #### [facility] [address] [place], [place] [id number] Nic Lizz PLT 238 103/ul Normal 150-[address] [facility] Comment on above: Performed By: #### C BC #### [facility] [address] [place], [place] [id number] Nic Lizz RBC 4.78 106/ul Normal 4.20-5.[address] [facility] Comment on above: Performed By: #### C BC #### [facility] [address] [place], [place] [id number] Nic Lizz WBC 4.9 103/ul Normal 4.0-11.0 [facility] Comment on above: Performed By: #### C BC #### [facility] [address] [place], [place] [id number] Nic Zamudio FREE T4on 12-08-2020 Free T4 [Mass/Vol] 0.93 ng/dL Normal 0.78-2.19 [facility] Comment on above: Performed By: #### F T4 #### [facility] [address] [place], [place] [id number] Nic Zamudio PROF 14(COMP METB)on 021 Albumin [Mass/Vol] 3.7 g/dL Normal 3.5-5.0 [facility] Comment on above: Performed By: #### C TREVA IRIZARRY #### [facility] [address] [place], [place] [id number] Nic Lizz Albumin/Globulin [Mass ratio] 1.1 {ratio} Normal [facility] Comment on above: Performed By: #### C TREVA IRIZARRY #### [facility] [address] [place], [place] [id number] Nic Lizz ALP [Catalytic activity/Vol] 109 U/L Normal 38-126 [facility] Comment on above: Performed By: #### C TREVA IRIZARRY #### [facility] [address] [place], [place] [id number] Nic Lizz ALT [Catalytic activity/Vol] 65 U/L Critically high 9-52 [facility] Comment on above: Performed By: #### C JUAN C, TREVA #### [facility] [address] [place], [place] [id number] Nic Lizz Anion gap [Moles/Vol] 11.5 mmol/L Normal [facility] Comment on above: Performed By: #### C JUAN C, TREVA #### [facility] [address] [place], [place] [id number] Nic Lizz AST [Catalytic activity/Vol] 47 U/L Critically high 14-36 [facility] Comment on above: Performed By: #### C TREVA IRIZARRY #### [facility] [address] [address] Nic Lizz Bilirubin [Mass/Vol] 0.6 mg/dL Normal 0.2-1.[address] [facility] Comment on above: Performed By: #### C JUAN C, CMADM #### [facility] [address] [address] Nic Lizz Calcium [Mass/Vol] 10.1 mg/dL Normal 8.4-10.2 [facility] Comment on above: Performed By: #### C JUAN C, CMADM #### [facility] [address] [place] [address] Nic Lizz Chloride [Moles/Vol] 107 mmol/L Normal 98-[address] [facility] Comment on above: Performed By: #### C JUAN C, CMADM #### [facility] [address] [place] [address] Nic Lizz CO2 [Moles/Vol] 28.1 mmol/L Normal 22.0-30.0 [facility] Comment on above: Performed By: #### C JUAN C, CMADM #### [facility] [address] [place] [address] Nic Lizz Creatinine [Mass/Vol] 0.78 mg/dL Normal 0.52-1.04 [facility] Comment on above: Performed By: #### C JUAN C, CMADM #### [facility] [address] [address] Nic Lizz EGFR-AF FAROESE >60 Normal >=60 [facility] Comment on above: Performed By: #### C JUAN C, CMADM #### [facility] [address] [place], [place] [id number] Nic Lizz EGFR-NON AF FAROESE >60 Normal >=[address] [facility] Comment on above: Performed By: #### C JUAN C, CMADM #### [facility] [address] [place] [address] Nic Lizz Globulin (S) [Mass/Vol] 3.4 g/dL Normal [facility] Comment on above: Performed By: #### C JUAN C, CMADM #### [facility] [address] [place], [place] [address] Nic Lizz Glucose [Mass/Vol] 89 mg/dL Normal 74-106 [facility] Comment on above: Performed By: #### C MP, CMADM #### [facility] [address] [id number] Nic Lizz Potassium [Moles/Vol] 3.6 mmol/L Normal 3.4-5.0 [facility] Comment on above: Performed By: #### C MP, CMADM #### [facility] [address] [address] Nic Lizz Protein [Mass/Vol] 7.1 g/dL Normal 6.1-8.2 [facility] Comment on above: Performed By: #### C JUAN C, CMADM #### [facility] [address] [address] Nic Lizz Sodium [Moles/Vol] 143 mmol/L Normal 137-145 [facility] Comment on above: Performed By: #### C JUAN C, CMADM #### [facility] [address] [address] Nic Lizz Urea nitrogen [Mass/Vol] 17.0 mg/dL Normal 7.0-17.0 [facility] Comment on above: Performed By: #### C JUAN C, CMADM #### [facility] [address] [address] Nic Lizz Urea nitrogen/Creatinine [Mass ratio] 21.8 mg/mg Normal [facility] Comment on above: Performed By: #### C JUAN C, CMADM #### [facility] [address] [address] Nic Lizz TSHon 12-08-2020 TSH 5.736 uIU/mL Critically high 0.470-4.[address] [facility] Comment on above: Performed By: #### T SH #### [facility] [address] [address] Nic Lizz TSH RANGE SEE BELOW Normal [facility] Comment on above: Result Comment: <0.3 4 UIU/ml HYPERTHYROID 0.34-5.60 UIU/ml EUTHYROID >5.60 UIU/ml HYPOTHYROID Performed By: #### T #### [facility] [address] [address] Nic Zamudio XR CHEST 1 Von 12-08-2020 [...] by: FELICIA COLLINS Date: 2020-12-08 00:06 Normal [facility] Vital Signs Date Time Vital Sign Value Performing Clinician Facility 03-10-2025 01:30-0400 Diastolic blood pressure 78 mm[Hg] Billie Shafer MD Work Phone: [facility] 03-10-2025 01:30-0400 Heart rate 79 /min Billie Shafer MD Work Phone: [facility] 03-10-2025 01:30-0400 Respiratory rate 18 /min Billie Shafer MD Work Phone: [facility] 03-10-2025 01:30-0400 SaO2% (BldA) [Mass fraction] 98 % Billie Shafer MD Work Phone: [facility] 03-10-2025 01:30-0400 Systolic blood pressure 139 mm[Hg] Billie Shafer MD Work Phone: [facility] 03-09-2025 22:34-0400 Body height 160.02 cm Billie Shafer MD Work Phone: [facility] 03-09-2025 22:34-0400 Body temperature 97.8 [degF] Billie Shafer MD Work Phone: [facility] 03-09-2025 22:34-0400 Body weight 76.2 kg Billie Shafer MD Work Phone: [facility] 01-25-2023 09:15-0500 Body height 160.02 cm Alex Doll Other [employer] Other 01-25-2023 09:15-0500 Body mass index (BMI) [Ratio] 29.83 kg/m2 Alex Doll Other [employer] [facility] [employer] Other 01-25-2023 09:15-0500 Body weight 76.39 kg Alex Doll Other [facility] [employer] Other 01-17-2023 16:20-0500 Diastolic blood pressure 84 mm[Hg] MD Billie Shafer Work Phone: [facility] 01-17-2023 16:20-0500 Heart rate 51 /min MD Billie Shafer Work Phone: [facility] 01-17-2023 16:20-0500 Respiratory rate 16 /min MD Billie Shafer Work Phone: [facility] 01-17-2023 16:20-0500 SaO2% (BldA) [Mass fraction] 99 % MD Billie Shafer Work Phone: [facility] 01-17-2023 16:20-0500 Systolic blood pressure 126 mm[Hg] MD Billie Shafer Work Phone: [facility] 01-17-2023 14:09-0500 Body height 163.83 cm MD Billie Shafer Work Phone: [facility] 01-17-2023 14:09-0500 Body mass index (BMI) [Ratio] 29 kg/m2 MD Billie Shafer Work Phone: [facility] 01-17-2023 14:09-0500 Body weight 78 kg MD Billie Shafer Work Phone: [facility] 01-17-2023 12:35-0500 Body temperature 97.8 [degF] MD Billie Shafer Work Phone: [facility] 01-04-2023 12:00-0500 Body height 160.02 cm Alex Doll Other [employer] Other 01-04-2023 12:00-0500 Body mass index (BMI) [Ratio] 29.76 kg/m2 Alex Doll Other [employer] Other 01-04-2023 12:00-0500 Body weight 76.2 kg Alex Doll Other [employer] Other 09-28-2022 15:30-0400 Body height 160.02 cm [facility] [place] [facility] Other [employer] Other 09-28-2022 15:30-0400 Body mass index (BMI) [Ratio] 28.34 kg/m2 [facility] [place] [facility] Other [employer] Other 09-28-2022 15:30-0400 Body weight 72.58 kg [facility] [place] [facility] Other [employer] Other Encounters Encounter Date Encounter Type Care Provider Facility Start: 05-14-2025 End: 05-14-2025 ambulatory BILLIE SHAFER Facility:[facility] Start: 05-14-2025 End: 05-14-2025 Patient encounter procedure Krishna TORRES [facility] [place] Start: 05-05-2025 ambulatory BILLIE SHAFER Facility:[facility] Start: 03-28-2025 End: 03-28-2025 ambulatory BILLIE SHAFER MD Facility:[facility] Start: 03-09-2025 End: 03-10-2025 Emergency department patient visit Billie Shafer MD Work Phone: [facility]-Emergency Room Work Phone: Start: 02-27-2025 End: 02-27-2025 ambulatory BILLIE SHAFER MD Facility:[facility] Start: 01-20-2025 End: 01-20-2025 ambulatory BILLIE SHAFER MD Facility:[facility] Start: 01-20-2025 End: 01-20-2025 ambulatory BILLIE SHAFER MD Facility:[facility] Start: 01-20-2025 ambulatory BILLIE SHAFER MD Facil ity:[facility] Start: 01-14-2025 ambulatory BILLIE SHAFER MD Facil ity:[facility] Start: 12-26-2024 End: 12-26-2024 ambulatory BILLIE SHAFER MD Facility:[facility] Start: 07-23-2024 End: 07-23-2024 Bamboo flowsheet Rosita Carter PA Work Phone: [facility] Start: 07-23-2024 End: 07-23-2024 Bamboo flowsheet Rosita Mckeon Henderson PA Work Phone: [facility] Start: 07-23-2024 End: 07-23-2024 Patient encounter procedure Rosita Mike Henderson PA Work Phone: [facility] Comment on above: Left foot pain (Prim anabela Dx); Moderate left ankle sprain, initial encounter; Avulsion fracture of left talus, closed, initial encounter Start: 07-23-2024 End: 07-23-2024 ambulatory ROSITA Mckeon SHANNON Not Available Start: 07-15-2024 End: 07-15-2024 ambulatory Justin ELAINE Facility:[facility] Start: 06-07-2024 End: 06-07-2024 ambulatory BILLIE SHAFER MD Facility:[facility] Start: 01-25-2023 End: 01-25-2023 ambulatory Alex Doll Other [facility] Other Start: 01-25-2023 Postop follow up vis it related to original px Alex Doll [facility] Start: 01-17-2023 End: 01-17-2023 Admission to same day surgery center MD Billie Shafer Work Phone: [facility] [place] Start: 01-17-2023 End: 01-17-2023 ambulatory MD Billie Shafer Work Phone: [facility] Work Phone: Start: 01-10-2023 End: 01-10-2023 ambulatory MD Billie Shafer Work Phone: [facility] Work Phone: Start: 01-10-2023 End: 01-10-2023 Patient encounter procedure MD Billie Shafer Work Phone: [facility]Pre-Surgical Testing Work Phone: Start: 01-04-2023 End: 01-04-2023 ambulatory Alex Doll Other [facility] Other Start: 01-04-2023 Encounter for other preprocedural examination Alex Doll [facility] Start: 01-04-2023 Office outpatient vi sit 25 minutes Alex Doll [facility] Start: 09-28-2022 End: 09-28-2022 Patient encounter procedure MD Thompson Greer II Work Phone: [facility] Start: 09-28-2022 End: 09-28-2022 ambulatory MD Thompson Greer II Work Phone: [facility] Work Phone: Start: 09-28-2022 Office outpatient ne w 45 minutes Thompson Greer II [facility] Start: 10-30-2021 End: 10-30-[address] DOCTOR EPPERSON Facility:[facility] Start: 12-08-2020 End: 12-08-[address] TANESHA PAGE Facility:[facility] Procedures Date Procedure Procedure Detail Performing Clinician Start: 11-04-2024 Closed reduction of fracture of left femur and internal fixation using dynamic hip screw plate Krishna TORRES Start: 07-23-2024 Radex foot complete minimum 3 views Rosita MALCOLM Work Phone: Start: 01-17-2023 Release of trigger finger MD Billie Shafer Work Phone: Start: 09-28-2022 Pelvis X-ray MD Thompson Greer II Work Phone: Closed fracture of l eft wrist (disorder) Krishna NILL Colonoscopy Krishna NILL Colonoscopy Krishna NILL Excision of lipoma of back M ichael NILL Fracture of lower li mb (disorder) Krishna NILL Fracture of right olecranon Krishna NILL Mastectomy of right breast M ichael NILL Total abdominal hysterectomy with bilateral salpingo-oophorectomy Krishna NILL Trigger thumb of rig ht hand Krishna NILL Plan of Treatment Date Care Activity Detail Author Start: 03-09-2025 Computed tomography of abdomen and pelvis with contrast CT abdomen pelvis w con [facility] Start: 03-09-2025 CT Abdomen and Pelvi s W contrast IV [facility] Start: 07-23-2024 End: 07-23-2024 Patient encounter procedure 07/23/2024 8:00 AM EDT Office Visit [facility] [address] [place] [address] Rosita Carter, GOLD [address] [place] [address] Arrived YG [facility] Comment on above: Arrived Start: 01-17-2023 [facility] Start: 01-17-2023 [facility] Start: 09-28-2022 X-ray of right knee XR knee RT 4V* F [facility] Patient Education Diverticulitis - Discharge instructions [facility] Work Phone: Patient referral [facility] Work Phone: Immunizations Immunization Date Immunization Notes Care Provider Hudson haro 09-10-2024 influenza virus vaccine, unspecified formulation Krishna NILL [facility] [place] 08-11-2022 SARS-CoV-2 (COVID-19 ) [id number] Krishna NILL [place] 08-23-2021 SARS-CoV-2 (COVID-19 ) mRNA BNT-162b2 vax Krishna NILL [place] Comment on above: Result Comment: 2024: [id number] 01-30-2021 SARS-CoV-2 (COVID-19 ) mRNA BNT-162b2 vax Krishna VLADIMIRL [place] Comment on above: Result Comment: 2024: [id number] 01-09-2021 SARS-CoV-2 (COVID-19 ) mRNA BNT-162b2 vax Krishna GILBERTL [place] Comment on above: Result Comment: 2024: [id number] Payers Date Payer Category Payer Private Health Insurance [id number] 2025 Unknown [id number] 2025 Self-pay [id number] 2023 Unknown AARP AARP [id number] 2023-Present [address] [place] [address] [id number] 2020 Medicare [id number] 1959 Medicare [id number] 1959 Unknown [id number] 1954 Unknown [id number] 2.16.840.1.655172.3.579.2.5 93 1954 Unknown [id number] 2.16.840.1.350721.3.579.2.5 93 1954 Unknown [id number] 2.16.840.1.826921.3.579.2.1 259 1954 Unknown [id number] 2.16.840.1.324472.3.579.2.1 259 1954 Unknown [id number] 2.16.840.1.507922.3.579.2.7 27 1954 Unknown [id number] 2.16.840.1.856790.3.579.2.7 18 1954 Unknown [id number] 2.16.840.1.655903.3.579.2.7 18 1954 Unknown [id number] 2.16.840.1.896112.3.579.2.7 18 1954 Unknown [id number] 2.16.840.1.339700.3.579.2.7 18 1954 Unknown [id number] 2.16.840.1.295621.3.579.2.7 18 1954 Unknown [id number] 2.16.840.1.918451.3.579.2.7 18 1954 Unknown [id number] 2.16.840.1.847381.3.579.2.7 18 1954 Unknown [id number] 2.16.840.1.251871.3.579.2.7 18 1954 Unknown [id number] 2.16.840.1.636082.3.579.2.7 18 1954 Unknown [id number] 2.16.840.1.633774.3.579.2.7 18 1954 Unknown [id number] 2.16.840.1.584104.3.579.2.7 18 1954 Unknown [id number] 2.16.840.1.024203.3.579.2.7 18 Unknown [id number] 2.16.840.1.098639.3.579.2.5 31 Social History Date Type Detail Facility Tobacco smoking stat [facility] Unknown if ever smoked [facility] Work Phone: Start: 1955 Sex Assigned At Female F [facility] Sex Assigned At [facility] Start: 01-10-2023 End: 05-14-2025 Tobacco smoking status NHIS Ex-smoker (finding) [facility] consumption unknown [facility] Start: 1955 Sex assigned at Not on file [facility] History of tobacco use Current smoker [facility] History of tobacco use Cigarette Smoker [facility] Start: 07-23-2024 Tobacco use and exposure Smokeless tobacco non-user [facility] Start: 03-09-2025 Tobacco smoking stat [facility] Never smoked tobacco (finding) [facility] Start: 03-10-2025 Sex Female (finding) [facility] Tobacco smoking status Never [facility] Sexual Orientation [facility] [place] Goals Date Patient Goal Desired Activity /State Clinical Notes 09-28-2022 to 05-14-2025 GOLD Beyer - 07/23/2024 8:00 AM EDTPatient Instructions Note Date & Type Note Facility 05-14-2025 Note General Surgery Offi ce/Clinic Note Chief Complaint consultation for colonoscopy HPI Staff 70 year old female presents on consultation from Dr. Shafer for diverticulitis. Patient presented to PCP 12/2024 with complaint of LLQ pain for 1 week and no bowel movement for 3-4 days. Treated with Augmentin and Flagyl for possible diverticulitis. Patient presented to [facility] ED 02/2025 with complaint of LLQ that had started earlier in the day. CT completed at this time with diverticulitis of the descending colon. Prescribed Augmentin. Follow up with PCP 03/2025 with 80-90% improvement in symptoms. Prescribed Augmentin and Flagyl. Patient reports last colonoscopy was completed greater than 10 years ago; [facility] did not have record of this. Verbalized she is no longer experiencing abdominal pain or constipation. History of Present Illness 70 yo female with h/o htn, hyperlipidemia, right breast cancer, chronic back pain, macular degeneration, migraines, referred for colonoscopy; patient's last colonoscopy reportedly 12 years ago, normal according to patient; no report available; has had h/o diverticulitis, never hospitalized, last episode in February, seen in ED, normal wbc, abd/pelvic ct scan with mild sigmoid inflammation; pain and constipation resolved with antibiotics; now some intermittent constipation, no blood in stools, no abd pain, no fevers; abd operations significant for ELIZ with BSO; no asa or NSAID use; no tobacco use; no fmhx of GI malignancy or IBD. Review of Systems PHQ Score Initial Depression Screen Score: 0 SCORE ROS - Provider Constitutional: no fever, no sweats, no weight loss. Eyes: no glasses, no blurred vision, no visual loss. ENMT: no dentures, no hoarseness, no swallowing difficulties, no hearing loss, no ear infection(s), no nose bleeds. Cardiovascular: normal blood pressure, no chest pain, regular heartbeat, no heart murmur. Respiratory: no shortness of breath, no cough, no asthma, no wheezing. Gastrointestinal: no nausea, no vomiting, no diarrhea, no constipation, no blood in stool, no change in bowel habits, no abdominal pain, no hepatitis. Genitourinary: no kidney stones, no urine infection, no dysuria. Musculoskeletal: no pain, no weakness. Skin: no changing moles, no rash, no skin lumps. Neurologic: no seizures, no epilepsy, no headache. Psychiatric: no emotional or psychiatric problem. Heme/Lymph: no bleeding problems, no anemia, no blood clots, no transfusions. Allergy/Immunologic: no swollen lymph nodes/glands, no IV drug abuse. Other: Additional ROS info: Except as noted in the above Review of Systems and in the History of Present Illness, all other systems have been reviewed and are negative or noncontributory. Physical Exam Vitals & Measurements HR: 72(Peripheral) RR: 16 BP: 136/82 HT: 63 in HT: 160 cm WT: 75.6 kg WT: 166.669 lb BMI: 29.53 HEENT: normal conjunctiva, sclera clear, no scleral icterus, EOM intact, PERRLA, oral mucosa moist without lesions. Neck: trachea midline, no mass, symmetric, no thyromegaly or nodules, no adenopathy Respiratory: lungs CTA, respirations non labored. Cardiovascular: regular rate and rhythm, no murmur, no pedal edema or varicosities. Gastrointestinal: soft, non distended, no tenderness, no masses, no palpable hernias, diastasis recti no, no hepatosplenomegaly; normal bs Musculoskeletal: abnormal gait, digits and nails without infection, nodes, cyanosis, clubbing. Skin: no rashes, no lesions, no ulcers, no subcutaneous nodules, induration. Psychiatric/Neuro: oriented to time, place, person, judgement normal, affect appropriate for age, insight intact, no focal deficits. Tests: labs reviewed, , review of old records completed , Discussed surgical options, risks, and possible complications with patient. Assessment/Plan 1. Screening for malignant neoplasm of colon (Z12.11: Encounter for screening for malignant neoplasm of colon) plan colonoscopy under anesthesia, informed consent obtained. 2. History of diverticulitis (Z87.19: Personal history of other diseases of the digestive system) see # 1 Follow-up No qualifying data available Problem List/Past Medical History Ongoing Anemia Anxiety BMI 29.0-29.9,adult Chronic back pain History of breast cancer History of colon polyps History of diverticulitis Hyperlipidemia Hypertension Macular degeneration Migraines Overweight Screening for malignant neoplasm of colon Seasonal affective disorder Historical No qualifying data Procedure/Surgical History Closed reduction of fracture of left femur and internal fixation using dynamic hip screw plate (11/04/2024), Closed left wrist fracture, Colonoscopy, Colonoscopy, Excision of lipoma of back, Fracture of leg, Fracture of right olecranon, Mastectomy of right breast, Total abdominal hysterectomy with bilateral salpingo-oophorectomy, Trigger thumb of right hand. Medications calcium-vitamin D Co-Q10 100 mg oral capsu (more content not included)... [facility] Comment on above: Result Comment: Alice matosally Signed By: MELISSA DAVIS, Krishna Cannon\Date and Time Signed: 05/14/25 15:28 EDT 07-23-2024 History of Presen t illness Narrative GENERAL HISTORY AND PHYSICAL: NAME: Claudine Davis : 1955 HISTORY OF PRESENT ILLNESS: Claudine Davis is an 69 y.o. female is here for orthopedic evaluation left ankle injury which is about 2-week-old. They have been down in [facility] and when she stepped off her last [...] Past Medical History: Diagnosis Date Breast cancer ([facility]) 1997 Cancer ([facility]) PAST SURGICAL HISTORY: Past Surgical History: Procedure Laterality Date HYSTERECTOMY 2003 MASTECTOMY Right 10/1999 TRIGGER FINGER RELEASE Right [...] recovery. GOLD Beyer documented in this encounter [facility] 07-23-2024 Instructions GOLD Beyer - 07/23/2024 8:00 [...] weeks total recovery. documented in this encounter [facility] 07-15-2024 Note Patient Education Ma terials Follows: [...] Managing pain, stiffness, and swelling ? Take [id number]-blo-ixmmcml and prescription medicines only as told by [...] provider. Document Revised: 01/04/2022 Document Reviewed: 01/06/2022 [employer] Patient Education ? 2022 [employer] [facility] 01-25-2023 Evaluation note Encounter Date Diagnosis Assessment [...] as documented in the electronic medical record. [facility] Other 02-08-2023 Evaluation note* Encounter Date Diagnosis [...] done prior to surgical procedure to limit elsy-operative risks. I have discussed the planned procedure, how and who performs the procedure, and the personnel involved. Cardiovascular, pulmonary, and other life threatening episodes can occur during surgery although there is a low risk of these happening. Surgical risks including bleeding, neurovascular injury, wound closure problems and infection were discussed. Elsy-operative risks including infection, bleeding, wound healing problems, [...] poor healing. I have advised against the prison use of narcotic pain medication. I have [...] as documented in the electronic medical record. [facility] Other 11-02-2022 Evaluation note* Encounter Date Diagnosis [...] and we can do a steroid injection. [facility] Other Evaluation + Plan note No data available for this section [facility] [place] Evaluation noteNo assessment information available [facility] Work Phone: Evaluation note* Diagnosis Left foot [...] 2002 Surgical History miloma removed from back [facility] Other History general Narrative - Reported* Type Description Date Medical History macular degeneration Medical History breast cancer 1998 Medical History broken rt leg in childhood Surgical History right leg surgery at age 11 x2 Surgical History right toe surgery Surgical History right mastectomy 1998 Surgical History hysterectomy 2002 Surgical History miloma removed from back Hospitalization History see above [facility] Other Hospital Discharge instructions Additional Instructions Trigger [...] prescribed. You may take Motrin or Tylenol [id number] if you wish. Follow-up in 1 week for reevaluation suture removal. Call to make an appointment if you have not already scheduled one. [facility] [address] [id number] [facility] Work Phone: Hospital Discharge instructions Additional Instructions If your symptoms return/worsen or you develop any further concerns or symptoms please see your doctor or return to the emergency department immediately. It is imperative that you go over today's visit and all results with your primary care provider.[facility] Work Phone: Hospital Discharge instructions No data available for this section [facility] [place] Progress note No data available for this section [facility] [place] Summary Purpose Family History No Family History Records Found Relationship Condition Age at Onset Recorded Date/T juventino Not Specified Malignant neoplasm of breast Unknown Macular degeneration Unknown High blood cholesterol Unknown father Myocardial infarction Unknown Chronic obstructive pulmonary disease Unk nown brother Coronary artery disease Unknown Relationship Condition Age at Onset Recorded Date/T juventino mother Malignant neoplasm of breast Unknown Macular degeneration Unknown High blood cholesterol Unknown father Myocardial infarction Unknown Chronic obstructive pulmonary disease Unk nown brother Coronary artery disease Unknown father Family history of emphysema Unknown Heart disease Unknown Unknown mother Unknown Malignant neoplasm Unknown Advance Directives No Advanced Directives Records Found Advance Directive Response Recorded Date/ Time Advance Directives No October 05, 2022 11:09am Advance Directive Response Recorded Date/ Time Advance Directives No October 05, 2022 12:09pm Chief Complaint and Reason for Visit Chief Complaint Right Trigger Thumb Chief Complaint Right Trigger Thumb Right Trigger Thumb Chief Complaint Admit Date lower left abd pain March 09, 2025 10: 26pm Additional Source Comments INFORMATION SOURCE (unrecogn ized section and content) DATE CREATED AUTHOR 11/03/2021 [facility] DATE CREATED AUTHOR AUTHOR'S ORGANIZ ATION 07/27/2024 [facility] EPIC DATE CREATED AUTHOR AUTHOR'S ORGANIZ ATION 03/27/2025 [facility] [address] [facility] DATE CREATED AUTHOR AUTHOR'S ORGANIZ ATION 05/17/2025 [facility] DATE CREATED AUTHOR AUTHOR'S ORGANIZ ATION 05/19/2025 [facility] Care Teams (unrecognized sec tion and content) Team Status: Active Member Role Status Dates Billie Shafer MD Primary Care Provider Active Team Status: Inactive Member Role Status Dates Billie Shafer MD Primary Care Provider Active Start: March 09, 2025 End: March 10, 2025 Kiran Pringle DO Emergency Provider Active Start: March 09, 2025 End: March 10, 2025 Team Status: Inactive Member Role Status Dates Thompson Greer II, MD Attending Provider Active Team Status: Inactive Member Role Status Dates Billie Shafer MD Primary Care Provider Active Alex Doll DO Attending Provider Active Programs Manager Relationship Specialty Start Date End Date Billie Shafer MD [address] [place] [id number] PCP - General Family Medicine 07/23/24 Programs Manager Relationship Specialty Start Date End Date Billie Shafer MD [address] [place] [id number] PCP - General Family Medicine 07/23/24 Goals (unrecognized section and content) Goals may be documented in a n alternate sectionNo InformationGoals may be documented in an alternate sectionNo InformationNo InformationGoals may be documented in an alternate section No data available for this section REASON FOR VISIT (unrecogniz ed section and [...] BE BASED ON THE PRIMARY CLINICAL RECORDS. [facility]. provides no warranty or guarantee of the accuracy or completeness of information in this document.
[2025-05-28 07:00] VITALS: BP 142/85; PULSE 75; TEMP 36.1; O2SAT 99; BMI 28.8
[2025-05-28] MEDS: 0.9 % SODIUM CHLORIDE 500 ML 50 ML IV (07:31)
[2025-05-28 08:34] VITALS: BP 126/71; PULSE 62; O2SAT 95
[2025-05-28 08:48] VITALS: BP 127/92; PULSE 70; O2SAT 99
[2025-05-28 09:03] VITALS: BP 133/80; PULSE 61; O2SAT 99
== END 2025-05-28 09:11 | disposition home or self-care (01) ==
LOC: SURGOUT 06:54
PROVIDERS: Visit Provider Surgery
PROC: (CPT G0121; principal; 2025-05-28 07:55)
DX: Z12.11 Encounter for screening for malignant neoplasm of colon (principal); K57.30 Diverticulosis of large intestine without perforation or abscess without bleeding; Z87.19 Personal history of other diseases of the digestive system; I10 Essential (primary) hypertension; E78.5 Hyperlipidemia, unspecified; Z85.3 Personal history of malignant neoplasm of breast; Z90.710 Acquired absence of both cervix and uterus; Z90.11 Acquired absence of right breast and nipple; Z90.722 Acquired absence of ovaries, bilateral; Z90.79 Acquired absence of other genital organ(s); Z87.891 Personal history of nicotine dependence
CPT/HCPCS: G0121; J2704